=== PATIENT | male | born 1945 | race Caucasian/White ===

== ENCOUNTER 2020-05-01 09:14 | Outpatient (REF) | payer MEDICARE, SELFPAY ==
[2020-05-01 10:14] LABS: MANUAL DIFF FLAG NO
[2020-05-01 10:18] LABS: Basophils Percent Auto 0.5 % (0-2); Eosinophils Absolute Auto 0.1 X10*3/uL (0.0-0.4); Eosinophils Percent Auto 3.5 % (0-4); Hematocrit 37.2 % (42-52); Hemoglobin 12.3 g/dl (14.0-18.0); Lymphocytes Absolute Auto 0.9 X10*3/uL (1.2-4.9); Lymphocytes Percent Auto 24.6 % (20-40); Mean Corpuscular HGB Conc 33.1 g/dl (31.0-36.0); Mean Corpuscular Hemoglobin 32.1 pg (27.0-33.0); Mean Corpuscular Volume 97.1 fL (80-98); Mean Platelet Volume 10.4 fL (9.4-12.4); Monocytes Absolute Auto 0.4 X10*3/uL (0.1-1.2); Monocytes Percent Auto 10.2 % (2-11); Neutrophils Absolute Auto 2.3 X10*3/uL (2.0-8.3); Neutrophils Percent Auto 61.2 % (45-73); Platelet Count 163 X10*3/uL (160-400); Red Blood Count 3.83 X10*6/uL (4.60-5.80); Red Cell Distribution Width 11.9 % (11.0-16.0); White Blood Count 3.7 X10*3/uL (4.8-10.8)
[2020-05-01 10:48] LABS: Anion Gap 13 (12-20); Blood Urea Nitrogen 45 mg/dL (9-16); Calcium 8.8 mg/dL (8.4-10.2); Carbon Dioxide 28 mmol/L (22-29); Chloride 100 mmol/L (96-108); Estimated Glomerular Filt Rate 31; Phosphorus 4.1 mg/dL (2.7-4.5); Potassium 4.8 mmol/l (3.3-5.1); Sodium 136 mmol/L (135-145)
[2020-05-01 10:50] LABS: Glucose Urine UA NEG (NEG); Leukocyte Esterase Urine NEG (NEG); Nitrite Urine NEG (NEG); Specific Gravity - Urine 1.015 (1.005-1.025); Urine Blood TRACE (NEG); Urine Ketones NEG (NEG); Urine Protein NEG (NEG-TRACE)
[2020-05-01 10:52] LABS: Appearance Urine CLEAR; Color Urine YELLOW
[2020-05-01 11:00] LABS: Renal w Reflex Lab Use Only Order verified
[2020-05-01 11:01] LABS: Creatinine Urine 42.39 mg/dL; Creatinine Urine 42.63 mg/dL; Microalbum/Creatinine Ratio Ur 18.7 ug/mg cr; Total Protein Urine Random < 7 mg/dL (<12)
[2020-05-01 11:05] LABS: RBC Urine 0-2 /HPF (0); WBC Urine 0 /HPF (0-4)
[2020-05-01 11:06] LABS: Renal w Reflex-LAB USE ONLY Order Verified
[2020-05-03 08:42] LABS: Calcium (PTHI) 8.7 mg/dL (8.6-10.3); PTHI 70 pg/mL (14-64)
== END 2020-05-01 09:15 | disposition home or self-care (01) ==
LOC: HO.10HDL 09:14
PROVIDERS: Visit Provider Internal Medicine Nephrology
DX: I12.9 Hypertensive chronic kidney disease with stage 1 through stage 4 chronic kidney disease, or unspecified chronic kidney disease (principal); E11.22 Type 2 diabetes mellitus with diabetic chronic kidney disease; N18.30 Chronic kidney disease, stage 3 unspecified
CPT/HCPCS: 36415; 80051; 81001; 82043; 82306; 82310; 82565; 83970; 84100; 84156; 84520; 85025

== ENCOUNTER → 2020-05-28 11:18 | Outpatient (BNVA) | payer MEDICARE, SELFPAY | PROVIDERS: PCP Internal Medicine; Visit Provider Internal Medicine | DX: I48.19 Other persistent atrial fibrillation (principal); I11.0 Hypertensive heart disease with heart failure; I50.32 Chronic diastolic (congestive) heart failure; I95.1 Orthostatic hypotension | CPT/HCPCS: 93005; 99212 ==

== ENCOUNTER 2020-06-06 10:27 | Outpatient (REF) | payer MEDICARE, SELFPAY ==
[2020-06-06 12:10] LABS: Estimated Average Glucose 137 mg/dL; Hemoglobin A1c % 6.4 %
[2020-06-06 13:08] LABS: Alanine Aminotransferase 20 U/L (0-40); Albumin Level 3.8 g/dL (3.5-5.0); Alkaline Phosphatase 67 U/L (39-117); Aspartate Amino Transferase 16 U/L (5-37); Bilirubin Direct 0.6 mg/dL (0.0-0.5); Bilirubin Total 1.1 mg/dL (0.0-1.0); Glucose Fasting 60 mg/dL (60-99); Total Protein 6.5 g/dL (6.5-8.0)
[2020-06-06 13:50] LABS: Cholesterol 77 mg/dL; HDL Cholesterol 27 mg/dL; LDL Cholesterol Calculated 41 mg/dl; Triglycerides 46 mg/dL
[2020-06-06 14:29] LABS: Reflex LDLD? No
== END 2020-06-06 10:28 | disposition home or self-care (01) ==
LOC: HO.LNP 10:27
PROVIDERS: PCP Internal Medicine; Visit Provider Internal Medicine
DX: E11.9 Type 2 diabetes mellitus without complications (principal); E78.00 Pure hypercholesterolemia, unspecified
CPT/HCPCS: 80061; 80076; 82947; 83036

== ENCOUNTER → 2020-07-04 09:10 | Outpatient (REF) | payer MEDICARE, SELFPAY ==
--- NOTE | 2020-07-04 09:15 | CA_ITS ---
Transthoracic Echocardiogram Patient (Last, First, Middle): Steven Elise S Gender: Male Date of : 1945 Age: 75 Procedure Date: 07/04/2020 Procedure Type: Transthoracic Echocardiogram Location: OP Height: 177.8 cm Weight: 127.01 kg BSA: 2.41 m2 Heart Rate: bpm BP: 128 / 80 mmHg License Clerk: Referring MD: Wade Castañeda MD Symptoms: I50.32 - Chronic diastolic (congestive) heart failure Study Quality: Technically Difficult due to obesity Contrast used ECG Rhythm: Atrial Fibrillation Conclusions: - The left ventricular systolic function is normal. The visually estimated ejection fraction is between 55-60%. - No obvious valvular pathology seen on this study. - The inferior vena cava is mildly dilated and collapses less than 50% with inspiration. Findings Procedure Information Contrast agent, definity, is being given per protocol without apparent complications. Left Ventricle Normal left ventricular cavity size. There is mildly increased left ventricular wall thickness. The left ventricular systolic function is normal. The visually estimated ejection fraction is between 55-60%. There is no evidence of regional wall motion abnormalities. Diastolic function is indeterminate on the basis of available data. E/E prime ratio is between 8 and 15 consistent with indeterminate filling pressures. Right Ventricle The right ventricle was not well visualized. Normal right ventricular cavity size. There is normal right ventricular systolic function. Atria Severe biatrial enlargement. Aortic Valve There is mild calcification of the aortic valve. There is no aortic valve stenosis. There is no aortic valve regurgitation. Mitral Valve There is mild mitral annular calcification. There is trace mitral valve regurgitation. There is no mitral valve stenosis. Pulmonic Valve The pulmonic valve was not well visualized. Tricuspid Valve Normal tricuspid valve structure. There is trace tricuspid valve regurgitation. The right ventricular systolic pressure is normal. The pulmonary artery systolic pressure may be underestimated. Great Vessels The aortic annulus, sinuses of valsalva, and asc aorta are normal in size. Venous The inferior vena cava is mildly dilated and collapses less than 50% with inspiration. Pericardium/Pleural There is no evidence of pericardial effusion. Prior Study Comparison No significant change compared to prior study dated: 08/16/2018. Recommendations, Care & Conclusions No obvious valvular pathology seen on this study. Measurements 2D Linear Measurements IVSd: 1.23 0.6-0.9/0.6-1.0 cm LVIDd: 4.66 3.9-5.3/4.2-5.9 cm LVIDd Index: 1.93 2.4-3.2/2.2-3.1 cm/m2 LVIDs: 2.87 2.0-3.6 cm LVPWd: 1.25 0.7-1.1 cm Ao Root: 3.40 2.1-3.5 cm LA Diam: 4.80 2.7-3.8/3.0-4.0 cm LAIDs Index: 1.99 1.5-2.3 cm/m2 LV Mass: 273.31 67-162/88-224 g LV Mass Index: 113.41 43-95/49-115 g/m2 LVOT Diam: 2.10 3.0+(-)1.3 cm 2D Systolic Function EF 4C: 63.40 >55% EF 2C: 55.20 >55% EF BiP: 58.00 >55% Mitral Valve MV Pk E: 1.21 MV Decel Time: 253.00 E'Lateral: 12.50 E'Medial: 6.58 E/E' Med: 18.40 E/E' Lat: 9.70 PHT: 74.00 MVA PHT: 2.97 Decel [place]: 4.77 Aortic Valve AoV Pk Terence: 1.79 AoV Mn Terence: 1.10 AoV VTI: 0.39 AoV Pk Grad: 13.00 Aov Mn Grad: 6.00 CHRIS Cont.VTI: 1.85 LVOT LVOT Pk Terence: 0.86 LVOT Mn Terence: 0.62 LVOT VTI: 0.21 LVOT Pk Grad: 3.00 LVOT Mn Grad: 2.00 LVOT Diam: 2.10 LVOT Area: 3.46 Diastolic Function MV Pk E: 1.21 E'Medial: 6.58 E/E' Med: 18.40 E' Laterial: 12.50 E/E' Lat: 9.70 Tricuspid Valve TR Pk Terence: 1.93 TR Pk Grad: 15.00 Great Vessels Aorta Ao Root-2D: 3.40 2.0-3.7 cm Pulmonary Valve PV Pk Terence: 0.86 Peak PV Grad: 3.00 Updated in Other Vendor System with Status of Final Wade Castañeda MD electronically signed on 07/06/2020 9:44:13 AM with status of Final
--- NOTE | 2020-07-04 09:15 | ECG_ITS ---
Hook-up date: 2020-07-04 10:59:00 Duration: 47:59:00 Test Indications: PERSISTANT AFIB Medications: 28269 QRS complexes 32 Ventricular ectopics which represent <1 % of total QRS comp. * Supraventricular ectopics which represent % of total QRS comp. * Paced QRS complexs which represent % of total QRS comp. VENTRICULAR ECTOPY 32 Isolated 0 Bigeminal Cycles 0 Couplets 0 Runs 0 Beats in Runs * Beats LONGEST at * BPM at :: -- * Beats FASTEST at * BPM at :: -- SUPRAVENTRICULAR ECTOPY * Isolated * Couplets * Runs * Beats in Runs * Beats LONGEST at * BPM at :: -- * Beats FASTEST at * BPM at :: -- HEART RATES 40 MIN at 07:06:35 2020-07-05 65 AVG 106 MAX at 23:43:23 2020-07-04 LONGEST RR 2.2960 secs at 07:06:53 2020-07-05 S-T LEVELS Channel 1 - 128 mm at 10:59:00 2020-07-04 - 128 mm at 10:59:00 2020-07-04 Channel 2 - 128 mm at 10:59:00 2020-07-04 - 128 mm at 10:59:00 2020-07-04 Channel 3 - 128 mm at 03:01:81 -- - 128 mm at 03:01:81 Underlying rhythm is atrial fibrillation; Average ventricular rate 65/min; range 40-106/min; Rare PVCs; Patient did not report any symptoms in the diary Referred By: Jeffrey Rouse Overread By: JEFFREY ROUSE
== END ==
LOC: HO.CARD 09:10
PROVIDERS: Visit Provider Internal Medicine
DX: I48.19 Other persistent atrial fibrillation (principal); I50.32 Chronic diastolic (congestive) heart failure
CPT/HCPCS: 93225; 93226; 93306; Q9957

== ENCOUNTER → 2020-07-14 09:26 | Outpatient (BNVA) | payer MEDICARE, SELFPAY | PROVIDERS: PCP Internal Medicine; Visit Provider Internal Medicine | DX: I48.19 Other persistent atrial fibrillation (principal); I95.1 Orthostatic hypotension; I11.0 Hypertensive heart disease with heart failure; I50.32 Chronic diastolic (congestive) heart failure | CPT/HCPCS: 99212 ==

== ENCOUNTER 2020-10-24 10:29 | Outpatient (REF) | payer MEDICARE, SELFPAY ==
[2020-10-24 11:43] LABS: MANUAL DIFF FLAG NO
[2020-10-24 11:47] LABS: Basophils Percent Auto 0.7 % (0-2); Eosinophils Absolute Auto 0.1 X10*3/uL (0.0-0.4); Eosinophils Percent Auto 2.4 % (0-4); Hematocrit 41.6 % (42-52); Hemoglobin 13.7 g/dl (14.0-18.0); Imm Gran Abs Auto 0.01 X10*3/uL (0.00-0.03); Imm Gran Pct Auto 0.2 % (0.0-0.4); Lymphocytes Absolute Auto 0.9 X10*3/uL (1.2-4.9); Lymphocytes Percent Auto 19.2 % (20-40); Mean Corpuscular HGB Conc 32.9 g/dl (31.0-36.0); Mean Corpuscular Hemoglobin 31.6 pg (27.0-33.0); Mean Corpuscular Volume 95.9 fL (80-98); Mean Platelet Volume 10.5 fL (9.4-12.4); Monocytes Absolute Auto 0.4 X10*3/uL (0.1-1.2); Monocytes Percent Auto 9.4 % (2-11); Neutrophils Absolute Auto 3.1 X10*3/uL (2.0-8.3); Neutrophils Percent Auto 68.1 % (45-73); Platelet Count 186 X10*3/uL (160-400); Red Blood Count 4.34 X10*6/uL (4.60-5.80); Red Cell Distribution Width 12.4 % (11.0-16.0); White Blood Count 4.6 X10*3/uL (4.8-10.8)
[2020-10-24 11:50] LABS: Glucose Urine UA 250 MG/DL (NEG); Leukocyte Esterase Urine NEG (NEG); Nitrite Urine NEG (NEG); Urine Blood TRACE (NEG); Urine Ketones NEG (NEG); Urine Protein 1+ MG/DL (NEG-TRACE)
[2020-10-24 12:10] LABS: Albumin Level 3.6 g/dL (3.5-5.0); Anion Gap 11 (12-20); Blood Urea Nitrogen 32 mg/dL (9-16); Calcium 8.9 mg/dL (8.4-10.2); Carbon Dioxide 29 mmol/L (22-29); Chloride 102 mmol/L (96-108); Estimated Glomerular Filt Rate 40; Magnesium 1.8 mg/dL (1.6-2.6); Phosphorus 3.2 mg/dL (2.7-4.5); Sodium 137 mmol/L (135-145); Total Protein 6.6 g/dL (6.5-8.0)
[2020-10-24 12:13] LABS: Appearance Urine CLEAR; Color Urine YELLOW
[2020-10-24 12:17] LABS: WBC Urine 0 /HPF (0-4)
[2020-10-24 12:20] LABS: Creatinine Urine 112.24 mg/dL; Microalbum/Creatinine Ratio Ur 193.3 ug/mg cr; Protein/Creatinine Ratio, Ur 0.37 (<0.2); Total Protein Urine Random 41 mg/dL (<12)
[2020-10-24 12:39] LABS: Vitamin D 25-OH Total 19.2 ng/mL (>30)
[2020-10-24 13:05] LABS: Renal w Reflex Lab Use Only Order verified
[2020-10-27 15:11] LABS: Calcium (PTHI) 8.8 mg/dL (8.6-10.3); PTHI 70 pg/mL (14-64)
== END 2020-10-24 10:30 | disposition home or self-care (01) ==
LOC: HO.LAB 10:29
PROVIDERS: PCP Internal Medicine; Visit Provider Internal Medicine Nephrology
DX: I12.9 Hypertensive chronic kidney disease with stage 1 through stage 4 chronic kidney disease, or unspecified chronic kidney disease (principal); N18.30 Chronic kidney disease, stage 3 unspecified; E11.22 Type 2 diabetes mellitus with diabetic chronic kidney disease; E11.21 Type 2 diabetes mellitus with diabetic nephropathy
CPT/HCPCS: 36415; 80051; 81001; 81003; 82040; 82043; 82306; 82310; 82565; 83735; 83970; 84100; 84155; 84156; 84520; 85025

== ENCOUNTER 2020-12-16 10:36 | Outpatient (REF) | payer MEDICARE, SELFPAY ==
[2020-12-16 10:40] LABS: MANUAL DIFF FLAG NO
[2020-12-16 11:30] LABS: Basophils Percent Auto 0.7 % (0-2); Eosinophils Absolute Auto 0.2 X10*3/uL (0.0-0.4); Eosinophils Percent Auto 3.7 % (0-4); Hemoglobin 14.4 g/dl (14.0-18.0); Lymphocytes Absolute Auto 1.1 X10*3/uL (1.2-4.9); Lymphocytes Percent Auto 25.9 % (20-40); Mean Corpuscular HGB Conc 33.5 g/dl (31.0-36.0); Mean Corpuscular Hemoglobin 32.6 pg (27.0-33.0); Mean Corpuscular Volume 97.3 fL (80-98); Mean Platelet Volume 10.4 fL (9.4-12.4); Monocytes Absolute Auto 0.6 X10*3/uL (0.1-1.2); Monocytes Percent Auto 14.5 % (2-11); Neutrophils Absolute Auto 2.4 X10*3/uL (2.0-8.3); Neutrophils Percent Auto 55.2 % (45-73); Platelet Count 184 X10*3/uL (160-400); Red Blood Count 4.42 X10*6/uL (4.60-5.80); White Blood Count 4.3 X10*3/uL (4.8-10.8)
[2020-12-16 12:02] LABS: Alanine Aminotransferase 18 U/L (0-40); Albumin Level 3.8 g/dL (3.5-5.0); Alkaline Phosphatase 71 U/L (39-117); Anion Gap 9 (12-20); Aspartate Amino Transferase 15 U/L (5-37); Bilirubin Total 1.6 mg/dL (0.0-1.0); Blood Urea Nitrogen 27 mg/dL (9-16); Calcium 8.9 mg/dL (8.4-10.2); Carbon Dioxide 29 mmol/L (22-29); Chloride 102 mmol/L (96-108); Cholesterol 97 mg/dL; Estimated Glomerular Filt Rate 43; Glucose Fasting 146 mg/dL (60-99); HDL Cholesterol 32 mg/dL; LDL Cholesterol Calculated 53 mg/dl; Potassium 4.7 mmol/L (3.3-5.1); Sodium 135 mmol/L (135-145); Total Protein 6.7 g/dL (6.5-8.0); Triglycerides 63 mg/dL
[2020-12-16 12:21] LABS: PSA,Total (Free>4and<10) 0.09 ng/mL (0.00-4.00)
[2020-12-16 12:42] LABS: Appearance Urine CLEAR; Color Urine YELLOW; Glucose Urine UA NEG (NEG); Leukocyte Esterase Urine NEG (NEG); Nitrite Urine NEG (NEG); Urine Blood TRACE (NEG); Urine Ketones NEG (NEG); Urine Protein NEG (NEG-TRACE)
[2020-12-16 12:54] LABS: Microalbum/Creatinine Ratio Ur 293.5 ug/mg cr
[2020-12-16 13:03] LABS: RBC Urine 0-2 /HPF (0); Squamous Epithelial Cell Urine TRACE /LPF; WBC Urine 0-2 /HPF (0-4)
[2020-12-16 13:20] LABS: Estimated Average Glucose 186 mg/dL; Hemoglobin A1c % 8.1 %
[2020-12-16 13:34] LABS: Reflex LDLD? No
== END 2020-12-16 10:37 | disposition home or self-care (01) ==
LOC: HO.LNP 10:36
PROVIDERS: Visit Provider Internal Medicine
DX: Z00.00 Encounter for general adult medical examination without abnormal findings (principal); R79.9 Abnormal finding of blood chemistry, unspecified; E11.9 Type 2 diabetes mellitus without complications; I10 Essential (primary) hypertension; R59.1 Generalized enlarged lymph nodes
CPT/HCPCS: 80053; 80061; 81001; 81003; 82043; 83036; 84153; 85025

== ENCOUNTER → 2021-01-12 10:01 | Outpatient (BNVA) | payer MEDICARE, SELFPAY | PROVIDERS: PCP Internal Medicine; Referring Provider Internal Medicine; Visit Provider Internal Medicine | DX: I48.19 Other persistent atrial fibrillation (principal); I95.1 Orthostatic hypotension; I11.0 Hypertensive heart disease with heart failure; I50.32 Chronic diastolic (congestive) heart failure | CPT/HCPCS: 99212 ==

== ENCOUNTER 2021-03-13 13:34 | Outpatient (REF) | payer MEDICARE, SELFPAY ==
[2021-03-13 13:37] LABS: MANUAL DIFF FLAG NO
[2021-03-13 13:49] LABS: Basophils Percent Auto 0.7 % (0-2); Eosinophils Absolute Auto 0.1 X10*3/uL (0.0-0.4); Eosinophils Percent Auto 2.4 % (0-4); Hematocrit 42.6 % (42.0-52.0); Hemoglobin 14.4 g/dl (14.0-18.0); Imm Gran Abs Auto 0.01 X10*3/uL (0.00-0.03); Imm Gran Pct Auto 0.2 % (0.0-0.4); Lymphocytes Absolute Auto 0.8 X10*3/uL (1.2-4.9); Mean Corpuscular HGB Conc 33.8 g/dl (31.0-36.0); Mean Corpuscular Hemoglobin 32.5 pg (27.0-33.0); Mean Corpuscular Volume 96.2 fL (80.0-98.0); Mean Platelet Volume 10.5 fL (9.4-12.4); Monocytes Absolute Auto 0.5 X10*3/uL (0.1-1.2); Neutrophils Absolute Auto 3.1 x10*3/uL (2.0-8.3); Neutrophils Percent Auto 68.7 % (45-73); Platelet Count 168 X10*3/uL (160-400); Red Blood Count 4.43 X10*6/uL (4.60-5.80); Red Cell Distribution Width 12.3 % (11.0-16.0); White Blood Count 4.5 X10*3/uL (4.8-10.8)
[2021-03-13 14:17] LABS: Alanine Aminotransferase 27 U/L (0-40); Albumin Level 3.6 g/dL (3.5-5.0); Alkaline Phosphatase 80 U/L (39-117); Anion Gap 12 (12-20); Aspartate Amino Transferase 19 U/L (5-37); Bilirubin Total 1.4 mg/dL (0.0-1.0); Blood Urea Nitrogen 29 mg/dL (9-16); Calcium 9.1 mg/dL (8.4-10.2); Carbon Dioxide 27 mmol/L (22-29); Chloride 102 mmol/L (96-108); Estimated Glomerular Filt Rate 40; Glucose Random 257 mg/dL (60-115); Potassium 4.8 mmol/L (3.3-5.1); Sodium 136 mmol/L (135-145); Total Protein 6.6 g/dL (6.5-8.0)
[2021-03-13 14:37] LABS: Thyroid Stimulating Hormone 1.04 uIU/mL (0.32-4.0)
== END 2021-03-13 13:35 | disposition home or self-care (01) ==
LOC: HO.LNP 13:34
PROVIDERS: PCP Internal Medicine; Visit Provider Internal Medicine
DX: G47.10 Hypersomnia, unspecified (principal)
CPT/HCPCS: 80053; 84443; 85025

== ENCOUNTER 2021-04-16 12:33 | Outpatient (REF) | payer MEDICARE, SELFPAY ==
[2021-04-16 13:05] LABS: MANUAL DIFF FLAG NO
[2021-04-16 13:18] LABS: Basophils Percent Auto 0.4 % (0-2); Eosinophils Absolute Auto 0.1 X10*3/uL (0.0-0.4); Eosinophils Percent Auto 2.6 % (0-4); Hematocrit 42.5 % (42.0-52.0); Hemoglobin 14.5 g/dl (14.0-18.0); Imm Gran Abs Auto 0.01 X10*3/uL (0.00-0.03); Imm Gran Pct Auto 0.2 % (0.0-0.4); Lymphocytes Absolute Auto 0.9 X10*3/uL (1.2-4.9); Lymphocytes Percent Auto 19.1 % (20-40); Mean Corpuscular HGB Conc 34.1 g/dl (31.0-36.0); Mean Corpuscular Hemoglobin 32.4 pg (27.0-33.0); Mean Corpuscular Volume 94.9 fL (80.0-98.0); Mean Platelet Volume 9.9 fL (9.4-12.4); Monocytes Absolute Auto 0.4 X10*3/uL (0.1-1.2); Neutrophils Absolute Auto 3.4 x10*3/uL (2.0-8.3); Neutrophils Percent Auto 68.7 % (45-73); Platelet Count 169 X10*3/uL (160-400); Red Blood Count 4.48 X10*6/uL (4.60-5.80); Red Cell Distribution Width 12.2 % (11.0-16.0); White Blood Count 4.9 X10*3/uL (4.8-10.8)
[2021-04-16 13:39] LABS: Albumin Level 3.8 g/dL (3.5-5.0); Anion Gap 9 (12-20); Blood Urea Nitrogen 27 mg/dL (9-16); Calcium 9.4 mg/dL (8.4-10.2); Carbon Dioxide 29 mmol/L (22-29); Chloride 102 mmol/L (96-108); Estimated Glomerular Filt Rate 39; Magnesium 1.6 mg/dL (1.6-2.6); Phosphorus 3.6 mg/dL (2.7-4.5); Potassium 5.1 mmol/L (3.3-5.1); Sodium 135 mmol/L (135-145)
[2021-04-16 13:54] LABS: Appearance Urine CLEAR; Color Urine YELLOW; Glucose Urine UA NEG (NEG); Leukocyte Esterase Urine NEG (NEG); Nitrite Urine NEG (NEG); PH 6.5 (5.0-8.0); Urine Blood TRACE (NEG); Urine Ketones NEG (NEG); Urine Protein 1+ MG/DL (NEG-TRACE)
[2021-04-16 13:59] LABS: Vitamin D 25-OH Total 28.2 ng/mL (>30)
[2021-04-16 14:16] LABS: Amorphous Sediment Urine 1+ /LPF; WBC Urine 0 /HPF (0-4)
[2021-04-16 14:22] LABS: Creatinine Urine 56.78 mg/dL; Microalbum/Creatinine Ratio Ur 457.9 ug/mg cr; Protein/Creatinine Ratio, Ur 0.76 (<0.2); Total Protein Urine Random 43 mg/dL (<12)
[2021-04-17 12:21] LABS: Calcium (PTHI) 9.4 mg/dL (8.6-10.3); PTHI 38 pg/mL (14-64)
== END 2021-04-16 12:34 | disposition home or self-care (01) ==
LOC: HO.LAB 12:33
PROVIDERS: PCP Internal Medicine; Visit Provider Internal Medicine Nephrology
DX: N18.32 Chronic kidney disease, stage 3b (principal)
CPT/HCPCS: 36415; 80051; 81001; 81003; 82040; 82043; 82306; 82310; 82565; 83735; 83970; 84100; 84156; 84520; 85025; 87086

== ENCOUNTER 2021-06-15 10:32 | Outpatient (REF) | payer MEDICARE, SELFPAY ==
[2021-06-15 10:59] LABS: Estimated Average Glucose 240 mg/dL
[2021-06-15 11:06] LABS: Alanine Aminotransferase 24 U/L (0-40); Albumin Level 3.8 g/dL (3.5-5.0); Alkaline Phosphatase 79 U/L (39-117); Aspartate Amino Transferase 18 U/L (5-37); Bilirubin Direct 0.5 mg/dL (0.0-0.5); Bilirubin Total 1.2 mg/dL (0.0-1.0); Cholesterol 102 mg/dL; Glucose Fasting 283 mg/dL (60-99); HDL Cholesterol 25 mg/dL; LDL Cholesterol Calculated 57 mg/dl; Total Protein 6.7 g/dL (6.5-8.0); Triglycerides 102 mg/dL
[2021-06-15 11:10] LABS: Reflex LDLD? No
== END 2021-06-15 10:33 | disposition home or self-care (01) ==
LOC: HO.LNP 10:32
PROVIDERS: Visit Provider Internal Medicine
DX: E78.00 Pure hypercholesterolemia, unspecified (principal); E11.21 Type 2 diabetes mellitus with diabetic nephropathy
CPT/HCPCS: 80061; 80076; 82947; 83036

== ENCOUNTER → 2021-07-20 09:46 | Outpatient (BNVA) | payer MEDICARE, SELFPAY | PROVIDERS: PCP Internal Medicine; Referring Provider Internal Medicine; Visit Provider Internal Medicine | DX: I48.19 Other persistent atrial fibrillation (principal); I95.1 Orthostatic hypotension; I10 Essential (primary) hypertension; G47.33 Obstructive sleep apnea (adult) (pediatric); Z99.89 Dependence on other enabling machines and devices | CPT/HCPCS: 93005; 99212 ==

== ENCOUNTER 2021-11-06 07:10 | Day surgery (SDC) | payer MEDICARE, SELFPAY ==
[2021-11-02 12:20] VITALS: BMI 41.0
--- NOTE | 2021-11-05 12:04 | HO.ANESPROP2 ---
Documented by User: Charis Rooney NP 11/05/21 12:06 HPI - Anesthesia Eval Consult details Narrative: 76yo M for Colonoscopy Eliquis for afib Stable at [facility] cardiol 07/2021 [facility] Active Problems Active Problems: All Active Problems (Updated 11/02/21 @ 12:21 by Felicity Hoffman RN) Orthostatic hypotension (Acute) ABHAY on CPAP (Acute) Essential hypertension (Acute) Chronic heart failure with preserved ejection fraction (HFpEF) (Acute) Persistent atrial fibrillation (Acute) Past Medical History Medical History Chronic heart failure with preserved ejection fraction (HFpEF) Diabetes Essential hypertension ABHAY on CPAP Persistent atrial fibrillation Family History Family History Father No problems noted. Mother No problems noted. Surgical History Surgical History H/O colonoscopy History of appendectomy History of cholecystectomy History of knee replacement Hx of arthroscopy of right knee Social History Social History Patient Tobacco Use Status: Never used Tobacco Use of substances other than those prescribed or required for medical reasons: No Advance Directives: No Advance Directives Information Provided: Yes Nutrition Risks: No Nutritional Risk Meds Allergies Allergy/AdvReac Type Severity Reaction Status Date / Time No Known Allergies Allergy Mild NOT Verified 07/20/21 09:53 APPLICABLE Home Medications Medication Instructions Recorded Confirmed Last Taken Type atorvastatin 40 mg tablet 40 mg PO DAILY 05/28/20 11/02/21 Unknown History glipizide 5 mg tablet 2.5 mg PO BID 05/28/20 11/02/21 Unknown History insulin glargine 100 unit/mL 60 unit subcut DAILY 05/28/20 11/02/21 Unknown History subcutaneous solution irbesartan 300 mg tablet 300 mg PO DAILY 05/28/20 11/02/21 Unknown History metoprolol tartrate 100 mg tablet 100 mg PO BID 05/28/20 11/02/21 Unknown History spironolactone 25 mg tablet 25 mg PO DAILY 05/28/20 11/02/21 Unknown History escitalopram oxalate 20 mg tablet 20 mg PO DAILY 01/12/21 11/02/21 Unknown History bupropion HCl 150 mg tablet,12 hr 150 mg PO QAM 07/20/21 11/02/21 Unknown History sustained-release Exam Exam Date and Time: November 05, 2021 1204 Height,Weight and Vital Signs: Height 5 ft 9 in Weight 126 kg Pertinent Lab Results Pertinent Lab Results: Laboratory Tests 04/16/21 04/16/21 13:04 13:04 WBC 4.9 Hgb 14.5 Hct 42.5 Plt Count 169 Sodium 135 Potassium 5.1 Chloride 102 Carbon Dioxide 29 BUN 27 H Creatinine 1.70 H Narrative Narrative: EKG 07/2021 atrial fibrillation, 64/Min; no significant ST-T changes and otherwise unremarkable. ECHO 2020 Conclusions: - The left ventricular systolic function is normal.? The visually estimated ejection fraction is between 55-60%. ? - No obvious valvular pathology seen on this study.? - The inferior vena cava is mildly dilated and collapses less? ? than 50% with inspiration. ? Documented by User: Dilia Nava MD 11/06/21 08:07 [facility] Past Medical History Medical History Chronic heart failure with preserved ejection fraction (HFpEF) Diabetes Essential hypertension ABHAY on CPAP Persistent atrial fibrillation Family History Family History Father No problems noted. Mother No problems noted. Surgical History Surgical History H/O colonoscopy History of appendectomy History of cholecystectomy History of knee replacement Hx of arthroscopy of right knee History of Problems with Anesthesia: No Social History Social History Patient Tobacco Use Status: Never used Tobacco Use of substances other than those prescribed or required for medical reasons: No Advance Directives: No Advance Directives Information Provided: Yes Nutrition Risks: No Nutritional Risk Meds Allergies Allergy/AdvReac Type Severity Reaction Status Date / Time No Known Allergies Allergy Mild NOT Verified 07/20/21 09:53 APPLICABLE Home Medications Medication Instructions Recorded Confirmed Last Taken Type atorvastatin 40 mg tablet 40 mg PO DAILY 05/28/20 11/02/21 Unknown History glipizide 5 mg tablet 2.5 mg PO BID 05/28/20 11/02/21 Unknown History insulin glargine 100 unit/mL 60 unit subcut DAILY 05/28/20 11/02/21 Unknown History subcutaneous solution irbesartan 300 mg tablet 300 mg PO DAILY 05/28/20 11/02/21 Unknown History metoprolol tartrate 100 mg tablet 100 mg PO BID 05/28/20 11/02/21 Unknown History spironolactone 25 mg tablet 25 mg PO DAILY 05/28/20 11/02/21 Unknown History escitalopram oxalate 20 mg tablet 20 mg PO DAILY 01/12/21 11/02/21 Unknown History bupropion HCl 150 mg tablet,12 hr 150 mg PO QAM 07/20/21 11/02/21 Unknown History sustained-release Exam Airway Mallampati Class: III TM Dist: >3cm Neck ROM: Full Loose/Missing/Broken Teeth: No Heart: RRR Lungs: CTA Assessment and Plan Assessment Anesthesia Assessment: Anesthesia Plan Discussed and Chart Reviewed Final Anesthetic Review History of Problems with Anesthesia: No NPO: Yes ASA Class: III Final Preanesthetic Review: Meds/Allgs Chart Reviewed, Consent Obtained/Reviewed and Anes Risks/Benef Reviewed Patient Risk: Intermediate Procedure Risk: Low Anesthetic Plan Anesthetic Plan: MAC: Disposition: Standard PACU
[2021-11-06 07:37] VITALS: BP 142/78; PULSE 70; RESP 16; TEMP 36.3; O2SAT 98; BMI 41.3
[2021-11-06] MEDS: Lactated Ringers 1,000 ML 50 ML IVCONT (07:47)
[2021-11-06 07:51] LABS: Glucose, Whole Blood 199 mg/dL (60-115)
--- NOTE | 2021-11-06 08:19 | MHC.SHP ---
Pre-Procedural Eval Section A Date of Service: 11/06/21 Section B Chief Complaint: screening Details of Present Illness: seeH&P no changes Relevant Family History (Specify if Yes): No Relevant Social History: None Present Medications: None Medical History: No relevant PMH History of Previous Operations: No relevant previous surgery Allergies: Allergies Allergy/AdvReac Type Severity Reaction Status Date / Time No Known Allergies Allergy Mild NOT Verified 07/20/21 09:53 APPLICABLE Review of Systems Sugical H&P ROS: Negative: Constitution, Cardiovascular, Respiratory, Neurological, Psychiatric, Hem-Onc, Allergic/Immunologic, Gastrointestinal, Genitourinary, Musculoskeletal, Integumentary, Endocrine and Eyes/Ears/Nose/Throat Exam Surgical H&P Exam: Normal: HEENT, Normal: Heart, Normal: Lungs, Normal: Extremities, Normal: Abdomen, Normal: Skin and Normal: Neurological Plan Diagnosis/Plan: Unchanged I have reviewed the history and physical and performed a pertinent physical examination on my patient. No changes have occurred unless specified.
[2021-11-06 08:53] VITALS: BP 100/73; PULSE 77; RESP 16; TEMP 37.4; O2SAT 96
--- NOTE | 2021-11-06 09:00 | P.BOP_ITS ---
Brief Operative Note Date of Service: 11/06/21 Pre-op diagnosis: screening Post-op diagnosis: same Procedure: colonoscopy Surgeon: Jacob Washburn Anesthesia: MAC Was an Admitting Representative used for this Procedure?: No Estimated blood loss (mL): 2 Pathology: other Condition: stable Disposition: PACU
[2021-11-06 09:08] VITALS: BP 106/79; PULSE 74; RESP 18; O2SAT 95
[2021-11-06 09:23] VITALS: BP 123/70; PULSE 65; RESP 18; TEMP 36.4; O2SAT 95
--- NOTE | 2021-11-06 20:53 | OP_ITS ---
SURGEON: Jacob Washburn MD INDICATIONS: Colon cancer screening and prior history of adenomatous colon polyps. PREOPERATIVE DIAGNOSIS: POSTOPERATIVE DIAGNOSIS: PROCEDURE PERFORMED: Colonoscopy to the terminal ileum with biopsy and snare polypectomy. ESTIMATED BLOOD LOSS: COMPLICATIONS: ANESTHESIA: ASSISTANTS: SPECIMENS: MEDICATIONS: Monitored anesthesia care. DESCRIPTION OF PROCEDURE: History and physical were performed. The risks and benefits of the procedure were explained to the patient. Informed consent was obtained. The patient was placed in the left lateral decubitus position. A digital rectal exam was performed and was found to be normal. The Olympus pediatric video colonoscope was introduced into the rectum and advanced to the cecum without difficulty. The cecum was identified by transillumination, palpation, and identification of the ileocecal valve. Examination was performed. The scope was removed. He tolerated the procedure well and was taken to recovery area in stable condition. FINDINGS: The terminal ileum was examined and appeared normal. The visualized colonic mucosa was normal. There was some stool coating mucosa. This was washed and suctioned as best possible. This did limit the sensitivity examination for detection of small polyps. In the cecum, there was less than 5 mm polyp, which was removed with biopsy forceps. In the transverse colon, there were 3 less than 10 mm polyps, which were removed with a snare and recovered via suction. Retroflexed examination showed moderately large internal hemorrhoids. There was scattered diverticulosis throughout the colon. IMPRESSION: Colon polyps. RECOMMENDATION: Follow up the biopsy results. MD SHANNAN Jenkins/DARRELLL / [id number]
== END 2021-11-06 09:54 | disposition home or self-care (01) ==
PROVIDERS: PCP Internal Medicine; Visit Provider Internal Medicine Gastroenterology
PROC: 0DJD8ZZ Inspection of Lower Intestinal Tract, Via Natural or Artificial Opening Endoscopic (ICD-10-PCS; CPT 45378; principal; 2021-11-06 08:20)
DX: Z12.11 Encounter for screening for malignant neoplasm of colon (principal); Z86.010 Personal history of colon polyps; D12.0 Benign neoplasm of cecum; D12.3 Benign neoplasm of transverse colon; K57.30 Diverticulosis of large intestine without perforation or abscess without bleeding; K64.8 Other hemorrhoids; I10 Essential (primary) hypertension; I48.19 Other persistent atrial fibrillation; G47.33 Obstructive sleep apnea (adult) (pediatric); E11.9 Type 2 diabetes mellitus without complications; Z79.4 Long term (current) use of insulin; Z79.01 Long term (current) use of anticoagulants; Z79.899 Other long term (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; Z90.49 Acquired absence of other specified parts of digestive tract; Z96.653 Presence of artificial knee joint, bilateral
CPT/HCPCS: 45385; 45380; 82947; 88305; J2405

== ENCOUNTER 2021-12-18 11:01 | Outpatient (REF) | payer MEDICARE, SELFPAY ==
[2021-12-18 11:05] LABS: MANUAL DIFF FLAG NO
[2021-12-18 11:20] LABS: Basophils Percent Auto 0.6 % (0-2); Eosinophils Absolute Auto 0.2 X10*3/uL (0.0-0.4); Eosinophils Percent Auto 3.2 % (0-4); Hematocrit 43.1 % (42.0-52.0); Hemoglobin 14.6 g/dl (14.0-18.0); Imm Gran Abs Auto 0.01 X10*3/uL (0.00-0.03); Imm Gran Pct Auto 0.2 % (0.0-0.4); Lymphocytes Absolute Auto 1.4 X10*3/uL (1.2-4.9); Lymphocytes Percent Auto 26.3 % (20-40); Mean Corpuscular HGB Conc 33.9 g/dl (31.0-36.0); Mean Corpuscular Hemoglobin 32.3 pg (27.0-33.0); Mean Corpuscular Volume 95.4 fL (80.0-98.0); Mean Platelet Volume 10.7 fL (9.4-12.4); Monocytes Absolute Auto 0.6 X10*3/uL (0.1-1.2); Monocytes Percent Auto 11.9 % (2-11); Neutrophils Absolute Auto 3.1 x10*3/uL (2.0-8.3); Neutrophils Percent Auto 57.8 % (45-73); Platelet Count 184 X10*3/uL (160-400); Red Blood Count 4.52 X10*6/uL (4.60-5.80); Red Cell Distribution Width 12.8 % (11.0-16.0); White Blood Count 5.4 X10*3/uL (4.8-10.8)
[2021-12-18 11:35] LABS: Alanine Aminotransferase 24 U/L (0-40); Albumin Level 3.8 g/dL (3.5-5.0); Alkaline Phosphatase 100 U/L (39-117); Anion Gap 14 (12-20); Aspartate Amino Transferase 15 U/L (5-37); Blood Urea Nitrogen 31 mg/dL (9-16); Calcium 9.3 mg/dL (8.4-10.2); Carbon Dioxide 27 mmol/L (22-29); Chloride 98 mmol/L (96-108); Cholesterol 115 mg/dL; Estimated Glomerular Filt Rate 38; Glucose Fasting 208 mg/dL (60-99); HDL Cholesterol 30 mg/dL; LDL Cholesterol Calculated 60 mg/dl; Potassium 4.2 mmol/L (3.3-5.1); Sodium 135 mmol/L (135-145); Total Protein 6.9 g/dL (6.5-8.0); Triglycerides 125 mg/dL
[2021-12-18 11:41] LABS: Estimated Average Glucose 249 mg/dL; Hemoglobin A1c % 10.3 %
[2021-12-18 11:42] LABS: Appearance Urine Clear; Color Urine Yellow; Glucose Urine UA Negative (Negative); Leukocyte Esterase Urine Negative (Negative); Nitrite Urine Negative (Negative); PH 5.5 (5.0-9.0); Urine Blood Negative (Negative); Urine Ketones Negative (Negative); Urine Protein Trace mg/dL (Neg-Trace)
[2021-12-18 11:44] LABS: Bacteria Urine None Seen (None Seen); Hyaline Casts Urine 0-2 /LPF (0-2); RBC Urine 0-2 /HPF (0-2); Squamous Epithelial Cell Urine 0-2 /HPF (0-2); WBC Urine 0-5 /HPF (0-5)
[2021-12-18 11:56] LABS: PSA,Total (Free>4and<10) 0.13 ng/mL (0.00-4.00)
[2021-12-18 12:00] LABS: Creatinine Urine 67.24 mg/dL; Microalbum/Creatinine Ratio Ur 147.2 ug/mg cr
== END 2021-12-18 11:02 | disposition home or self-care (01) ==
LOC: HO.LNP 11:01
PROVIDERS: Visit Provider Internal Medicine
DX: Z00.00 Encounter for general adult medical examination without abnormal findings (principal); Z12.5 Encounter for screening for malignant neoplasm of prostate; E11.9 Type 2 diabetes mellitus without complications; E78.00 Pure hypercholesterolemia, unspecified; I10 Essential (primary) hypertension; R59.1 Generalized enlarged lymph nodes; K75.81 Nonalcoholic steatohepatitis (NASH)
CPT/HCPCS: 80053; 80061; 81001; 82043; 83036; 84153; 85025

== ENCOUNTER 2022-01-11 15:17 | Outpatient (REF) | payer MEDICARE, SELFPAY ==
[2022-01-11 15:43] LABS: MANUAL DIFF FLAG NO
[2022-01-11 16:19] LABS: Basophils Percent Auto 0.4 % (0-2); Eosinophils Absolute Auto 0.1 X10*3/uL (0.0-0.4); Eosinophils Percent Auto 2.3 % (0-4); Hematocrit 41.5 % (42.0-52.0); Hemoglobin 13.9 g/dl (14.0-18.0); Imm Gran Abs Auto 0.02 X10*3/uL (0.00-0.03); Imm Gran Pct Auto 0.4 % (0.0-0.4); Lymphocytes Percent Auto 19.4 % (20-40); Mean Corpuscular HGB Conc 33.5 g/dl (31.0-36.0); Mean Corpuscular Hemoglobin 31.7 pg (27.0-33.0); Mean Corpuscular Volume 94.5 fL (80.0-98.0); Mean Platelet Volume 10.6 fL (9.4-12.4); Monocytes Absolute Auto 0.5 X10*3/uL (0.1-1.2); Monocytes Percent Auto 9.4 % (2-11); Neutrophils Absolute Auto 3.6 x10*3/uL (2.0-8.3); Neutrophils Percent Auto 68.1 % (45-73); Platelet Count 182 X10*3/uL (160-400); Red Blood Count 4.39 X10*6/uL (4.60-5.80); Red Cell Distribution Width 12.4 % (11.0-16.0); White Blood Count 5.3 X10*3/uL (4.8-10.8)
[2022-01-11 16:42] LABS: Albumin Level 3.8 g/dL (3.5-5.0); Anion Gap 18 (12-20); Blood Urea Nitrogen 35 mg/dL (9-16); Calcium 9.5 mg/dL (8.4-10.2); Carbon Dioxide 26 mmol/L (22-29); Chloride 98 mmol/L (96-108); Estimated Glomerular Filt Rate 38; Magnesium 1.6 mg/dL (1.6-2.6); Phosphorus 4.4 mg/dL (2.7-4.5); Potassium 5.6 mmol/L (3.3-5.1); Sodium 136 mmol/L (135-145)
[2022-01-11 17:16] LABS: Appearance Urine Clear; Color Urine Yellow; Glucose Urine UA >=1000 mg/dL (Negative); Leukocyte Esterase Urine Negative (Negative); Nitrite Urine Negative (Negative); PH 5.5 (5.0-9.0); UMIC TRIGGER UA YES; Urine Blood Negative (Negative); Urine Ketones Negative (Negative); Urine Protein 30 (1+) mg/dL (Neg-Trace)
[2022-01-11 17:20] LABS: Bacteria Urine None Seen (None Seen); Hyaline Casts Urine 0-2 /LPF (0-2); RBC Urine 0-2 /HPF (0-2); Squamous Epithelial Cell Urine 0-2 /HPF (0-2); WBC Urine 0-5 /HPF (0-5)
[2022-01-11 17:47] LABS: Creatinine Urine 127.26 mg/dL; Microalbum/Creatinine Ratio Ur 117.8 ug/mg cr; Protein/Creatinine Ratio, Ur 0.22 (<0.2); Total Protein Urine Random 28 mg/dL (<12)
[2022-01-13 12:37] LABS: Calcium (PTHI) 9.5 mg/dL (8.6-10.3); PTHI 55 pg/mL (16-77)
== END 2022-01-11 15:18 | disposition home or self-care (01) ==
LOC: HO.LAB 15:17
PROVIDERS: PCP Internal Medicine; Visit Provider Internal Medicine Nephrology
DX: I12.9 Hypertensive chronic kidney disease with stage 1 through stage 4 chronic kidney disease, or unspecified chronic kidney disease (principal); N18.32 Chronic kidney disease, stage 3b; E11.22 Type 2 diabetes mellitus with diabetic chronic kidney disease; N25.0 Renal osteodystrophy
CPT/HCPCS: 36415; 80051; 81001; 82040; 82043; 82310; 82565; 83735; 83970; 84100; 84156; 84520; 85025; 87086

== ENCOUNTER 2022-01-26 08:56 | Outpatient (REF) | payer MEDICARE, SELFPAY ==
[2022-01-26 11:58] LABS: Anion Gap 16 (12-20); Blood Urea Nitrogen 24 mg/dL (9-16); Calcium 9.2 mg/dL (8.4-10.2); Carbon Dioxide 28 mmol/L (22-29); Chloride 98 mmol/L (96-108); Estimated Glomerular Filt Rate 40; Potassium 4.6 mmol/L (3.3-5.1); Sodium 137 mmol/L (135-145)
[2022-01-26 12:28] LABS: Appearance Urine Clear; Color Urine Yellow; Glucose Urine UA 500 mg/dL (Negative); Leukocyte Esterase Urine Negative (Negative); Nitrite Urine Negative (Negative); PH 5.5 (5.0-9.0); Specific Gravity - Urine 1.015 (1.005-1.025); UMIC TRIGGER UA YES; Urine Blood Negative (Negative); Urine Ketones Negative (Negative); Urine Protein 30 (1+) mg/dL (Neg-Trace)
[2022-01-26 12:33] LABS: Bacteria Urine None Seen (None Seen); Hyaline Casts Urine 0-2 /LPF (0-2); RBC Urine 0-2 /HPF (0-2); Squamous Epithelial Cell Urine 0-2 /HPF (0-2); WBC Urine 0-5 /HPF (0-5)
[2022-01-26 12:43] LABS: Creatinine Urine 59.35 mg/dL; Microalbum/Creatinine Ratio Ur 404.3 ug/mg cr; Protein/Creatinine Ratio, Ur 0.66 (<0.2); Total Protein Urine Random 39 mg/dL (<12)
== END 2022-01-26 08:57 | disposition home or self-care (01) ==
LOC: HO.10HDL 08:56
PROVIDERS: Visit Provider Internal Medicine Nephrology
DX: N18.32 Chronic kidney disease, stage 3b (principal)
CPT/HCPCS: 36415; 80051; 81001; 82043; 82310; 82565; 84156; 84520

== ENCOUNTER 2022-06-21 11:00 | Outpatient (REF) | payer MEDICARE, SELFPAY ==
[2022-06-21 12:25] LABS: Alanine Aminotransferase 21 U/L (0-40); Albumin Level 3.7 g/dL (3.5-5.0); Alkaline Phosphatase 82 U/L (39-117); Aspartate Amino Transferase 15 U/L (5-37); Bilirubin Direct 0.5 mg/dL (0.0-0.5); Bilirubin Total 1.9 mg/dL (0.0-1.0); Cholesterol 115 mg/dL; Glucose Fasting 173 mg/dL (60-99); HDL Cholesterol 26 mg/dL; LDL Cholesterol Calculated 67 mg/dl; Total Protein 6.5 g/dL (6.5-8.0); Triglycerides 114 mg/dL
[2022-06-21 12:45] LABS: Estimated Average Glucose 272 mg/dL; Hemoglobin A1c % 11.1 %
[2022-06-21 13:54] LABS: Reflex LDLD? No
== END 2022-06-21 11:01 | disposition home or self-care (01) ==
LOC: HO.LNP 11:00
PROVIDERS: Visit Provider Internal Medicine
DX: E11.9 Type 2 diabetes mellitus without complications (principal); E78.00 Pure hypercholesterolemia, unspecified
CPT/HCPCS: 80061; 80076; 82947; 83036

== ENCOUNTER → 2022-07-21 10:11 | Outpatient (BNVA) | payer MEDICARE, SELFPAY | PROVIDERS: PCP Internal Medicine; Referring Provider Internal Medicine; Visit Provider Internal Medicine | DX: I11.0 Hypertensive heart disease with heart failure (principal); I50.32 Chronic diastolic (congestive) heart failure; I48.19 Other persistent atrial fibrillation; I95.1 Orthostatic hypotension; G47.33 Obstructive sleep apnea (adult) (pediatric); Z99.89 Dependence on other enabling machines and devices | CPT/HCPCS: 93005; 99212 ==

== ENCOUNTER 2022-10-04 09:31 | Outpatient (REF) | payer MEDICARE, SELFPAY ==
[2022-10-04 09:52] LABS: MANUAL DIFF FLAG NO
[2022-10-04 10:36] LABS: Basophils Percent Auto 0.5 % (0-2); Eosinophils Absolute Auto 0.1 X10*3/uL (0.0-0.4); Eosinophils Percent Auto 3.1 % (0-4); Hematocrit 41.6 % (42.0-52.0); Imm Gran Abs Auto 0.01 X10*3/uL (0.00-0.03); Imm Gran Pct Auto 0.2 % (0.0-0.4); Lymphocytes Absolute Auto 0.7 X10*3/uL (1.2-4.9); Lymphocytes Percent Auto 17.3 % (20-40); Mean Corpuscular HGB Conc 33.7 g/dl (31.0-36.0); Mean Corpuscular Hemoglobin 31.7 pg (27.0-33.0); Mean Corpuscular Volume 94.1 fL (80.0-98.0); Mean Platelet Volume 9.5 fL (9.4-12.4); Monocytes Absolute Auto 0.4 X10*3/uL (0.1-1.2); Monocytes Percent Auto 9.6 % (2-11); Neutrophils Absolute Auto 2.9 x10*3/uL (2.0-8.3); Neutrophils Percent Auto 69.3 % (45-73); Platelet Count 177 X10*3/uL (160-400); Red Blood Count 4.42 X10*6/uL (4.60-5.80); Red Cell Distribution Width 12.9 % (11.0-16.0); White Blood Count 4.2 X10*3/uL (4.8-10.8)
[2022-10-04 10:45] LABS: Appearance Urine Clear; Color Urine Yellow; Glucose Urine UA 100 mg/dL (Negative); Leukocyte Esterase Urine Negative (Negative); Nitrite Urine Negative (Negative); PH 6.5 (5.0-9.0); UMIC TRIGGER UA YES; Urine Blood Trace (Negative); Urine Ketones Negative (Negative); Urine Protein 300 (3+) mg/dL (Neg-Trace)
[2022-10-04 10:51] LABS: Bacteria Urine None Seen (None Seen); Hyaline Casts Urine 0-2 /LPF (0-2); Squamous Epithelial Cell Urine 0-2 /HPF (0-2); WBC Urine 0-5 /HPF (0-5)
[2022-10-04 11:45] LABS: Creatinine Urine 103.28 mg/dL; Microalbum/Creatinine Ratio Ur 1196.7 ug/mg cr; Total Protein Urine Random 196 mg/dL (<12)
[2022-10-04 11:55] LABS: Albumin Level 3.5 g/dL (3.5-5.0); Anion Gap 11 (12-20); Blood Urea Nitrogen 22 mg/dL (9-16); Carbon Dioxide 30 mmol/L (22-29); Chloride 102 mmol/L (96-108); Estimated Glomerular Filt Rate 48; Magnesium 1.8 mg/dL (1.6-2.6); Sodium 139 mmol/L (135-145)
[2022-10-05 16:44] LABS: Calcium (PTHI) 8.6 mg/dL (8.6-10.3); PTHI 69 pg/mL (16-77)
== END 2022-10-04 09:32 | disposition home or self-care (01) ==
LOC: HO.LAB 09:31
PROVIDERS: PCP Internal Medicine; Visit Provider Internal Medicine Nephrology
DX: E11.22 Type 2 diabetes mellitus with diabetic chronic kidney disease (principal); I12.9 Hypertensive chronic kidney disease with stage 1 through stage 4 chronic kidney disease, or unspecified chronic kidney disease; N18.32 Chronic kidney disease, stage 3b; N25.0 Renal osteodystrophy; R82.90 Unspecified abnormal findings in urine
CPT/HCPCS: 36415; 80051; 81001; 82040; 82043; 82306; 82310; 82565; 83735; 83970; 84100; 84156; 84520; 85025; 87086

== ENCOUNTER 2022-10-08 13:30 | Outpatient (REF) | payer MEDICARE, SELFPAY ==
[2022-10-08 14:10] LABS: Appearance Urine Clear; Color Urine Yellow; Glucose Urine UA 100 mg/dL (Negative); Leukocyte Esterase Urine Negative (Negative); Nitrite Urine Negative (Negative); PH 5.5 (5.0-9.0); UMIC TRIGGER UA YES; Urine Blood Trace (Negative); Urine Ketones Negative (Negative); Urine Protein 300 (3+) mg/dL (Neg-Trace)
[2022-10-08 14:20] LABS: Bacteria Urine None Seen (None Seen); Hyaline Casts Urine 0-2 /LPF (0-2); RBC Urine 0-2 /HPF (0-2); Squamous Epithelial Cell Urine 0-2 /HPF (0-2); WBC Urine 0-5 /HPF (0-5)
== END 2022-10-08 13:31 | disposition home or self-care (01) ==
LOC: HO.LNP 13:30
PROVIDERS: Visit Provider Internal Medicine
DX: R31.9 Hematuria, unspecified (principal); R80.9 Proteinuria, unspecified
CPT/HCPCS: 81001; 87086

== ENCOUNTER 2022-12-20 10:31 | Outpatient (REF) | payer MEDICARE, SELFPAY ==
[2022-12-20 10:34] LABS: MANUAL DIFF FLAG NO
[2022-12-20 11:21] LABS: Estimated Average Glucose 171 mg/dL; Hemoglobin A1c % 7.6 % (<6.0)
[2022-12-20 11:22] LABS: Basophils Percent Auto 0.8 % (0-2); Eosinophils Absolute Auto 0.1 X10*3/uL (0.0-0.4); Eosinophils Percent Auto 2.9 % (0-4); Hematocrit 42.8 % (42.0-52.0); Hemoglobin 14.7 g/dl (14.0-18.0); Imm Gran Abs Auto 0.01 X10*3/uL (0.00-0.03); Imm Gran Pct Auto 0.3 % (0.0-0.4); Lymphocytes Absolute Auto 1.4 X10*3/uL (1.2-4.9); Lymphocytes Percent Auto 36.3 % (20-40); Mean Corpuscular HGB Conc 34.3 g/dl (31.0-36.0); Mean Platelet Volume 10.8 fL (9.4-12.4); Monocytes Absolute Auto 0.4 X10*3/uL (0.1-1.2); Monocytes Percent Auto 9.5 % (2-11); Neutrophils Absolute Auto 1.9 x10*3/uL (2.0-8.3); Neutrophils Percent Auto 50.2 % (45-73); Red Cell Distribution Width 13.4 % (11.0-16.0); White Blood Count 3.8 X10*3/uL (4.8-10.8)
[2022-12-20 11:27] LABS: Appearance Urine Clear; Color Urine Yellow; Glucose Urine UA Negative (Negative); Leukocyte Esterase Urine Negative (Negative); Nitrite Urine Negative (Negative); PH 6.5 (5.0-9.0); Specific Gravity - Urine 1.015 (1.005-1.025); UMIC TRIGGER UACC YES; Urine Blood Trace (Negative); Urine Ketones Negative (Negative); Urine Protein 100 (2+) mg/dL (Neg-Trace)
[2022-12-20 11:28] LABS: Alanine Aminotransferase 14 U/L (0-40); Albumin Level 3.7 g/dL (3.5-5.0); Alkaline Phosphatase 68 U/L (39-117); Anion Gap 10 (12-20); Aspartate Amino Transferase 18 U/L (5-37); Bilirubin Total 1.4 mg/dL (0.0-1.0); Blood Urea Nitrogen 30 mg/dL (9-16); Calcium 9.2 mg/dL (8.4-10.2); Carbon Dioxide 32 mmol/L (22-29); Chloride 102 mmol/L (96-108); Cholesterol 95 mg/dL (<200); Estimated Glomerular Filt Rate 44; Glucose Fasting 80 mg/dL (60-99); HDL Cholesterol 27 mg/dL (>40); LDL Cholesterol Calculated 54 mg/dL (<100); Potassium 3.4 mmol/L (3.3-5.1); Sodium 141 mmol/L (135-145); Total Protein 7.2 g/dL (6.5-8.0); Triglycerides 72 mg/dL (<150)
[2022-12-20 11:32] LABS: Platelet Count 93 X10*3/uL (160-400)
[2022-12-20 11:33] LABS: Bacteria Urine None Seen (None Seen); Hyaline Casts Urine 0-2 /LPF (0-2); Squamous Epithelial Cell Urine 0-2 /HPF (0-2); WBC Urine 0-5 /HPF (0-5)
[2022-12-20 11:46] LABS: PSA,Total (Free>4and<10) 0.12 ng/mL (0.00-4.00)
[2022-12-20 12:29] LABS: Creatinine Urine 96.42 mg/dL
[2022-12-20 12:48] LABS: Microalbum/Creatinine Ratio Ur 550.7 ug/mg cr (<30)
== END 2022-12-20 10:32 | disposition home or self-care (01) ==
LOC: HO.LNP 10:31
PROVIDERS: PCP Internal Medicine; Visit Provider Internal Medicine
DX: Z00.00 Encounter for general adult medical examination without abnormal findings (principal); E11.22 Type 2 diabetes mellitus with diabetic chronic kidney disease; E78.00 Pure hypercholesterolemia, unspecified; N18.30 Chronic kidney disease, stage 3 unspecified; Z12.5 Encounter for screening for malignant neoplasm of prostate
CPT/HCPCS: 80053; 80061; 81001; 82043; 82570; 83036; 84153; 85025

== ENCOUNTER 2022-12-27 11:30 | Outpatient (REF) | payer MEDICARE, SELFPAY ==
[2022-12-27 11:37] LABS: MANUAL DIFF FLAG NO
[2022-12-27 11:53] LABS: Basophils Percent Auto 0.5 % (0-2); Eosinophils Absolute Auto 0.1 X10*3/uL (0.0-0.4); Eosinophils Percent Auto 3.1 % (0-4); Hematocrit 40.7 % (42.0-52.0); Hemoglobin 13.9 g/dl (14.0-18.0); Imm Gran Abs Auto 0.01 X10*3/uL (0.00-0.03); Imm Gran Pct Auto 0.2 % (0.0-0.4); Lymphocytes Percent Auto 24.6 % (20-40); Mean Corpuscular HGB Conc 34.2 g/dl (31.0-36.0); Mean Corpuscular Hemoglobin 32.3 pg (27.0-33.0); Mean Corpuscular Volume 94.4 fL (80.0-98.0); Mean Platelet Volume 10.8 fL (9.4-12.4); Monocytes Absolute Auto 0.4 X10*3/uL (0.1-1.2); Monocytes Percent Auto 10.4 % (2-11); Neutrophils Absolute Auto 2.6 x10*3/uL (2.0-8.3); Neutrophils Percent Auto 61.2 % (45-73); Red Blood Count 4.31 X10*6/uL (4.60-5.80); Red Cell Distribution Width 13.5 % (11.0-16.0); White Blood Count 4.2 X10*3/uL (4.8-10.8)
[2022-12-27 11:54] LABS: Platelet Count 84 X10*3/uL (160-400)
[2022-12-27 12:02] LABS: Appearance Urine Clear; Color Urine Yellow; Glucose Urine UA Negative (Negative); Leukocyte Esterase Urine Negative (Negative); Nitrite Urine Negative (Negative); PH 5.5 (5.0-9.0); UMIC TRIGGER UA YES; Urine Blood Trace (Negative); Urine Ketones Negative (Negative); Urine Protein Trace mg/dL (Neg-Trace)
[2022-12-27 12:09] LABS: Bacteria Urine None Seen (None Seen); Hyaline Casts Urine 0-2 /LPF (0-2); RBC Urine 0-2 /HPF (0-2); Squamous Epithelial Cell Urine 0-2 /HPF (0-2); WBC Urine 0-5 /HPF (0-5)
== END 2022-12-27 11:31 | disposition home or self-care (01) ==
LOC: HO.LNP 11:30
PROVIDERS: Visit Provider Internal Medicine
DX: R31.9 Hematuria, unspecified (principal); D69.6 Thrombocytopenia, unspecified
CPT/HCPCS: 81001; 85025

== ENCOUNTER → 2023-01-20 08:17 | Outpatient (REF) | payer MEDICARE, SELFPAY ==
--- NOTE | 2023-01-20 08:20 | CA_ITS ---
Transthoracic Echocardiogram Patient (Last, First, Middle): Steven Elise S Gender: Male Date of : 1945 Age: 77 Procedure Date: 01/20/2023 Procedure Type: Transthoracic Echocardiogram Location: OP Height: 175.26 cm Weight: 124.74 kg BSA: 2.37 m2 Heart Rate: bpm BP: 120 / 70 mmHg Dance Historian: TO Referring MD: Wade Castañeda MD Symptoms: I48.19 - Other persistent atrial fibrillation Study Quality: Technically Difficult, contrast Conclusions: - Normal left ventricular size and systolic function. There is mildly increased left ventricular wall thickness. The visually estimated ejection fraction is between 60-65%. - There is severe basal asymmetric hypertrophy. - Normal right ventricular cavity size. - There is mildly decreased right ventricular systolic function. - Significantly elevated right atrial pressure. - There is mild aortic valve stenosis. Findings Procedure Information Contrast agent, definity, is being given per protocol without apparent complications. Left Ventricle Normal left ventricular size and systolic function. There is mildly increased left ventricular wall thickness. The visually estimated ejection fraction is between 60-65%. There is no evidence of regional wall motion abnormalities. Diastolic function is indeterminate on the basis of available data. There is severe basal asymmetric hypertrophy. Right Ventricle Normal right ventricular cavity size. There is mildly decreased right ventricular systolic function. Atria The left atrium is severely dilated. The right atrium is normal in size. Aortic Valve There is a normal trileaflet aortic valve. There is mild thickening of the aortic valve. There is mild aortic valve stenosis. There is trace (trivial) aortic valve regurgitation. Mitral Valve The mitral valve appears normal. There is mild mitral annular calcification. There is trace mitral valve regurgitation. There is no mitral valve stenosis. Pulmonic Valve The pulmonic valve is likely normal. Tricuspid Valve Normal tricuspid valve structure. There is trace tricuspid valve regurgitation. Significantly elevated right atrial pressure. There is no evidence of pulmonary hypertension. Great Vessels All visible segments of the aorta are normal in size. The visualized portions of the pulmonary artery and branches are normal. Venous The inferior vena cava is dilated and collapses less than 50% with inspiration. Pericardium/Pleural There is no evidence of pericardial effusion. Prior Study Comparison Changes noted compared to prior study dated: 07/04/2020. severe basal septal hypertrophy Measurements 2D Linear Measurements IVSd: 1.90 0.6-0.9/0.6-1.0 cm LVIDd: 4.49 3.9-5.3/4.2-5.9 cm LVIDd Index: 1.89 2.4-3.2/2.2-3.1 cm/m2 LVIDs: 2.98 2.0-3.6 cm LVPWd: 1.20 0.7-1.1 cm LA Diam: 4.60 2.7-3.8/3.0-4.0 cm LAIDs Index: 1.94 1.5-2.3 cm/m2 LV Mass: 360.60 67-162/88-224 g LV Mass Index: 152.15 43-95/49-115 g/m2 LVOT Diam: 2.00 3.0+(-)1.3 cm 2D Systolic Function EF 4C: 63.00 >55% Mitral Valve MV VTI: 0.31 MV Pk Terence: 1.19 MV Mn Terence: 0.60 MV Pk Grad: 6.00 MV Mn Grad: 2.00 MV Pk E: 1.11 MV Decel Time: 155.00 E'Lateral: 9.90 E'Medial: 5.00 E/E' Med: 22.20 E/E' Lat: 11.20 PHT: 45.00 MVA PHT: 4.89 MVA Continuity: 1.73 Decel Wise: 7.20 Aortic Valve AoV Pk Terence: 1.90 AoV Mn Terence: 1.19 AoV VTI: 0.38 AoV Pk Grad: 14.00 Aov Mn Grad: 7.00 CHRIS Cont.VTI: 1.42 LVOT LVOT Pk Terence: 0.73 LVOT Mn Terence: 0.55 LVOT VTI: 0.17 LVOT Pk Grad: 2.00 LVOT Mn Grad: 1.00 LVOT Diam: 2.00 LVOT Area: 3.14 Diastolic Function MV Pk E: 1.11 E'Medial: 5.00 E/E' Med: 22.20 E' Laterial: 9.90 E/E' Lat: 11.20 Right Ventricle TAPSE (mm): 16.00 TVS' Terence: 9.39 Tricuspid Valve RA Press: 15.00 RVSP: 25.00 Great Vessels Aorta Sinus of Valsalva: 3.19 2.0-3.[address] [place]: 2.40 1.7-3.4 cm Ao Asc: 3.40 2.1-3.4 cm Updated in Other Vendor System with Status of Final Gulshan Phillips MD electronically signed on 01/21/2023 3:24:58 PM with status of Final
== END ==
LOC: HO.CARD 08:17
PROVIDERS: PCP Internal Medicine; Visit Provider Internal Medicine
DX: I48.19 Other persistent atrial fibrillation (principal)
CPT/HCPCS: 93306; Q9957

== ENCOUNTER → 2023-01-20 08:20 | Outpatient (BNV) | payer MEDICARE, SELFPAY | PROVIDERS: PCP Internal Medicine; Visit Provider Internal Medicine Cardiovascular Disease | DX: I35.0 Nonrheumatic aortic (valve) stenosis (principal) | CPT/HCPCS: 93306 ==

== ENCOUNTER 2023-01-26 13:14 | Outpatient (AMB) | payer MEDICARE, SELFPAY ==
--- NOTE | 2023-01-26 13:20 | A.OFFVIS_ITS ---
Intake Vital Signs 01/26/23 13:21 Height 5 ft 9 in Weight 277 lb 12.519 oz BMI 41.0 BP 148/80 H Blood Pressure Location Lt brachial Position Sitting Pulse 77 Intake Visit Reasons: 6 month follow up Intake Note: 6 month follow up Associate Veterinarian Required: No Accompanied by: Self / Same As Patient Allergies No Known Allergies Allergy (Mild, Verified 07/21/22 10:16) NOT APPLICABLE Medication List - Last Reconciled 01/26/23 by Wade Castañeda MD apixaban (Eliquis) 5 mg PO BID 90 days atorvastatin 40 mg PO DAILY bupropion HCl 150 mg PO QAM escitalopram oxalate 20 mg PO DAILY furosemide 80 mg PO DAILY insulin glargine 60 units subcut DAILY irbesartan 300 mg PO DAILY metoprolol tartrate 100 mg PO BID spironolactone 25 mg PO DAILY HPI HPI Comments History of Present Illness Details Steven returns for follow-up regarding atrial fibrillation and diastolic heart failure. Overall, he is doing fine. He denies any clear-cut symptoms like angina or shortness of breath or in fact anything cardiac sounding. Leg swelling has been chronic. Probably slightly better. Otherwise, getting along okay. [facility] Medical History Chronic heart failure with preserved ejection fraction (HFpEF) Diabetes Essential hypertension ABHAY on CPAP Persistent atrial fibrillation Surgical History H/O colonoscopy Hx of arthroscopy of right knee History of knee replacement History of cholecystectomy History of appendectomy Family History Father No problems noted. Mother No problems noted. Social History Alcohol intake: never Patient Tobacco Use Status: Never used Tobacco Review of Systems Const Denies weakness ENT Denies dizziness Card Denies chest pain, Denies chest pain with activity, Denies syncope, Denies rapid heart rate, Denies pedal edema, Denies edema, Denies leg edema, Denies lightheadedness, Denies palpitations, Denies dyspnea, Denies dyspnea on exertion and Denies orthopnea Resp Denies cough, Denies dyspnea and Denies dyspnea on exertion GI Denies hematochezia and Denies change in stool character Musc Denies abnormal gait, Denies muscle cramps, Denies muscle weakness, Denies numbness, Denies radiating pain into limb and Denies tingling Neuro Denies abnormal gait, Denies dizziness, Denies syncope, Denies numbness, Denies tingling and Denies weakness Endo Denies palpitations Physical Exam Vital Signs: Last Vital Signs Pulse 77 01/26/23 13:21 BP 148/80 H 01/26/23 13:21 BMI result Body Mass Index 41.0 Const General: comfortable and no acute distress Orientation/consciousness: patient oriented x3 HEENT Other: Unremarkable Head: Yes normal to inspection Neck Neck: Yes normal visual inspection Chest Chest palpation & inspection: normal inspection of the chest Resp Auscultation: clear to auscultation bilaterally Cardio Palpation: normal PMI Heart sounds: S1 normal heart sound present, S2 normal heart sound present, no gallops, Murmur heart sound present systolic I/ and no rubs GI Palpation (GI): Soft to palpation Back/Spine/Pelvis Other: unremarkable Skin General skin exam: no rashes or lesions noted Neuro General: patient oriented x3 Extrem Other: 2+ edema, R>L General: Yes normal to inspection Psych Mental Status: mental status grossly normal Assessment & Plan Assessment & Plan (1) Persistent atrial fibrillation: Code(s): I48.19 - Other persistent atrial fibrillation Plan: Continue beta-blockers. Continue anticoagulation. (2) Chronic heart failure with preserved ejection fraction (HFpEF): Code(s): I50.32 - Chronic diastolic (congestive) heart failure Plan: Chronic finding. Suspected multifactorial from some combination obesity, venous insufficiency, right heart dysfunction, atrial fibrillation. Also has chronic kidney disease. No specific changes. (3) Essential hypertension: Code(s): I10 - Essential (primary) hypertension Plan: Home blood pressures are only the 120s to 130s per patient. No specific changes. (4) Orthostatic hypotension: Code(s): I95.1 - Orthostatic hypotension Plan: Stable. Off Doxazosin. (5) ABHAY on CPAP: Code(s): G47.33 - Obstructive sleep apnea (adult) (pediatric); Z99.89 - Dependence on other enabling machines and devices Plan: Using CPAP regularly. Coding Level of Care Code Est Pt Level 4 (53828) Diagnoses Persistent atrial fibrillation I48.19 Chronic heart failure with preserved ejection fraction (HFpEF) I50.32 Essential hypertension I10 Orthostatic hypotension I95.1 ABHAY on CPAP G47.33; Z99.89
[2023-01-26 13:21] VITALS: BP 148/80; PULSE 77; BMI 41.0
== END 2023-01-26 13:38 | disposition home or self-care (01) ==
PROVIDERS: PCP Internal Medicine; Visit Provider Internal Medicine
DX: I48.19 Other persistent atrial fibrillation (principal); I50.32 Chronic diastolic (congestive) heart failure; I10 Essential (primary) hypertension; I95.1 Orthostatic hypotension; G47.33 Obstructive sleep apnea (adult) (pediatric); Z99.89 Dependence on other enabling machines and devices
CPT/HCPCS: 99214

== ENCOUNTER → 2023-01-26 13:14 | Outpatient (BNVA) | payer MEDICARE, SELFPAY | PROVIDERS: PCP Internal Medicine; Visit Provider Internal Medicine | DX: I11.0 Hypertensive heart disease with heart failure (principal); I50.32 Chronic diastolic (congestive) heart failure; I48.19 Other persistent atrial fibrillation; I95.1 Orthostatic hypotension; G47.33 Obstructive sleep apnea (adult) (pediatric); Z99.89 Dependence on other enabling machines and devices | CPT/HCPCS: 99212 ==

== ENCOUNTER 2023-02-07 08:56 | Outpatient (REF) | payer MEDICARE, SELFPAY ==
[2023-02-07 09:20] LABS: MANUAL DIFF FLAG NO
[2023-02-07 09:25] LABS: Basophils Percent Auto 0.6 % (0-2); Eosinophils Absolute Auto 0.1 X10*3/uL (0.0-0.4); Eosinophils Percent Auto 3.4 % (0-4); Hemoglobin 13.4 g/dl (14.0-18.0); Imm Gran Abs Auto 0.01 X10*3/uL (0.00-0.03); Imm Gran Pct Auto 0.3 % (0.0-0.4); Lymphocytes Absolute Auto 0.9 X10*3/uL (1.2-4.9); Lymphocytes Percent Auto 27.2 % (20-40); Mean Corpuscular HGB Conc 35.3 g/dl (31.0-36.0); Mean Corpuscular Hemoglobin 33.2 pg (27.0-33.0); Mean Corpuscular Volume 94.1 fL (80.0-98.0); Mean Platelet Volume 10.3 fL (9.4-12.4); Monocytes Absolute Auto 0.3 X10*3/uL (0.1-1.2); Neutrophils Percent Auto 60.5 % (45-73); Red Blood Count 4.04 X10*6/uL (4.60-5.80); White Blood Count 3.2 X10*3/uL (4.8-10.8)
[2023-02-07 09:48] LABS: Platelet Count 49 X10*3/uL (160-400)
[2023-02-07 10:05] LABS: Albumin Level 3.7 g/dL (3.5-5.0); Anion Gap 15 (12-20); Blood Urea Nitrogen 30 mg/dL (9-16); Calcium 9.2 mg/dL (8.4-10.2); Carbon Dioxide 26 mmol/L (22-29); Chloride 100 mmol/L (96-108); Estimated Glomerular Filt Rate 36; Magnesium 1.8 mg/dL (1.6-2.6); Phosphorus 3.5 mg/dL (2.7-4.5); Potassium 3.8 mmol/L (3.3-5.1); Sodium 137 mmol/L (135-145)
[2023-02-07 10:22] LABS: Vitamin D 25-OH Total 42.5 ng/mL (>30)
[2023-02-07 13:09] LABS: Appearance Urine Clear; Color Urine Yellow; Glucose Urine UA 100 mg/dL (Negative); Leukocyte Esterase Urine Negative (Negative); Nitrite Urine Negative (Negative); UMIC TRIGGER UA YES; Urine Blood Trace (Negative); Urine Ketones Negative (Negative); Urine Protein 30 (1+) mg/dL (Neg-Trace)
[2023-02-07 13:12] LABS: Bacteria Urine None Seen (None Seen); Hyaline Casts Urine 0-2 /LPF (0-2); RBC Urine 0-2 /HPF (0-2); Squamous Epithelial Cell Urine 0-2 /HPF (0-2); WBC Urine 0-5 /HPF (0-5)
[2023-02-07 13:47] LABS: Microalbum/Creatinine Ratio Ur 236.6 ug/mg cr (<30); Protein/Creatinine Ratio, Ur 0.39 (<0.2); Total Protein Urine Random 27 mg/dL (<12)
[2023-02-08 18:08] LABS: Calcium (PTHI) 8.9 mg/dL (8.6-10.3); PTHI 45 pg/mL (16-77)
== END 2023-02-07 08:57 | disposition home or self-care (01) ==
LOC: HO.LAB 08:56
PROVIDERS: Visit Provider Internal Medicine Nephrology
DX: I12.9 Hypertensive chronic kidney disease with stage 1 through stage 4 chronic kidney disease, or unspecified chronic kidney disease (principal); E11.22 Type 2 diabetes mellitus with diabetic chronic kidney disease; N18.32 Chronic kidney disease, stage 3b; N25.0 Renal osteodystrophy; R60.9 Edema, unspecified
CPT/HCPCS: 36415; 80051; 81001; 82040; 82043; 82306; 82310; 82565; 82570; 83735; 83970; 84100; 84156; 84520; 85025

== ENCOUNTER → 2023-02-11 10:07 | Outpatient (BNV) | payer MEDICARE, SELFPAY | PROVIDERS: PCP Internal Medicine; Visit Provider Internal Medicine Medical Oncology | DX: D61.818 Other pancytopenia (principal) | CPT/HCPCS: 99204 ==

== ENCOUNTER 2023-03-16 09:57 | Outpatient (REF) | payer MEDICARE, SELFPAY ==
--- NOTE | ~2023-03-16 | US_ITS ---
EXAMINATION: US ABDOMEN COMPLETE CLINICAL INFORMATION: Pancytopenia. Question enlarged liver/spleen. COMPARISON: Renal ultrasound 06/21/2019. TECHNIQUE: Real-time imaging of the abdominal viscera. FINDINGS: PANCREAS: The head and body appear normal. The tail is obscured by bowel gas. ABDOMINAL AORTA: The proximal, mid, and distal segments are normal in caliber. INFERIOR VENA CAVA: Visualized portions are normal. LIVER: The liver is normal in size. The liver contour is normal. There is diffuse increased liver parenchymal echogenicity, consistent with hepatic steatosis. No focal hepatic lesion. There is no intrahepatic biliary duct dilatation seen. GALLBLADDER: Surgically absent. COMMON BILE DUCT: Normal in caliber measuring 0.4 cm in diameter. RIGHT KIDNEY: lobulation. No hydronephrosis. No renal calculi or focal parenchymal lesions. The kidney measures 11.2 cm in maximum dimension. LEFT KIDNEY: lobulation. No hydronephrosis. No renal calculi or focal parenchymal lesions. The kidney measures 11.8 cm in maximum dimension. SPLEEN: Normal. The spleen measures 10.8 cm in maximum dimension. FREE FLUID: None. US/US abdomen complete IMPRESSION: No hepatosplenomegaly. Hepatic steatosis.
== END 2023-03-16 09:58 | disposition home or self-care (01) ==
LOC: HO.US 09:57
PROVIDERS: PCP Internal Medicine; Visit Provider Internal Medicine Medical Oncology
DX: D61.818 Other pancytopenia (principal)
CPT/HCPCS: 76700

== ENCOUNTER 2023-03-29 10:48 | Outpatient (REF) | payer MEDICARE, SELFPAY ==
[2023-03-29 10:52] LABS: MANUAL DIFF FLAG NO
[2023-03-29 10:57] LABS: Basophils Percent Auto 0.3 % (0-2); Eosinophils Absolute Auto 0.1 X10*3/uL (0.0-0.4); Eosinophils Percent Auto 3.2 % (0-4); Hematocrit 35.1 % (42.0-52.0); Hemoglobin 12.2 g/dl (14.0-18.0); Imm Gran Abs Auto 0.01 X10*3/uL (0.00-0.03); Imm Gran Pct Auto 0.3 % (0.0-0.4); Lymphocytes Absolute Auto 0.8 X10*3/uL (1.2-4.9); Lymphocytes Percent Auto 20.1 % (20-40); Mean Corpuscular HGB Conc 34.8 g/dl (31.0-36.0); Mean Corpuscular Hemoglobin 33.9 pg (27.0-33.0); Mean Corpuscular Volume 97.5 fL (80.0-98.0); Mean Platelet Volume 11.3 fL (9.4-12.4); Monocytes Absolute Auto 0.3 X10*3/uL (0.1-1.2); Monocytes Percent Auto 6.9 % (2-11); Neutrophils Absolute Auto 2.6 x10*3/uL (2.0-8.3); Neutrophils Percent Auto 69.2 % (45-73); Red Cell Distribution Width 12.9 % (11.0-16.0); White Blood Count 3.8 X10*3/uL (4.8-10.8)
[2023-03-29 10:59] LABS: Platelet Count 47 X10*3/uL (160-400)
== END 2023-03-29 10:49 | disposition home or self-care (01) ==
LOC: HO.LNP 10:48
PROVIDERS: Visit Provider Internal Medicine
DX: D69.6 Thrombocytopenia, unspecified (principal)
CPT/HCPCS: 85025

== ENCOUNTER 2023-04-12 11:16 | Outpatient (REF) | payer MEDICARE, SELFPAY ==
[2023-04-12 11:37] LABS: MANUAL DIFF FLAG NO
[2023-04-12 11:59] LABS: Basophils Percent Auto 0.6 % (0-2); Eosinophils Absolute Auto 0.1 X10*3/uL (0.0-0.4); Eosinophils Percent Auto 3.7 % (0-4); Hematocrit 37.9 % (42.0-52.0); Hemoglobin 13.1 g/dl (14.0-18.0); Imm Gran Abs Auto 0.01 X10*3/uL (0.00-0.03); Imm Gran Pct Auto 0.3 % (0.0-0.4); Lymphocytes Absolute Auto 1.1 X10*3/uL (1.2-4.9); Lymphocytes Percent Auto 32.6 % (20-40); Mean Corpuscular HGB Conc 34.6 g/dl (31.0-36.0); Mean Corpuscular Hemoglobin 33.8 pg (27.0-33.0); Mean Corpuscular Volume 97.7 fL (80.0-98.0); Mean Platelet Volume 10.5 fL (9.4-12.4); Monocytes Absolute Auto 0.4 X10*3/uL (0.1-1.2); Neutrophils Absolute Auto 1.9 x10*3/uL (2.0-8.3); Neutrophils Percent Auto 52.8 % (45-73); Red Blood Count 3.88 X10*6/uL (4.60-5.80); Red Cell Distribution Width 13.2 % (11.0-16.0); White Blood Count 3.5 X10*3/uL (4.8-10.8)
[2023-04-12 12:00] LABS: Platelet Count 53 X10*3/uL (160-400)
== END 2023-04-12 11:17 | disposition home or self-care (01) ==
LOC: HO.LNP 11:16
PROVIDERS: Visit Provider Internal Medicine
DX: D70.9 Neutropenia, unspecified (principal); D69.6 Thrombocytopenia, unspecified
CPT/HCPCS: 85025

== ENCOUNTER 2023-05-13 10:50 | Outpatient (REF) | payer MEDICARE, SELFPAY ==
[2023-05-13 10:53] LABS: MANUAL DIFF FLAG NO
[2023-05-13 11:10] LABS: Basophils Percent Auto 0.9 % (0-2); Eosinophils Absolute Auto 0.2 X10*3/uL (0.0-0.4); Eosinophils Percent Auto 4.6 % (0-4); Hematocrit 40.1 % (42.0-52.0); Hemoglobin 13.8 g/dl (14.0-18.0); Lymphocytes Absolute Auto 1.7 X10*3/uL (1.2-4.9); Mean Corpuscular HGB Conc 34.4 g/dl (31.0-36.0); Mean Corpuscular Volume 98.8 fL (80.0-98.0); Mean Platelet Volume 10.9 fL (9.4-12.4); Monocytes Absolute Auto 0.4 X10*3/uL (0.1-1.2); Monocytes Percent Auto 12.4 % (2-11); Neutrophils Absolute Auto 1.1 x10*3/uL (2.0-8.3); Neutrophils Percent Auto 32.1 % (45-73); Red Blood Count 4.06 X10*6/uL (4.60-5.80); Red Cell Distribution Width 13.1 % (11.0-16.0); White Blood Count 3.5 X10*3/uL (4.8-10.8)
[2023-05-13 11:11] LABS: Platelet Count 64 X10*3/uL (160-400)
== END 2023-05-13 10:51 | disposition home or self-care (01) ==
LOC: HO.LNP 10:50
PROVIDERS: Visit Provider Internal Medicine
DX: D69.6 Thrombocytopenia, unspecified (principal)
CPT/HCPCS: 85025

== ENCOUNTER 2023-06-10 11:54 | Outpatient (REF) | payer MEDICARE, SELFPAY ==
[2023-06-10 11:58] LABS: MANUAL DIFF FLAG NO
[2023-06-10 13:20] LABS: Basophils Percent Auto 0.6 % (0-2); Eosinophils Absolute Auto 0.1 X10*3/uL (0.0-0.4); Eosinophils Percent Auto 3.3 % (0-4); Hemoglobin 13.8 g/dl (14.0-18.0); Lymphocytes Absolute Auto 1.4 X10*3/uL (1.2-4.9); Lymphocytes Percent Auto 38.2 % (20-40); Mean Corpuscular HGB Conc 35.4 g/dl (31.0-36.0); Mean Corpuscular Hemoglobin 34.5 pg (27.0-33.0); Mean Corpuscular Volume 97.5 fL (80.0-98.0); Mean Platelet Volume 11.3 fL (9.4-12.4); Monocytes Absolute Auto 0.5 X10*3/uL (0.1-1.2); Monocytes Percent Auto 13.1 % (2-11); Neutrophils Absolute Auto 1.6 x10*3/uL (2.0-8.3); Neutrophils Percent Auto 44.8 % (45-73); Red Cell Distribution Width 12.8 % (11.0-16.0); White Blood Count 3.6 X10*3/uL (4.8-10.8)
[2023-06-10 13:24] LABS: Platelet Count 63 X10*3/uL (160-400)
== END 2023-06-10 11:55 | disposition home or self-care (01) ==
LOC: HO.LNP 11:54
PROVIDERS: Visit Provider Internal Medicine
DX: D69.6 Thrombocytopenia, unspecified (principal)
CPT/HCPCS: 85025

== ENCOUNTER 2023-06-28 11:50 | Outpatient (REF) | payer MEDICARE, SELFPAY ==
[2023-06-28 12:29] LABS: Estimated Average Glucose 183 mg/dL
[2023-06-28 12:44] LABS: Alanine Aminotransferase 13 U/L (0-40); Albumin Level 3.7 g/dL (3.5-5.0); Alkaline Phosphatase 71 U/L (39-117); Aspartate Amino Transferase 14 U/L (5-37); Bilirubin Direct 0.4 mg/dL (0.0-0.5); Bilirubin Total 1.1 mg/dL (0.0-1.0); Cholesterol 116 mg/dL (<200); Glucose Fasting 94 mg/dL (60-99); HDL Cholesterol 30 mg/dL (>40); LDL Cholesterol Calculated 72 mg/dL (<100); Total Protein 7.3 g/dL (6.5-8.0); Triglycerides 70 mg/dL (<150)
[2023-06-28 16:03] LABS: Reflex LDLD? No
== END 2023-06-28 11:51 | disposition home or self-care (01) ==
LOC: HO.LNP 11:50
PROVIDERS: Visit Provider Internal Medicine
DX: E11.9 Type 2 diabetes mellitus without complications (principal); E78.00 Pure hypercholesterolemia, unspecified
CPT/HCPCS: 80061; 80076; 82947; 83036

== ENCOUNTER 2023-08-18 08:53 | Inpatient (IN) | payer MEDICARE, SELFPAY ==
[2023-08-18] VITALS (10 sets, daily range): BP systolic 118–152; BP diastolic 60–79; PULSE 75–104; RESP 16–24; TEMP 36.6–38.6; O2SAT 88–97; BMI 41.3
--- NOTE | ~2023-08-18 | XR_ITS ---
EXAMINATION: XR CHEST CLINICAL INFORMATION: Shortness of breath and hypoxia COMPARISON: Rib radiographs 11/22/2017 and 2 view chest 01/01/2013 TECHNIQUE: 2 views of the chest were obtained. FINDINGS: The heart and pulmonary vessels appear normal. There is dense consolidation in the right middle lobe. A small area of patchy consolidation is present at the left lung base with some minimal air bronchograms. No pleural effusions seen, but a small right subpulmonic effusion cannot be excluded. XR/XR chest 2V IMPRESSION: Right middle lobe pneumonia with some lower lobe disease as described above.
--- NOTE | 2023-08-18 09:02 | ECG_ITS ---
Test Reason : diff breathing Blood Pressure : / mmHG Vent. Rate : 078 BPM Atrial Rate : 000 BPM P-R Int : 000 ms QRS Dur : 100 ms QT Int : 346 ms P-R-T Axes : 000 -09 096 degrees QTc Int : 394 ms Atrial fibrillation Nonspecific T wave abnormality Abnormal ECG When compared with ECG of 14-JUN-2016 10:27, No significant change was found Referred By: Generic ED Physician Electronically Signed By:Gulshan Phillips
--- OUTSIDE RECORDS SUMMARY | 2023-08-18 09:25 | XMS_ITS | Patient Health Record ---
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 the day before the procedure for 1 day 09/30/2021 Active glipiZIDE ER 2.5 MG 1/2 tablet Orally tw ice a day Active Escitalopram Oxalate 20 MG TAKE 1 TABLET BY MOUTH ONCE DAILY Oral for 90 Active buPROPion HCl ER (SR) 150 MG TAKE 1 TABLET BY MOUTH EVERY DAY IN THE MORNING FOR 30 DAYS Oral for 90 Active Metoprolol Succinate 100 MG 1 capsule Or ally Once a day Active Atorvastatin Calcium 40 MG 1 tablet Oral ly Once a day Active Spironolactone 25 MG 1 tablet Orally Onc e a day Active Irbesartan 300 MG 1 tablet Orally Once a day Active IMMUNIZATIONS Vaccine Route Administration Date Status Comme nts Influenza Unknown 01/17/2018 Administered Influenza Unknown 12/10/2020 Administered SOCIAL HISTORY Sex Assigned At : Social History Observation Description Sex Assigned At Unknown PROBLEMS Problem Type ICD Code Onset Dates Problem Status W/U Status Risk SNOMED Code Notes Problem Colon cancer screening (Z12.11) Active confirmed 860540248 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 (Z79.01) Active confirmed 943362509 Problem penitentiary (current) use of insulin (Z79.4) Active confirmed 873253263 Problem Long-term current use of high risk medication other than anticoagulant (Z79.899) Active confirmed 175955165 Problem Colon, diverticulosis (K57.30) Active confirmed Diverticular disease of colon (184860393) PLAN OF TREATMENT Future Test Test Name Order Date COLONOSCOPY 09/15/2011 COLONOSCOPY 03/17/2018 COLONOSCOPY 09/30/2021 Insurance Providers Payer Name Payer Address Payer Phone Subscriber Number Group Number Insured Name Patient Relationship to Insured Coverage Start Date Coverage End Date [employer] [address] [place] [phone] [id number] DEANGELO SEGURA Self - patient is the insured MEDICAL (GENERAL) HISTORY Medical History History ICD Code Colonoscopy 06/30/18, multiple tubular ad enomas, three-year followup. hypertension diabetes mellitus arthritis depression ABHAY/CPAP Atrial fibrillation Surgical History Surgery Date(Month/Year) appendix cholecystectomy left knee replacement right knee replacement
--- OUTSIDE RECORDS SUMMARY | 2023-08-18 09:25 | XMS_ITS | Patient Health Record ---
Author Organization John Alexander MD Address [address] [place] [phone] Care Team Providers Care [employer] Manager Name Role Phone John Alexander Primary Care Provider [phone] ALLERGIES No Known Allergies RESULTS Component Value Reference Range Notes Hemoglobin A1c Reviewed date:10/08/2022 11:01:50 AM Interpretation: Performing Lab: Notes/Report: Value Hemoglobin A1c 7.2 Hemoglobin A1c Reviewed date:03/29/2023 09:23:53 AM Interpretation: Performing Lab: Notes/Report: Value Hemoglobin A1c 8.5 Complete Blood Count Auto Di ff Reviewed date:10/04/2022 12:16:11 PM Interpretation: Performing Lab:[facility], [address] [place] [phone] Notes/Report: White Blood Count 4.2 4.8-10.8 X10*3/uL Red Blood Count 4.42 4.60-5.80 X10*6/uL Hemoglobin 14.0 14.0-18.0 g/dl Hematocrit 41.6 42.0-52.0 % Mean Corpuscular Volume 94.1 80.0-98.0 fL Mean Corpuscular Hemoglobin 31.7 27.0-33.0 pg Mean Corpuscular HGB Conc 33.7 31.0-36.0 g/dl Red Cell Distribution Width 12.9 11.0-16.0 % Platelet Count 177 160-400 X10*3/uL Mean Platelet Volume 9.5 9.4-12.4 fL Neutrophils Percent Auto 69.3 45-73 % Imm Gran Pct Auto 0.2 0.0-0.4 % Lymphocytes Percent Auto 17.3 20-40 % Monocytes Percent Auto 9.6 2-11 % Eosinophils Percent Auto 3.1 0-4 % Basophils Percent Auto 0.5 0-2 % NRBC Pct Auto 0.0 0.0-0.2 /100WBC Neutrophils Absolute Auto 2.9 2.0-8.3 x10*3/u L Imm Gran Abs Auto 0.01 0.00-0.03 X10*3/uL Lymphocytes Absolute Auto 0.7 1.2-4.9 X10*3/u L Monocytes Absolute Auto 0.4 0.1-1.2 X10*3/uL Eosinophils Absolute Auto 0.1 0.0-0.4 X10*3/u L Basophils Absolute Auto 0.0 0.0-0.2 X10*3/uL NRBC Abs Auto 0.000 0.0-0.012 X10*3/uL Urinalysis and Microscopic Reviewed date:10/04/2022 01:16:25 PM Interpretation: Performing Lab:[address] [phone] Notes/Report: Color Urine Yellow Appearance Urine Clear PH 6.5 5.0-9.0 Glucose Urine UA 100 Negative mg/dL Urine Blood Trace Negative Specific [place] - Urine 1.020 1.005-1.025 Urine Protein 300 (3+) Neg-Trace mg/dL Urine Ketones Negative Negative mg/dL Nitrite Urine Negative Negative Leukocyte Esterase Urine Negative Negative RBC Urine 3-5 0-2 /HPF WBC Urine 0-5 0-5 /HPF Squamous Epithelial Cell Urine 0-2 0-2 /HPF Bacteria Urine None Seen None Seen Hyaline Casts Urine 0-2 0-2 /LPF Electrolytes Reviewed date:10/04/2022 12:29:42 PM Interpretation: Performing Lab:[facility], [address] [place] [phone] Notes/Report: Sodium 139 135-145 mmol/L Potassium 4.0 3.3-5.1 mmol/L Chloride 102 96-108 mmol/L Carbon Dioxide 30 22-29 mmol/L Anion Gap 11 12-20 Blood Urea Nitrogen Reviewed date:10/04/2022 12:28:27 PM Interpretation: Performing Lab:[facility], [address] [place] [phone] Notes/Report: Blood Urea Nitrogen 22 9-16 mg/dL Creatinine Reviewed date:10/04/2022 12:28:48 PM Interpretation: Performing Lab:[facility], [address] [place] [phone] Notes/Report: Creatinine 1.42 0.5-1.4 mg/dL Estimated Glomerular Filt Rate 48 NOTE: For -Namibian individuals, multiply the result by 1.210. Chronic Kidney Disease: Estimated GFR < 60 mL/min/1.73m2 Severe Kidney Disease: Estimated GFR < 15 mL/min/1.73m2 Calcium Reviewed date:10/04/2022 12:29:11 PM Interpretation: Performing Lab:[facility], [address] [place] [phone] Notes/Report: Calcium 9.0 8.4-10.2 mg/dL Phosphorus Reviewed date:10/04/2022 12:22:53 PM Interpretation: Performing Lab:[facility], [address] [place] [phone] Notes/Report: Phosphorus 3.0 2.7-4.5 mg/dL Magnesium Reviewed date:10/04/2022 12:29:01 PM Interpretation: Performing Lab:[facility], [address] [place] [phone] Notes/Report: Magnesium 1.8 1.6-2.6 mg/dL Albumin Level Reviewed date:10/04/2022 12:28:20 PM Interpretation: Performing Lab:[facility], [address] [place] [phone] Notes/Report: Albumin Level 3.5 3.5-5.0 g/dL Vitamin D 25-OH Total Reviewed date:10/04/2022 12:23:00 PM Interpretation: Performing Lab:[facility], [address] [place] [phone] Notes/Report: Vitamin D 25-OH Total 35.0 >30 ng/mL Health Based Reference Values* < 20 ng/mL Deficient 20-30 ng/mL Insufficient > 30 ng/mL Sufficient *Cassandra FREGOSO. N Engl J Med. 2007;357:266-280 Care must be taken in interpreting Vitamin D results from different laboratories and methodologies. Published data demonstrated that results from patients undergoing hemodialysis may show a negative bias when tested with various automated 25-OH vitamin D assays when compared to LC-MS/MS. When testing samples from patients whose predominant form of Vitamin D is Vitamin D2, such as patients receiving Vitamin D2 supplementation, results that are subtherapeutic should be confirmed with another method such as LC-MS/MS. PTHI Reviewed date:10/07/2022 08:06:22 PM Interpretation: Performing Lab:[address] [phone] Notes/Report: PTHI 69 16-77 pg/mL Interpretive Guide Intact PTH Calcium ------- Normal Parathyroid Normal Normal Hypoparathyroidism Low or Low Normal Low Hyperparathyroidism Primary Normal or High High Secondary High Normal or Low Tertiary High High Non-Parathyroid Hypercalcemia Low or Low Normal High Calcium (PTHI) 8.6 8.6-10.3 mg/dL THIS TEST WAS PERFORMED AT: [employer] [address] [place] [phone] JEREMIE MATUTE MD Urine Culture Reviewed date:10/05/2022 12:27:15 PM Interpretation: Performing Lab:[address] [phone] Notes/Report: Urine Culture No growth. Glucose, finger stick Reviewed date:10/08/2022 10:54:52 AM Interpretation: Performing Lab: Notes/Report: Value 238 Urinalysis and Microscopic Reviewed date:10/10/2022 12:56:19 PM Interpretation: Performing Lab:[address] [phone] Notes/Report: Color Urine Yellow Appearance Urine Clear PH 5.5 5.0-9.0 Glucose Urine UA 100 Negative mg/dL Urine Blood Trace Negative Specific [place] - Urine 1.020 1.005-1.025 Urine Protein 300 (3+) Neg-Trace mg/dL Urine Ketones Negative Negative mg/dL Nitrite Urine Negative Negative Leukocyte Esterase Urine Negative Negative RBC Urine 0-2 0-2 /HPF WBC Urine 0-5 0-5 /HPF Squamous Epithelial Cell Urine 0-2 0-2 /HPF Bacteria Urine None Seen None Seen Hyaline Casts Urine 0-2 0-2 /LPF Urine Culture Reviewed date:10/10/2022 12:53:26 PM Interpretation: Performing Lab:[facility], [address] [place] [phone] Notes/Report: Urine Culture No growth. Glucose, finger stick Reviewed date:11/08/2022 11:12:19 AM Interpretation: Performing Lab: Notes/Report: Value 135 Glucose, finger stick Reviewed date:11/23/2022 01:31:13 PM Interpretation: Performing Lab: Notes/Report: Value 149 Complete Blood Count Auto Di ff Reviewed date:12/27/2022 10:03:14 AM Interpretation:see back 12-27-2022 Performing Lab:[facility], [address] [place] [phone] Notes/Report: White Blood Count 3.8 4.8-10.8 X10*3/uL Red Blood Count 4.60 4.60-5.80 X10*6/uL Hemoglobin 14.7 14.0-18.0 g/dl Hematocrit 42.8 42.0-52.0 % Mean Corpuscular Volume 93.0 80.0-98.0 fL Mean Corpuscular Hemoglobin 32.0 27.0-33.0 pg Mean Corpuscular HGB Conc 34.3 31.0-36.0 g/dl Red Cell Distribution Width 13.4 11.0-16.0 % Platelet Count 93 160-400 X10*3/uL VERIFIED BY REPEAT ANALYSIS. Mean Platelet Volume 10.8 9.4-12.4 fL Neutrophils Percent Auto 50.2 45-73 % Imm Gran Pct Auto 0.3 0.0-0.4 % Lymphocytes Percent Auto 36.3 20-40 % Monocytes Percent Auto 9.5 2-11 % Eosinophils Percent Auto 2.9 0-4 % Basophils Percent Auto 0.8 0-2 % NRBC Pct Auto 0.0 0.0-0.2 /100WBC Neutrophils Absolute Auto 1.9 2.0-8.3 x10*3/u L Imm Gran Abs Auto 0.01 0.00-0.03 X10*3/uL Lymphocytes Absolute Auto 1.4 1.2-4.9 X10*3/u L Monocytes Absolute Auto 0.4 0.1-1.2 X10*3/uL Eosinophils Absolute Auto 0.1 0.0-0.4 X10*3/u L Basophils Absolute Auto 0.0 0.0-0.2 X10*3/uL NRBC Abs Auto 0.000 0.0-0.012 X10*3/uL Comprehensive [place]. Panel Fa st Reviewed date:12/20/2022 12:52:01 PM Interpretation: Performing Lab:[facility], [address] [place] [phone] Notes/Report: Sodium 141 135-145 mmol/L Potassium 3.4 3.3-5.1 mmol/L Chloride 102 96-108 mmol/L Carbon Dioxide 32 22-29 mmol/L Anion Gap 10 12-20 Blood Urea Nitrogen 30 9-16 mg/dL Creatinine 1.53 0.5-1.4 mg/dL Estimated Glomerular Filt Rate 44 NOTE: For -Namibian individuals, multiply the result by 1.210. Chronic Kidney Disease: Estimated GFR < 60 mL/min/1.73m2 Severe Kidney Disease: Estimated GFR < 15 mL/min/1.73m2 Glucose Fasting 80 60-99 mg/dL Calcium 9.2 8.4-10.2 mg/dL Bilirubin Total 1.4 0.0-1.0 mg/dL Aspartate Amino Transferase 18 5-37 U/L Alanine Aminotransferase 14 0-40 U/L Total Protein 7.2 6.5-8.0 g/dL Albumin Level 3.7 3.5-5.0 g/dL Alkaline Phosphatase 68 39-117 U/L Lipid Panel Reviewed date:12/20/2022 12:34:55 PM Interpretation: Performing Lab:[facility], [address] [place] [phone] Notes/Report: Triglycerides 72 <150 mg/dL Desirable Triglyceride: less than 150 mg/dL Borderline High Triglyceride 150-199 mg/dL High Triglyceride: 200-499 mg/dL Very High Triglyceride: greater than or equal to 5OO mg/dL Cholesterol 95 <200 mg/dL Desirable Cholesterol: less than 200 mg/dL Borderline High Cholesterol: 200-239 mg/dL High Cholesterol: greater than 239 mg/dL LDL Cholesterol Calculated 54 <100 mg/dL Desirable LDL: less than 100 mg/dL Near Optimal/Above Optimal LDL: 110-129 mg/dL Borderline High LDL: 130-159 mg/dL High LDL: 160-189 mg/dL Very High LDL: greater than or equal to 190 mg/dL HDL Cholesterol 27 >40 mg/dL Desirable HDL: greater than 40 mg/dL Note: This HDL assay may give artificially low results in patients with liver disease. PSA,Total (Free>4and<10) Reviewed date:12/20/2022 12:37:02 PM Interpretation: Performing Lab:[address] [phone] Notes/Report: PSA,Total (Free>4and<10) 0.12 0.00-4.00 ng/mL A Free PSA was not performed: The percentage of Free PSA can be used to enhance the differentiation of prostate cancer from benign prostatic disease in subjects whose PSA levels are between 4.0 and 10.0 ng/mL. For subjects whose PSA levels are below 4.0 or above 10.0 ng/mL, the risk of prostate cancer is determined on the basis of the PSA alone. Therefore the % Free PSA is recommended only for those subjects whose PSA levels are between 4.0 and 10.0 ng/mL. PSA methodology: Santos Alinity i Chemiluminescent Microparticle Immunoassay (CMIA) Microalbumin, Random Reviewed date:12/20/2022 12:51:43 PM Interpretation: Performing Lab:[address] [phone] Notes/Report: Creatinine Urine 96.42 Microalbumin Urine 531.0 Microalbum/Creatinine Ratio Ur 550.7 <30 ug/mg cr Albumin/Creatinine Ratio Reference Ranges: Normal: < 30 ug/mg creatinine Microalbuminuria: 30 - 300 ug/mg creatinine Clinical Albuminuria: > 300 ug/mg creatinine Hemoglobin A1c Reviewed date:12/20/2022 12:36:02 PM Interpretation: Performing Lab:[address] [phone] Notes/Report: Hemoglobin A1c % 7.6 <6.0 % Hemoglobin A1C Reference Range Adults: 4.8 - 6.0 % Non diabetic: < 6.0 % Goal: < 7.0 % Additional Action Suggested: > 8.0 % Note: Hemoglobin A1c results are invalid for patients with abnormal amounts of HbF. Blood transfusions may impact the HbA1c concentration in the patient sample. Estimated Average Glucose 171 eAG = Estimated average glucose which is %A1C expressed as average glucose, using the formula of the S3Q-Lotnfhs Average Glucose study (ADAG), Diabetes Care, Vol.31,#8, Nov. 2007 UA ClnCatch+Micro w/rflx Cul t Reviewed date:12/27/2022 10:03:22 AM Interpretation:must see 12-27-2022 Performing Lab:[facility], [address] [place] [phone] Notes/Report: Urine, Clean Catch Color Urine Yellow Appearance Urine Clear PH 6.5 5.0-9.0 Glucose Urine UA Negative Negative mg/dL Urine Blood Trace Negative Specific [place] - Urine 1.015 1.005-1.025 Urine Protein 100 (2+) Neg-Trace mg/dL Urine Ketones Negative Negative mg/dL Nitrite Urine Negative Negative Leukocyte Esterase Urine Negative Negative RBC Urine 3-5 0-2 /HPF WBC Urine 0-5 0-5 /HPF Squamous Epithelial Cell Urine 0-2 0-2 /HPF Bacteria Urine None Seen None Seen Hyaline Casts Urine 0-2 0-2 /LPF Occult Blood, Stool, Guaiac Reviewed date:12/27/2022 10:49:45 AM Interpretation:Negative Performing Lab: Notes/Report: Negative Occult Blood, Stool, Guaiac Neg Complete Blood Count Auto Di ff Reviewed date:12/27/2022 01:05:41 PM Interpretation: Performing Lab:[facility], [address] [place] [phone] Notes/Report: White Blood Count 4.2 4.8-10.8 X10*3/uL Red Blood Count 4.31 4.60-5.80 X10*6/uL Hemoglobin 13.9 14.0-18.0 g/dl Hematocrit 40.7 42.0-52.0 % Mean Corpuscular Volume 94.4 80.0-98.0 fL Mean Corpuscular Hemoglobin 32.3 27.0-33.0 pg Mean Corpuscular HGB Conc 34.2 31.0-36.0 g/dl Red Cell Distribution Width 13.5 11.0-16.0 % Platelet Count 84 160-400 X10*3/uL Mean Platelet Volume 10.8 9.4-12.4 fL Neutrophils Percent Auto 61.2 45-73 % Imm Gran Pct Auto 0.2 0.0-0.4 % Lymphocytes Percent Auto 24.6 20-40 % Monocytes Percent Auto 10.4 2-11 % Eosinophils Percent Auto 3.1 0-4 % Basophils Percent Auto 0.5 0-2 % NRBC Pct Auto 0.0 0.0-0.2 /100WBC Neutrophils Absolute Auto 2.6 2.0-8.3 x10*3/u L Imm Gran Abs Auto 0.01 0.00-0.03 X10*3/uL Lymphocytes Absolute Auto 1.0 1.2-4.9 X10*3/u L Monocytes Absolute Auto 0.4 0.1-1.2 X10*3/uL Eosinophils Absolute Auto 0.1 0.0-0.4 X10*3/u L Basophils Absolute Auto 0.0 0.0-0.2 X10*3/uL NRBC Abs Auto 0.000 0.0-0.012 X10*3/uL Urinalysis and Microscopic Reviewed date:12/27/2022 01:05:16 PM Interpretation: Performing Lab:[facility], [address] [place] [phone] Notes/Report: Color Urine Yellow Appearance Urine Clear PH 5.5 5.0-9.0 Glucose Urine UA Negative Negative mg/dL Urine Blood Trace Negative Specific [place] - Urine 1.010 1.005-1.025 Urine Protein Trace Neg-Trace mg/dL Urine Ketones Negative Negative mg/dL Nitrite Urine Negative Negative Leukocyte Esterase Urine Negative Negative RBC Urine 0-2 0-2 /HPF WBC Urine 0-5 0-5 /HPF Squamous Epithelial Cell Urine 0-2 0-2 /HPF Bacteria Urine None Seen None Seen Hyaline Casts Urine 0-2 0-2 /LPF Complete Blood Count Man Dif Reviewed date:02/11/2023 12:43:57 PM Interpretation: Performing Lab:[facility], [address] [place] [phone] Notes/Report: White Blood Count 3.5 4.8-10.8 X10*3/uL Red Blood Count 4.05 4.60-5.80 X10*6/uL Hemoglobin 13.4 14.0-18.0 g/dl Hematocrit 38.9 42.0-52.0 % Mean Corpuscular Volume 96.0 80.0-98.0 fL Mean Corpuscular Hemoglobin 33.1 27.0-33.0 pg Mean Corpuscular HGB Conc 34.4 31.0-36.0 g/dl Red Cell Distribution Width 13.9 11.0-16.0 % Platelet Count 56 160-400 X10*3/uL Mean Platelet Volume 10.9 9.4-12.4 fL NRBC Pct Auto 0.0 0.0-0.2 /100WBC NRBC Abs Auto 0.000 0.0-0.012 X10*3/uL Neutrophils Percent Manual 53 45-73 % Band Neutrophils Percent 0 3-5 % Lymphocytes Percent Manual 32 20-40 % Monocytes Percent Manual 9 2-11 % Eosinophils Percent Manual 4 0-4 % Basophils Percent Manual 2 0-2 % Neutrophils Absolute Manual 1.9 2.0-8.3 X10*3 /uL Lymphocytes Absolute Manual 1.1 1.2-4.9 X10*3 /uL Monocytes Absolute Manual 0.3 0.1-1.2 X10*3/u L Eosinophils Absolute Manual 0.1 0.0-0.4 X10*3 /uL Basophils Abs Manual 0.1 0.0-0.2 X10*3/uL Platelet Estimate DECREASED NORMAL Platelet Morphology Comment NORMAL RBC Morphology NORMAL Comprehensive Met. Panel Reviewed date:02/12/2023 01:29:48 PM Interpretation: Performing Lab:[facility], [address] [place] [phone] Notes/Report: Sodium 140 135-145 mmol/L Potassium 3.9 3.3-5.1 mmol/L Chloride 101 96-108 mmol/L Carbon Dioxide 33 22-29 mmol/L Anion Gap 10 12-20 Blood Urea Nitrogen 23 9-16 mg/dL Creatinine 1.59 0.5-1.4 mg/dL Creatinine Clr Calc Pharmacy 52.2 eGFR (calculated from the MDRD study equation) and eCrCl (calculated from the Cockcroft-Gault equation) are based on different parameters and may not yield comparable results. If eCrCl result is absurd, please check patient's height/weight. Estimated Glomerular Filt Rate 43 NOTE: For -Namibian individuals, multiply the result by 1.210. Chronic Kidney Disease: Estimated GFR < 60 mL/min/1.73m2 Severe Kidney Disease: Estimated GFR < 15 mL/min/1.73m2 Glucose Random 99 60-115 mg/dL Calcium 9.0 8.4-10.2 mg/dL Bilirubin Total 1.2 0.0-1.0 mg/dL Aspartate Amino Transferase 21 5-37 U/L Alanine Aminotransferase 21 0-40 U/L Total Protein 7.1 6.5-8.0 g/dL Albumin Level 3.7 3.5-5.0 g/dL Alkaline Phosphatase 90 39-117 U/L IRON PROFILE Reviewed date:02/11/2023 12:16:35 PM Interpretation: Performing Lab:[address] [phone] Notes/Report: Iron 72 45-160 mcg/dL Total Iron Binding Capacity 241 228-428 mcg/d L Percent Iron Saturation 30 15-50 % Unsaturated Iron Binding 169 Ferritin Reviewed date:02/11/2023 12:13:31 PM Interpretation: Performing Lab:[facility], [address] [place] [phone] Notes/Report: Ferritin 250 20-250 ng/mL Lactate Dehydrogenase Reviewed date:02/11/2023 12:23:48 PM Interpretation: Performing Lab:[facility], [address] [place] [phone] Notes/Report: Lactate Dehydrogenase 188 118-273 U/L Vitamin B12 and Folate Reviewed date:02/11/2023 12:41:54 PM Interpretation: Performing Lab:[address] [phone] Notes/Report: Vitamin B12 292 200-900 pg/mL NORMAL 200-900 PG/ML INDETERMINATE 160-199 PG/ML DEFICIENT < 160 PG/ML Folate 7.6 > or = 4.0 ng/mL Reference Values: > or = 4.0 ng/mL < 4.0 ng/mL suggests folate deficiency Methotrexate, aminopterin and folinic acid (leucovorin) are chemotherapeutic agents whose molecular structures are similar to folate; therefore, the [place] folate assay cannot be used for patients using these drugs. Intrinsic Factor Antibodies Reviewed date:02/19/2023 05:29:05 PM Interpretation: Performing Lab:[facility], [address] [place] [phone] Notes/Report: Intrinsic Factor Antibodies Negative Negative For additional information, please refer to http://education.[employer]/faq/IFAB (This link is being provided for informational/ educational purposes only.) THIS TEST WAS PERFORMED AT: [email or web address]/[address] [phone] JOSH JIMENEZ MD,PHD Immunofixation Pnl, Serum Reviewed date:02/28/2023 12:27:54 PM Interpretation: Performing Lab:[facility], [address] [place] [phone] Notes/Report: IgG 5913 115-5660 mg/dL IgA 336 70-320 mg/dL IgM 85 50-300 mg/dL THIS TEST WAS PERFORMED AT: [email or web address] [address] [address] JEREMIE MATUTE MD Immunofixation Interpretation SEE NOTE No monoclonal protei ns detected. Transglutaminase IgA Reviewed date:02/28/2023 12:28:12 PM Interpretation: Performing Lab:[facility], [address] [place] [phone] Notes/Report: Transglutaminase IgA TNP Hepatitis A,B,C Profile Reviewed date:02/14/2023 09:10:46 AM Interpretation: Performing Lab:[facility], [address] [place] [phone] Notes/Report: Hepatitis A Antibody IgM Nonreactive Nonreactive IgM antibodies to HAV not detected; does not exclude early acute or recovered HAV infection. Hepatitis B Surface Antibody REACTIVE Nonreactive REACTIVE: > 11.99 mI U/mL Hepatitis B Core Antibody Nonreactive Nonreactive Hepatitis C Antibody Nonreactive Nonreactive Antibodies to HCV not detected; does not exclude early acute HCV infection. Hepatitis B Surface Antigen Negative Negative US abdomen complete Reviewed date:03/17/2023 04:25:05 PM Interpretation: Performing Lab: Notes/Report: [address] [place] [address] Ultrasound Report Signed Patient: Steven Elise MR#: [id number] : 1945 Acct:[id number] Age/Sex: 78 / M ADM Date: 03/16/23 Loc: HO.US Attending Dr: Meli Horan MD Ordering Physician: Meli Horan MD Date of Service: 03/16/23 Procedure(s): US abdomen complete Accession Number(s): [id number] cc: John Alexander MD; Meli Horan MD EXAMINATION: US ABDOMEN COMPLETE CLINICAL INFORMATION: Pancytopenia. Question enlarged liver/spleen. COMPARISON: Renal ultrasound 06/21/2019. TECHNIQUE: Real-time imaging of the abdominal viscera. FINDINGS: PANCREAS: The head and body appear normal. The tail is obscured by bowel gas. ABDOMINAL AORTA: The proximal, mid, and distal segments are normal in caliber. INFERIOR VENA CAVA: Visualized portions are normal. LIVER: The liver is normal in size. The liver contour is normal. There is diffuse increased liver parenchymal echogenicity, consistent with hepatic steatosis. No focal hepatic lesion. There is no intrahepatic biliary duct dilatation seen. GALLBLADDER: Surgically absent. COMMON BILE DUCT: Normal in caliber measuring 0.4 cm in diameter. RIGHT KIDNEY: lobulation. No hydronephrosis. No renal calculi or focal parenchymal lesions. The kidney measures 11.2 cm in maximum dimension. LEFT KIDNEY: lobulation. No hydronephrosis. No renal calculi or focal parenchymal lesions. The kidney measures 11.8 cm in maximum dimension. SPLEEN: Normal. The spleen measures 10.8 cm in maximum dimension. FREE FLUID: None. US/US abdomen complete IMPRESSION: No hepatosplenomegaly. Hepatic steatosis. Dictated By: Lane Whyte MD Signed By: <Electronically signed by Lane Whyte MD in OV> 03/17/23 1304 DD/ 1024 TD/TT: Tool Turret Lathe Set Up Operator: BENJA Glucose, finger stick Reviewed date:03/29/2023 09:14:42 AM Interpretation: Performing Lab: Notes/Report: Value 293 Complete Blood Count Auto Di ff Reviewed date:03/29/2023 12:56:22 PM Interpretation: Performing Lab:[facility], [address] [place] [phone] Notes/Report: White Blood Count 3.8 4.8-10.8 X10*3/uL Red Blood Count 3.60 4.60-5.80 X10*6/uL Hemoglobin 12.2 14.0-18.0 g/dl Hematocrit 35.1 42.0-52.0 % Mean Corpuscular Volume 97.5 80.0-98.0 fL Mean Corpuscular Hemoglobin 33.9 27.0-33.0 pg Mean Corpuscular HGB Conc 34.8 31.0-36.0 g/dl Red Cell Distribution Width 12.9 11.0-16.0 % Platelet Count 47 160-400 X10*3/uL Mean Platelet Volume 11.3 9.4-12.4 fL Neutrophils Percent Auto 69.2 45-73 % Imm Gran Pct Auto 0.3 0.0-0.4 % Lymphocytes Percent Auto 20.1 20-40 % Monocytes Percent Auto 6.9 2-11 % Eosinophils Percent Auto 3.2 0-4 % Basophils Percent Auto 0.3 0-2 % NRBC Pct Auto 0.0 0.0-0.2 /100WBC Neutrophils Absolute Auto 2.6 2.0-8.3 x10*3/u L Imm Gran Abs Auto 0.01 0.00-0.03 X10*3/uL Lymphocytes Absolute Auto 0.8 1.2-4.9 X10*3/u L Monocytes Absolute Auto 0.3 0.1-1.2 X10*3/uL Eosinophils Absolute Auto 0.1 0.0-0.4 X10*3/u L Basophils Absolute Auto 0.0 0.0-0.2 X10*3/uL NRBC Abs Auto 0.000 0.0-0.012 X10*3/uL Complete Blood Count Auto Di ff Reviewed date:04/14/2023 07:28:30 AM Interpretation: Performing Lab:[facility], [address] [place] [phone] Notes/Report: White Blood Count 3.5 4.8-10.8 X10*3/uL Red Blood Count 3.88 4.60-5.80 X10*6/uL Hemoglobin 13.1 14.0-18.0 g/dl Hematocrit 37.9 42.0-52.0 % Mean Corpuscular Volume 97.7 80.0-98.0 fL Mean Corpuscular Hemoglobin 33.8 27.0-33.0 pg Mean Corpuscular HGB Conc 34.6 31.0-36.0 g/dl Red Cell Distribution Width 13.2 11.0-16.0 % Platelet Count 53 160-400 X10*3/uL Mean Platelet Volume 10.5 9.4-12.4 fL Neutrophils Percent Auto 52.8 45-73 % Imm Gran Pct Auto 0.3 0.0-0.4 % Lymphocytes Percent Auto 32.6 20-40 % Monocytes Percent Auto 10.0 2-11 % Eosinophils Percent Auto 3.7 0-4 % Basophils Percent Auto 0.6 0-2 % NRBC Pct Auto 0.0 0.0-0.2 /100WBC Neutrophils Absolute Auto 1.9 2.0-8.3 x10*3/u L Imm Gran Abs Auto 0.01 0.00-0.03 X10*3/uL Lymphocytes Absolute Auto 1.1 1.2-4.9 X10*3/u L Monocytes Absolute Auto 0.4 0.1-1.2 X10*3/uL Eosinophils Absolute Auto 0.1 0.0-0.4 X10*3/u L Basophils Absolute Auto 0.0 0.0-0.2 X10*3/uL NRBC Abs Auto 0.000 0.0-0.012 X10*3/uL Complete Blood Count Auto Di ff Reviewed date:05/13/2023 12:27:29 PM Interpretation: Performing Lab:[facility], [address] [place] [id number] Notes/Report: White Blood Count 3.5 4.8-10.8 X10*3/uL Red Blood Count 4.06 4.60-5.80 X10*6/uL Hemoglobin 13.8 14.0-18.0 g/dl Hematocrit 40.1 42.0-52.0 % Mean Corpuscular Volume 98.8 80.0-98.0 fL Mean Corpuscular Hemoglobin 34.0 27.0-33.0 pg Mean Corpuscular HGB Conc 34.4 31.0-36.0 g/dl Red Cell Distribution Width 13.1 11.0-16.0 % Platelet Count 64 160-400 X10*3/uL Mean Platelet Volume 10.9 9.4-12.4 fL Neutrophils Percent Auto 32.1 45-73 % Imm Gran Pct Auto 0.0 0.0-0.4 % Lymphocytes Percent Auto 50.0 20-40 % Monocytes Percent Auto 12.4 2-11 % Eosinophils Percent Auto 4.6 0-4 % Basophils Percent Auto 0.9 0-2 % NRBC Pct Auto 0.0 0.0-0.2 /100WBC Neutrophils Absolute Auto 1.1 2.0-8.3 x10*3/u L Imm Gran Abs Auto 0.00 0.00-0.03 X10*3/uL Lymphocytes Absolute Auto 1.7 1.2-4.9 X10*3/u L Monocytes Absolute Auto 0.4 0.1-1.2 X10*3/uL Eosinophils Absolute Auto 0.2 0.0-0.4 X10*3/u L Basophils Absolute Auto 0.0 0.0-0.2 X10*3/uL NRBC Abs Auto 0.000 0.0-0.012 X10*3/uL Complete Blood Count Auto Di ff Reviewed date:06/11/2023 05:50:56 PM Interpretation: Performing Lab:[facility], [address] [place] [phone] Notes/Report: White Blood Count 3.6 4.8-10.8 X10*3/uL Red Blood Count 4.00 4.60-5.80 X10*6/uL Hemoglobin 13.8 14.0-18.0 g/dl Hematocrit 39.0 42.0-52.0 % Mean Corpuscular Volume 97.5 80.0-98.0 fL Mean Corpuscular Hemoglobin 34.5 27.0-33.0 pg Mean Corpuscular HGB Conc 35.4 31.0-36.0 g/dl Red Cell Distribution Width 12.8 11.0-16.0 % Platelet Count 63 160-400 X10*3/uL Mean Platelet Volume 11.3 9.4-12.4 fL Neutrophils Percent Auto 44.8 45-73 % Imm Gran Pct Auto 0.0 0.0-0.4 % Lymphocytes Percent Auto 38.2 20-40 % Monocytes Percent Auto 13.1 2-11 % Eosinophils Percent Auto 3.3 0-4 % Basophils Percent Auto 0.6 0-2 % NRBC Pct Auto 0.0 0.0-0.2 /100WBC Neutrophils Absolute Auto 1.6 2.0-8.3 x10*3/u L Imm Gran Abs Auto 0.00 0.00-0.03 X10*3/uL Lymphocytes Absolute Auto 1.4 1.2-4.9 X10*3/u L Monocytes Absolute Auto 0.5 0.1-1.2 X10*3/uL Eosinophils Absolute Auto 0.1 0.0-0.4 X10*3/u L Basophils Absolute Auto 0.0 0.0-0.2 X10*3/uL NRBC Abs Auto 0.000 0.0-0.012 X10*3/uL Hold Herson Reviewed date:06/28/2023 12:05:46 PM Interpretation: Performing Lab:[facility], [address] [place] [phone] Notes/Report: Jean Bains See Note Specimen held untested for 24 hours; Call to request Chemistry testing. Liver Panel Reviewed date:06/29/2023 04:59:16 PM Interpretation: Performing Lab:[facility], [address] [place] [phone] Notes/Report: Bilirubin Total 1.1 0.0-1.0 mg/dL Bilirubin Direct 0.4 0.0-0.5 mg/dL Aspartate Amino Transferase 14 5-37 U/L Alanine Aminotransferase 13 0-40 U/L Total Protein 7.3 6.5-8.0 g/dL Albumin Level 3.7 3.5-5.0 g/dL Alkaline Phosphatase 71 39-117 U/L Glucose Fasting Reviewed date:06/29/2023 04:58:32 PM Interpretation: Performing Lab:[facility], [address] [place] [phone] Notes/Report: Glucose Fasting 94 60-99 mg/dL Lipid Panel with Reflex Reviewed date:06/29/2023 04:58:21 PM Interpretation: Performing Lab:[address] [phone] Notes/Report: Triglycerides 70 <150 mg/dL Desirable Triglyceride: less than 150 mg/dL Borderline High Triglyceride 150-199 mg/dL High Triglyceride: 200-499 mg/dL Very High Triglyceride: greater than or equal to 5OO mg/dL Cholesterol 116 <200 mg/dL Desirable Cholesterol: less than 200 mg/dL Borderline High Cholesterol: 200-239 mg/dL High Cholesterol: greater than 239 mg/dL LDL Cholesterol Calculated 72 <100 mg/dL Desirable LDL: less than 100 mg/dL Near Optimal/Above Optimal LDL: 110-129 mg/dL Borderline High LDL: 130-159 mg/dL High LDL: 160-189 mg/dL Very High LDL: greater than or equal to 190 mg/dL HDL Cholesterol 30 >40 mg/dL Desirable HDL: greater than 40 mg/dL Note: This HDL assay may give artificially low results in patients with liver disease. Hemoglobin A1c Reviewed date:06/28/2023 12:50:01 PM Interpretation: Performing Lab:[facility], [address] [place] [phone] Notes/Report: Hemoglobin A1c % 8.0 <6.0 % Hemoglobin A1C Reference Range Adults: 4.8 - 6.0 % Non diabetic: < 6.0 % Goal: < 7.0 % Additional Action Suggested: > 8.0 % Note: Hemoglobin A1c results are invalid for patients with abnormal amounts of HbF. Blood transfusions may impact the HbA1c concentration in the patient sample. Estimated Average Glucose 183 eAG = Estimated average glucose which is %A1C expressed as average glucose, using the formula of the [id number]-[id number] Average Glucose study (ADAG), Diabetes Care, Vol.31,#8, 2007 Diabetic Eye Exam Reviewed date:07/15/2023 02:20:25 PM Interpretation:No Diabetic Retinopathy Performing Lab: Notes/Report: No Diabetic Retinopathy Glucose, finger stick Reviewed date:07/05/2023 09:55:08 AM Interpretation: Performing Lab: Notes/Report: Value 243 REASON FOR REFERRAL Reason hematuria Diagnosis 1 Hematuria (R31.9) Referral Organization John Alexander MD Referring Provider First Name John Referring Provider Last Name Catherine Referring Provider Speciality Internal M edicine Referred Provider Rocael López Referred Provider Specialty Urology General Notes Maribel Oconnell 02:48:09 PM EDT > info faxed , Natacha Gonzalez 01/14/2023 02:03:08 PM EDT > insurance refferal request faxed to Anish Lovell Annette 01/18/2023 11:26:33 AM EDT > info mailed to patient Referral Priority Routine Referral Appointment Date 02/03/2023 Reason platelet count is do wn Diagnosis 1 Abnormal CBC (R79.89 ) Referral Organization John Alexander MD Referring Provider First Name John Referring Provider Last Name Catherine Referring Provider Speciality Internal M edicine Referred Provider ALONZO MONAHAN Referred Provider Specialty Hematology/O ncology General Notes Maribel Oconnell 02:49:11 PM EDT > info faxed , Maribel Oconnell 01/06/2023 02:52:51 PM EDT > ins referral sent to Anish Lovell Annette 01/07/2023 02:17:10 PM EDT > send in referral to Mary [phone] Annette 01/18/2023 11:25:53 AM EDT > info mailed to patient Referral Priority Routine Referral Appointment Date 02/03/2023 MEDICATIONS Medication SIG (Take, Route, Frequency, Duration) Notes Start Date End Date Status buPROPion HCl ER (SR) 150 MG TAKE 1 TABLET BY MOUTH ONCE DAILY IN THE MORNING for 90 Active Spironolactone 25 MG 1 tablet Orally Not-Taking Furosemide 80 MG TAKE 1 TABLET BY SHANELL TH ONCE DAILY for 100 Active Escitalopram Oxalate 20 MG TAKE 1 TABLET BY MOUTH ONCE DAILY for 90 Active Cyclobenzaprine HCl 5 MG 1 tablet as nee ded Orally Three times a day for 10 days 12/08/2018 Not-Taking FreeStyle Lou 2 [place] - as directed 11/25/2022 Active Doxazosin Mesylate 2 MG 1 tabletin AM 2 tabs PM Orally Once a day Not-Taking Advocate Insulin Syringe 29G X 1/2 as directed inject DX : E 11.9 once a day with Lantus 04/27/2016 Active Meclizine HCl 25 MG 1 tablet as needed Orally twice a day for 7 days 08/12/2017 Not-Taking amLODIPine Besylate 5 MG TAKE 1 TABLET B Y MOUTH ONCE DAILY for 90 Active traMADol HCl 50 MG 1 tablet as needed Orally three times a day for 7 days 12/08/2018 Not-Taking Lantus 100 UNIT/ML LY 80 UNITS DAILY DIRECTED Active Irbesartan 300 MG TAKE 1 TABLET BY SHANELL TH ONCE DAILY for 100 Active Eliquis 2.5 MG TAKE 1 TABLET BY SHANELL TH TWICE DAILY DIRECTED Active FreeStyle Lou 2 Sensor - USE DIRECTED SUBCUTANEOUSLY EVERY 2 WEEKS for 90 Active Atorvastatin Calcium 40 MG TAKE 1 TABLET BY MOUTH ONCE DAILY for 100 Active Metoprolol Tartrate 100 MG TAKE 1 TABLET BY MOUTH TWICE DAILY for 90 Active IMMUNIZATIONS Vaccine Route Administration Date Status Comme nts Flu Vaccine IM Intramuscular 01/05/2011 Administered Flu Vaccine IM Intramuscular 12/27/2011 Administered Shingles IM Intramuscular 01/27/2012 Administered Prevnar 13 IM Intramuscular 08/01/2012 Administered Flu Vaccine IM Intramuscular 02/06/2013 Administered PPSV23 (Pnemovax) IM Intramuscular 12/04/2013 Administered Flu Vaccine IM Intramuscular 01/31/2014 Administered Fluarix Quadrivalent IM Intramuscular 01/23/2015 Administe red Fluarix Quadrivalent IM Intramuscular 01/16/2016 Administe red Fluarix Quadrivalent IM Intramuscular 01/27/2017 Administe red TDaP Unknown 04/30/2017 [facility]ered [facility] Fluarix Quadrivalent IM Intramuscular 12/23/2017 Administe red Fluarix Quadrivalent IM Intramuscular 12/18/2018 Administe red PPSV23 (Pnemovax) IM Intramuscular 05/29/2019 Administered Influenza High Dose IM Intramuscular 12/26/2019 Administer ed Influenza High Dose IM Intramuscular 12/22/2020 Administer ed SARS-COV-2 Pfizer Unknown 06/18/2020 Administered SARS-COV-2 Pfizer Unknown 07/09/2020 Administered SARS-COV-2 Pfizer Unknown 01/16/2021 Administered SARS-COV-2 Pfizer Unknown 07/30/2021 [facility]ered [facility] Influenza High Dose IM Intramuscular 12/18/2021 Administer ed SARS-COV-2 Pfizer Unknown 01/08/2022 [facility]ered [facility] Fluarix Quadrivalent Unknown 12/15/2022 [facility] SARS-COV-2 Pfizer Unknown 12/15/2022 [facility]ered [facility] SOCIAL HISTORY Tobacco Use: Social History Observation Description Date Details (start date - stop date) Never Smoker NA - NA Sex Assigned At : Social History Observation Description Sex Assigned At Unknown Tobacco Use/Smoking Question Answer Notes Patient is a nonsmoker Additional Findings: Tobacco Non-User Cu rrent non-smoker, currently using no form of tobacco Alcohol Screen Question Answer Notes Did you have a drink contain ing alcohol in the past year? Yes How often did you have a dri nk containing alcohol in the past year? Monthly or less (1 point) How many drinks did you have on a typical day when you were drinking in the past year? 1 or 2 drinks (0 point) How often did you have 6 or more drinks on one occasion in the past year? Never (0 point) Points 1 Interpretation Negative PROBLEMS Problem Type ICD Code Onset Dates Problem Status W/U Status Risk SNOMED Code Notes Problem Thrombocytopenia (D69.6) Active confirmed 735571103 Problem Arthritis of knee (M19.90) Active confirmed 713260010 Problem Paroxysmal atrial fibrillation (I48.0) Active confirmed 772750783 Problem Persistent atrial fibrillation (I48.1) Active confirmed Persist ent atrial fibrillation (320387397) Problem Tubular adenoma of colon (D12.6) Active confirmed 742897239 Problem Essential hypertensi on (I10) Active confirmed 22151076 Problem Low HDL (under 40) (E78.6) Active confirmed 533161317 Problem Diabetes type 2, controlled (E11.9) Active confirmed 60827461 Problem Type 2 diabetes, controlled, with neuropathy (E11.40) Active confirmed 64966663 Problem Lymphadenopathy (R59.1) Active confirmed 65846666 Problem MCMULLEN (nonalcoholic steatohepatitis) (K75.81) Active confirmed 390736424 Problem Hypoglycemia (E16.2) Active confirmed 3 50642263 Problem Chronic renal failur e, stage 3 (moderate) (N18.3) Active confirmed 57969843 Problem Dysthymia (F34.1) Active confirmed 7866 7006 Problem Neutropenia, unspecified type (D70.9) Active confirmed 306859488 Problem Hypersomnia (G47.10) Active confirmed 7 1871392 Problem Pure hypercholesterolemia (E78.00) Active confirmed 213675422 Problem Seasonal allergic rhinitis due to pollen (J30.1) Active confirmed 81956960 Problem Morbid obesity with body mass index (BMI) of 40.0 or higher (E66.01) Active confirmed 630127474 Problem Balance disorder (R26.89) Active confirmed 295733851 Problem Chronic heart failur e with preserved ejection fraction (I50.32) Active confirmed Chronic diastolic heart failure (028274378) Problem 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) Active confirmed 62100585 Problem Atrial fibrillation, persistent (I48.19) Active confirmed 106413208 Problem Stage 3 chronic kidn ey disease, unspecified whether stage 3a or 3b CKD (N18.30) Active confirmed 156605308 VITAL SIGNS Blood pressure diastolic 74 mm Hg 03/29/2023 kevin ght is down 2 pounds since 12-27-22 Height 68 in 03/29/2023 weight is down 2 pounds since 12-27-22 Blood pressure systolic 166 mm Hg 03/29/2023 weig ht is down 2 pounds since 12-27-22 Weight 274 lbs 03/29/2023 weight is down 2 pounds since 12-27-22 BMI 41.66 kg/m2 03/29/2023 weight is down 2 pounds since 12-27-22 Encounters Encounter Location Date Provider Diagnosis John Alexander MD [address] [place] [address] [id number] 12/27/2022 John Alexander Thrombocytopenia D69 .6 ; Adult general medical exam Z00.00 ; Neutropenia, unspecified type D70.9 ; Hematuria, unspecified type R31.9 ; Essential hypertension I10 ; Stage 3 chronic kidney disease, unspecified whether stage 3a or 3b CKD N18.30 ; Diabetes type 2, controlled E11.9 ; Pure hypercholesterolemia E78.00 ; Chronic heart failure with preserved ejection fraction I50.32 ; Atrial fibrillation, persistent I48.19 ; Colon cancer screening Z12.11 and Depression screen Z13.31 John Alexander MD [address] [place] [address] Drive [address] [place] [address] [id number] 12/20/2022 John Alexander Blood tests for rout ine general physical examination Z00.00 ; Diabetes type 2, controlled E11.9 ; Pure hypercholesterolemia E78.00 and Stage 3 chronic kidney disease, unspecified whether stage 3a or 3b CKD N18.30 John Alexander MD [address] [place] [address] [id number] 06/28/2023 John Alexander Diabetes type 2, controlled E11.9 and Pure hypercholesterolemia E78.00 John Alexander MD [address] [id number] 04/12/2023 John Alexander Neutropenia, unspeci fied type D70.9 and Thrombocytopenia D69.6 John Alexander MD [address] [place] [address] [id number] 05/13/2023 John Alexander Thrombocytopenia D69 .6 John Alexander MD [address] [place] [address] [id number] 06/10/2023 John Alexander Thrombocytopenia D69 .6 John Alexander MD [address] [place] [address] [id number] 10/08/2022 John Alexander Type 2 diabetes, controlled, with neuropathy E11.40 ; Hematuria R31.9 ; Proteinuria R80.9 and Chronic heart failure with preserved ejection fraction I50.32 John Alexander MD [address] [place] [address] [id number] 11/08/2022 John Alexander Diabetes type 2, controlled E11.9 ; Chronic heart failure with preserved ejection fraction I50.32 ; Bilateral leg edema R60.0 and Skin lesion L98.9 John Alexanedr MD [address] [place] [address] [id number] 11/23/2022 John Alexander Diabetes type 2, controlled E11.9 and Hypoglycemia E16.2 John Alexander MD [address] [place] [address] [id number] 03/29/2023 John Alexander Diabetes type 2, controlled E11.9 and Thrombocytopenia D69.6 John Alexander MD [address] [place] [address] [id number] 07/05/2023 John Alexander Diabetes type 2, controlled E11.9 ; Persistent atrial fibrillation I48.1 ; Neutropenia, unspecified type D70.9 ; Thrombocytopenia D69.6 and Paroxysmal atrial fibrillation I48.0 John Alexander MD [address] [place] [address] [id number] 11/01/2022 John Alexander MD [address] [place] [address] [id number] 11/25/2022 John Alexander MD [address] [place] [address] [id number] 11/25/2022 John Alexander MD [address] [place] [address] [id number] 11/29/2022 John Alexander ASSESSMENTS Encounter Date Diagnosis Assessment Notes Treatment Notes Treatment Clinical Notes 12/27/2022 Thrombocytopenia (IC D-10 - D69.6) 12/27/2022 Adult general medica l exam (ICD-10 - Z00.00) labs reviewed and discussed with patient 12/20/2022 Diabetes type 2, controlled (ICD-10 - E11.9) 12/20/[address] ine general physical examination (ICD-10 - Z00.00) 06/28/2023 Diabetes type 2, controlled (ICD-10 - E11.9) 06/28/2023 Pure hypercholestero lemia (ICD-10 - E78.00) 04/12/2023 Thrombocytopenia (IC D-10 - D69.6) 04/12/2023 Neutropenia, unspeci fied type (ICD-10 - D70.9) 05/13/2023 Thrombocytopenia (IC D-10 - D69.6) 06/10/2023 Thrombocytopenia (IC D-10 - D69.6) 10/08/2022 Hematuria (ICD-10 - R31.9) pending labs 10/08/2022 Type 2 diabetes, controlled, with neuropathy (ICD-10 - E11.40) stable, will continue current regiment 11/08/2022 Diabetes type 2, controlled (ICD-10 - E11.9) stable, will continue current regiment 11/08/2022 Chronic heart failur e with preserved ejection fraction (ICD-10 - I50.32) stable, will continue current regiment 11/23/2022 Diabetes type 2, controlled (ICD-10 - E11.9) 11/23/2022 Hypoglycemia (ICD-10 - E16.2) 03/29/2023 Thrombocytopenia (IC D-10 - D69.6) will continue to monitor 03/29/2023 Diabetes type 2, controlled (ICD-10 - E11.9) need to get back on diet, will continue current regiment 07/05/2023 Persistent atrial fibrillation (ICD-10 - I48.1) still short of breath, will continue current regiment and will continue to monitor 07/05/2023 Diabetes type 2, controlled (ICD-10 - E11.9) stable, will continue current regiment 12/27/2022 Neutropenia, unspeci fied type (ICD-10 - D70.9) stable, will continue to monitor 12/20/2022 Pure hypercholestero lemia (ICD-10 - E78.00) 10/08/2022 Proteinuria (ICD-10 - R80.9) pending labs 11/08/2022 Bilateral leg edema (ICD-10 - R60.0) will continue current regiment and continue to monitor 07/05/2023 Neutropenia, unspeci fied type (ICD-10 - D70.9) needs follow up with dr horan 12/27/2022 Hematuria, unspecifi ed type (ICD-10 - R31.9) pending lab 12/20/2022 Stage 3 chronic kidn ey disease, unspecified whether stage 3a or 3b CKD (ICD-10 - N18.30) 10/08/2022 Chronic heart failur e with preserved ejection fraction (ICD-10 - I50.32) 11/08/2022 Skin lesion (ICD-10 - L98.9) to [facility] 07/05/2023 Thrombocytopenia (IC D-10 - D69.6) will follow up with Dr Horan 12/27/2022 Essential hypertensi on (ICD-10 - I10) doing well, will continue current regiment 07/05/2023 Paroxysmal atrial fibrillation (ICD-10 - I48.0) 12/27/2022 Stage 3 chronic kidn ey disease, unspecified whether stage 3a or 3b CKD (ICD-10 - N18.30) followed by finishing manager 12/27/2022 Diabetes type 2, controlled (ICD-10 - E11.9) stable, will continue current regiment 12/27/2022 Pure hypercholestero lemia (ICD-10 - E78.00) stable, will continue current regiment 12/27/2022 Chronic heart failur e with preserved ejection fraction (ICD-10 - I50.32) stable, will continue current regiment 12/27/2022 Atrial fibrillation, persistent (ICD-10 - I48.19) stable 12/27/2022 Colon cancer screeni ng (ICD-10 - Z12.11) guaiac negative 12/27/2022 Depression screen (I CD-10 - Z13.31) negative screen PLAN OF TREATMENT Pending Test Test Name Order Date Electrocardiogram (EKG) 10/16/2015 Electrocardiogram (EKG) 01/27/2017 Glucose, finger stick 07/29/2017 XR CHEST 2 VIEW PA & LAT 01/01/2013 Next Appt Details Provider Name:John Humphreys ier, 10/06/2023 10:15:00 AM, [address], [address], [place], [place], [phone], Provider Name:John Humphreys ier, 12/22/2023 07:15:00 AM, [address], [address], [place], [place], [phone], Provider Name:John Humphreys ier, 12/29/2023 09:30:00 AM, [address], [address], [place], [place], [id number], Insurance Providers Payer Name Payer Address Payer Phone Subscriber Number Group Number Insured Name Patient Relationship to Insured Coverage Start Date Coverage End Date [facility] [address] [place] [phone] [id number] Steven Elise Self - patient is the insured MEDICAL (GENERAL) HISTORY Medical History History ICD Code colonoscopy 2004 Colonoscopy - 2004; 12/22/11 due in 5 years; Colonoscopy done 06/30/[address] Washburn - repeat d2022:colonoscopy 11/06/21 pending pathtold he needs no further Diabetic Eye Exam - 05/17/14 Dr. Catherine hematuria evaluation with cysto and ct 2 023 Surgical History Surgery Date(Month/Year) Left Total Knee Arthroplasty by Dr. Dai arroyo 07/2016
--- NOTE | 2023-08-18 09:40 | ED.GENADULT ---
HPI - General Adult General Chief complaint: Upper Respiratory Symptoms Stated complaint: SOB, coughing up blood Time Seen by Provider: 08/18/23 09:40 History of Present Illness HPI narrative: The patient is a 78-year-old male with a history of permanent atrial fibrillation on apixaban. He also has some degree of chronic congestive heart failure with chronic lower extremity edema. The patient says that he was in his normal state of health yesterday. He went to bed around midnight using his CPAP machine. At around 2 or 03:00 he woke up and went to the kitchen to get a glass of milk. As he drank the milk he choked on the milk and then had a great deal of coughing. Ultimately his coughing subsided enough that he was able to go back to bed and apply his CPAP machine. His alarm woke him at 07:00. At that time he had shaking chills and ongoing coughing. Throughout the morning he had ongoing coughing and brought up some blood-tinged sputum. Seemed somewhat short of breath. Ultimately his drove him to the hospital. Related Data Home Medications ?Medication ?Instructions ?Recorded ?Confirmed atorvastatin 40 mg tablet 40 mg PO DAILY 05/28/20 08/18/23 insulin glargine 100 unit/mL 80 unit subcut DAILY 05/28/20 08/18/23 subcutaneous solution irbesartan 300 mg tablet 300 mg PO DAILY 05/28/20 08/18/23 metoprolol tartrate 100 mg tablet 100 mg PO BID 05/28/20 08/18/23 escitalopram oxalate 20 mg tablet 20 mg PO DAILY 01/12/21 08/18/23 bupropion HCl 150 mg tablet,12 hr 150 mg PO QAM 07/20/21 08/18/23 sustained-release furosemide 80 mg tablet 80 mg PO DAILY 01/26/23 08/18/23 amlodipine 5 mg tablet 5 mg PO DAILY 02/11/23 08/18/23 Previous Rx's ?Medication ?Instructions ?Recorded apixaban 5 mg tablet (Eliquis) 5 mg PO BID 90 days #180 tabs 07/21/22 cyanoco,mecobalamin 1,000 1 tab PO DAILY #90 tabs 02/13/23 mcg-folic acid 200 mcg disintegrating tablet Allergies Allergy/AdvReac Type Severity Reaction Status Date / Time No Known Allergies Allergy Mild NOT Verified 08/18/23 08:57 APPLICABLE [facility] Past Medical History Medical History (Updated 08/18/23 @ 13:00 by HALLE Honeycutt) Insulin dependent type 2 diabetes mellitus HLD (hyperlipidemia) Skin cancer Diabetes ABHAY on CPAP Essential hypertension Chronic heart failure with preserved ejection fraction (HFpEF) Persistent atrial fibrillation Surgical History (Updated 02/11/23 @ 10:52 by Meli Horan MD) H/O colonoscopy Hx of arthroscopy of right knee History of knee replacement History of cholecystectomy History of appendectomy Family History Family History Father No problems noted. Mother No problems noted. Social History Social History (Updated 02/11/23 @ 10:18 by Gonzalo Wood) Household Members: Significant Other Alcohol intake: never Patient Tobacco Use Status: Never used Tobacco Smoked in Last 30 Days: No Use of substances other than those prescribed or required for medical reasons: No Advance Directives: Yes Advance Directives Information Provided: No Advance Directives on File: No Do you have a plan to hurt others: No Plan service: No Current occupational status: retired Physical Exam ED Vital Signs: Vital Signs - 24 hr 08/18/23 08:56 08/18/23 10:07 08/18/23 12:17 Temperature 98 F 101.5 F H 98.4 F Pulse Rate 87 83 104 H Respiratory Rate 24 H 16 20 Blood Pressure 118/79 138/71 Pulse Oximetry 88 L 96 Oxygen Delivery Method Room Air Nasal Cannula Oxygen Flow Rate 2 08/18/23 12:24 Temperature Pulse Rate Respiratory Rate Blood Pressure Pulse Oximetry 97 Oxygen Delivery Method Nasal Cannula Oxygen Flow Rate BMI result Body Mass Index 41.3 Const Other: Is a chronically ill-appearing man who was awake and alert with a normal mental status. He is on nasal oxygen here in the emergency room. No increased work of breathing. HENMT Other: Face is symmetrical, mucous membranes moist Eyes Other: Pupils are round equal, conjunctivae clear Neck Neck: Yes no JVD Resp Other: Breath sounds are fairly clear bilaterally. No increased work of breathing Cardio Other: The patient has an irregular rate and rhythm. No definite murmur. GI Other: Abdomen is soft and nontender Skin Other: Skin is dry and unremarkable although he has lot of edema of the lower legs. Neuro Other: The patient is awake and alert. He is reasonably well oriented. Face is symmetrical. Moving his extremities symmetrically. Grossly neurologically intact. Extrem Other: Two to 3+ edema both lower legs. No significant tenderness. Medications Administered Discontinued Medications Generic Name Dose Route Start Last Admin Trade Name Saulo PRN Reason Stop Dose Admin Ceftriaxone Sodium 2 gm/ 50 mls @ 100 mls/hr 08/18/23 10:08 08/18/23 11:12 Sodium Chloride IV 08/18/23 10:37 Infused ONCE ONE Infusion Metronidazole 500 mg in 100 mls @ 100 mls/hr 08/18/23 10:09 08/18/23 12:09 Flagyl IV 08/18/23 11:08 Infused ONCE ONE Infusion Azithromycin 500 mg/ Sodium 250 mls @ 125 mls/hr 08/18/23 10:09 08/18/23 12:17 Chloride IV 08/18/23 12:08 125 mls/hr ONCE ONE Administration Sodium Chloride 1,000 mls @ 999 mls/hr 08/18/23 10:45 08/18/23 12:09 Ns IV 08/18/23 11:45 Infused .Q1H1M MARTINE Infusion Medical Decision Making Medical Decision Making [facility] Narrative: The patient presents with cough and fever after having a choking episode this morning when drinking milk at around 03:00. Chest x-ray shows a right middle lobe infiltrate. Given his description of the episode of choking this morning I would have concerns about an aspiration pneumonia. He was started on ceftriaxone, metronidazole, and azithromycin. His initial lactate was 2.4. He was otherwise hemodynamically stable although he required oxygen because his oxygen saturation on room air was 88%. He was given IV fluids. A 2nd lactate was 2.2. He will be admitted to the hospitalist service. Lab Data 08/18/23 09:57 08/18/23 09:57 Labs: Lab Results 08/18/23 08/18/23 08/18/23 Range/Units 09:57 09:59 10:14 WBC 5.2 (4.8-10.8) X10*3/uL RBC 4.18 L (4.60-5.80) X10*6/uL Hgb 13.9 L (14.0-18.0) g/dl Hct 39.6 L (42.0-52.0) % MCV 94.7 (80.0-98.0) fL MCH 33.3 H (27.0-33.0) pg MCHC 35.1 (31.0-36.0) g/dl RDW 12.5 (11.0-16.0) % Plt Count 65 L (160-400) X10*3/uL MPV 11.0 (9.4-12.4) fL Immature Gran % (Auto) 0.4 (0.0-0.4) % Neut % (Auto) 85.9 H (45-73) % Lymph % (Auto) 7.7 L (20-40) % [place] % (Auto) 5.2 (2-11) % Eos % (Auto) 0.4 (0-4) % Baso % (Auto) 0.4 (0-2) % Lymph # (Auto) 0.4 L (1.2-4.9) X10*3/uL [place] # (Auto) 0.3 (0.1-1.2) X10*3/uL Eos # (Auto) 0.0 (0.0-0.4) X10*3/uL Baso # (Auto) 0.0 (0.0-0.2) X10*3/uL Abs Immat Gran (auto) 0.02 (0.00-0.03) X10*3/uL Absolute Neuts (auto) 4.5 (2.0-8.3) x10*3/uL Absolute Nucleated RBC 0.000 (0.0-0.012) X10*3/uL Nucleated RBC % (auto) 0.0 (0.0-0.2) /100WBC Sodium 134 L (135-145) mmol/L Potassium 4.0 (3.3-5.1) mmol/L Chloride 100 (96-108) mmol/L Carbon Dioxide 21 L (22-29) mmol/L Anion Gap 17 (12-20) BUN 32 H (9-16) mg/dL Creatinine 1.34 (0.5-1.4) mg/dL Estim Creat Clear Calc 60.8 Estimated GFR 52 Random Glucose 173 H (60-115) mg/dL Lactic Acid 2.4 H* (0.5-2.0) mmol/L Calcium 9.3 (8.4-10.2) mg/dL Troponin I High Sens 4.0 (<3.5-35.0) ng/L C-Reactive Protein (< or = 0.50) mg/dL B-Natriuretic Peptide 165 H (<100) pg/mL Influenza Type A (PCR) NEGATIVE (Negative) Influenza Type B (PCR) NEGATIVE (Negative) RSV RNA Qual (PCR) NEGATIVE (Negative) SARS-CoV-2 RNA (RT-PCR) NEGATIVE (Negative) 08/18/23 Range/Units 10:33 WBC (4.8-10.8) X10*3/uL RBC (4.60-5.80) X10*6/uL Hgb (14.0-18.0) g/dl Hct (42.0-52.0) % MCV (80.0-98.0) fL MCH (27.0-33.0) pg MCHC (31.0-36.0) g/dl RDW (11.0-16.0) % Plt Count (160-400) X10*3/uL MPV (9.4-12.4) fL Immature Gran % (Auto) (0.0-0.4) % Neut % (Auto) (45-73) % Lymph % (Auto) (20-40) % [place] % (Auto) (2-11) % Eos % (Auto) (0-4) % Baso % (Auto) (0-2) % Lymph # (Auto) (1.2-4.9) X10*3/uL [place] # (Auto) (0.1-1.2) X10*3/uL Eos # (Auto) (0.0-0.4) X10*3/uL Baso # (Auto) (0.0-0.2) X10*3/uL Abs Immat Gran (auto) (0.00-0.03) X10*3/uL Absolute Neuts (auto) (2.0-8.3) x10*3/uL Absolute Nucleated RBC (0.0-0.012) X10*3/uL Nucleated RBC % (auto) (0.0-0.2) /100WBC Sodium (135-145) mmol/L Potassium (3.3-5.1) mmol/L Chloride (96-108) mmol/L Carbon Dioxide (22-29) mmol/L Anion Gap (12-20) BUN (9-16) mg/dL Creatinine (0.5-1.4) mg/dL Estim Creat Clear Calc Estimated GFR Random Glucose (60-115) mg/dL Lactic Acid (0.5-2.0) mmol/L Calcium (8.4-10.2) mg/dL Troponin I High Sens (<3.5-35.0) ng/L C-Reactive Protein 0.34 (< or = 0.50) mg/dL B-Natriuretic Peptide (<100) pg/mL Influenza Type A (PCR) (Negative) Influenza Type B (PCR) (Negative) RSV RNA Qual (PCR) (Negative) SARS-CoV-2 RNA (RT-PCR) (Negative) Independent Interpretation I performed an independent interpretation of an: EKG Interpretation: EKG at 0907 shows atrial fibrillation at 78 beats per minute. No significant change from previous. No acute ischemic changes. Critical Care Time Critical Care Time Critical Care Time: Yes Total Critical Care Time: 35 Attestation: The patient was critically ill with a high probability of imminent or life-threatening deterioration. ?I spent greater than 30 minutes of discontinuous time evaluating the patient, delivering critical care at the bedside, discussing evaluating data with consultants. ?Critical care time does not include time spent performing separately billable procedures or teaching. ?Time spent performing critical care with 35 minutes. Discharge Plan Discharge Clinical Impression: Pneumonia Patient Disposition: Admitted As Inpatient
[2023-08-18 10:07] LABS: MANUAL DIFF FLAG NO
[2023-08-18 10:16] LABS: Basophils Percent Auto 0.4 % (0-2); Eosinophils Percent Auto 0.4 % (0-4); Hematocrit 39.6 % (42.0-52.0); Hemoglobin 13.9 g/dl (14.0-18.0); Imm Gran Abs Auto 0.02 X10*3/uL (0.00-0.03); Imm Gran Pct Auto 0.4 % (0.0-0.4); Lymphocytes Absolute Auto 0.4 X10*3/uL (1.2-4.9); Lymphocytes Percent Auto 7.7 % (20-40); Mean Corpuscular HGB Conc 35.1 g/dl (31.0-36.0); Mean Corpuscular Hemoglobin 33.3 pg (27.0-33.0); Mean Corpuscular Volume 94.7 fL (80.0-98.0); Monocytes Absolute Auto 0.3 X10*3/uL (0.1-1.2); Monocytes Percent Auto 5.2 % (2-11); Neutrophils Absolute Auto 4.5 x10*3/uL (2.0-8.3); Neutrophils Percent Auto 85.9 % (45-73); Red Blood Count 4.18 X10*6/uL (4.60-5.80); Red Cell Distribution Width 12.5 % (11.0-16.0); White Blood Count 5.2 X10*3/uL (4.8-10.8)
[2023-08-18 10:17] LABS: Platelet Count 65 X10*3/uL (160-400)
[2023-08-18 10:25] LABS: Lactic Acid 2.4 mmol/L (0.5-2.0)
[2023-08-18 10:30] LABS: B Type Natriuretic Peptide 165 pg/mL (<100)
[2023-08-18] MEDS: cefTRIAXone sodium 2 GM in 0.9 % Sodium Chloride 50 ML IV (10:42)
[2023-08-18] MEDS: 0.9 % Sodium Chloride 1,000 ML 999 ML IV (10:43)
[2023-08-18 10:52] LABS: C Reactive Protein 0.34 mg/dL (< or = 0.50)
[2023-08-18] MEDS: metroNIDAZOLE/NS 500 MG/100 ML PIGGYBACK 100 MG IV (11:05)
[2023-08-18 11:07] LABS: Anion Gap 17 (12-20); Blood Urea Nitrogen 32 mg/dL (9-16); Calcium 9.3 mg/dL (8.4-10.2); Carbon Dioxide 21 mmol/L (22-29); Chloride 100 mmol/L (96-108); Creatinine Clr Calc Pharmacy 60.8; Estimated Glomerular Filt Rate 52; Glucose Random 173 mg/dL (60-115); Sodium 134 mmol/L (135-145)
[2023-08-18 11:18] LABS: Influenza A PCR NEGATIVE (Negative); Influenza B PCR NEGATIVE (Negative); Resp Syncy Virus RNA Qual PCR NEGATIVE (Negative); SARS COV2 PCR INHOUSE NEGATIVE (Negative)
--- NOTE | 2023-08-18 11:24 | P.HPHOSP_ITS ---
History of Present Illness Date of Service: 08/18/23 Attending physician on admission: Carlo Larios Chief Complaint: SOB and coughing Pt is a -year-old female with a PMH significant for persistent AFib on Eliquis, HFpEF, HTN, HLD, insulin-dependent type 2 diabetes,?CKD 3, hx of orthostatic hypotension, and ABHAY on CPAP who presents to the ED for evaluation of cough with hemoptysis, SOB,?and shaking chills this morning after an episode choking while drinking. Patient reports he was in his normal state of health last evening when he went to bed. Denies previous fever, chills, cough, or SOB above baseline. This morning around 03:00 patient woke up and drank a glass of milk, which he subsequently choked on. Patient reports his ?throat just would not open? and had a coughing fit lasted 10+ minutes long. Patient was able to go back to sleep but woke in the morning at approximately 07:00 with shaking chill. Continued coughing with sputum eventually turning pink and flecked with blood. Patient's reported he sounded ?terrible?, gurgling and congested?. Says she could hear him breathing from the next room over. Patient reports he has 1- 2 similar episodes of choking on p.o. intake per year though has not had any formal swallow evaluation. Denies chest pain/pressure, palpitations. Denies nausea, vomiting, abdominal pain. Chronic lower leg edema around baseline. In the ED pt was febrile up to 101.5, tachypneic up to 24, and hypoxic as low as 88 on RA. Labs were significant for sodium 134, lactic acid 2.4, BNP mildly elevated 165, otherwise grossly unremarkable and around baseline for patient. Stable H&H. Renal function baseline. Tested negative for flu, COVID, RSV. CXR showed right middle lobe pneumonia in left lung base consolidation. EKG demonstrated atrial fibrillation with nonspecific T-wave abnormality, similar to previous. Pt was treated with IVF, ceftriaxone, azithromycin, and metronidazole. Pt will be admitted to the hospital for treatment and further evaluation of acute hypoxic respiratory failure in the setting of aspiration pneumonia with sepsis. Review of Systems 2 Review of Systems: Dysphagia Intractable coughing with Hemoptysis Rigors Increased SOB No nausea, vomiting, abdominal pain Denies chest pain/pressure, palpitations [facility] Medical History (Updated 08/18/23 @ 13:00 by HALLE Honeycutt) Insulin dependent type 2 diabetes mellitus HLD (hyperlipidemia) Skin cancer Diabetes ABHAY on CPAP Essential hypertension Chronic heart failure with preserved ejection fraction (HFpEF) Persistent atrial fibrillation Family History Father No problems noted. Mother No problems noted. Surgical History (Updated 02/11/23 @ 10:52 by Meli Horan MD) H/O colonoscopy Hx of arthroscopy of right knee History of knee replacement History of cholecystectomy History of appendectomy Social History (Updated 02/11/23 @ 10:18 by Gonzalo Wood) Household Members: Significant Other Alcohol intake: never Patient Tobacco Use Status: Never used Tobacco service: No Current occupational status: [employer] Allergies Allergy/AdvReac Type Severity Reaction Status Date / Time No Known Allergies Allergy Mild NOT Verified 08/18/23 08:57 APPLICABLE Active Medications: Current Medications Azithromycin 500 mg/ Sodium (Chloride) 250 mls @ 125 mls/hr IV ONCE ONE Stop: 08/18/23 12:08 Sodium Chloride (Ns) 1,000 mls @ 999 mls/hr IV .Q1H1M MARTINE Stop: 08/18/23 11:45 Last Admin: 08/18/23 10:43 Dose: 999 mls/hr Home Medications ?Medication ?Instructions ?Recorded ?Confirmed ?Last Taken ?Type atorvastatin 40 mg tablet 40 mg PO DAILY 05/28/20 08/18/23 Unknown History insulin glargine 100 unit/mL 80 unit subcut DAILY 05/28/20 08/18/23 Unknown History subcutaneous solution irbesartan 300 mg tablet 300 mg PO DAILY 05/28/20 08/18/23 Unknown History metoprolol tartrate 100 mg tablet 100 mg PO BID 05/28/20 08/18/23 Unknown History escitalopram oxalate 20 mg tablet 20 mg PO DAILY 01/12/21 08/18/23 Unknown History bupropion HCl 150 mg tablet,12 hr 150 mg PO QAM 07/20/21 08/18/23 Unknown History sustained-release furosemide 80 mg tablet 80 mg PO DAILY 01/26/23 08/18/23 Unknown History amlodipine 5 mg tablet 5 mg PO DAILY 02/11/23 08/18/23 Unknown History Physical Exam 2 Vital Signs and Narrative: Vital Signs: Last Vital Signs Temp 101.5 F H 08/18/23 10:07 Pulse 83 08/18/23 10:07 Resp 16 08/18/23 10:07 BP 118/79 08/18/23 08:56 Pulse Ox 88 L 08/18/23 08:56 O2 Del Method Room Air 08/18/23 08:56 BMI result Body Mass Index 41.3 Constitutional: Alert, in no acute distress. Mental Status: Oriented to person, place and time. Eyes: Pupils are equal, round, and reactive to light. Ear, Nose, and Throat: Oropharynx clear, mucous membranes moist. Ears and nose without deformities. Trachea midline. Respiratory: Clear to auscultation bilaterally. No wheezing, rales, or rhonchi. Cardiovascular: Irregularly irregular rhythm. Gastrointestinal: Abdomen soft, non-tender, non-distended. Normal bowel sounds. Neurologic: Cranial nerves II-XII are grossly intact bilaterally. No focal neurological deficits. Moves all extremities spontaneously. Skin: Warm, dry. Extremities: 3+ bilateral pitting edema, worse around ankles. Psychiatric: Normal mood and affect. Results Labs 08/18/23 09:57 08/18/23 09:57 Labs: Laboratory Results - last 24 hr 08/18/23 08/18/23 08/18/23 09:57 09:59 10:14 MCV 94.7 MCH 33.3 H MCHC 35.1 RDW 12.5 Plt Count 65 L MPV 11.0 Immature Gran % (Auto) 0.4 Neut % (Auto) 85.9 H Lymph % (Auto) 7.7 L [place] % (Auto) 5.2 Eos % (Auto) 0.4 Baso % (Auto) 0.4 Lymph # (Auto) 0.4 L [place] # (Auto) 0.3 Eos # (Auto) 0.0 Baso # (Auto) 0.0 Abs Immat Gran (auto) 0.02 Absolute Neuts (auto) 4.5 Absolute Nucleated RBC 0.000 Nucleated RBC % (auto) 0.0 Anion Gap 17 Estim Creat Clear Calc 60.8 Estimated GFR 52 Random Glucose 173 H Lactic Acid 2.4 H* Calcium 9.3 Troponin I High Sens 4.0 C-Reactive Protein B-Natriuretic Peptide 165 H Influenza Type A (PCR) NEGATIVE Influenza Type B (PCR) NEGATIVE RSV RNA Qual (PCR) NEGATIVE SARS-CoV-2 RNA (RT-PCR) NEGATIVE 08/18/23 10:33 MCV MCH MCHC RDW Plt Count MPV Immature Gran % (Auto) Neut % (Auto) Lymph % (Auto) [place] % (Auto) Eos % (Auto) Baso % (Auto) Lymph # (Auto) [place] # (Auto) Eos # (Auto) Baso # (Auto) Abs Immat Gran (auto) Absolute Neuts (auto) Absolute Nucleated RBC Nucleated RBC % (auto) Anion Gap Estim Creat Clear Calc Estimated GFR Random Glucose Lactic Acid Calcium Troponin I High Sens C-Reactive Protein 0.34 B-Natriuretic Peptide Influenza Type A (PCR) Influenza Type B (PCR) RSV RNA Qual (PCR) SARS-CoV-2 RNA (RT-PCR) Imaging Radiologist's Impressions: Impressions Chest X-Ray 08/18/23 09:28 IMPRESSION: Right middle lobe pneumonia with some lower lobe disease as described above. Assessment and Plan (1) Aspiration pneumonia: Status: Acute (2) Acute hypoxic respiratory failure: Status: Acute Plan Pt is a -year-old female with a PMH significant for persistent AFib on Eliquis, HFpEF, HTN, HLD, insulin-dependent type 2 diabetes,?CKD 3, hx of orthostatic hypotension, and ABHAY on CPAP who presents to the ED for evaluation of cough with hemoptysis, SOB,?and shaking chills this morning after an episode choking while drinking. Pt will be admitted to the hospital for treatment and further evaluation of acute hypoxic respiratory failure in the setting of aspiration pneumonia with sepsis. Acute hypoxic respiratory failure in the setting of aspiration pneumonia Patient with episode of choking on milk this morning followed by intractable coughing with hemoptysis and rigors a few hours later, desatting as low as 88% on RA CXR showing right middle lobe pneumonia and possible left lower low consolidation Patient meets sepsis criteria: Fever, tachycardia, tachypnea; lactic acid 2.4 Patient given IVF and started on broad-spectrum antibiotics in the ED Will cover with azithromycin and ceftriaxone, started 08/18/2023 Titrate supplemental O2 >92, wean as tolerated Follow cultures Monitor respiratory status Hx of dysphagia Patient with episode of choking on milk this morning Reports around 2 similar episodes of dysphagia yearly Has never received formal evaluation for swallowing dysfunction Will get formal speech swallow evaluation for possible further workup NPO pending swallow eval Chronic AFib Continue metoprolol, Eliquis HFpEF Chronic LLE at baseline Not in acute exacerbation Continue metoprolol, furosemide Low-salt diet once no longer NPO HLD Continue statin HTN Continue amlodipine, irbesartan Insulin-dependent type 2 diabetes Sliding-scale insulin, Lantus Diabetic diet once no longer NPO ABHAY Continue CPAP at night Mood disorder Continue escitalopram Full Code Attending:?Dr. Larios DVT Prophylaxis: On Eliquis Pt will require a hospitalization of at least two nights for treatment of?acute hypoxic respiratory failure in the setting of aspiration pneumonia. Patient will require hospitalization for the administration of IV antibiotics, supplemental oxygen, close monitoring respiratory status, and formal swallow evaluation by speech. Quality Stroke Does the patient have a stroke diagnosis?: No VTE Prior VTE?: No VTE Risk Level:: Medical - moderate - high VTE Device Contraindication: Treatment Not Indicated VTE Drug Contraindication: N/A - Med Ordered
[2023-08-18 12:04] LABS: Reflex Lactate? Lactic Acid Added
[2023-08-18] MEDS: Azithromycin 500 MG in 0.9 % Sodium Chloride 250 ML 125 MG IV (12:17)
--- NOTE | 2023-08-18 12:34 | PHA.MEDREC ---
Pharmacy Consult ? Medication Reconciliation Pharmacy has completed the medication reconciliation. Patient had list with them.
[2023-08-18 13:20] LABS: ~Lactic Acid-LAB USE ONLY 2.2 mmol/L (0.5-2.0)
[2023-08-18 13:44] LABS: Cancel Lactic Acid Canceled
[2023-08-18] MEDS: Metoprolol Tartrate 100 MG TABLET PO (13:52)
[2023-08-18] MEDS: Furosemide 40 MG TABLET 80 MG PO (13:52)
[2023-08-18] MEDS: Escitalopram Oxalate 20 MG TABLET PO (13:52)
[2023-08-18] MEDS: amLODIPine Besylate 5 MG TABLET PO (13:52)
[2023-08-18] MEDS: Atorvastatin Calcium 40 MG TABLET PO (13:52)
[2023-08-18] MEDS: Apixaban 5 MG TABLET PO (13:52)
--- NOTE | 2023-08-18 14:36 | MHC.SL.SWA ---
Speech Pathologist Impression: Risk of Aspiration Due to: History of Pneumonia Dysphasia Diet Status: Liquid Consistency and Strategies for Safe Swallow: Liquid Intake Recommendation: Thin Liquid Intake Strategies: Unrestricted Solid Food Consistency: Dietary Recommendations: Regular Additional Modifications to Solid Foods: Oral Medication Intake: Whole with Liquid Please contact the pharmacy regarding appropriate crushable or liquid drug formulations that are available whenever modified delivery is recommended. Compensatory Strategies and Precautions to be Taken for Safe Swallow: Sitting Upright (90 deg) Liquids from Cup Liquids from Straw Small Bites and Sips Alternate Liquids/Solids Supervision While Eating and Drinking for Safe Swallow: None Needed Foods to Avoid: Swallowing Recommended Treatments: Recommendation for Speech: NA:Typical Evaluation Comment: At bedside, Patient presents with all aspects of oral motor function and all aspects of swallow WFL. Patient likely had an unusually bad but incidental miss-cueing of swallow last night while drinking milk (going down the wrong way). Recommend START diet of REGULAR with THIN liquids, pills whole with liquid. As swallow presents at [facility], there is no significant indication of a history of difficulty with swallowing, no further [facility] services or instrumental evaluation recommended at this time. It was recommended to patient that if issue recurs, further testing might be warranted. [facility] will D/C for this inpatient stay. Frequency/Duration: Date Range for Service Req: Timeline to reassess: Elevator Adjuster Clinican/Clinical Fellow: No Supervisory Statement: I have reviewed and agree with the student/clinical fellow's documentation: N/A Speech Language Pathologist: Cesia Will M.A., [facility]
[2023-08-18] MEDS: 0.9 % Sodium Chloride Flush 3 ML SYRINGE IVFLUSH (18:13)
[2023-08-18 18:16] LABS: Glucose, Whole Blood 137 mg/dL (60-115)
[2023-08-18 21:43] LABS: Glucose, Whole Blood 215 mg/dL (60-115)
[2023-08-19 00:04] VITALS: BP 132/72; PULSE 87
[2023-08-19] MEDS: buPROPion HCL 75 MG TABLET PO ×2 (00:04→08:57)
[2023-08-19] MEDS: Metoprolol Tartrate 100 MG TABLET PO ×2 (00:04→08:56)
[2023-08-19] MEDS: Apixaban 5 MG TABLET PO ×2 (00:05→08:56)
[2023-08-19] MEDS: 0.9 % Sodium Chloride Flush 3 ML SYRINGE IVFLUSH ×2 (00:05→09:10)
[2023-08-19 00:07] LABS: Glucose, Whole Blood 157 mg/dL (60-115)
[2023-08-19 00:15] VITALS: BP 151/71; PULSE 73; RESP 21; TEMP 37.3; O2SAT 92
[2023-08-19 00:52] VITALS: BMI 41.3
[2023-08-19 04:19] VITALS: BP 161/69; PULSE 78; RESP 21; TEMP 36.9; O2SAT 95
[2023-08-19 06:57] LABS: Anion Gap 13 (12-20); Blood Urea Nitrogen 34 mg/dL (9-16); Calcium 9.2 mg/dL (8.4-10.2); Carbon Dioxide 29 mmol/L (22-29); Chloride 98 mmol/L (96-108); Estimated Glomerular Filt Rate 37; Glucose Random 143 mg/dL (60-115); Potassium 3.4 mmol/L (3.3-5.1); Sodium 137 mmol/L (135-145)
[2023-08-19 06:58] LABS: Glucose, Whole Blood 166 mg/dL (60-115)
[2023-08-19 07:23] VITALS: BP 115/76; PULSE 79; RESP 20; TEMP 36.3; O2SAT 93
[2023-08-19 08:56] VITALS: BP 114/76; BP 115/76; PULSE 62
[2023-08-19] MEDS: amLODIPine Besylate 5 MG TABLET PO (08:56)
[2023-08-19] MEDS: Valsartan 160 MG TABLET PO (08:56)
[2023-08-19] MEDS: Escitalopram Oxalate 20 MG TABLET PO (08:57)
[2023-08-19] MEDS: Furosemide 40 MG TABLET 80 MG PO (08:57)
[2023-08-19] MEDS: Atorvastatin Calcium 40 MG TABLET PO (08:57)
[2023-08-19] MEDS: Insulin Glargine,Hum.rec.anlog 100 UNIT/ML 10 ML VIAL 56 UNIT SUBCUT (08:58)
[2023-08-19] MEDS: cefTRIAXone sodium 1 GM in 0.9 % Sodium Chloride 50 ML IV (08:59)
--- NOTE | 2023-08-19 09:26 | PM.DS ---
DS: Providers Provider Date of Service: 08/19/23 Date of admission: 08/18/23 12:25 Primary care physician: John Alexander MD DS: Diagnosis Discharge Diagnosis (1) Aspiration pneumonia: Status: Acute (2) Acute hypoxic respiratory failure: Status: Acute DS: Summary Hospital Course Hospital Course: from initial hpi: 78M PMH significant for persistent AFib on Eliquis, HFpEF, HTN, HLD, insulin-dependent type 2 diabetes,?CKD 3, hx of orthostatic hypotension, and ABHAY on CPAP who presents to the ED for evaluation of cough with hemoptysis, SOB,?and shaking chills this morning after an episode choking while drinking. Patient reports he was in his normal state of health last evening when he went to bed. Denies previous fever, chills, cough, or SOB above baseline. This morning around 03:00 patient woke up and drank a glass of milk, which he subsequently choked on. Patient reports his ?throat just would not open? and had a coughing fit lasted 10+ minutes long. Patient was able to go back to sleep but woke in the morning at approximately 07:00 with shaking chill. Continued coughing with sputum eventually turning pink and flecked with blood. Patient's reported he sounded ?terrible?, gurgling and congested?. Says she could hear him breathing from the next room over. Patient reports he has 1-2 similar episodes of choking on p.o. intake per year though has not had any formal swallow evaluation. Denies chest pain/pressure, palpitations. Denies nausea, vomiting, abdominal pain. Chronic lower leg edema around baseline. In the ED pt was febrile up to 101.5, tachypneic up to 24, and hypoxic as low as 88 on RA. Labs were significant for sodium 134, lactic acid 2.4, BNP mildly elevated 165, otherwise grossly unremarkable and around baseline for patient. Stable H&H. Renal function baseline. Tested negative for flu, COVID, RSV. CXR showed right middle lobe pneumonia in left lung base consolidation. EKG demonstrated atrial fibrillation with nonspecific T-wave abnormality, similar to previous. Pt was treated with IVF, ceftriaxone, azithromycin, and metronidazole. Pt will be admitted to the hospital for treatment and further evaluation of acute hypoxic respiratory failure in the setting of aspiration pneumonia with sepsis. hospital course: Patient was admitted for acute hypoxic respiratory failure secondary to aspiration pneumonia/pneumonitis and sepsis. His symptoms completely resolved within 12 hours making diagnosis likely chemical aspiration pneumonitis but can not rule out aspiration pneumonia. She with IV antibiotics and will be transitioned to 5 more days of Augmentin. He worked with speech therapy who recommended regular solids with thin liquids. For chronic AFib he was continued on metoprolol and Eliquis. For chronic diastolic CHF he remained euvolemic. For hyperlipidemia was continue on statin. For obesity weight loss recommended. For hypertension was continued on amlodipine and ARB. For diabetes was continued on insulin. For ABHAY uses CPAP at night. For mood disorder was continued on Lexapro. Time Attestation Discharge Coordination Time (in mins): 35 Quality: Safe Use of Opioids Does Pt have an Active Cancer Diagnosis on the Problem List?: No Quality: Stroke Does the patient have a stroke diagnosis?: No Physical Exam Vital Signs: Vital Signs: Last Vital Signs Temp 97.3 F 08/19/23 07:23 Pulse 62 08/19/23 08:56 Resp 20 08/19/23 07:23 BP 114/76 08/19/23 08:56 Pulse Ox 93 08/19/23 07:23 O2 Del Method Room Air 08/19/23 07:23 O2 Flow Rate 2 08/18/23 13:53 Oxygen Flow Rate 2 08/18/23 12:24 BMI result Body Mass Index 41.3 General: AO X 3, no acute distress Resp: CTA bilateral, no accessory muscles used CVS: S1,S2,RRR GI: soft, non tender, non distended Neuro: motor grossly intact, alert Psych: appropriate affect, appropriate insight DS: Data Data Completed and Pending Labs on day of discharge: Laboratory Results - last 24 hr 08/18/23 08/18/23 08/18/23 09:57 09:59 10:14 WBC 5.2 RBC 4.18 L Hgb 13.9 L Hct 39.6 L MCV 94.7 MCH 33.3 H MCHC 35.1 RDW 12.5 Plt Count 65 L MPV 11.0 Immature Gran % (Auto) 0.4 Neut % (Auto) 85.9 H Lymph % (Auto) 7.7 L [place] % (Auto) 5.2 Eos % (Auto) 0.4 Baso % (Auto) 0.4 Lymph # (Auto) 0.4 L [place] # (Auto) 0.3 Eos # (Auto) 0.0 Baso # (Auto) 0.0 Abs Immat Gran (auto) 0.02 Absolute Neuts (auto) 4.5 Absolute Nucleated RBC 0.000 Nucleated RBC % (auto) 0.0 Sodium 134 L Potassium 4.0 Chloride 100 Carbon Dioxide 21 L Anion Gap 17 BUN 32 H Creatinine 1.34 Estim Creat Clear Calc 60.8 Estimated GFR 52 POC Glucose Random Glucose 173 H Lactic Acid 2.4 H* Lactic Acid F/U @ 2Hr Calcium 9.3 Troponin I High Sens 4.0 C-Reactive Protein B-Natriuretic Peptide 165 H Influenza Type A (PCR) NEGATIVE Influenza Type B (PCR) NEGATIVE RSV RNA Qual (PCR) NEGATIVE SARS-CoV-2 RNA (RT-PCR) NEGATIVE 08/18/23 08/18/23 08/18/23 10:33 12:56 18:12 WBC RBC Hgb Hct MCV MCH MCHC RDW Plt Count MPV Immature Gran % (Auto) Neut % (Auto) Lymph % (Auto) [place] % (Auto) Eos % (Auto) Baso % (Auto) Lymph # (Auto) [place] # (Auto) Eos # (Auto) Baso # (Auto) Abs Immat Gran (auto) Absolute Neuts (auto) Absolute Nucleated RBC Nucleated RBC % (auto) Sodium Potassium Chloride Carbon Dioxide Anion Gap BUN Creatinine Estim Creat Clear Calc Estimated GFR POC Glucose 137 H Random Glucose Lactic Acid Lactic Acid F/U @ 2Hr 2.2 H* Calcium Troponin I High Sens C-Reactive Protein 0.34 B-Natriuretic Peptide Influenza Type A (PCR) Influenza Type B (PCR) RSV RNA Qual (PCR) SARS-CoV-2 RNA (RT-PCR) 08/18/23 08/19/23 08/19/23 21:12 00:02 06:27 WBC RBC Hgb Hct MCV MCH MCHC RDW Plt Count MPV Immature Gran % (Auto) Neut % (Auto) Lymph % (Auto) [place] % (Auto) Eos % (Auto) Baso % (Auto) Lymph # (Auto) [place] # (Auto) Eos # (Auto) Baso # (Auto) Abs Immat Gran (auto) Absolute Neuts (auto) Absolute Nucleated RBC Nucleated RBC % (auto) Sodium 137 Potassium 3.4 Chloride 98 Carbon Dioxide 29 Anion Gap 13 BUN 34 H Creatinine 1.81 H Estim Creat Clear Calc 45.0 Estimated GFR 37 POC Glucose 215 H 157 H Random Glucose 143 H Lactic Acid Lactic Acid F/U @ 2Hr Calcium 9.2 Troponin I High Sens C-Reactive Protein B-Natriuretic Peptide Influenza Type A (PCR) Influenza Type B (PCR) RSV RNA Qual (PCR) SARS-CoV-2 RNA (RT-PCR) 08/19/23 06:55 WBC RBC Hgb Hct MCV MCH MCHC RDW Plt Count MPV Immature Gran % (Auto) Neut % (Auto) Lymph % (Auto) [place] % (Auto) Eos % (Auto) Baso % (Auto) Lymph # (Auto) [place] # (Auto) Eos # (Auto) Baso # (Auto) Abs Immat Gran (auto) Absolute Neuts (auto) Absolute Nucleated RBC Nucleated RBC % (auto) Sodium Potassium Chloride Carbon Dioxide Anion Gap BUN Creatinine Estim Creat Clear Calc Estimated GFR POC Glucose 166 H Random Glucose Lactic Acid Lactic Acid F/U @ 2Hr Calcium Troponin I High Sens C-Reactive Protein B-Natriuretic Peptide Influenza Type A (PCR) Influenza Type B (PCR) RSV RNA Qual (PCR) SARS-CoV-2 RNA (RT-PCR) Discharge Plan Discharge Anticipated Discharge Date/Time: 08/19/23 09:24 Patient Disposition: Home, Self-Care Discharge Diagnosis: apiration pneumonitis vs pna Referrals: John Alexander MD [Primary Care Provider] - 1 Week Discharge Medications: New amoxicillin-pot clavulanate 875-125 mg tablet 1 tab PO Q12H Qty: 10 0RF Continued Eliquis 5 mg tablet 5 mg PO BID 90 Days Qty: 180 3RF amlodipine 5 mg tablet 5 mg PO DAILY hdaagewzoloc-hfkrndupafn-kamtu 1,000-200 mcg Tablet,Disintegrating 1 tab PO DAILY Qty: 90 5RF insulin glargine 100 unit/mL solution 80 unit subcut DAILY atorvastatin 40 mg tablet 40 mg PO DAILY irbesartan 300 mg tablet 300 mg PO DAILY metoprolol tartrate 100 mg tablet 100 mg PO BID escitalopram oxalate 20 mg tablet 20 mg PO DAILY bupropion HCl 150 mg tablet sustained-release 12 hr 150 mg PO QAM furosemide 80 mg tablet 80 mg PO DAILY Discharge Orders: Discharge Order (Routine); Ordered 08/19/23 Ordered By: Carlo Larios Diet: Advance to usual diet Activity on Discharge: As tolerated Stand Alone Forms: Patient Portal Discharge page Print Language: Palestinian Care Plan Goals: recovery Health Concerns: aspiration Plan of Treatment: 5 days augmentin Assessment: see above Discharge Date/Time: 08/19/23 10:40
== END 2023-08-19 10:40 | disposition home or self-care (01) | DRG 871 ==
LOC: HO.ED 11:17 → HO.EDOVER 12:47 → HO.IMC 19:22
PROVIDERS: Admitting Provider Student in an Organized Health Care Education/Training Program; Emergency Provider Emergency Medicine; PCP Internal Medicine; Visit Provider Internal Medicine
DX: A41.9 Sepsis, unspecified organism (principal); J69.0 Pneumonitis due to inhalation of food and vomit; J96.01 Acute respiratory failure with hypoxia; I13.0 Hypertensive heart and chronic kidney disease with heart failure and stage 1 through stage 4 chronic kidney disease, or unspecified chronic kidney disease; I50.32 Chronic diastolic (congestive) heart failure; I48.21 Permanent atrial fibrillation; R04.2 Hemoptysis; R13.10 Dysphagia, unspecified; G47.33 Obstructive sleep apnea (adult) (pediatric); N18.30 Chronic kidney disease, stage 3 unspecified; E11.22 Type 2 diabetes mellitus with diabetic chronic kidney disease; Z20.822 Contact with and (suspected) exposure to COVID-19; Z79.4 Long term (current) use of insulin; Z79.01 Long term (current) use of anticoagulants; Z79.899 Other long term (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
CPT/HCPCS: 0241U; 36415; 71046; 80048; 82947; 83605; 83880; 84484; 85025; 86140; 87040; 92610; 93005; 94660; 99222; 99285; J0456; J0696; J1836

== ENCOUNTER → 2023-08-18 09:02 | Outpatient (BNV) | payer MEDICARE, SELFPAY | PROVIDERS: Admitting Provider Student in an Organized Health Care Education/Training Program; Emergency Provider Emergency Medicine; PCP Internal Medicine; Visit Provider Internal Medicine Cardiovascular Disease | DX: I48.91 Unspecified atrial fibrillation (principal) | CPT/HCPCS: 93010 ==

== ENCOUNTER → 2023-08-18 12:25 | Outpatient (BNV) | payer MEDICARE, SELFPAY | PROVIDERS: Admitting Provider Student in an Organized Health Care Education/Training Program; Emergency Provider Emergency Medicine; PCP Internal Medicine; Visit Provider Student in an Organized Health Care Education/Training Program | DX: J69.0 Pneumonitis due to inhalation of food and vomit (principal); J96.01 Acute respiratory failure with hypoxia | CPT/HCPCS: 99223; 99239 ==

== ENCOUNTER 2023-08-30 08:50 | Outpatient (REF) | payer MEDICARE, SELFPAY ==
--- NOTE | ~2023-08-30 | XR_ITS ---
EXAMINATION: XR CHEST CLINICAL INFORMATION: Pneumonia. COMPARISON: August 18, 2023. TECHNIQUE: 2 views of the chest were obtained. FINDINGS: There is no gross pneumothorax. Lung volumes are low. Heart size is normal. Substantial interval improvement of previously noted dense right basilar and left basilar opacities. No gross pleural effusion. Degenerative changes in the thoracic spine. XR/XR chest 2V IMPRESSION: Substantial interval improvement of previously noted bibasilar opacities with mild residual bibasilar parenchymal disease.
== END 2023-08-30 08:51 | disposition home or self-care (01) ==
LOC: HO.XRAY 08:50
PROVIDERS: PCP Internal Medicine; Visit Provider Internal Medicine
DX: J18.9 Pneumonia, unspecified organism (principal)
CPT/HCPCS: 71046

== ENCOUNTER 2023-09-16 12:50 | Outpatient (REF) | payer MEDICARE, SELFPAY ==
--- NOTE | 2023-09-16 12:56 | EMG_ITS ---
Chief complaint: Chronic numbness hands and feet, diabetic Reason for referral: Evaluate for neuropathy Referred by: Dr. John Alexander Procedure done: Per patient, today's study is for upper extremities. Precautions and/or limitations: On Eliquis The limb temperature was monitored continuously and remained between 32-36 degrees C during the performance of the NCS. Nerve Conduction Studies Anti Sensory Summary Table ?Stim Site NR Onset (ms) Norm Onset (ms) Peak (ms) Norm Peak (ms) O-P Amp (?V) Norm O-P Amp Site1 Site2 Delta-0 (ms) Dist (cm) Terence (m/s) Norm Terence (m/s) Left Median Anti Sensory (2nd Digit) Wrist NR <3.6 >10 Wrist 2nd Digit 14.0 Right Median Anti Sensory (2nd Digit) Wrist ? 4.3 5.0 <3.6 4.8 >10 Wrist 2nd Digit 4.3 14.0 33 Left Radial Anti Sensory (Thumb) Forearm NR <3.1 Forearm Thumb 0.0 Right Radial Anti Sensory (Thumb) Forearm NR <3.1 Forearm Thumb 0.0 Left Ulnar Anti Sensory (5th Digit) Wrist NR <3.7 >15.0 Wrist 5th Digit 14.0 Right Ulnar Anti Sensory (5th Digit) Wrist NR <3.7 >15.0 Wrist 5th Digit 14.0 Motor Summary Table ?Stim Site NR Onset (ms) Norm Onset (ms) O-P Amp (mV) Norm O-P Amp iAmp (mV) Amp (1st) (%) Site1 Site2 Delta-0 (ms) Dist (cm) Terence (m/s) Norm Terence (m/s) Left Median Motor (Abd Poll Brev) Wrist ? 8.3 <3.9 3.0 >4.5 3.5 100.0 Elbow Wrist 6.5 24.0 37 >45 Elbow ? 14.8 1.8 2.0 60.0 Right Median Motor (Abd Poll Brev) Wrist ? 5.4 <3.9 3.0 >4.5 3.5 100.0 Elbow Wrist 4.9 24.0 49 >45 Elbow ? 10.3 1.8 2.0 60.0 Left Ulnar Motor (Abd Dig Minimi) Wrist ? 3.4 <3.0 5.6 >5 6.9 100.0 B Elbow Wrist 3.9 19.5 50 >45 B Elbow ? 7.3 4.4 5.6 78.6 A Elbow B Elbow 2.4 10.0 42 >45 A Elbow ? 9.7 4.0 5.2 71.4 Right Ulnar Motor (Abd Dig Minimi) Wrist ? 2.7 <3.0 6.1 >5 8.0 100.0 B Elbow Wrist 4.6 22.0 48 >45 B Elbow ? 7.3 5.8 7.5 95.1 A Elbow B Elbow 1.9 10.0 53 >45 A Elbow ? 9.2 5.7 7.4 93.4 EMG ?Side Muscle Nerve Root Ins Act Fibs Psw Amp Dur Poly Recrt Int Pat Comment Right 1stDorInt Ulnar C8-T1 Nml Nml Nml Nml Nml 0 Nml Complete Right FlexCarRad Median C6-7 Nml Nml Nml Nml Nml 0 Nml Complete Right Biceps Musculocut C5-6 Nml Nml Nml Nml Nml 0 Nml Complete Right Triceps Radial C6-7-8 Nml Nml Nml Nml Nml 0 Nml Complete Right Deltoid Axillary C5-6 Nml Nml Nml Nml Nml 0 Nml Complete Left 1stDorInt Ulnar C8-T1 Nml Nml Nml Nml Nml 0 Nml Complete Left FlexCarRad Median C6-7 Nml Nml Nml Nml Nml 0 Nml Complete Left Biceps Musculocut C5-6 Nml Nml Nml Nml Nml 0 Nml Complete Left Triceps Radial C6-7-8 Nml Nml Nml Nml Nml 0 Nml Complete Left Deltoid Axillary C5-6 Nml Nml Nml Nml Nml 0 Nml Complete FINDINGS: Right median motor nerve showed prolonged distal latency, small amplitude and normal conduction velocity. Left median motor nerve showed normal distal latency, small amplitude and slow conduction velocity. Left ulnar motor nerve showed prolonged distal latency, normal amplitude and slow conduction velocity across the elbow. Right ulnar motor nerve within normal. Left median, bilateral ulnar and bilateral radial sensory nerves showed no response. Right median sensory nerve showed prolonged peak latency and small amplitude. Concentric needle EMG was performed in selected muscles of the . Study revealed did not reveal signs of electric abnormalities as shown in the table below. IMPRESSION: 1. This is an abnormal study. 2. There is electrodiagnostic evidence for bilateral moderate-severe median neuropathy at the wrist, could be consistent with Carpal Tunnel Syndrome. 3. There is electrodiagnostic evidence for left ulnar neuropathy at the elbow. 4. Absent/abnormal SNAPS suggest polyneuropathy CLINICAL COMMENT: Findings suggestive of polyneuropathy, but definitive diagnosis cannot be made without testing lower extremities. Please order EMG/NCS lower extremities and patient will be scheduled. Thank you for your kind referral. Saba Olson MD, EVETTE Board Certified, [place] [employer] and [employer] (ABPMR) Board Certified, [place] Board [employer] Electrodiagnostic [employer] (ABEM) CODIN 40081 x 2 MTDD
== END 2023-09-16 12:51 | disposition home or self-care (01) ==
LOC: HO.NEURO 12:50
PROVIDERS: PCP Internal Medicine; Visit Provider Internal Medicine
DX: R20.0 Anesthesia of skin (principal); G62.9 Polyneuropathy, unspecified
CPT/HCPCS: 95886; 95911

== ENCOUNTER → 2023-09-16 12:56 | Outpatient (BNV) | payer MEDICARE, SELFPAY | PROVIDERS: PCP Internal Medicine; Visit Provider Physical Medicine & Rehabilitation | DX: G56.03 Carpal tunnel syndrome, bilateral upper limbs (principal); G56.22 Lesion of ulnar nerve, left upper limb | CPT/HCPCS: 95886; 95911 ==

== ENCOUNTER 2023-10-06 09:09 | Outpatient (REF) | payer MEDICARE, SELFPAY ==
--- NOTE | ~2023-10-06 | XR_ITS ---
EXAMINATION: XR CHEST CLINICAL INFORMATION: Pneumonia COMPARISON: 08/30/1999 20/4 and 04/19/2023 TECHNIQUE: 2 views of the chest were obtained. FINDINGS: No significant abnormality is noted involving the heart, lungs, mediastinum, bony thorax or soft tissues. Seen previously pneumonia has been resolved bilaterally XR/XR chest 2V IMPRESSION: No abnormal findings. Clear lungs
== END 2023-10-06 09:10 | disposition home or self-care (01) ==
LOC: HO.XRAY 09:09
PROVIDERS: PCP Internal Medicine; Visit Provider Internal Medicine
DX: J18.9 Pneumonia, unspecified organism (principal)
CPT/HCPCS: 71046

== ENCOUNTER 2023-10-11 10:00 | Outpatient (REF) | payer MEDICARE, SELFPAY ==
--- NOTE | 2023-10-11 10:06 | EMG_ITS ---
Left tibial and peroneal motor studies were performed. Left superficial peroneal and sural sensory studies were performed. Tibial H-reflex was obtained and paraspinal muscles were tested with a needle. 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 MD ASHLEY Del Castillo/RACHID / [id number]
== END 2023-10-11 10:01 | disposition home or self-care (01) ==
LOC: HO.NEURO 10:00
PROVIDERS: PCP Internal Medicine; Visit Provider Internal Medicine
DX: G62.9 Polyneuropathy, unspecified (principal); R20.0 Anesthesia of skin
CPT/HCPCS: 95886; 95909

== ENCOUNTER 2023-11-11 09:35 | Outpatient (REF) | payer MEDICARE, SELFPAY ==
[2023-11-11 11:04] LABS: Basophils Percent Auto 0.9 % (0-2); Eosinophils Absolute Auto 0.1 X10*3/uL (0.0-0.4); Eosinophils Percent Auto 2.9 % (0-4); Hematocrit 38.5 % (42.0-52.0); Hemoglobin 13.3 g/dl (14.0-18.0); Imm Gran Abs Auto 0.01 X10*3/uL (0.00-0.03); Imm Gran Pct Auto 0.3 % (0.0-0.4); Lymphocytes Absolute Auto 0.7 X10*3/uL (1.2-4.9); Lymphocytes Percent Auto 20.3 % (20-40); MANUAL DIFF FLAG NO; Mean Corpuscular HGB Conc 34.5 g/dl (31.0-36.0); Mean Corpuscular Hemoglobin 33.3 pg (27.0-33.0); Mean Corpuscular Volume 96.5 fL (80.0-98.0); Mean Platelet Volume 10.7 fL (9.4-12.4); Monocytes Absolute Auto 0.3 X10*3/uL (0.1-1.2); Monocytes Percent Auto 9.3 % (2-11); Neutrophils Absolute Auto 2.3 x10*3/uL (2.0-8.3); Neutrophils Percent Auto 66.3 % (45-73); Platelet Count 73 X10*3/uL (160-400); Red Blood Count 3.99 X10*6/uL (4.60-5.80); Red Cell Distribution Width 12.7 % (11.0-16.0); White Blood Count 3.4 X10*3/uL (4.8-10.8)
[2023-11-11 11:05] LABS: Appearance Urine Clear; Color Urine Yellow; Glucose Urine UA Negative (Negative); Leukocyte Esterase Urine Negative (Negative); Nitrite Urine Negative (Negative); Specific Gravity - Urine <= 1.005 (1.005-1.025); Urine Blood Negative (Negative); Urine Ketones Negative (Negative); Urine Protein Trace mg/dL (Neg-Trace)
[2023-11-11 11:55] LABS: Parathyroid Hormone Intact 97.6 pg/mL (8.7-77.1)
[2023-11-11 12:10] LABS: Creatinine Urine 16.95 mg/dL; Microalbum/Creatinine Ratio Ur 755.1 ug/mg cr (<30); Protein/Creatinine Ratio, Ur 1.12 (<0.2); Total Protein Urine Random 19 mg/dL (<12)
[2023-11-11 12:13] LABS: Vitamin D 25-OH Total 36.8 ng/mL (>30)
[2023-11-11 12:20] LABS: Albumin Level 3.7 g/dL (3.5-5.0); Anion Gap 13 (12-20); Blood Urea Nitrogen 29 mg/dL (9-16); Calcium 9.6 mg/dL (8.4-10.2); Carbon Dioxide 29 mmol/L (22-29); Chloride 100 mmol/L (96-108); Estimated Glomerular Filt Rate 42; Magnesium 1.9 mg/dL (1.6-2.6); Phosphorus 3.6 mg/dL (2.7-4.5); Potassium 4.1 mmol/L (3.3-5.1); Sodium 138 mmol/L (135-145)
== END 2023-11-11 09:36 | disposition home or self-care (01) ==
LOC: HO.LAB 09:35
PROVIDERS: PCP Internal Medicine; Visit Provider Internal Medicine Nephrology
DX: E11.22 Type 2 diabetes mellitus with diabetic chronic kidney disease (principal); N18.32 Chronic kidney disease, stage 3b; N25.0 Renal osteodystrophy; I12.9 Hypertensive chronic kidney disease with stage 1 through stage 4 chronic kidney disease, or unspecified chronic kidney disease
CPT/HCPCS: 36415; 80051; 81003; 82040; 82043; 82306; 82310; 82565; 82570; 83735; 83970; 84100; 84156; 84520; 85025

== ENCOUNTER 2023-12-22 08:42 | Emergency (ER) | payer MEDICARE, SELFPAY ==
[2023-12-22 08:52] VITALS: BP 143/69; BP 144/80; PULSE 64; PULSE 77; RESP 15; TEMP 36.6; O2SAT 95; O2SAT 98; BMI 43.2
--- NOTE | 2023-12-22 09:01 | ECG_ITS ---
Test Reason : HYPOGLYCEMIA, DIAPHORESIS Blood Pressure : / mmHG Vent. Rate : 065 BPM Atrial Rate : 000 BPM P-R Int : 000 ms QRS Dur : 114 ms QT Int : 436 ms P-R-T Axes : 000 006 040 degrees QTc Int : 453 ms Atrial fibrillation Cannot rule out Anterior infarct , age undetermined Abnormal ECG When compared with ECG of 18-AUG-2023 09:07, QT has lengthened Referred By: Ana Quinteros Electronically Signed By:ELINOR WAGNER
--- NOTE | 2023-12-22 09:01 | ED_ITS ---
HPI - General Adult General Chief complaint: General Medical Stated complaint: LOW BS 58,FROM SNF PER EMS Time Seen by Provider: 12/22/23 09:00 Source: patient and EMS Mode of arrival: EMS Limitations: no limitations History of Present Illness ED Provider: NERISSA HERNANDEZ PA-C HPI narrative: 78 year old male with pmhx significant for IDDM, HDL, HTN, ABHAY, on CPAP, HFrEF, chronic atrial fibrillation on Eliquis, Stage 3 CKD presents to the ED today via EMS from PCP for evaluation of low blood sugar. Per patient, while at PCP appointment today for routine blood work, his blood sugar was noted to fall from 80s to 50's. He was administered 2 glucose tabs, chocolate and crackers prior to transport to ED. On EMS arrival, patient noted to be pale and diaphoretic with POC of 103. On my interview of patient, he tells me he felt his blood sugar dropping and generally felt unwell. Reports having to fast for his blood work this morning. On arrival in ED, he tells me he feels much better. Tells me this has happened to him in the past. Does not have any physical complaints. He takes a fixed dose of Lantus which he took this morning. Denies over medicating himself. Related Data Home Medications ?Medication ?Instructions ?Recorded ?Confirmed atorvastatin 40 mg tablet 40 mg PO DAILY 05/28/20 08/18/23 insulin glargine 100 unit/mL 80 unit subcut DAILY 05/28/20 08/18/23 subcutaneous solution irbesartan 300 mg tablet 300 mg PO DAILY 05/28/20 08/18/23 metoprolol tartrate 100 mg tablet 100 mg PO BID 05/28/20 08/18/23 escitalopram oxalate 20 mg tablet 20 mg PO DAILY 01/12/21 08/18/23 bupropion HCl 150 mg tablet,12 hr 150 mg PO QAM 07/20/21 08/18/23 sustained-release furosemide 80 mg tablet 80 mg PO DAILY 01/26/23 08/18/23 amlodipine 5 mg tablet 5 mg PO DAILY 02/11/23 08/18/23 Previous Rx's ?Medication ?Instructions ?Recorded cyanoco,mecobalamin 1,000 1 tab PO DAILY #90 tabs 02/13/23 mcg-folic acid 200 mcg disintegrating tablet amoxicillin 875 mg-potassium 1 tab PO Q12H #10 tabs 08/19/23 clavulanate 125 mg tablet apixaban 5 mg tablet (Eliquis) 5 mg PO BID #180 tabs 08/29/23 Allergies Allergy/AdvReac Type Severity Reaction Status Date / Time No Known Allergies Allergy Mild NOT Verified 12/22/23 08:55 APPLICABLE Review of Systems 2 Review of Systems: Constitutional: No fever, chills, fatigue, night sweats, weight changes ENT/Mouth: No ear pain, hearing loss, nasal congestion, sinus pain, rhinorrhea, sore throat Eyes: No eye pain, swelling, redness, vision changes, discharge Cardio: No chest pain, palpitations, RODAS, orthopnea, peripheral edema Pulm: No SOB, cough, sputum, wheezing, dyspnea, hemoptysis GI: No nausea, vomiting, hematemesis, abdominal pain, diarrhea, constipation, hematochezia, melena : No irregular bleeding, dysuria, frequency, urgency, hesitancy, hematuria, flank pain, urinary flow changes, urinary incontinence or retention MSK: No back pain, neck pain, joint pain, myalgias Skin: No lesions, rashes Neuro: No weakness, numbness, paresthesias, LOC, dizziness, headache Psych: No anxiety/panic, depression, SI/HI, AH/VH All other systems reviewed and are negative. [facility] Past Medical History Attestation statement: The following information was validated with the patient. Source: old records reviewed and nursing notes reviewed Medical History Insulin dependent type 2 diabetes mellitus HLD (hyperlipidemia) Skin cancer Diabetes ABHAY on CPAP Essential hypertension Chronic heart failure with preserved ejection fraction (HFpEF) Persistent atrial fibrillation Surgical History H/O colonoscopy Hx of arthroscopy of right knee History of knee replacement History of cholecystectomy History of appendectomy Family History Family History Father No problems noted. Mother No problems noted. Social History Social History Household Members: Spouse Housing: House Do you presently have visiting nurse or other home services: No Alcohol intake: never Patient Tobacco Use Status: Never used Tobacco service: No Current occupational status: retired Physical Exam ED Vital Signs: Vital Signs - 24 hr 12/22/23 08:52 Temperature 97.8 F Pulse Rate 64 Respiratory Rate 15 Blood Pressure 143/69 H Pulse Oximetry 98 Oxygen Delivery Method Room Air BMI result Body Mass Index 43.2 Hypertensive, vitals otherwise wnl General: Well appearing, in no acute distress. Skin: Warm, dry, intact. No rashes or lesions. Head: Normocephalic, atraumatic. EENT: Hearing is intact b/l. Conjunctiva clear. Sclera is anicteric. PERRLA. EOM intact. Moist mucous membranes.? Neck: Supple without LAD. FROM. Trachea midline.? Cardiac: Chest wall symmetric. RRR. No MRG. No JVD. Lungs: Normal respiratory effort without accessory muscle use. CTA bilaterally. No rales, rhonchi, or wheezes.? Abdomen: Soft, non-tender, non-distended. No rebound tenderness or guarding. Positive BS x4. Back: No midline spinous or paraspinal tenderness. No step off deformity. Ext: Upper and lower extremities atraumatic, without tenderness, deformity, swelling or erythema. Full ROM throughout. Strength 5/5 throughout. Capillary refill <2 seconds in all extremities. Pulses 2+ equal and bilateral. Neuro: AOx3. Normal speech. CN 2-12 grossly intact. Strength 5/5 intact throughout. No saddle anesthesia. Sensation intact to light touch. NV intact distally. Reflexes 2+ bilaterally. Ambulating with steady gait. Psych: Appropriate mood and affect. Responds appropriately to questions. Course Course Course Narrative: 1026 -- CBC without leukocytosis or left shift. Chronic, normocytic anemia, H&H stable when compare to priors and above transfusion threshold. chemistry without acute electrolyte abnormality requiring intervention. Kidney function at baseline secondary to stage 3 CKD. No acute kidney injury. Random glucose improved to 139. No longer hypoglycemic. 1050 -- On re-evaluation, patient continues to report that feels well. He feels that he is safe for discharge home. His at bedside is agreeable. I believe patient became hypoglycemic this morning secondary to fasting for blood work. Patient has remained stable throughout ED visit today. Discussed worrisome signs and symptoms and when to return to the ED. All questions answered at this time. Patient is agreeable with disposition and stable for discharge. Medical Decision Making Medical Decision Making [facility] Narrative: 78 year old male with pmhx significant for IDDM, HDL, HTN, ABHAY, on CPAP, HFrEF, chronic atrial fibrillation on Eliquis, Stage 3 CKD presents to the ED today via EMS from PCP for evaluation of low blood sugar. Patient hypertensive to 143/69, vitals otherwise wnl. He is nontoxic appearing and in NAD. Not diaphoretic. RRR. Lungs are clear. Differential diagnosis includes anemia, electrolyte abnormality, hypoglycemia. Infection unlikely. Presentation not consistent with ACS, CHF. Plan for labs, EKG, re-evaluation. Differential Diagnosis Differential Diagnoses: The differential diagnosis associated with the presentation includes as above. Admission/Observation Consideration of admission/observation: Escalation of care including admission/observation considered Admission considered on presentation Lab Data [facility] Lab Attestation statement: I reviewed the patient's lab results. As above 12/22/23 09:27 12/22/23 09:44 Labs: Lab Results 12/22/23 12/22/23 12/22/23 Range/Units 08:51 09:27 09:44 WBC 4.7 L (4.8-10.8) X10*3/uL RBC 3.91 L (4.60-5.80) X10*6/uL Hgb 13.4 L (14.0-18.0) g/dl Hct 37.4 L (42.0-52.0) % MCV 95.7 (80.0-98.0) fL MCH 34.3 H (27.0-33.0) pg MCHC 35.8 (31.0-36.0) g/dl RDW 13.1 (11.0-16.0) % Plt Count 58 L (160-400) X10*3/uL MPV 10.0 (9.4-12.4) fL Immature Gran % (Auto) 0.4 (0.0-0.4) % Neut % (Auto) 74.9 H (45-73) % Lymph % (Auto) 14.8 L (20-40) % Clare % (Auto) 7.4 (2-11) % Eos % (Auto) 2.1 (0-4) % Baso % (Auto) 0.4 (0-2) % Lymph # (Auto) 0.7 L (1.2-4.9) X10*3/uL Clare # (Auto) 0.4 (0.1-1.2) X10*3/uL Eos # (Auto) 0.1 (0.0-0.4) X10*3/uL Baso # (Auto) 0.0 (0.0-0.2) X10*3/uL Abs Immat Gran (auto) 0.02 (0.00-0.03) X10*3/uL Absolute Neuts (auto) 3.5 (2.0-8.3) x10*3/uL Absolute Nucleated RBC 0.000 (0.0-0.012) X10*3/uL Nucleated RBC % (auto) 0.0 (0.0-0.2) /100WBC Sodium 138 (135-145) mmol/L Potassium 3.6 (3.3-5.1) mmol/L Chloride 100 (96-108) mmol/L Carbon Dioxide 27 (22-29) mmol/L Anion Gap 15 (12-20) BUN 25 H (9-16) mg/dL Creatinine 1.67 H (0.5-1.4) mg/dL Estim Creat Clear Calc 50.0 Estimated GFR 40 POC Glucose 103 (60-115) mg/dL Random Glucose 139 H (60-115) mg/dL Calcium 8.7 D (8.4-10.2) mg/dL Magnesium 1.8 (1.6-2.6) mg/dL Total Bilirubin 1.3 H (0.0-1.0) mg/dL AST 22 (5-37) U/L ALT 18 (0-40) U/L Alkaline Phosphatase 68 (39-117) U/L Total Protein 6.6 (6.5-8.0) g/dL Albumin 3.4 L (3.5-5.0) g/dL Lipase 13 (8-78) U/L Independent Interpretation I performed an independent interpretation of an: EKG Interpretation: EKG showing atrial fibrillation with a rate of 65 beats per minute, QT 436, QTC 453, no acute ischemic changes or ST elevations. Independent Historian Clinical information obtained from an independent historian. History obtained from or confirmed by: EMS External Record Review External record reviewed: Inpatient record, Office record, Outpatient record, Prior outpatient labs, Prior outpatient radiology, Primary care record and Outside ED record Chronic Conditions Patient?s care impacted by: Diabetes Social Determinants Patient?s care significantly limited by Social Determinants of Health including: Other Social Determinant of Health Critical Care Time Critical Care Time Critical Care Time: No Discharge Plan Discharge Clinical Impression: Hypoglycemia Patient Disposition: Home, Self-Care Instructions: Hypoglycemia in a Person with Diabetes (ED) Additional Instructions: You were evaluated in the ED today for low blood sugar, likely secondary to fasting prior to your blood work this morning. Your blood work today is reassuring. Your sugars have normalized. Please follow up with your PCP regarding today's visit. Continue all home medications as prescribed. Return with new or worsening symptoms. In the case of an emergency call 911. Prescriptions: No Action Eliquis 5 mg tablet 5 mg PO BID Qty: 180 1RF amoxicillin-pot clavulanate 875-125 mg tablet 1 tab PO Q12H Qty: 10 0RF amlodipine 5 mg tablet 5 mg PO DAILY ufumcfkxqqmr-sqgziqhhoec-ecyeq 1,000-200 mcg Tablet,Disintegrating 1 tab PO DAILY Qty: 90 5RF insulin glargine 100 unit/mL solution 80 unit subcut DAILY atorvastatin 40 mg tablet 40 mg PO DAILY irbesartan 300 mg tablet 300 mg PO DAILY metoprolol tartrate 100 mg tablet 100 mg PO BID escitalopram oxalate 20 mg tablet 20 mg PO DAILY bupropion HCl 150 mg tablet sustained-release 12 hr 150 mg PO QAM furosemide 80 mg tablet 80 mg PO DAILY Referrals: John Alexander MD [Primary Care Provider] - Interventions: ED Discharge Assessment Last Done: 12/22/23 11:04 Discharge Date/Time: 12/22/23 11:05 Print Language: Romanian
[2023-12-22 09:02] LABS: Glucose, Whole Blood 103 mg/dL (60-115)
[2023-12-22 09:30] LABS: MANUAL DIFF FLAG NO
[2023-12-22 09:31] LABS: Basophils Percent Auto 0.4 % (0-2); Eosinophils Absolute Auto 0.1 X10*3/uL (0.0-0.4); Eosinophils Percent Auto 2.1 % (0-4); Hematocrit 37.4 % (42.0-52.0); Hemoglobin 13.4 g/dl (14.0-18.0); Imm Gran Abs Auto 0.02 X10*3/uL (0.00-0.03); Imm Gran Pct Auto 0.4 % (0.0-0.4); Lymphocytes Absolute Auto 0.7 X10*3/uL (1.2-4.9); Lymphocytes Percent Auto 14.8 % (20-40); Mean Corpuscular HGB Conc 35.8 g/dl (31.0-36.0); Mean Corpuscular Hemoglobin 34.3 pg (27.0-33.0); Mean Corpuscular Volume 95.7 fL (80.0-98.0); Monocytes Absolute Auto 0.4 X10*3/uL (0.1-1.2); Monocytes Percent Auto 7.4 % (2-11); Neutrophils Absolute Auto 3.5 x10*3/uL (2.0-8.3); Neutrophils Percent Auto 74.9 % (45-73); Platelet Count 58 X10*3/uL (160-400); Red Blood Count 3.91 X10*6/uL (4.60-5.80); Red Cell Distribution Width 13.1 % (11.0-16.0); White Blood Count 4.7 X10*3/uL (4.8-10.8)
[2023-12-22 10:02] LABS: Alanine Aminotransferase 18 U/L (0-40); Albumin Level 3.4 g/dL (3.5-5.0); Alkaline Phosphatase 68 U/L (39-117); Anion Gap 15 (12-20); Aspartate Amino Transferase 22 U/L (5-37); Bilirubin Total 1.3 mg/dL (0.0-1.0); Blood Urea Nitrogen 25 mg/dL (9-16); Calcium 8.7 mg/dL (8.4-10.2); Carbon Dioxide 27 mmol/L (22-29); Chloride 100 mmol/L (96-108); Estimated Glomerular Filt Rate 40; Glucose Random 139 mg/dL (60-115); Lipase 13 U/L (8-78); Magnesium 1.8 mg/dL (1.6-2.6); Potassium 3.6 mmol/L (3.3-5.1); Sodium 138 mmol/L (135-145); Total Protein 6.6 g/dL (6.5-8.0)
[2023-12-22 11:04] VITALS: BP 126/60; PULSE 63; RESP 18; TEMP 36.4; O2SAT 96
== END 2023-12-22 11:05 | disposition home or self-care (01) ==
PROVIDERS: Physician Assistant Medical; Emergency Provider Emergency Medicine; PCP Internal Medicine
DX: E11.649 Type 2 diabetes mellitus with hypoglycemia without coma (principal); I13.0 Hypertensive heart and chronic kidney disease with heart failure and stage 1 through stage 4 chronic kidney disease, or unspecified chronic kidney disease; E11.22 Type 2 diabetes mellitus with diabetic chronic kidney disease; I48.91 Unspecified atrial fibrillation; N18.30 Chronic kidney disease, stage 3 unspecified; G47.33 Obstructive sleep apnea (adult) (pediatric); R39.15 Urgency of urination; Z79.4 Long term (current) use of insulin; Z79.899 Other long term (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
CPT/HCPCS: 36415; 80053; 80061; 81001; 82043; 82570; 82947; 83036; 83690; 83735; 84153; 85025; 93005; 99283

== ENCOUNTER 2023-12-22 10:59 | Outpatient (REF) | payer MEDICARE, SELFPAY ==
[2023-12-22 11:07] LABS: MANUAL DIFF FLAG NO
[2023-12-22 12:12] LABS: Appearance Urine Clear; Basophils Percent Auto 0.6 % (0-2); Color Urine Yellow; Eosinophils Absolute Auto 0.2 X10*3/uL (0.0-0.4); Glucose Urine UA Negative (Negative); Hemoglobin 15.2 g/dl (14.0-18.0); Imm Gran Abs Auto 0.01 X10*3/uL (0.00-0.03); Imm Gran Pct Auto 0.2 % (0.0-0.4); Leukocyte Esterase Urine Negative (Negative); Lymphocytes Absolute Auto 2.2 X10*3/uL (1.2-4.9); Lymphocytes Percent Auto 43.9 % (20-40); Mean Corpuscular HGB Conc 34.5 g/dl (31.0-36.0); Mean Corpuscular Hemoglobin 33.5 pg (27.0-33.0); Mean Corpuscular Volume 96.9 fL (80.0-98.0); Mean Platelet Volume 10.7 fL (9.4-12.4); Monocytes Absolute Auto 0.5 X10*3/uL (0.1-1.2); Neutrophils Absolute Auto 2.1 x10*3/uL (2.0-8.3); Neutrophils Percent Auto 42.3 % (45-73); Nitrite Urine Negative (Negative); Platelet Count 76 X10*3/uL (160-400); Red Blood Count 4.54 X10*6/uL (4.60-5.80); Red Cell Distribution Width 13.1 % (11.0-16.0); UMIC TRIGGER UACC YES; Urine Blood Negative (Negative); Urine Ketones Negative (Negative); Urine Protein 30 (1+) mg/dL (Neg-Trace); White Blood Count 4.9 X10*3/uL (4.8-10.8)
[2023-12-22 12:16] LABS: Bacteria Urine None Seen (None Seen); Hyaline Casts Urine 0-2 /LPF (0-2); RBC Urine 0-2 /HPF (0-2); Squamous Epithelial Cell Urine 0-2 /HPF (0-2); WBC Urine 0-5 /HPF (0-5)
[2023-12-22 12:19] LABS: Estimated Average Glucose 223 mg/dL; Hemoglobin A1c % 9.4 % (<6.0)
[2023-12-22 12:39] LABS: Alanine Aminotransferase 20 U/L (0-40); Albumin Level 4.1 g/dL (3.5-5.0); Alkaline Phosphatase 80 U/L (39-117); Anion Gap 14 (12-20); Aspartate Amino Transferase 21 U/L (5-37); Bilirubin Total 1.4 mg/dL (0.0-1.0); Blood Urea Nitrogen 25 mg/dL (9-16); Calcium 9.6 mg/dL (8.4-10.2); Carbon Dioxide 30 mmol/L (22-29); Chloride 101 mmol/L (96-108); Cholesterol 126 mg/dL (<200); Estimated Glomerular Filt Rate 38; HDL Cholesterol 33 mg/dL (>40); LDL Cholesterol Calculated 70 mg/dL (<100); Sodium 142 mmol/L (135-145); Total Protein 7.8 g/dL (6.5-8.0); Triglycerides 115 mg/dL (<150)
[2023-12-22 12:41] LABS: Creatinine Urine 39.19 mg/dL; Microalbum/Creatinine Ratio Ur 530.7 ug/mg cr (<30)
[2023-12-22 12:44] LABS: PSA,Total (Free>4and<10) 0.32 ng/mL (0.00-4.00)
[2023-12-22 13:45] LABS: Glucose Fasting 41 mg/dL (60-99)
== END 2023-12-22 11:00 | disposition home or self-care (01) ==
LOC: HO.LNP 10:59
PROVIDERS: Visit Provider Internal Medicine
DX: Z13.89 Encounter for screening for other disorder (principal)
CPT/HCPCS: 80053; 80061; 81001; 82043; 82570; 83036; 84153; 85025

== ENCOUNTER 2024-01-12 11:20 | Outpatient (REF) | payer MEDICARE, SELFPAY | END 2024-01-12 11:21 | disposition home or self-care (01) | LOC: HO.LNP 11:20 | PROVIDERS: Visit Provider Internal Medicine | DX: E87.6 Hypokalemia (principal) | CPT/HCPCS: 84132 ==

== ENCOUNTER 2024-01-30 10:09 | Outpatient (AMB) | payer MEDICARE, SELFPAY ==
--- NOTE | 2024-01-30 10:10 | A.OFFVIS_ITS ---
Vital Signs 01/30/24 10:12 Height 5 ft 9 in Weight 285 lb 4.45 oz BMI 42.1 BP 154/70 H Blood Pressure Location Lt brachial Position Sitting Pulse 58 Pulse Source Pulse Oximeter Intake Visit Reasons: 1 year follow up Regulatory Lead Required: No Accompanied by: Self / Same As Patient Allergies No Known Allergies Allergy (Mild, Verified 12/22/23 08:55) NOT APPLICABLE Medication List - Last Reconciled 01/30/24 by Wade Castañeda MD amlodipine 5 mg PO DAILY apixaban (Eliquis) 5 mg PO BID atorvastatin 40 mg PO DAILY bupropion HCl SR 150 mg PO QAM xtgfopbyztay-dfzinirrynj-zeger 1,000-200 mcg 1 tab PO DAILY escitalopram oxalate 20 mg PO DAILY furosemide 80 mg PO DAILY insulin glargine 80 units subcut DAILY irbesartan 300 mg PO DAILY metoprolol tartrate 100 mg PO BID potassium chloride ER 10 mEq PO DAILY HPI Comments Details: Steven returns for follow-up regarding atrial fibrillation and diastolic heart failure. He has had chronic shortness of breath and that is just about the same as before. Leg swelling is also chronic and not any different. No clear anginal chest pains. Otherwise, getting along okay. [facility] Medical History Insulin dependent type 2 diabetes mellitus HLD (hyperlipidemia) Skin cancer Diabetes ABHAY on CPAP Essential hypertension Chronic heart failure with preserved ejection fraction (HFpEF) Persistent atrial fibrillation Surgical History H/O colonoscopy Hx of arthroscopy of right knee History of knee replacement History of cholecystectomy History of appendectomy Family History Father No problems noted. Mother No problems noted. Social History Household Members: Spouse Housing: House Do you presently have visiting nurse or other home services: No Alcohol intake: never Patient Tobacco Use Status: Never used Tobacco service: No Current occupational status: retired Review of Systems Const Denies chills, Denies fatigue, Denies fever(s), Denies weight gain and Denies weight loss ENT Denies dizziness Card Denies chest pain, Denies leg edema, Denies lightheadedness, Denies palpitations, Reports dyspnea on exertion, Denies orthopnea and Denies other Resp Denies cough and Reports dyspnea on exertion GI Denies hematochezia and Denies change in stool character Musc Denies abnormal gait, Denies muscle weakness, Denies numbness, Denies radiating pain into limb and Denies tingling Neuro Denies abnormal gait, Denies dizziness, Denies numbness and Denies tingling Endo Denies fatigue and Denies palpitations Physical Exam Vital Signs: Last Vital Signs Pulse 58 01/30/24 10:12 BP 154/70 H 01/30/24 10:12 BMI result Body Mass Index 42.1 Const General: comfortable and no acute distress Orientation/consciousness: patient oriented x3 HEENT Other: Unremarkable Head: Yes normal to inspection Neck Neck: Yes normal visual inspection Chest Chest palpation & inspection: normal inspection of the chest Resp Auscultation: clear to auscultation bilaterally Cardio Palpation: normal PMI Heart sounds: S1 normal heart sound present, S2 normal heart sound present, no gallops, no murmurs and no rubs GI Palpation (GI): Soft to palpation Back/Spine/Pelvis Other: unremarkable Skin General skin exam: no rashes or lesions noted Neuro General: patient oriented x3 Extrem General: Yes normal to inspection Psych Mental Status: mental status grossly normal Assessment & Plan Assessment & Plan (1) Persistent atrial fibrillation: Code(s): I48.19 - Other persistent atrial fibrillation Category: Medical Plan: In the most recent EKG, underlying rhythm is atrial fibrillation; cannot exclude old anterior infarct but more likely from his body habitus. Continue beta-blockers. Continue anticoagulation. (2) Chronic heart failure with preserved ejection fraction (HFpEF): Code(s): I50.32 - Chronic diastolic (congestive) heart failure Category: Medical Plan: Shortness of breath and leg swelling is likely multifactorial. Likely some combination of congestive heart failure, right heart dysfunction, obesity, ve nous insufficiency, atrial fibrillation, chronic kidney disease. Last echocardiogram with LVEF of 60-65%. Severe septal hypertrophy. Mildly diminished right ventricular systolic function. Elevated right heart pressures. Mild aortic stenosis. Due to many risk factors, we will schedule him for a pharmacological stress test with Lexiscan. Several years ago, this was unremarkable. Highly unlikely to walk on the treadmill due to using a cane. On diuretics. (3) Essential hypertension: Code(s): I10 - Essential (primary) hypertension Category: Medical Plan: Blood pressure slightly high. Nephrology is also managing this and hence no changes made today. Compared to last visit, he is now on amlodipine 5 mg daily. (4) Orthostatic hypotension: Code(s): I95.1 - Orthostatic hypotension Category: Medical Plan: Stable. Off Doxazosin. (5) ABHAY on CPAP: Code(s): G47.33 - Obstructive sleep apnea (adult) (pediatric); Z99.89 - Dependence on other enabling machines and devices Category: Medical Plan: Continue CPAP. Orders: Orders NM cardiolite stress test Today I50.32 - Chronic diastolic (congestive) heart failure, R07.2 - Precordial pain CA lexiscan stress w kylah Today I20.9 - Angina pectoris, unspecified, I50.32 - Chronic diastolic (congestive) heart failure Coding Level of Care Code Est Pt Level 4 (48464) Diagnoses Persistent atrial fibrillation I48.19 Chronic heart failure with preserved ejection fraction (HFpEF) I50.32 Essential hypertension I10 Orthostatic hypotension I95.1 ABHAY on CPAP G47.33; Z99.89
[2024-01-30 10:12] VITALS: BP 154/70; PULSE 58; BMI 42.1
== END 2024-01-30 10:50 | disposition home or self-care (01) ==
PROVIDERS: PCP Internal Medicine; Visit Provider Internal Medicine
DX: I48.19 Other persistent atrial fibrillation (principal); I50.32 Chronic diastolic (congestive) heart failure; I10 Essential (primary) hypertension; I95.1 Orthostatic hypotension; G47.33 Obstructive sleep apnea (adult) (pediatric); Z99.89 Dependence on other enabling machines and devices
CPT/HCPCS: 99214

== ENCOUNTER → 2024-01-30 10:09 | Outpatient (BNVA) | payer MEDICARE, SELFPAY | PROVIDERS: PCP Internal Medicine; Visit Provider Internal Medicine | DX: I48.19 Other persistent atrial fibrillation (principal); I11.0 Hypertensive heart disease with heart failure; I50.32 Chronic diastolic (congestive) heart failure; I95.1 Orthostatic hypotension; G47.33 Obstructive sleep apnea (adult) (pediatric); I20.9 Angina pectoris, unspecified; R07.2 Precordial pain; Z99.89 Dependence on other enabling machines and devices | CPT/HCPCS: 99212 ==

== ENCOUNTER → 2024-04-02 09:38 | Outpatient (REF) | payer MEDICARE, SELFPAY ==
--- NOTE | ~2024-04-02 | NM_ITS ---
Lexiscan Myocardial perfusion study Indication: Atrial fibrillation, congestive heart failure Technique: The patient was brought in for a Lexiscan perfusion study on 04/02/2024 and was injected 0.4 mg of Lexiscan intravenously. Within a minute of this injection 35 mCi of sestamibi was given intravenously. Images were obtained using the SPECT gamma camera interlaced with the gating device. Images were obtained in supine position. Resting perfusion study was performed on 04/05/2024. Patient was administered 35 mCi of sestamibi intravenously at rest. Images were then obtained in supine position. Total DLP 141 mGy-cm. Images were processed with the software and compared side to side in short axis, horizontal long axis and vertical long axis views. Findings: Raw aquisition reviewed. Right arm by the patient's side during stress and rest. The stress perfusion study showed no significant perfusion abnormality. Both uncorrected as well as CT attenuation corrected images were reviewed. Gating not performed during stress. Resting study shows no significant perfusion abnormality. Gating at rest reveals normal wall motion with ejection fraction at 61%. The findings are consistent with no clear reversible or fixed perfusion abnormality. NM/NM cardiolite stress test Impression: 1. Myocardial perfusion imaging study shows probably normal myocardial perfusion. 2. Gated LVEF is 61% during rest. EKG component of the test reported separately. Electronically signed by: Wade Castañeda MD 04/05/2024 02:53 PM RUPERTO
--- NOTE | 2024-04-02 09:44 | CA_ITS ---
Acquisition Time: 2024-04-02 10:02:17 Total Exercise Time: 00:02:00 Test Indications: AFIB, SOB Medications: SEE H Protocol: LEXISCAN Max HR: 086 BPM 60% of Pred: 142 BPM Max BP: 136/072 mmHG Max Work Load: 1.0 METS Pharmacologic stress test with Lexiscan, while pt marches in his chair, without any anginal symptoms, with frequent PVCs, with normotensive reponse to injection. Nondiagnostic EKG for ischemia. Nuclear images pending. Test reviewed with Dr. Phillips. Test performed by Kevin Edgar NP and Jose Maria Neil NP Referred By: Wade Castañeda Overread By: KEVIN EDGAR
--- OUTSIDE RECORDS SUMMARY | 2024-04-02 09:44 | XMS_ITS ---
Author Organization John Alexander MD Address [address] [place] [address] [place] [phone] Care Team Providers Care Underwriter Solicitation Director Name Role Phone John Alexander Primary Care Provider RESULTS Component Value Reference Range Notes Potassium Reviewed date:01/12/2024 12:32:27 PM Interpretation: Performing Lab:[facility], [address] [place] [id number] Notes/Report: Potassium 4.0 3.3-5.1 mmol/L REASON FOR VISIT Potassium Encounters Encounter Location Date Provider Diagnosis John Alexander MD [address] [place] [phone] 01/12/2024 John Alexander Hypokalemia E87.6 ASSESSMENTS Encounter Date Diagnosis Assessment Notes Treatment Notes Treatment Clinical Notes 01/12/2024 Hypokalemia (ICD-10 - E87.6) PLAN OF TREATMENT Next Appt Details Provider Name:John bond, 06/15/2024 07:15:00 AM, [address] [place] [address], [address], [phone], Provider Name:John bond, 06/22/2024 10:00:00 AM, [address] [place] [address], [phone], Provider Name:John bond, 12/25/2024 07:00:00 AM, [address] [place] [address], [phone], Provider Name:John bond, 01/01/2025 08:30:00 AM, [address] [place] [address], [address], [place], [place], [phone],
--- OUTSIDE RECORDS SUMMARY | 2024-04-02 09:44 | XMS_ITS ---
Author Organization John Alexander MD Address [address] [place] [phone] Care Team Providers Care Chute Builder Name Role Phone John Alexander Primary Care Provider ALLERGIES No Known Allergies RESULTS Component Value Reference Range Notes Hemoglobin A1c Reviewed date:03/20/2024 10:19:55 AM Interpretation: Performing Lab: Notes/Report: Value Hemoglobin A1c 8.1 Glucose, finger stick Reviewed date:03/20/2024 10:16:45 AM Interpretation: Performing Lab: Notes/Report: Value 279 REASON FOR VISIT 3 MO F/U, has had a few low blood sugars 48 during the night MEDICATIONS Medication SIG (Take, Route, Frequency, Duration) Notes Start Date End Date Status amLODIPine Besylate 5 MG TAKE 1 TABLET B Y MOUTH ONCE DAILY for 100 Active Metoprolol Tartrate 100 MG TAKE 1 TABLET BY MOUTH TWICE DAILY for 100 Active FreeStyle Lou 2 Sensor - USE DIRECTED SUBCUTANEOUSLY EVERY 2 WEEKS for 100 Active Eliquis 2.5 MG TAKE 1 TABLET BY TWICE DAILY DIRECTED Active buPROPion HCl ER (SR) 150 MG TAKE 1 TABLET BY MOUTH ONCE DAILY IN THE MORNING for 90 Active traMADol HCl 50 MG 1 tablet as needed Orally three times a day for 7 days 12/08/2018 Not-Taking Meclizine HCl 25 MG 1 tablet as needed Orally twice a day for 7 days 08/12/2017 Not-Taking Vitamin D 25 MCG (1000 UT) 1 tablet Orally Once a day for 30 day(s) Active FreeStyle Lou 2 [place] - as directed 11/25/2022 Active Advocate Insulin Syringe 29G X 1/2 as directed inject DX : E 11.9 once a day with Lantus 04/27/2016 Active Cyclobenzaprine HCl 5 MG 1 tablet as nee ded Orally Three times a day for 10 days 12/08/2018 Not-Taking Furosemide 80 MG TAKE 1 TABLET BY SHANELL TH ONCE DAILY for 100 Active Irbesartan 300 MG TAKE 1 TABLET BY SHANELL TH ONCE DAILY for 100 Active Spironolactone 25 MG 1 tablet Orally Not-Taking Doxazosin Mesylate 2 MG 1 tabletin AM 2 tabs PM Orally Once a day Not-Taking Escitalopram Oxalate 20 MG TAKE 1 TABLET BY MOUTH ONCE DAILY for 90 Active Klor-Con 10 10 MEQ 1 tablet with food Orally once a day for 90 days 12/23/2023 Active Lantus 100 UNIT/ML OUSLY 80 UNITS DAILY DIRECTED Subcutaneous once a day Active Atorvastatin Calcium 40 MG TAKE 1 TABLET BY MOUTH ONCE DAILY for 100 Active VITAL SIGNS BMI 43.63 kg/m2 03/20/2024 Blood pressure systolic 152 mm Hg 03/20/20 24 Blood pressure diastolic 84 mm Hg 024 Height 68 in 03/20/2024 Weight 287 lbs 03/20/2024 weight is down 3 pounds [facility] e 12-29-23 Encounters Encounter Location Date Provider Diagnosis John Alexander MD [address] [place], [place] [phone] 03/20/2024 John Alexander Diabetes type 2, controlled E11.9 ASSESSMENTS Encounter Date Diagnosis Assessment Notes Treatment Notes Treatment Clinical Notes 03/20/2024 Diabetes type 2, controlled (ICD-10 - E11.9) he continues to be completely uninvolved in diet and exercise so is impossible to get any control of his sugar. at times he doesn't eat his evening snack and then gets hypoglycemia in sleep. his alarm is set for 40 and there is no adjustment PLAN OF TREATMENT Treatment Notes Assessment Notes Diabetes type 2, controlled he continues to be completely uninvolved in diet and exercise so is impossible to get any control of his sugar. at times he doesn't eat his evening snack and then gets hypoglycemia in sleep. his alarm is set for 40 and there is no adjustment Next Appt Details Follow Up: 3 Months, Reason: Provider Name:John bond, 06/15/2024 07:15:00 AM, [address], [address], [place], [place], [phone], Provider Name:John Humphreys ronda, 06/22/2024 10:00:00 AM, [address] [place] [address] Drive, [address], [place], [place], [phone], Provider Name:John Humphreys ronda, 12/25/2024 07:00:00 AM, [address] [place] [address], [address], [place], [phone], Provider Name:John Humphreys ronda, 01/01/2025 08:30:00 AM, [address] [place] [address], [address], [place], [phone], Progress Notes * Examination Category Sub-Category Detail Notes General Examination GENERAL APPEARANCE: alert, w ell hydrated, in no distress HEAD: normocephalic HEART: no murmurs, rubs, ga llops , regular rate and rhythm LUNGS: no wheezes, rales, r honchi , good air movement , clear to auscultation bilaterally SKIN: good turgor
--- OUTSIDE RECORDS SUMMARY | 2024-04-02 09:44 | XMS_ITS ---
Author Organization John Alexander MD Address [address] [place] [address] [place] [phone] Care Team Providers Care Short Goods Drier Name Role Phone John Alexander Primary Care Provider REASON FOR VISIT RF Potassium 10mEq MEDICATIONS Medication SIG (Take, Route, Fr equency, Duration) Notes Start Date End Date Status Klor-Con 10 10 MEQ 1 tablet with food O rally once a day for 90 days 12/23/2023 Active Encounters Encounter Location Date Provider Diagnosis John Alexander MD [address] [place] [address] [address] [place] [phone] 01/16/2024 John Alexander PLAN OF TREATMENT Medication Medication Name Sig Start Date Stop Date Notes Klor-Con 10 10 MEQ 1 tablet with food O rally once a day for 90 days 12/23/2023 Next Appt Details Provider Name:John bond, 06/15/2024 07:15:00 AM, [address] [place] [address], [address], [phone], Provider Name:John bond, 06/22/2024 10:00:00 AM, [address] [place] [address], [address], [phone], Provider Name:John bond, 12/25/2024 07:00:00 AM, [address] [place] [address], [address], [phone], Provider Name:John bond, 01/01/2025 08:30:00 AM, [address] [place], [place] [address], [phone],
--- OUTSIDE RECORDS SUMMARY | 2024-04-02 09:45 | XMS_ITS | Patient Health Record ---
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 Name Role Phone John Alexander Primary Care Provider ALLERGIES No Known Allergies RESULTS Component Value Reference Range Notes Hemoglobin A1c Reviewed date:10/06/2023 10:04:57 AM Interpretation: Performing Lab: Notes/Report: Value Hemoglobin A1c 9.4 Hemoglobin A1c Reviewed date:03/20/2024 10:19:55 AM Interpretation: Performing Lab: Notes/Report: Value Hemoglobin A1c 8.1 Complete Blood Count Auto Di ff Reviewed date:04/14/2023 07:28:30 AM Interpretation: Performing Lab:[facility], [address] [place] [phone] Notes/Report: White Blood Count 3.5 4.8-10.8 X10*3/uL [...] ff Reviewed date:05/13/2023 12:27:29 PM Interpretation: Performing Lab:[facility], [address] [place] [phone] Notes/Report: White Blood Count 3.5 4.8-10.8 X10*3/uL [...] ff Reviewed date:06/11/2023 05:50:56 PM Interpretation: Performing Lab:[facility], [address] [place] [phone] Notes/Report: White Blood Count 3.6 4.8-10.8 X10*3/uL [...] X10*3/uL NRBC Abs Auto 0.000 0.0-0.012 X10*3/uL Jean Bains Reviewed date:06/28/2023 12:05:46 PM Interpretation: Performing Lab:[facility], [address] [place] [phone] Notes/Report: Jean Bains See Note Specimen held untested for 24 hours; Call to request Chemistry testing. Liver Panel Reviewed date:06/29/2023 04:59:16 PM Interpretation: Performing Lab:[facility], [address] [place] [phone] Notes/Report: Bilirubin Total 1.1 0.0-1.0 mg/dL Bilirubin Direct 0.4 0.0-0.5 mg/dL Aspartate Amino Transferase 14 5-37 U/L Alanine Aminotransferase 13 0-40 U/L Total Protein 7.3 6.5-8.0 g/dL Albumin Level 3.7 3.5-5.0 g/dL Alkaline Phosphatase 71 39-117 U/L Glucose Fasting Reviewed date:06/29/2023 04:58:32 PM Interpretation: Performing Lab:[facility], [address] [place] [phone] Notes/Report: Glucose Fasting 94 60-99 mg/dL Lipid Panel with Reflex Reviewed date:06/29/2023 04:58:21 PM Interpretation: Performing Lab:[facility], [address] [place] [phone] Notes/Report: Triglycerides 70 <150 mg/dL Desirable Triglyceride: [...] A1c Reviewed date:06/28/2023 12:50:01 PM Interpretation: Performing Lab:[facility], [address] [place] [phone] Notes/Report: Hemoglobin A1c % 8.0 <6.0 % [...] average glucose, using the formula of the M2K-Wnplszj Average Glucose study (ADAG), Diabetes Care, Vol.31,#8, Nov. 2007 Diabetic Eye Exam Reviewed date:07/15/2023 02:20:25 PM Interpretation:No Diabetic Retinopathy Performing Lab: Notes/Report: No Diabetic Retinopathy Glucose, finger stick Reviewed date:07/05/2023 09:55:08 AM Interpretation: Performing Lab: Notes/Report: Value 243 Complete Blood Count Auto Di ff Reviewed date:08/18/2023 12:39:05 PM Interpretation: Performing Lab:[facility], [address] [place] [phone] Notes/Report: White Blood Count 5.2 4.8-10.8 X10*3/uL Red Blood Count 4.18 4.60-5.80 X10*6/uL Hemoglobin 13.9 14.0-18.0 g/dl Hematocrit 39.6 42.0-52.0 % Mean Corpuscular Volume 94.7 80.0-98.0 fL Mean Corpuscular Hemoglobin 33.3 27.0-33.0 pg Mean Corpuscular HGB Conc 35.1 31.0-36.0 g/dl Red Cell Distribution Width 12.5 11.0-16.0 % Platelet Count 65 160-400 X10*3/uL Mean Platelet Volume 11.0 9.4-12.4 fL Neutrophils Percent Auto 85.9 45-73 % Imm Gran Pct Auto 0.4 0.0-0.4 % Lymphocytes Percent Auto 7.7 20-40 % Monocytes Percent Auto 5.2 2-11 % Eosinophils Percent Auto 0.4 0-4 % Basophils Percent Auto 0.4 0-2 % NRBC Pct Auto 0.0 0.0-0.2 /100WBC Neutrophils Absolute Auto 4.5 2.0-8.3 x10*3/u L Imm Gran Abs Auto 0.02 0.00-0.03 X10*3/uL Lymphocytes Absolute Auto 0.4 1.2-4.9 X10*3/u L Monocytes Absolute Auto 0.3 0.1-1.2 X10*3/uL Eosinophils Absolute Auto 0.0 0.0-0.4 X10*3/u L Basophils Absolute Auto 0.0 0.0-0.2 X10*3/uL NRBC Abs Auto 0.000 0.0-0.012 X10*3/uL Basic Metabolic Panel Reviewed date:08/18/2023 12:44:18 PM Interpretation: Performing Lab:[facility], [address] [place] [phone] Notes/Report: Sodium 134 135-145 mmol/L Potassium 4.0 3.3-5.1 mmol/L Slight Hemoly sis Chloride 100 96-108 mmol/L Carbon Dioxide 21 22-29 mmol/L Anion Gap 17 12-20 Blood Urea Nitrogen 32 9-16 mg/dL Creatinine 1.34 0.5-1.4 mg/dL Creatinine Clr Calc Pharmacy 60.8 eGFR (calculated from the MDRD study equation) and eCrCl (calculated from the Cockcroft-Gault equation) are based on different parameters and may not yield comparable results. If eCrCl result is absurd, please check patient's height/weight. Estimated Glomerular Filt Rate 52 NOTE: For -[place] individuals, multiply the result by 1.210. Chronic Kidney Disease: Estimated GFR < 60 mL/min/1.73m2 Severe Kidney Disease: Estimated GFR < 15 mL/min/1.73m2 Glucose Random 173 60-115 mg/dL Calcium 9.3 8.4-10.2 mg/dL Lactic Acid Reviewed date:08/18/2023 12:38:33 PM Interpretation: Performing Lab:[address] [phone] Notes/Report: Lactic Acid 2.4 0.5-2.0 mmol/L Critical value for LACTIC: Results called to and read back by: YON Person calling: BERNARDA Date: 08/18/23 Time: 1025 Troponin-I High Sensitivity Reviewed date:08/18/2023 12:39:14 PM Interpretation: Performing Lab:[address] [phone] Notes/Report: Troponin-I High Sensitivity 4.0 <3.5-35.0 ng/L The Santos high sensitivity Troponin-I results should be used in conjunction with other diagnostic information such as ECG, clinical observations and information, and patient symptoms to aid in the diagnosis of [place]. C Reactive Protein Reviewed date:08/18/2023 12:45:28 PM Interpretation: Performing Lab:[address] [phone] Notes/Report: C Reactive Protein 0.34 < or = 0.50 mg/dL B Type Natriuretic Peptide Reviewed date:08/18/2023 12:39:23 PM Interpretation: Performing Lab:[address] [phone] Notes/Report: B Type Natriuretic Peptide 165 <100 pg/mL For those patients who are being treated with Natrecor (nesiritide, recombinant BNP), BNP testing should be performed at least two hours post treatment in order to ensure that only endogenous levels of BNP are detected. Glucose, Whole Blood Reviewed date:08/18/2023 07:04:02 PM Interpretation: Performing Lab:[facility], [address] [place] [phone] Notes/Report: Glucose, Whole Blood 137 60-115 mg/dL METER # : [id number] SARS-CoV2/FLU/RSV Reviewed date:08/18/2023 12:38:41 PM Interpretation: Performing Lab:[address] [phone] Notes/Report: Influenza A PCR NEGATIVE Negative Influenza B PCR NEGATIVE Negative Resp Syncy Virus RNA Qual PCR NEGATIVE Negative SARS COV2 PCR INHOUSE NEGATIVE Negative All test results must be correlated with clinical findings. Negative results do not preclude SARS-CoV2, influenza A virus, influenza B virus and/or RSV infection and should not be used as the sole basis for treatment or other patient management decisions. Negative results must be combined with clinical observations, patient history, and epidemiological information. This test has not been evaluated for monitoring treatment of infection. This test has been authorized by the FDA under an Emergency Use Authorization (EUA) for use by authorized laboratories. Testing performed on the [employer] GeneXpert utilizing real-time RT-PCR. All SARS CoV2 and positive influenza A/B results are reported to [facility]. Blood Culture (First) Reviewed date:08/23/2023 12:39:13 PM Interpretation: Performing Lab:[address] [phone] Notes/Report: Blood Culture (First) No growth after 5 days. Blood Culture (Second) Reviewed date:08/23/2023 12:39:52 PM Interpretation: Performing Lab:[address] [phone] Notes/Report: Blood Culture (Second) No growth after 5 days. Lactic Acid-LAB USE ONLY Reviewed date:08/18/2023 02:55:37 PM Interpretation: Performing Lab:[facility], [address] [place] [phone] Notes/Report: Lactic Acid-LAB USE ONLY 2.2 0.5-2.0 mmol/L Critical value for LACTIC: Results called to and read back by: SKYE Person calling: BERNARDA Date: 08/18/23 Time: 1319 Cancel Lactic Acid Reviewed date:08/18/2023 01:55:59 PM Interpretation: Performing Lab:[address] [phone] Notes/Report: Cancel Lactic Acid Canceled XR chest 2V Reviewed date:09/12/2023 12:22:55 PM Interpretation:repeat chest x-ray being done on 08-30-23 Performing Lab: Notes/Report: [address] [address] XRay Report Signed Patient: Steven Elise MR#: [id number] : 1945 Acct:[id number] Age/Sex: 78 / M ADM Date: 08/18/23 Loc: HO.ED Attending Dr: Ordering Physician: Josh Marte MD Date of Service: 08/18/23 Procedure(s): XR chest 2V Accession Number(s): [id number] cc: John Alexander MD; Josh Marte MD EXAMINATION: XR CHEST CLINICAL INFORMATION: Shortness of breath and hypoxia COMPARISON: Rib radiographs 11/22/2017 and 2 view chest 01/01/2013 TECHNIQUE: 2 views of the chest were obtained. FINDINGS: The heart and pulmonary vessels appear normal. There is dense consolidation in the right middle lobe. A small area of patchy consolidation is present at the left lung base with some minimal air bronchograms. No pleural effusions seen, but a small right subpulmonic effusion cannot be excluded. XR/XR chest 2V IMPRESSION: Right middle lobe pneumonia with some lower lobe disease as described above. Dictated By: Brayan Schwartz MD Signed By: <Electronically signed by Brayan Schwartz MD in OV> 08/18/23957 DD/ 7 TD/TT: Tourist Cabin Keeper: OTTO Glucose, Whole Blood Reviewed date:08/19/2023 12:27:28 PM Interpretation: Performing Lab:[facility], [address] [place] [phone] Notes/Report: Glucose, Whole Blood 215 60-115 mg/dL METER # : [id number] Basic Metabolic Panel Reviewed date:08/19/2023 12:30:33 PM Interpretation: Performing Lab:[facility], [address] [place] [phone] Notes/Report: Sodium 137 135-145 mmol/L Potassium 3.4 3.3-5.1 mmol/L Chloride 98 96-108 mmol/L Carbon Dioxide 29 22-29 mmol/L Anion Gap 13 12-20 Blood Urea Nitrogen 34 9-16 mg/dL Creatinine 1.81 0.5-1.4 mg/dL Creatinine Clr Calc Pharmacy 45.0 eGFR (calculated from the MDRD study equation) and eCrCl (calculated from the Cockcroft-Gault equation) are based on different parameters and may not yield comparable results. If eCrCl result is absurd, please check patient's height/weight. Estimated Glomerular Filt Rate 37 NOTE: For -[place] individuals, multiply the result by 1.210. Chronic Kidney Disease: Estimated GFR < 60 mL/min/1.73m2 Severe Kidney Disease: Estimated GFR < 15 mL/min/1.73m2 Glucose Random 143 60-115 mg/dL Calcium 9.2 8.4-10.2 mg/dL Glucose, Whole Blood Reviewed date:08/19/2023 12:27:38 PM Interpretation: Performing Lab:[facility], [address] [place] [phone] Notes/Report: Glucose, Whole Blood 157 60-115 mg/dL METER # : [id number] Glucose, Whole Blood Reviewed date:08/19/2023 11:22:23 AM Interpretation: Performing Lab:[facility], [address] [place] [phone] Notes/Report: Glucose, Whole Blood 166 60-115 mg/dL METER # : [id number] XR chest 2V Reviewed date:12/02/2023 08:04:04 AM Interpretation:due October 2023 Performing Lab: Notes/Report: [address] [place] [address] XRay Report Signed Patient: Steven Elise MR#: [id number] : 1945 Acct:[id number] Age/Sex: 78 / M ADM Date: 08/30/23 Loc: DANY Attending Dr: John Alexander MD Ordering Physician: John Alexander MD Date of Service: 08/30/23 Procedure(s): XR chest 2V Accession Number(s): [id number] cc: John Alexander MD EXAMINATION: XR CHEST CLINICAL INFORMATION: Pneumonia. COMPARISON: August 18, 2023. TECHNIQUE: 2 views of the chest were obtained. FINDINGS: There is no gross pneumothorax. Lung volumes are low. Heart size is normal. Substantial interval improvement of previously noted dense right basilar and left basilar opacities. No gross pleural effusion. Degenerative changes in the thoracic spine. XR/XR chest 2V IMPRESSION: Substantial interval improvement of previously noted bibasilar opacities with mild residual bibasilar parenchymal disease. Dictated By: Mariam Coffey MD Signed By: <Electronically signed by Mariam Coffey MD in OV> 09/12/23526 DD/ 0917 TD/TT: Tourist Cabin Keeper: Glucose, finger stick Reviewed date:09/01/2023 11:26:38 AM Interpretation: Performing Lab: Notes/Report: Value 335 XR chest 2V Reviewed date:10/06/2023 01:13:03 PM Interpretation:Pt was called Performing Lab: Notes/Report: [address] [address] XRay Report Signed Patient: Steven Elise MR#: [id number] : 1945 Acct:[id number] Age/Sex: 78 / M ADM Date: 10/06/23 Loc: HOFREDERICK Attending Dr: John Alexander MD Ordering Physician: John Alexander MD Date of Service: 10/06/23 Procedure(s): XR chest 2V Accession Number(s): [id number] cc: John Alexander MD EXAMINATION: XR CHEST CLINICAL INFORMATION: Pneumonia COMPARISON: 08/30/1999/ and 04/19/2023 TECHNIQUE: 2 views of the chest were obtained. FINDINGS: No significant abnormality is noted involving the heart, lungs, mediastinum, bony thorax or soft tissues. Seen previously pneumonia has been resolved bilaterally XR/XR chest 2V IMPRESSION: No abnormal findings. Clear lungs Dictated By: Steven Leal MD Signed By: <Electronically signed by Steven Leal MD in OV> 10/06/231099 DD/ 0931 TD/TT: Tourist Cabin Keeper: Glucose, finger stick Reviewed date:10/06/2023 09:59:10 AM Interpretation: Performing Lab: Notes/Report: Value 129 Complete Blood Count Auto Di ff Reviewed date:12/23/2023 08:40:40 AM Interpretation: Performing Lab:[facility], [address] [place] [phone] Notes/Report: White Blood Count 4.9 4.8-10.8 X10*3/uL Red Blood Count 4.54 4.60-5.80 X10*6/uL Hemoglobin 15.2 14.0-18.0 g/dl Hematocrit 44.0 42.0-52.0 % Mean Corpuscular Volume 96.9 80.0-98.0 fL Mean Corpuscular Hemoglobin 33.5 27.0-33.0 pg Mean Corpuscular HGB Conc 34.5 31.0-36.0 g/dl Red Cell Distribution Width 13.1 11.0-16.0 % Platelet Count 76 160-400 X10*3/uL Mean Platelet Volume 10.7 9.4-12.4 fL Neutrophils Percent Auto 42.3 45-73 % Imm Gran Pct Auto 0.2 0.0-0.4 % Lymphocytes Percent Auto 43.9 20-40 % Monocytes Percent Auto 10.0 2-11 % Eosinophils Percent Auto 3.0 0-4 % Basophils Percent Auto 0.6 0-2 % NRBC Pct Auto 0.0 0.0-0.2 /100WBC Neutrophils Absolute Auto 2.1 2.0-8.3 x10*3/u L Imm Gran Abs Auto 0.01 0.00-0.03 X10*3/uL Lymphocytes Absolute Auto 2.2 1.2-4.9 X10*3/u L Monocytes Absolute Auto 0.5 0.1-1.2 X10*3/uL Eosinophils Absolute Auto 0.2 0.0-0.4 X10*3/u L Basophils Absolute Auto 0.0 0.0-0.2 X10*3/uL NRBC Abs Auto 0.000 0.0-0.012 X10*3/uL Comprehensive [place]. Panel Fa st Reviewed date:12/23/2023 09:19:07 AM Interpretation: Performing Lab:[facility], [address] [place] [phone] Notes/Report: Sodium 142 135-145 mmol/L Potassium 3.0 3.3-5.1 mmol/L Chloride 101 96-108 mmol/L Carbon Dioxide 30 22-29 mmol/L Anion Gap 14 12-20 Blood Urea Nitrogen 25 9-16 mg/dL Creatinine 1.75 0.5-1.4 mg/dL Estimated Glomerular Filt Rate 38 NOTE: For -[place] individuals, multiply the result by 1.210. Chronic Kidney Disease: Estimated GFR < 60 mL/min/1.73m2 Severe Kidney Disease: Estimated GFR < 15 mL/min/1.73m2 Glucose Fasting 41 60-99 mg/dL Critical value for GLU: Results called to and read back by: JAYY Pereira Person calling: BERNARDA Date: 12/22/23 Time: 1343 Calcium 9.6 8.4-10.2 mg/dL Bilirubin Total 1.4 0.0-1.0 mg/dL Aspartate Amino Transferase 21 5-37 U/L Alanine Aminotransferase 20 0-40 U/L Total Protein 7.8 6.5-8.0 g/dL Albumin Level 4.1 3.5-5.0 g/dL Alkaline Phosphatase 80 39-117 U/L Lipid Panel Reviewed date:12/23/2023 08:39:35 AM Interpretation: Performing Lab:[facility], [address] [place] [phone] Notes/Report: Triglycerides 115 <150 mg/dL Desirable Triglyceride: less than 150 mg/dL Borderline High Triglyceride 150-199 mg/dL High Triglyceride: 200-499 mg/dL Very High Triglyceride: greater than or equal to 5OO mg/dL Cholesterol 126 <200 mg/dL Desirable Cholesterol: less than 200 mg/dL Borderline High Cholesterol: 200-239 mg/dL High Cholesterol: greater than 239 mg/dL LDL Cholesterol Calculated 70 <100 mg/dL Desirable LDL: less than 100 mg/dL Near Optimal/Above Optimal LDL: 110-129 mg/dL Borderline High LDL: 130-159 mg/dL High LDL: 160-189 mg/dL Very High LDL: greater than or equal to 190 mg/dL HDL Cholesterol 33 >40 mg/dL Desirable HDL: greater than 40 mg/dL Note: This HDL assay may give artificially low results in patients with liver disease. PSA,Total (Free>4and<10) Reviewed date:12/23/2023 08:36:58 AM Interpretation: Performing Lab:[facility], [address] [place] [phone] Notes/Report: PSA,Total (Free>4and<10) 0.32 0.00-4.00 ng/mL A Free PSA was not [...] Chemiluminescent Microparticle Immunoassay (CMIA) Microalbumin, Random Reviewed date:12/23/2023 08:39:05 AM Interpretation: Performing Lab:[address] [address] Notes/Report: Creatinine Urine 39.19 Microalbumin Urine 208.0 Microalbum/Creatinine Ratio Ur 530.7 <30 ug/mg cr Albumin/Creatinine Ratio Reference Ranges: Normal: < 30 ug/mg creatinine Microalbuminuria: 30 - 300 ug/mg creatinine Clinical Albuminuria: > 300 ug/mg creatinine Hemoglobin A1c Reviewed date:12/22/2023 06:50:46 PM Interpretation: Performing Lab:[address] [phone] Notes/Report: Hemoglobin A1c % 9.4 <6.0 % Hemoglobin A1C Reference Range Adults: 4.8 - 6.0 % Non diabetic: < 6.0 % Goal: < 7.0 % Additional Action Suggested: > 8.0 % Note: Hemoglobin A1c results are invalid for patients with abnormal amounts of HbF. Blood transfusions may impact the HbA1c concentration in the patient sample. Estimated Average Glucose 223 eAG = Estimated average glucose which is %A1C expressed as average glucose, using the formula of the O2O-Opbtgyw Average Glucose study (ADAG), Diabetes Care, Vol.31,#8, Nov. 2007 UA ClnCatch+Micro w/rflx Cul t Reviewed date:12/23/2023 08:51:54 AM Interpretation: Performing Lab:[address] [phone] Notes/Report: Urine, Clean Catch Color Urine Yellow Appearance Urine Clear PH 7.0 5.0-9.0 Glucose Urine UA Negative Negative mg/dL Urine Blood Negative Negative Specific [place] - Urine 1.010 1.005-1.025 Urine Protein 30 (1+) Neg-Trace mg/dL Urine Ketones Negative Negative mg/dL Nitrite Urine Negative Negative Leukocyte Esterase Urine Negative Negative RBC Urine 0-2 0-2 /HPF WBC Urine 0-5 0-5 /HPF Squamous Epithelial Cell Urine 0-2 0-2 /HPF Bacteria Urine None Seen None Seen Hyaline Casts Urine 0-2 0-2 /LPF Potassium Reviewed date:01/12/2024 12:32:27 PM Interpretation: Performing Lab:[facility], [address] [place] [phone] Notes/Report: Potassium 4.0 3.3-5.1 mmol/L Glucose, finger stick Reviewed date:03/20/2024 10:16:45 AM Interpretation: Performing Lab: Notes/Report: Value 279 REASON FOR REFERRAL No Information MEDICATIONS Medication SIG (Take, Route, Frequency, Duration) Notes Start Date End Date Status amLODIPine Besylate 5 MG TAKE 1 TABLET B Y MOUTH ONCE DAILY for 100 Active Cyclobenzaprine HCl 5 MG 1 tablet as nee ded Orally Three times a day for 10 days 12/08/2018 Not-Taking Metoprolol Tartrate 100 MG TAKE 1 TABLET BY MOUTH TWICE DAILY for 100 Active traMADol HCl 50 MG 1 tablet as needed Orally three times a day for 7 days 12/08/2018 Not-Taking FreeStyle Lou 2 Sensor - USE DIRECTED SUBCUTANEOUSLY EVERY 2 WEEKS for 100 Active Meclizine HCl 25 MG 1 tablet as needed Orally twice a day for 7 days 08/12/2017 Not-Taking Escitalopram Oxalate 20 MG TAKE 1 TABLET BY MOUTH ONCE DAILY for 90 Active Klor-Con 10 10 MEQ 1 tablet with food Orally once a day for 90 days 12/23/2023 Active Lantus 100 UNIT/ML OUSLY 80 UNITS DAILY DIRECTED Subcutaneous once a day Active Vitamin D 25 MCG (1000 UT) 1 tablet Orally Once a day for 30 day(s) Active Atorvastatin Calcium 40 MG TAKE 1 TABLET BY MOUTH ONCE DAILY for 100 Active FreeStyle Lou 2 [place] - as directed 11/25/2022 Active Furosemide 80 MG TAKE 1 TABLET BY SHANELL TH ONCE DAILY for 100 Active Advocate Insulin Syringe 29G X 1/2 as directed inject DX : E 11.9 once a day with Lantus 04/27/2016 Active Irbesartan 300 MG TAKE 1 TABLET BY SHANELL TH ONCE DAILY for 100 Active Eliquis 2.5 MG TAKE 1 TABLET BY SHANELL TH TWICE DAILY DIRECTED Active Spironolactone 25 MG 1 tablet Orally Not-Taking buPROPion HCl ER (SR) 150 MG TAKE 1 TABLET BY MOUTH ONCE DAILY IN THE MORNING for 90 Active Doxazosin Mesylate 2 MG 1 tabletin AM 2 tabs PM Orally Once a day Not-Taking IMMUNIZATIONS Vaccine Route Administration Date Status Comme [...] S SARS-COV-2 Pfizer Unknown 12/15/2022 [facility] RSV Unknown 12/30/2023 [facility] SARS-COV-2 Pfizer Unknown 12/30/2023 [facility] Influenza High Dose IM Intramuscular 01/02/2024 Administer ed SOCIAL HISTORY Tobacco Use: Social History Observation [...] Answer Notes Did you have a drink containing alcohol in the p ast year? No Points 0 Interpretation Negative PROBLEMS Problem Type ICD Code Onset Dates Problem Status W/U Status Risk SNOMED Code Notes Problem Pneumonia (J18.9) Active confirmed Pneu monia (020040832) Problem Thrombocytopenia (D69.6) Active confirmed 274855788 Problem Neuropathy (G62.9) Active confirmed 386 667603 Problem Arthritis of knee (M19.90) Active confirmed 595511916 Problem Paroxysmal atrial fibrillation (I48.0) Active confirmed 325207599 Problem Polyneuropathy, unspecified (G62.9) Active confirmed Polyneur opathy (91775830) Problem Persistent atrial fibrillation (I48.1) Active confirmed Persist ent atrial fibrillation (509430717) Problem Tubular adenoma of colon (D12.6) Active confirmed 600985303 Problem Essential hypertensi on (I10) Active confirmed 48335204 Problem Low HDL (under 40) (E78.6) Active confirmed 219127676 Problem Diabetes type 2, controlled (E11.9) Active confirmed 75701271 Problem Type 2 diabetes, controlled, with neuropathy (E11.40) Active confirmed 47977468 Problem Lymphadenopathy (R59.1) Active confirmed 68857033 Problem MCMULLEN (nonalcoholic steatohepatitis) (K75.81) Active confirmed 283830728 Problem Hypoglycemia (E16.2) Active confirmed 3 52221128 Problem Chronic renal failur e, stage 3 (moderate) (N18.3) Active confirmed 96762363 Problem Dysthymia (F34.1) Active confirmed 7866 7006 Problem Neutropenia, unspecified type (D70.9) Active confirmed 311143696 Problem Hypersomnia (G47.10) Active confirmed 7 4357571 Problem Gait abnormality (R26.9) Active confirmed 32061299 Problem Pure hypercholesterolemia (E78.00) Active confirmed 442349030 Problem Seasonal allergic rhinitis due to pollen (J30.1) Active confirmed 39910303 Problem Morbid obesity with body mass index (BMI) of 40.0 or higher (E66.01) Active confirmed 390942852 Problem Chronic renal failur e, unspecified CKD stage (N18.9) Active confirmed 26719221 Problem Balance disorder (R26.89) Active confirmed 309988520 Problem Chronic heart failur e with preserved ejection fraction (I50.32) Active confirmed Chronic diastolic heart failure (901712680) Problem 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) Active confirmed 80605136 Problem Atrial fibrillation, persistent (I48.19) Active confirmed 904908334 Problem Stage 3 chronic kidn ey disease, unspecified whether stage 3a or 3b CKD (N18.30) Active confirmed 107290922 VITAL SIGNS Blood pressure diastolic 84 mm Hg 03/20/2024 kevin ght is down 3 pounds since 12-29-23 Height 68 in 03/20/2024 weight is down 3 pounds since 12-29-23 Blood pressure systolic 152 mm Hg 03/20/2024 weig ht is down 3 pounds since 12-29-23 Weight 287 lbs 03/20/2024 weight is down 3 pounds since 12-29-23 BMI 43.63 kg/m2 03/20/2024 weight is down 3 pounds since 12-29-23 Encounters Encounter Location Date Provider Diagnosis John Alexander MD 35 [place] [address] [address] [place] [address] [id number] 12/29/2023 John Alexander Encounter for genera l adult medical examination without abnormal findings Z00.00 ; Morbid obesity with body mass index (BMI) of 40.0 or higher E66.01 ; Chronic heart failure with preserved ejection fraction I50.32 ; Type 2 diabetes with nephropathy E11.21 ; Hypokalemia E87.6 and Stage 3 chronic kidney disease, unspecified whether stage 3a or 3b CKD N18.30 John Alexander MD [address] [place] [address] Drive [address] [place] [address] [id number] 06/28/2023 John Alexander Diabetes type 2, controlled E11.9 and Pure hypercholesterolemia E78.00 John Alexander MD [address] [place] [address] Drive [address] [place] [address] [id number] 12/22/2023 John Alexander Annual physical exam Z00.00 ; Diabetes type 2, controlled E11.9 ; Pure hypercholesterolemia E78.00 ; Neutropenia, unspecified type D70.9 and Chronic renal failure, unspecified CKD stage N18.9 John Alexander MD [address] [place] [address] [address] [id number] 04/12/2023 John Alexander Neutropenia, unspeci fied type D70.9 and Thrombocytopenia D69.6 John Alexander MD [address] [place] [address] [id number] 05/13/2023 John Alexander Thrombocytopenia D69 .6 John Alexander MD [address] [place] [address] [id number] 06/10/2023 John Alexander Thrombocytopenia D69 .6 John Alexander MD [address] [place] [address] [id number] 01/12/2024 John Alexander Hypokalemia E87.6 John Alexander MD [address] [place] [address] [id number] 01/02/2024 John Alexander Encounter for immuni zation Z23 oJhn Alexander MD [address] [place] [address] [id number] 07/05/2023 John Alexander Diabetes type 2, controlled E11.9 ; Persistent atrial fibrillation I48.1 ; Neutropenia, unspecified type D70.9 ; Thrombocytopenia D69.6 and Paroxysmal atrial fibrillation I48.0 John Alexander MD [address] [place] [address] [id number] 10/06/2023 John Alexander Diabetes type 2, controlled E11.9 ; Type 2 diabetes, controlled, with neuropathy E11.40 ; Polyneuropathy, unspecified G62.9 and Essential hypertension I10 John Alexander MD [address] [place] [address] [id number] 03/20/2024 John Alexander Diabetes type 2, controlled E11.9 John Alexander MD [address] [place] [address] [id number] 09/01/2023 John Alexander Diabetes type 2, controlled E11.9 ; Acute aspiration pneumonia J69.0 ; Gait abnormality R26.9 and Neuropathy G62.9 John Alexander MD [address] [place] [address] [id number] 08/18/2023 John Alexander Pneumonia J18.9 John Alexander MD [address] [place] [address] [id number] 08/19/2023 John Alexander MD [address] [place] [address] [id number] 09/12/2023 John Alexander Pneumonia J18.9 John Alexander MD [address] [place] [address] [id number] 09/16/2023 John Alexander Polyneuropathy, unspecified G62.9 John Alexander MD [address] [place] [address] [id number] 12/22/2023 John Alexander MD [address] [place] [address] [id number] 12/22/2023 John Alexander MD [address] [place] [address] [id number] 12/23/2023 John Alexander MD [address] [place] [address] [id number] 12/23/2023 John Alexander MD [address] [place] [address] [id number] 01/16/2024 John Alexander ASSESSMENTS Encounter Date Diagnosis Assessment Notes Treatment Notes Treatment Clinical Notes 12/29/2023 Encounter for genera l adult medical examination without abnormal findings (ICD-10 - Z00.00) Labs reviewed and discussed with patient 06/28/2023 Diabetes type 2, controlled (ICD-10 - E11.9) 06/28/2023 Pure hypercholestero lemia (ICD-10 - E78.00) 12/22/2023 Annual physical exam (ICD-10 - Z00.00) 12/22/2023 Diabetes type 2, controlled (ICD-10 - E11.9) 04/12/2023 Thrombocytopenia (IC D-10 - D69.6) 04/12/2023 Neutropenia, unspeci fied type (ICD-10 - D70.9) 05/13/2023 Thrombocytopenia (IC D-10 - D69.6) 06/10/2023 Thrombocytopenia (IC D-10 - D69.6) 01/12/2024 Hypokalemia (ICD-10 - E87.6) 01/02/2024 Encounter for immunization (ICD-10 - Z23) 07/05/2023 Persistent atrial fibrillation (ICD-10 - I48.1) still short of breath, will continue current regiment and will continue to monitor 07/05/2023 Diabetes type 2, controlled (ICD-10 - E11.9) stable, will continue current regiment 10/06/2023 Diabetes type 2, controlled (ICD-10 - E11.9) 10/06/2023 Type 2 diabetes, controlled, with neuropathy (ICD-10 - E11.40) re order nerve study of legs/ refaxed order to [facility] dept 03/20/2024 Diabetes type 2, controlled (ICD-10 - E11.9) he continues to be completely uninvolved in diet and exercise so is impossible to get any control of his sugar. at times he doesn't eat his evening snack and then gets hypoglycemia in sleep. his alarm is set for 40 and there is no adjustment 09/01/2023 Diabetes type 2, controlled (ICD-10 - E11.9) 09/01/2023 Acute aspiration pneumonia (ICD-10 - J69.0) has recovered and not coughing. had gotten up in middle of night and aspirated milk/ doing fine now but repeat cxr is ordered to make certain is resolved 12/29/2023 Morbid obesity with body mass index (BMI) of 40.0 or higher (ICD-10 - E66.01) not dieting 12/22/2023 Pure hypercholestero lemia (ICD-10 - E78.00) 07/05/2023 Neutropenia, unspeci fied type (ICD-10 - D70.9) needs follow up with dr lewis 10/06/2023 Polyneuropathy, unspecified (ICD-10 - G62.9) is probably the cause of the gait abnormality 09/01/2023 Gait abnormality (IC D-10 - R26.9) order faxed to [facility], pending diagnostic testing 08/18/2023 Pneumonia (ICD-10 - J18.9) 09/12/2023 Pneumonia (ICD-10 - J18.9) 09/16/2023 Polyneuropathy, unspecified (ICD-10 - G62.9) 12/29/2023 Chronic heart failur e with preserved ejection fraction (ICD-10 - I50.32) Stable. Continue current regiment. 12/22/2023 Neutropenia, unspeci fied type (ICD-10 - D70.9) 07/05/2023 Thrombocytopenia (IC D-10 - D69.6) will follow up with Dr Lewis 10/06/2023 Essential hypertensi on (ICD-10 - I10) stable, will continue current regiment 09/01/2023 Neuropathy (ICD-10 - G62.9) order faxed to 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 12/29/[address] nuñez PLAN OF TREATMENT Pending Test Test Name Order Date Electrocardiogram (EKG) 10/16/2015 Electrocardiogram (EKG) 01/27/2017 Glucose, finger stick 07/29/2017 MRI BRAIN NO CONTRAST 09/01/2023 XR CHEST 2 VIEW PA & LAT 01/01/2013 EMG 09/01/2023 EMG 09/16/2023 XR chest 2V 09/12/2023 XR chest 2V 08/18/2023 Next Appt Details Provider Name:John bond, 06/15/2024 07:15:00 AM, [address] [place] [address], [address] [place] [address], [phone], Provider Name:John obnd, 06/22/2024 10:00:00 AM, [address] [place] [address], Suite [facility], [place], [place], [phone], Provider Name:John bond, 12/25/2024 07:00:00 AM, [address] [place] [address], Suite [facility], [place], [place], [phone], Provider Name:John bond, 01/01/2025 08:30:00 AM, [address], [address], [place], [place], [phone], Insurance Providers Payer Name Payer Address Payer Phone Subscriber Number Group Number Insured Name Patient Relationship to Insured Coverage Start Date Coverage End Date [facility] [address] YADIRA Rowe [phone] [id number] Steven Elise Self - patient is the [...]
--- OUTSIDE RECORDS SUMMARY | 2024-04-02 09:45 | XMS_ITS | Patient Health Record ---
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 YADIRA CENTENO [phone] [id number] DEANGELO SEGURA Self - patient is the insured MEDICAL (GENERAL) HISTORY Medical History History ICD Code Colonoscopy 06/30/18, multiple tubular ad enomas, three-year followup. hypertension diabetes mellitus arthritis depression ABHAY/CPAP Atrial fibrillation Surgical History Surgery Date(Month/Year) appendix cholecystectomy left knee replacement right knee replacement
== END ==
LOC: HO.CARD 09:38
PROVIDERS: Visit Provider Internal Medicine
DX: I20.9 Angina pectoris, unspecified (principal); R07.2 Precordial pain; I50.32 Chronic diastolic (congestive) heart failure
CPT/HCPCS: 78452; 93017; A9500; J0280; J2785

== ENCOUNTER → 2024-04-02 09:44 | Outpatient (BNV) | payer MEDICARE, SELFPAY | PROVIDERS: Visit Provider Nurse Practitioner Family | DX: I49.3 Ventricular premature depolarization (principal) | CPT/HCPCS: 78452; 93016; 93018 ==

== ENCOUNTER 2024-06-15 10:31 | Outpatient (REF) | payer MEDICARE, SELFPAY ==
[2024-06-15 11:18] LABS: Alanine Aminotransferase 10 U/L (0-40); Albumin Level 3.6 g/dL (3.5-5.0); Alkaline Phosphatase 117 U/L (39-117); Aspartate Amino Transferase 23 U/L (5-37); Bilirubin Direct 0.5 mg/dL (0.0-0.5); Bilirubin Total 1.2 mg/dL (0.0-1.0); Cholesterol 105 mg/dL (<200); Estimated Average Glucose 189 mg/dL; Glucose Fasting 96 mg/dL (60-99); HDL Cholesterol 29 mg/dL (>40); Hemoglobin A1c % 8.2 % (<6.0); LDL Cholesterol Calculated 61 mg/dL (<100); Total Protein 7.2 g/dL (6.5-8.0); Triglycerides 79 mg/dL (<150)
--- OUTSIDE RECORDS SUMMARY | 2024-06-15 11:52 | XMS_ITS ---
Author Organization John Alexander MD Address [address] [facility] [address] [place] [phone] Care Team Providers Care Returns Clerk Name Role Phone John Alexander Primary Care Provider [phone] REASON FOR VISIT changes and refills Encounters Encounter Location Date Provider Diagnosis John Alexander MD [address] [place] [address] [place] [address] [phone] 06/06/2024 John Alexander Plan Of Treatment Next Appt Details Provider Name:John bond, 06/22/2024 10:00:00 AM, [address] [place] [address], [address] [place] [address], [phone], Provider Name:John bond, 12/25/2024 07:00:00 AM, [address] [place] [address], [address] [place] [address], [phone], Provider Name:John bond, 01/01/2025 08:30:00 AM, [address] [place] [address], [address] [place] [address], [phone], Progress Notes * Steven SEGURA SDOB:1944 (79 yo M)Acc No.[id number]:06/06/2024 Patient:?Steven SEGURA :1945???Age:79 Y???Sex:Male Address:[address] [place] [phone] * true * Date:? Generated for Rakel egan/Melonie/Claduiaitting on:?06/15/2024 11:52 AM EST
--- OUTSIDE RECORDS SUMMARY | 2024-06-15 11:52 | XMS_ITS ---
Author Organization John Alexander MD Address [address] [facility] [address] [place] [phone] Care Team Providers Care Bitumastic Applier Name Role Phone John Alexander Primary Care Provider Results Component Value Reference Range Notes Hemoglobin A1c (Not yet revi ewed by provider) Interpretation: Performing Lab:[facility], [address] [place] [phone] Notes/Report: Hemoglobin A1c % 8.2 <6.0 % Hemoglobin A1C Reference Range Adults: 4.8 - 6.0 % Non diabetic: < 6.0 % Goal: < 7.0 % Additional Action Suggested: > 8.0 % Note: Hemoglobin A1c results are invalid for patients with abnormal amounts of HbF. Blood transfusions may impact the HbA1c concentration in the patient sample. Estimated Average Glucose 189 eAG = Estimated average glucose which is %A1C expressed as average glucose, using the formula of the H3O-Uazguur Average Glucose study (ADAG), Diabetes Care, Vol.31,#8, Nov. 2007 REASON FOR VISIT FASTING LIPIDS Encounters Encounter Location Date Provider Diagnosis John Alexander MD [address] [place] [address] Drive [address] [place] [address] [phone] 06/15/2024 John Alexander Diabetes type 2, controlled E11.9 and Pure hypercholesterolemia E78.00 Assessments Encounter Date Diagnosis (ICD Code) Assessment Notes Treatment Notes Treatment Clinical Notes Section Notes 06/15/2024 Diabetes type 2, controlled (ICD-10 - E11.9) 06/15/2024 Pure hypercholesterolemia (ICD-10 - E78.00) Plan Of Treatment Pending Test Test Name Order Date Liver Panel 06/15/2024 Glucose Fasting 06/15/2024 Lipid Panel with Reflex 06/15/2024 Hemoglobin A1c 06/15/2024 Next Appt Details Provider Name:John Humphreys ier, 06/22/2024 10:00:00 AM, [address], [address], [place], [phone], Provider Name:John Humphreys ier, 12/25/2024 07:00:00 AM, [address], [address], [place], [place], [phone], Provider Name:John Humphreys ier, 01/01/2025 08:30:00 AM, [address], [address], [place], [place], [phone], Progress Notes * CHRISTOSteven SEALS SDOB:1944 (79 yo M)Acc No.[id number]:06/15/2024 Progress Note Patient:?Steven ELISE Provider:?John Alexander MD :1945???Age:79 Y???Sex:Male Khoa e:06/15/2024 Address:[address] [place], [place] [phone] Subjective: * Chief Complaints: * ???1. FASTING LIPIDS. * Medical History:? Objective: * Vitals:? Assessment: * Assessment: 1.?Diabetes type 2, controll ed - E11.9 (Primary)???2.?Pure hypercholesterolemia - E78.00??? Plan: * Treatment: 2.?Pure hypercholesterolemia ?LAB: Liver Panel ?LAB: Glucose Fasting ?LAB: Lipid Panel with Reflex ?LAB: Hemoglobin A1c (Collection Date & Time - 06/15/2024 07:15 AM) * Procedure Codes:?48832 VENIP UNCT, ROUTINE* * * The named appointment provid er may or may not be the originator of this progress note, and it is not deemed complete until electronically signed by the appointment provider. Sign off status: Pending * Provider:?John Alexander MD Date:?0 06/15/2024 Generated for Rakel egan/Melonie/Claudiaitting on:?06/15/2024 11:51 AM EST
--- OUTSIDE RECORDS SUMMARY | 2024-06-15 11:52 | XMS_ITS ---
Author Organization John Alexander MD Address [address] [place] [phone] Care Team Providers Care Lens Polisher Hand Name Role Phone John Alexander Primary Care Provider Allergies No Known Allergies Results Component Value Reference Range Notes Hemoglobin A1c Reviewed date:03/20/2024 10:19:55 AM Interpretation: Performing Lab: Notes/Report: Hemoglobin A1c 8.1 Glucose, finger stick Reviewed date:03/20/2024 10:16:45 AM Interpretation: Performing Lab: Notes/Report: Value 279 REASON FOR VISIT 3 MO F/U, has had a few low blood sugars 48 during the night Medications Medication SIG (Take, Route, Frequency, Duration) Notes [...] for 30 day(s) Active FreeStyle Lou 2 Holladay - as directed 11/25/2022 Active Advocate Insulin [...] BY MOUTH ONCE DAILY for 100 Active Vital Signs Blood pressure systolic 152 mm Hg 03/20/20 24 Blood pressure diastolic 84 mm Hg 024 Height 68 in 03/20/2024 Weight 287 lbs 03/20/2024 BMI 43.63 kg/m2 03/20/2024 weight is down 3 pounds [facility] 12-29-23 Encounters Encounter Location Date Provider Diagnosis John Alexander MD [address] [place], [place] [phone] 03/20/2024 John Alexander Diabetes type 2, controlled E11.9 Assessments Encounter Date Diagnosis (ICD Code) Assessment Notes Treatment Notes Treatment Clinical Notes Section Notes 03/20/2024 Diabetes type 2, controlled (ICD-10 - E11.9) he continues to be completely uninvolved in diet and exercise so is impossible to get any control of his sugar. at times he doesn't eat his evening snack and then gets hypoglycemia in sleep. his alarm is set for 40 and there is no adjustment Plan Of Treatment Treatment Notes Assessment Notes Diabetes type 2, [...] Up: 3 Months, Reason: Provider Name:John bond, 06/22/2024 10:00:00 AM, [address], [address], [place], [place], [phone], Provider Name:John Humphreys ier, 12/25/2024 07:00:00 AM, [address], [address], [place], [phone], Provider Name:John Humphreys ier, 01/01/2025 08:30:00 AM, [address], [address], [place], [phone], Progress Notes * Steven ELISE SDOB:1944 (79 yo M)Acc No.[id number]:03/20/2024 Progress Notes Patient:?Steven Elise S Provider:?John Alexander MD :1945???Age:79 Y???Sex:Male Khoa e:03/20/2024 Address:[address] [place], [place] [id number] Subjective: * Chief Complaints: * ???3 MO F/UHas had a few low blood sugars 48 during the night * HPI: ???Symptom(s):? patient is a 79 yo male here for 3 month follow upvisit, didn't have a snack before bed. thinks he didn't have a very big supper. had 2 low blood sugars in same week. woke up and was feeling anxious. * ROS:?General/Constitutional:?Denies?Chills.?Denies?Fatigue.?Denies?Fever.?Denies?Headache.?ENT:?Patient denies?decreased sense of smell , any loss of taste , sore throat.?Denies?Sore throat.?Endocrine:?Denies?Difficulty sleeping.?Denies?Dizziness.?Denies?Excessive sweating.?Admits?Excessive thirst.?Admits?Frequent urination.?Respiratory:?Denies?Cough.?Denies?Shortness of breath at rest.?Denies?Shortness of breath with exertion.?Gastrointestinal:?Denies?Diarrhea.?Denies?Nausea.?Musculoskeletal:?Patient denies?muscle aches.?Peripheral Vascular:?Patient denies?red and blue toes.? * Medical History:? * Surgical History:? * Hospitalization/Major Diagno stic Procedure:? * Medications:?TakingVitamin D 25 MCG (1000 UT) Tablet 1 tablet Orally Once a dayFreeStyle Lou 2 Holladay - Device as directed Advocate Insulin Syringe 29G X 1/2 Miscellaneous as directed inject DX : E 11.9 once a day with LantusEliquis 2.5 MG Tablet TAKE 1 TABLET BY MOUTH TWICE DAILY DIRECTED buPROPion HCl ER (SR) 150 MG Tablet Extended Release 12 Hour TAKE 1 TABLET BY MOUTH ONCE DAILY IN THE MORNING amLODIPine Besylate 5 MG Tablet TAKE 1 TABLET BY MOUTH ONCE DAILY Metoprolol Tartrate 100 MG Tablet TAKE 1 TABLET BY MOUTH TWICE DAILY FreeStyle Lou 2 Sensor - Miscellaneous USE DIRECTED SUBCUTANEOUSLY EVERY 2 WEEKS Escitalopram Oxalate 20 MG Tablet TAKE 1 TABLET BY MOUTH ONCE DAILY Klor-Con 10 10 MEQ Tablet Extended Release 1 tablet with food Orally once a dayLantus 100 UNIT/ML Solution OUSLY 80 UNITS DAILY DIRECTED Subcutaneous once a dayAtorvastatin Calcium 40 MG Tablet TAKE 1 TABLET BY MOUTH ONCE DAILY Furosemide 80 MG Tablet TAKE 1 TABLET BY MOUTH ONCE DAILY Irbesartan 300 MG Tablet TAKE 1 TABLET BY MOUTH ONCE DAILY Taking Vitamin D 25 MCG (1000 UT) Tablet 1 tablet Orally Once a dayTaking FreeStyle Lou 2 Holladay - Device as directed Taking Advocate Insulin Syringe 29G X 1/2 Miscellaneous as directed inject DX : E 11.9 once a day with LantusTaking Eliquis 2.5 MG Tablet TAKE 1 TABLET BY MOUTH TWICE DAILY DIRECTED Taking buPROPion HCl ER (SR) 150 MG Tablet Extended Release 12 Hour TAKE 1 TABLET BY MOUTH ONCE DAILY IN THE MORNING Taking amLODIPine Besylate 5 MG Tablet TAKE 1 TABLET BY MOUTH ONCE DAILY Taking Metoprolol Tartrate 100 MG Tablet TAKE 1 TABLET BY MOUTH TWICE DAILY Taking FreeStyle Lou 2 Sensor - Miscellaneous USE DIRECTED SUBCUTANEOUSLY EVERY 2 WEEKS Taking Escitalopram Oxalate 20 MG Tablet TAKE 1 TABLET BY MOUTH ONCE DAILY Taking Klor-Con 10 10 MEQ Tablet Extended Release 1 tablet with food Orally once a dayTaking Lantus 100 UNIT/ML Solution OUSLY 80 UNITS DAILY DIRECTED Subcutaneous once a dayTaking Atorvastatin Calcium 40 MG Tablet TAKE 1 TABLET BY MOUTH ONCE DAILY Taking Furosemide 80 MG Tablet TAKE 1 TABLET BY MOUTH ONCE DAILY Taking Irbesartan 300 MG Tablet TAKE 1 TABLET BY MOUTH ONCE DAILY Not-Taking/PRNSpironolactone 25 MG Tablet 1 tablet Orally Doxazosin Mesylate 2 MG Tablet 1 tabletin AM 2 tabs PM Orally Once a dayCyclobenzaprine HCl 5 MG Tablet 1 tablet as needed Orally Three times a daytraMADol HCl 50 MG Tablet 1 tablet as needed Orally three times a dayMeclizine HCl 25 MG Tablet 1 tablet as needed Orally twice a dayMedication List reviewed and reconciled with the patientNot-Taking/PRN Spironolactone 25 MG Tablet 1 tablet Orally Not-Taking/PRN Doxazosin Mesylate 2 MG Tablet 1 tabletin AM 2 tabs PM Orally Once a dayNot-Taking/PRN Cyclobenzaprine HCl 5 MG Tablet 1 tablet as needed Orally Three times a dayNot-Taking/PRN traMADol HCl 50 MG Tablet 1 tablet as needed Orally three times a dayNot-Taking/PRN Meclizine HCl 25 MG Tablet 1 tablet as needed Orally twice a dayMedication List reviewed and reconciled with the patient * Allergies:?N.K.D.A.yes[Aller gies Verified] Objective: * Vitals:?Ht: 68, Wt:287, BMI: 43.63, BP:152/84, Repeat BP:118/76 weight is down 3 pounds since 12-29-23. * Examination: ???General Examination: ?GENERAL APPEARANCE:?alert, well hydrated, in no distress.?HEAD:?normocephalic.?SKIN:?good turgor.?HEART:?no murmurs, rubs, gallops , regular rate and rhythm.?LUNGS:?no wheezes, rales, rhonchi , good air movement , clear to auscultation bilaterally.? Assessment: * Assessment: 1.?Diabetes type 2, controll ed - E11.9? Plan: * Treatment: ? Value Reference Range ?Hemoglobin A1c 8.1 ?LAB: Glucose, finger stick* ? Value Reference Range ?Value 279 * Grace Barrett 4 10:16:43 AM EST > Notes: he continues to be completely uninvolved in diet and exercise so is impossible to get any control of his sugar. at times he doesn't eat his evening snack and then gets hypoglycemia in sleep. his alarm is set for 40 and there is no adjustment?? * Procedure Codes:?09038 ASSAY , GLUCOSE, BLOOD QUANT, Modifiers: QW 99898 GLYCATED HEMOGLOBIN TEST, Modifiers: QW * Follow Up:?3 Months * * Sign off status: Completed true * Provider:?John Alexander MD Date:?1 05/21/2023 Generated for Rakel egan/Melonie/eTrandeesmitting on:?06/15/2024 11:52 AM EST History and Physical Notes * HPI (History of Present Illness) Category Sub-Category Detail Notes Category Not es Symptom(s) patient is a 79 yo male here for 3 month follow upvisit, didn't have a snack before bed. thinks he didn't have a very big supper. had 2 low blood sugars in same week. woke up and was feeling anxious. Examination Category Sub-Category Detail Notes Category Not es General Examination GENERAL APPEARANCE: alert, w ell hydrated, in no distress HEAD: normocephalic HEART: no murmurs, rubs, ga llops , regular rate and rhythm LUNGS: no wheezes, rales, r honchi , good air movement , clear to auscultation bilaterally SKIN: good turgor
--- OUTSIDE RECORDS SUMMARY | 2024-06-15 11:52 | XMS_ITS | Clinical Summary ---
Author Organization [facility] Address [address] [place] [id number] Care Team Providers Care Buttonhole Marker Name Role Phone John Alexander MD Primary Care Provider Allergies No known active allergies Medications amLODIPine (NORVASC) 5 MG tablet TAKE 1 TABLET ONCE DAILY 90 tablet 3 1 Active metoprolol tartrate (LOPRESSOR) 100 MG tablet Take 1 tablet by mouth 2 (two) times a day Active irbesartan (AVAPRO) 300 MG tablet Take 1 tablet by mouth 1 (one) time each day 0 Active insulin glargine (Lantus) 100 UNIT/ML injection Inject 80 Units under the skin every night Active glipiZIDE (GLUCOTROL XL) 2.5 MG 24 hr tablet Take 0.5 tablets by mouth 2 (two) times a day Active atorvastatin (LIPITOR) 40 MG tablet Take 1 tablet by mouth 1 (one) time each day Active apixaban (ELIQUIS) 5 MG tablet 2.5 mg 0 Active FLUoxetine (PROzac) 20 MG capsule 1 Active B-D INS SYR ULTRAFINE 1CC/30G 30G X 1/2 1 ML misc 1 Active Dapagliflozin Propanediol (Farxiga) 10 MG tablet Take 10 mg by mouth 1 (one) time each day 90 tablet 2 1 Active Additional Information Patient not taking.Reported on 11/17/2023 buPROPion SR (WELLBUTRIN SR) 150 MG 12 hr tablet 1 Active spironolactone (ALDACTONE) 25 MG tablet TAKE 1 TABLET BY MOUTH ONCE DAILY 90 tablet 3 2 Active furosemide (LASIX) 40 MG tablet Take 5 mg by mouth 1 (one) time each day For 30 days 3 Active doxazosin (Cardura) 2 MG tablet Take 1 tablet (2 mg total) by mouth every night 90 tablet 3 3 Active Additional Information Patient not taking.Reported on 11/17/2023 Active Problems Problem Noted Date Diagnosed Date Persistent atrial fibrillation 02/14/2023 1 04/16/2022 Nonalcoholic steatohepatitis (MCMULLEN) 02/14/2023 02/14/2023 Neuropathy due to type 2 diabetes mellitus 02/1402/14/2023 Morbid obesity 02/14/2023 02/14/2023 Lymphadenopathy 02/14/2023 02/14/2023 Lipoprotein deficiency disorder 02/14/2023 02/14/2023 Hypersomnia 02/14/2023 02/14/2023 Dysthymia 02/14/2023 02/14/2023 Chronic diastolic heart failure 02/14/2023 02/14/2023 Arthritis of knee 02/14/2023 02/14/2023 Allergic rhinitis due to pollen 02/14/2023 02/14/2023 Abnormal gait 02/14/2023 02/14/2023 Pure hypercholesterolemia 02/14/20232022 Tubular adenoma of colon 02/14/2023 023 Well controlled type 2 diabetes mellitus 023 Overview (01/10/2024): Replacing diagnoses that were inactivated after the 01/10/24 Regulatory Import Edema 10/11/2022 Stage 3b chronic kidney disease 01/11/2022 Stage 3b chronic kidney disease 10/27/2020 Type 2 diabetes mellitus wit h diabetic chronic kidney disease 10/27/2020 Renal osteodystrophy 10/27/2020 Chronic kidney disease stage 3 10/20/2020 Essential hypertension 10/20/2020 Hypertensive renal disease 10/20/2020 Renal disorder due to type 2 diabetes mellitus 0 10/20/2020 Immunizations Name Administration Dates Next Due Influenza (IM) Preservative Free 019,12/23/2017,01/27/2017,01/15,01/23/2015 Influenza Split 01/31/2014,02/06/2013,12/27/2011 Influenza Split High Dose Pr eservative Free IM 12/18/2021,12/22/2020,12/26/2019 Influenza Vaccine, Quadrival ent, Adjuvanted 01/05/2011 Pfizer SARS-COV-2 01/08/2022, 2,01/16/2021,07/09,06/18/2020 Pneumococcal Conjugate 13-Valent 08/01/2012 Pneumococcal Polysaccharide 05/29/2019, 4 Tdap 04/30/2017 Zoster 01/27/2012 Family History Medical History Relation Comments Diabetes Mother Relation Status Comments Mother Social History Tobacco Use Types Packs/Day Years Used Date Smoking Tobacco: Never Alcohol Use Standard Drinks/Week Comments No 0 (1 standard drink = 0.6 oz pur e alcohol) Sex and Gender Information Value Date Recorded Sex Assigned at Male 11/13/2023 12:49 PM EDT Legal Sex Male 4:48 PM EST Gender Identity Male 11/13/2023 12:49 PM EDT Sexual Orientation Straight 11/13/2023 12 :49 PM EDT Last Filed Vital Signs Vital Sign Reading Time Taken Comments Blood Pressure 139/70 11/17/2023 2:09 PM EDT Pulse 91 02/14/2023 1:20 PM EST Temperature - - Respiratory Rate - - Oxygen Saturation 99% 02/14/2023 1:20 PM EST Inhaled Oxygen Concentration - - Weight 130 kg (286 lb 9.6 oz) 11/17/2023 2:09 PM EDT Height 177.8 cm (5' 10 ) 06/07/2019 12:00 PM EST Body Mass Index 41.12 06/07/2019 12:00 PM EST Plan of Treatment Upcoming Encounters Date Type Department Care Team (Late st Contact Info) Description 08/16/2024 1:15 PM EDT Office Visit [facility] [address] [place] [phone] Timmy Siu MD [address] [phone] Health Maintenance Due Date Last Done Comments Diabetes: Hemoglobin A1C 05/11/2020 Diabetes: Ophthalmology Exam 05/11/2020 Diabetes: Pedal Pulse Checked 05/11/2020 Diabetes: Sensory Foot Exam 05/11/2020 Diabetes: Visual Foot Exam 05/11/2020 Influenza Vaccine (#1) 2023 2, 12/22/2020, 12/26/2019, Additional history exists Pneumococcal Vaccine: 65+ Years Completed 05/29/2019, 12/04/2013, 08/01/2012 Hepatitis B Vaccine Aged Out No longe r eligible based on patient's age to complete this topic Insurance [employer] Care Teams Buttonhole Marker Relationship Specialty Start Date End Date John Alexander MD [id number] [place], [place] PCP - General 04/21/20
[2024-06-15 12:56] LABS: Reflex LDLD? No
== END 2024-06-15 10:32 | disposition home or self-care (01) ==
LOC: HO.LNP 10:31
PROVIDERS: Visit Provider Internal Medicine
DX: E11.9 Type 2 diabetes mellitus without complications (principal); E78.00 Pure hypercholesterolemia, unspecified
CPT/HCPCS: 80061; 80076; 82947; 83036

== ENCOUNTER 2024-06-22 11:15 | Outpatient (REF) | payer MEDICARE, SELFPAY ==
--- NOTE | ~2024-06-22 | XR_ITS ---
CLINICAL HISTORY: BACK PAIN 4 views sacrum and coccyx Comparison: None Findings No acute fractures. No significant degenerative change. No erosions. IMPRESSION: No acute findings This document has been electronically signed by: Iain Espana MD on 06/23/2024 08:42:25
--- OUTSIDE RECORDS SUMMARY | 2024-06-22 13:03 | XMS_ITS ---
Author Organization John Alexander MD Address [address] [facility] [address] [place] [phone] Care Team Providers Care Transportation Department Supervisor Name Role Phone John Alexander Primary Care Provider [phone] REASON FOR VISIT changes and refills Encounters Encounter Location Date Provider Diagnosis John Alexander MD [address] [place] [address] [place] [phone] 06/06/2024 John Alexander Plan Of Treatment Next Appt Details Provider Name:John bond, 09/21/2024 10:45:00 AM, [address] [place] [address], [address] [place] [address], [phone], Provider Name:John bond, 12/25/2024 07:00:00 AM, [address] [place] [address], [address] [place] [address], [phone], Provider Name:John bond, 01/01/2025 08:30:00 AM, [address] [place] [address], [address] [place] [address], [phone], Progress Notes * Steven SEGURA SDOB:1944 (79 yo M)Acc No.[id number]:06/06/2024 Patient:?Steven SEGURA :1945???Age:79 Y???Sex:Male Address:[address] [place] [phone] * true * Date:? Generated for Rakel egan/Melonie/Claudiaitting on:?06/22/2024 01:03 PM EDT
--- OUTSIDE RECORDS SUMMARY | 2024-06-22 13:03 | XMS_ITS ---
Author Organization John Alexander MD Address [address] [place] [phone] Care Team Providers Care Finger Buff Sewer Name Role Phone John Alexander Primary Care Provider [phone] Allergies No Known Allergies REASON FOR VISIT 3 month, Blood sugar is 146 Medications Medication SIG (Take, Route, Frequency, Duration) Notes Start Date End Date Status Advocate Insulin Syringe 29G X 1/2 as directed inject DX : E 11.9 once a day with Lantus 04/27/2016 Active FreeStyle Lou 2 [place] - as directed 11/25/2022 Active Vitamin D 25 MCG (1000 UT) 1 tablet Orally Once a day for 30 day(s) Active buPROPion HCl ER (SR) 150 MG TAKE 1 TABLET BY MOUTH ONCE DAILY IN THE MORNING for 90 Active Eliquis 2.5 MG TAKE 1 TABLET BY SHANELL TH TWICE DAILY DIRECTED Active Irbesartan 300 MG TAKE 1 TABLET BY SHANELL TH ONCE DAILY Active Atorvastatin Calcium 40 MG TAKE 1 TABLET BY MOUTH ONCE DAILY Active Lantus 100 UNIT/ML OUSLY 80 UNITS DAILY DIRECTED Subcutaneous once a day Active Metoprolol Tartrate 100 MG TAKE 1 TABLET BY MOUTH TWICE DAILY Active amLODIPine Besylate 5 MG TAKE 1 TABLET B Y MOUTH ONCE DAILY Active traMADol HCl 50 MG 1 tablet as needed Orally three times a day for 7 days 12/08/2018 Not-Taking Cyclobenzaprine HCl 5 MG 1 tablet as nee ded Orally Three times a day for 10 days 12/08/2018 Not-Taking Doxazosin Mesylate 2 MG 1 tabletin AM 2 tabs PM Orally Once a day Not-Taking Spironolactone 25 MG 1 tablet Orally Not-Taking Meclizine HCl 25 MG 1 tablet as needed Orally twice a day for 7 days 08/12/2017 Not-Taking Klor-Con 10 10 MEQ 1 tablet with food Orally once a day for 90 days 12/23/2023 Active Escitalopram Oxalate 20 MG TAKE 1 TABLET BY MOUTH ONCE DAILY for 90 Active FreeStyle Lou 2 Sensor - USE DIRECTED SUBCUTANEOUSLY EVERY 2 WEEKS for 100 Active Furosemide 80 MG TAKE 1 TABLET BY SHANELL TH ONCE DAILY for 100 Active Vital Signs Blood pressure systolic 132 mm Hg 06/23/19 25 Blood pressure diastolic 64 mm Hg 025 Height 68 in 06/22/2024 Weight 286 lbs 06/22/2024 BMI 43.48 kg/m2 06/22/2024 Encounters Encounter Location Date Provider Diagnosis John Alexander MD [address] [place] [address] [place] [phone] 06/22/2024 John Alexander Pure hypercholestero lemia E78.00 ; Essential hypertension I10 ; Diabetes type 2, controlled E11.9 and Back pain M54.9 Assessments Encounter Date Diagnosis (ICD Code) Assessment Notes Treatment Notes Treatment Clinical Notes Section Notes 06/22/2024 Pure hypercholesterolemia (ICD-10 - E78.00) doing well on meds/ order mailed to patient , will continue current regiment 06/22/2024 Essential hypertensi on (ICD-10 - I10) well controlled, will continue current regiment 06/22/2024 Diabetes type 2, controlled (ICD-10 - E11.9) well controlled, will continue current regiment 06/22/2024 Back pain (ICD-10 - M54.9) THE ORDER WAS FAXED TO [facility], pending diagnostic testing Plan Of Treatment Medication Medication Name Sig Start Date Stop Date Notes Irbesartan 300 MG TAKE 1 TABLET BY SHANELL TH ONCE DAILY Atorvastatin Calcium 40 MG TAKE 1 TABLET BY MOUTH ONCE DAILY Lantus 100 UNIT/ML OUSLY 80 UNITS DAILY DIRECTED Subcutaneous once a day Metoprolol Tartrate 100 MG TAKE 1 TABLET BY MOUTH TWICE DAILY amLODIPine Besylate 5 MG TAKE 1 TABLET B Y MOUTH ONCE DAILY Treatment Notes Assessment Notes Pure hypercholesterolemia doing well on meds/ order mailed to patient , will continue current regiment Essential hypertension well controlled, will continue current regiment Diabetes type 2, controlled well control led, will continue current regiment Back pain THE ORDER WAS FAXED TO [facility], pending diagnostic testing Pending Test Test Name Order Date XR sacrum coccyx min 2V 06/22/2024 Next Appt Details Follow Up: 3 Months, Reason: Provider Name:John mahoneyr, 09/21/2024 10:45:00 AM, [address] [place] [address], [address], [place], [place], [phone], Provider Name:John Humphreys ier, 12/25/2024 07:00:00 AM, [address] [place] [address], [address], [place], [place], [phone], Provider Name:John Humphreys ier, 01/01/2025 08:30:00 AM, [address] [place] [address], [address], [place], [place], [phone], Progress Notes * COLTON Steven SDOB:1944 (79 yo M)Acc No.[id number]:06/22/2024 Progress Notes Patient:?Steven ELISE S Provider:?John Alexander MD :1945???Age:79 Y???Sex:Male Khoa e:06/22/2024 Address:[address] [place], [place] [id number] Subjective: * Chief Complaints: * ???1. 3 month. 2. Blood suga r is 146. * HPI: ???Symptom(s):?patient is a 79 yo male here for 3 month follow up visit, fell on ice 2 weeks ago. when he wakes up no pain. walks with cane because of the fall/ hurts in lower back at the top of the pelvis. hurting down at his coccyx. * ROS:?General/Constitutional:?Denies?Chills.?Denies?Fatigue.?Denies?Fever.?Denies?Headache.?ENT:?Denies?Sore throat.?Respiratory:?Denies?Cough.?Denies?Shortness of breath at rest.?Denies?Shortness of breath with exertion.?Gastrointestinal:?Denies?Diarrhea.?Denies?Nausea.? * Medical History:?Colonoscopy 2004, Colonoscopy - 2004; 12/22/11 due in 5 years; Colonoscopy done 06/30/[address] Washburn - repeat d2022:colonoscopy 11/06/21 pending pathtold he needs no further, Diabetic Eye Exam - 05/17/14 Dr. Catherine, Hematuria evaluation with cysto and ct 2022. * Medications:?Taking Vitamin D 25 MCG (1000 UT) Tablet 1 tablet Orally Once a day , Taking FreeStyle Lou 2 [place] - Device as directed , Taking Advocate Insulin Syringe 29G X 1/2 Miscellaneous as directed inject DX : E 11.9 once a day with Lantus , Taking Eliquis 2.5 MG Tablet TAKE 1 TABLET BY MOUTH TWICE DAILY DIRECTED , Taking buPROPion HCl ER (SR) 150 MG Tablet Extended Release 12 Hour TAKE 1 TABLET BY MOUTH ONCE DAILY IN THE MORNING , Taking amLODIPine Besylate 5 MG Tablet TAKE 1 TABLET BY MOUTH ONCE DAILY , Taking Metoprolol Tartrate 100 MG Tablet TAKE 1 TABLET BY MOUTH TWICE DAILY , Taking FreeStyle Lou 2 Sensor - Miscellaneous USE DIRECTED SUBCUTANEOUSLY EVERY 2 WEEKS , Taking Escitalopram Oxalate 20 MG Tablet TAKE 1 TABLET BY MOUTH ONCE DAILY , Taking Klor-Con 10 10 MEQ Tablet Extended Release 1 tablet with food Orally once a day , Taking Lantus 100 UNIT/ML Solution OUSLY 80 UNITS DAILY DIRECTED Subcutaneous once a day , Taking Atorvastatin Calcium 40 MG Tablet TAKE 1 TABLET BY MOUTH ONCE DAILY , Taking Furosemide 80 MG Tablet TAKE 1 TABLET BY MOUTH ONCE DAILY , Taking Irbesartan 300 MG Tablet TAKE 1 TABLET BY MOUTH ONCE DAILY , Not-Taking/PRN Spironolactone 25 MG Tablet 1 tablet Orally , Not-Taking/PRN Doxazosin Mesylate 2 MG Tablet 1 tabletin AM 2 tabs PM Orally Once a day , Not-Taking/PRN Cyclobenzaprine HCl 5 MG Tablet 1 tablet as needed Orally Three times a day , Not-Taking/PRN traMADol HCl 50 MG Tablet 1 tablet as needed Orally three times a day , Not-Taking/PRN Meclizine HCl 25 MG Tablet 1 tablet as needed Orally twice a day , Medication List reviewed and reconciled with the patient * Allergies:?N.K.D.A. Objective: * Vitals:?Ht: 68, Wt: 286, BMI :43.48, BP:132/64, Wt-k.73. * ???Past Orders: ???Lab:Hemoglobin A1c (Order Date - 06/15/2024) (Collection Date & Time - 06/15/2024 07:15 AM) ? Value Reference Range ?Hemoglobin A1c % 8.2 H <6. 0 - % ?Estimated Average Glucose 189 - mg/dL ???Lab:Lipid Panel with Refl ex (Order Date - 06/15/2024) (Collection Date & Time - 06/15/2024 07:15 AM) ? Value Reference Range ?Triglycerides 79 <150 - mg/dL ?Cholesterol 105 <200 - m g/dL ?LDL Cholesterol Calculated 61 <100 - mg/dL ?HDL Cholesterol 29 L >40 - mg/dL ???Lab:Glucose Fasting (Orde r Date - 06/15/2024) (Collection Date & Time - 06/15/2024 07:15 AM) ? Value Reference Range ?Glucose Fasting 96 60-9 9 - mg/dL ???Lab:Liver Panel (Order Da te 06/15/2024) (Collection Date & Time - 06/15/2024 07:15 AM) ? Value Reference Range ?Bilirubin Total 1.2 H 0.0- 1.0 - mg/dL ?Bilirubin Direct 0.5 0.0 -0.5 - mg/dL ?Aspartate Amino Transferase 23 5-37 - U/L ?Alanine Aminotransferase 10 0-40 - U/L ?Total Protein 7.2 6.5-8. 0 - g/dL ?Albumin Level 3.6 3.5-5. 0 - g/dL ?Alkaline Phosphatase 117 39-117 - U/L * Examination: ???General Examination: ?GENERAL APPEARANCE:?alert, well hydrated, in no distress.?HEAD:?normocephalic.?SKIN:?good turgor.?HEART:?regular rate and rhythm, no murmurs, rubs, gallops.?LUNGS:?no wheezes, rales, rhonchi, good air movement, clear to auscultation bilaterally.?BACK:?area that is sore is at the coccyx.? Assessment: * Assessment: 1.?Pure hypercholesterolemia - E78.00 (Primary)???2.?Essential hypertension - I10???3.?Diabetes type 2, controlled - E11.9???4.?Back pain - M54.9??? Plan: * Treatment: 2.?Essential hypertension? Continue amLODIPine Besylate Tablet, 5 MG, TAKE 1 TABLET BY MOUTH ONCE DAILY;?Continue Metoprolol Tartrate Tablet, 100 MG, TAKE 1 TABLET BY MOUTH TWICE DAILY;?Continue Irbesartan Tablet, 300 MG, TAKE 1 TABLET BY MOUTH ONCE DAILY.?? Notes: well controlled, will continue current regiment?? 3.?Diabetes type 2, controll ed? Continue Lantus Solution, 100 UNIT/ML, OUSLY 80 UNITS DAILY DIRECTED, Subcutaneous, once a day.?? Notes: well controlled, will continue current regiment?? 4.?Back pain?Imaging: XR sacrum coccyx min 2V Notes: THE ORDER WAS FAXED TO [facility], pending diagnostic testing?? * Follow Up:?3 Months * * The named appointment provid er may or may not be the originator of this progress note, and it is not deemed complete until electronically signed by the appointment provider. Sign off status: Pending * Provider:?John Alexander MD Date:?0 06/22/2024 Generated for Rakel egan/Melonie/eTrandeesmitting on:?06/22/2024 01:03 PM EDT History and Physical Notes * HPI (History of Present Illness) Category Sub-Category Detail Notes Category Not es Symptom(s) patient is a 79 yo male here for 3 month follow up visit, fell on ice 2 weeks ago. when he wakes up no pain. walks with cane because of the fall/ hurts in lower back at the top of the pelvis. hurting down at his coccyx Examination Category Sub-Category Detail Notes Category Not es General Examination GENERAL APPEARANCE: alert, w ell hydrated, in no distress HEAD: normocephalic HEART: regular rate and rhy thm, no murmurs, rubs, gallops LUNGS: no wheezes, rales, r honchi, good air movement, clear to auscultation bilaterally SKIN: good turgor BACK: area that is sore is at the coccyx
--- OUTSIDE RECORDS SUMMARY | 2024-06-22 13:03 | XMS_ITS | Clinical Summary ---
Author Organization [facility] Facility Address [address] [place] [id number] Care Team Providers Care Writing Manager Name Role Phone John Alexander MD Primary Care Provider [phone] Allergies No known active allergies Medications amLODIPine [...] Visit [facility] [address] [place] [address] Timmy Siu MD [address] [address] Health Maintenance Due Date Last Done Comments [...] HEALTH MEDICARE [facility] MED[facility] Care Teams Writing Manager Relationship Specialty Start Date End Date John Alexander MD [id number] [place], [place] PCP - General 04/21/20
--- OUTSIDE RECORDS SUMMARY | 2024-06-22 13:03 | XMS_ITS ---
Author Organization John Alexander MD Address [address] [place], [place] [phone] Care Team Providers Care Gold Plater Name Role Phone John Alexander Primary Care Provider Results Component Value Reference Range Notes Liver Panel Reviewed date:06/15/2024 03:19:04 PM Interpretation: Performing Lab:[address] [id number] Notes/Report: Bilirubin Total 1.2 0.0-1.0 mg/dL Bilirubin Direct 0.5 0.0-0.5 mg/dL Aspartate Amino Transferase 23 5-37 U/L Alanine Aminotransferase 10 0-40 U/L Total Protein 7.2 6.5-8.0 g/dL Albumin Level 3.6 3.5-5.0 g/dL Alkaline Phosphatase 117 39-117 U/L Glucose Fasting Reviewed date:06/15/2024 03:18:25 PM Interpretation: Performing Lab:[facility], [address] [place] [phone] Notes/Report: Glucose Fasting 96 60-99 mg/dL Lipid Panel with Reflex Reviewed date:06/15/2024 03:18:08 PM Interpretation: Performing Lab:[address] [phone] Notes/Report: Triglycerides 79 <150 mg/dL Desirable Triglyceride: less than 150 mg/dL Borderline High Triglyceride 150-199 mg/dL High Triglyceride: 200-499 mg/dL Very High Triglyceride: greater than or equal to 5OO mg/dL Cholesterol 105 <200 mg/dL Desirable Cholesterol: less than 200 mg/dL Borderline High Cholesterol: 200-239 mg/dL High Cholesterol: greater than 239 mg/dL LDL Cholesterol Calculated 61 <100 mg/dL Desirable LDL: less than 100 mg/dL Near Optimal/Above Optimal LDL: 110-129 mg/dL Borderline High LDL: 130-159 mg/dL High LDL: 160-189 mg/dL Very High LDL: greater than or equal to 190 mg/dL HDL Cholesterol 29 >40 mg/dL Desirable HDL: greater than 40 mg/dL Note: This HDL assay may give artificially low results in patients with liver disease. Hemoglobin A1c Reviewed date:06/15/2024 12:08:52 PM Interpretation: Performing Lab:[facility], [address] [place] [phone] Notes/Report: Hemoglobin A1c % 8.2 <6.0 % [...] average glucose, using the formula of the E1C-Akgorkj Average Glucose study (ADAG), Diabetes Care, Vol.31,#8, Nov. 2007 REASON FOR VISIT FASTING LIPIDS Encounters Encounter Location Date Provider Diagnosis John Alexander MD [address] [place] [address] [place] [phone] 06/15/2024 John Alexander Diabetes type 2, controlled E11.9 and Pure hypercholesterolemia E78.00 Assessments Encounter Date Diagnosis (ICD Code) Assessment Notes Treatment Notes Treatment Clinical Notes Section Notes 06/15/2024 Diabetes type 2, controlled (ICD-10 - E11.9) 06/15/2024 Pure hypercholesterolemia (ICD-10 - E78.00) Plan Of Treatment Next Appt Details Provider Name:John bond, 09/21/2024 10:45:00 AM, [address] [place] [address], [address] [place] [address], [phone], Provider Name:John bond, 12/25/2024 07:00:00 AM, [address] [place] [address], [address] [place] [address], [phone], Provider Name:John Humphreys ier, 01/01/2025 08:30:00 AM, [address] [facility], [address], [place], [place], [phone], Progress Notes * Steven ELISE SDOB:1944 (79 yo M)Acc No.[id number]:06/15/2024 Progress Note Patient:?Steven ELISE Provider:?John Alexander MD :1945???Age:79 Y???Sex:Male Khoa e:06/15/2024 Address:[address] [place], [place] [phone] Subjective: * Chief Complaints: * ???1. FASTING LIPIDS. * Medical History:? Objective: * Vitals:? Assessment: * Assessment: 1.?Diabetes type 2, controll ed - E11.9 (Primary)???2.?Pure hypercholesterolemia - E78.00??? Plan: * Treatment: 2.?Pure hypercholesterolemia ?LAB: Liver Panel (Collection Date & Time - 06/15/2024 07:15 AM) ?LAB: Glucose Fasting (Collection Date & Time - 06/15/2024 07:15 AM) ?LAB: Lipid Panel with Reflex (Collection Date & Time - 06/15/2024 07:15 AM) ?LAB: Hemoglobin A1c (Collection Date & Time - 06/15/2024 07:15 AM) * Procedure Codes:?21004 VENIP UNCT, ROUTINE* * * The named appointment provid er may or may not be the originator of this progress note, and it is not deemed complete until electronically signed by the appointment provider. Sign off status: Pending * Provider:?John Alexander MD Date:?0 06/15/2024 Generated for Rakel egan/Fajacquelyng/eTransmitting on:?06/22/2024 01:02 PM EDT
== END 2024-06-22 11:16 | disposition home or self-care (01) ==
LOC: HO.XRAY 11:15
PROVIDERS: PCP Internal Medicine; Visit Provider Internal Medicine
DX: M54.9 Dorsalgia, unspecified (principal)
CPT/HCPCS: 72220

== ENCOUNTER → 2024-06-22 11:40 | Outpatient (BNV) | payer MEDICARE, SELFPAY | PROVIDERS: PCP Internal Medicine; Visit Provider Radiology Diagnostic Radiology | DX: M54.9 Dorsalgia, unspecified (principal) | CPT/HCPCS: 72220 ==

== ENCOUNTER 2024-07-25 10:17 | Outpatient (AMB) | payer MEDICARE, SELFPAY ==
[2024-07-25 10:20] VITALS: BP 130/68; PULSE 77; BMI 40.4
--- NOTE | 2024-07-25 10:20 | A.OFFVIS_ITS ---
Vital Signs 07/25/24 10:20 Height 5 ft 9 in Weight 273 lb 5.971 oz BMI 40.4 BP 130/68 Blood Pressure Location Lt brachial Position Sitting Pulse 77 Pulse Source Pulse Oximeter Intake Visit Reasons: 6 mth f/up Allergies No Known Allergies Allergy (Mild, Verified 12/22/23 08:55) NOT APPLICABLE Medication List - Last Reconciled 07/25/24 by Wade Castañeda MD amlodipine 5 mg PO DAILY apixaban (Eliquis) 5 mg PO BID atorvastatin 40 mg PO DAILY bupropion HCl SR 150 mg PO QAM incarzsfaolu-ztxkzayifro-ebbcg 1,000-200 mcg 1 tab PO DAILY escitalopram oxalate 20 mg PO DAILY furosemide 80 mg PO DAILY insulin glargine 80 units subcut DAILY irbesartan 300 mg PO DAILY metoprolol tartrate 100 mg PO BID HPI Comments Details: Steven returns for follow-up regarding atrial fibrillation and diastolic heart failure. He has had chronic shortness of breath and that is just about the same as before. Leg swelling is also chronic and not any different. No angina. One slip and fall on ice but no major injuries according to him. Otherwise, getting along fine. [facility] Medical History (Updated 07/25/24 @ 10:43 by Wade Castañeda MD) Thrombocytopenia Insulin dependent type 2 diabetes mellitus HLD (hyperlipidemia) Skin cancer Diabetes ABHAY on CPAP Essential hypertension Chronic heart failure with preserved ejection fraction (HFpEF) Persistent atrial fibrillation Surgical History H/O colonoscopy Hx of arthroscopy of right knee History of knee replacement History of cholecystectomy History of appendectomy Family History Father No problems noted. Mother No problems noted. Social History Household Members: Spouse Housing: House Do you presently have visiting nurse or other home services: No Alcohol intake: never Patient Tobacco Use Status: Never used Tobacco service: No Current occupational status: retired Review of Systems Const Denies weakness ENT Denies dizziness Card Denies chest pain, Denies chest pain with activity, Denies syncope, Denies rapid heart rate, Denies pedal edema, Denies edema, Denies leg edema, Denies lightheadedness, Denies palpitations, Denies dyspnea, Denies dyspnea on exertion and Denies orthopnea Resp Denies cough, Denies dyspnea and Denies dyspnea on exertion GI Denies hematochezia and Denies change in stool character Musc Denies abnormal gait, Denies muscle cramps, Denies muscle weakness, Denies numbness, Denies radiating pain into limb and Denies tingling Neuro Denies abnormal gait, Denies dizziness, Denies syncope, Denies numbness, Denies tingling and Denies weakness Endo Denies palpitations Physical Exam Vital Signs: Last Vital Signs Pulse 77 07/25/24 10:20 BP 130/68 07/25/24 10:20 BMI result Body Mass Index 40.4 Const General: comfortable and no acute distress Orientation/consciousness: patient oriented x3 HEENT Other: Unremarkable Head: Yes normal to inspection Neck Neck: Yes normal visual inspection Chest Chest palpation & inspection: normal inspection of the chest Resp Auscultation: clear to auscultation bilaterally Cardio Palpation: normal PMI Heart sounds: S1 normal heart sound present, S2 normal heart sound present, no gallops, Murmur heart sound present systolic II/ and at the right sternal border and no rubs GI Palpation (GI): Soft to palpation Back/Spine/Pelvis Other: unremarkable Skin General skin exam: no rashes or lesions noted Neuro General: patient oriented x3 Extrem General: Yes normal to inspection Psych Mental Status: mental status grossly normal Assessment & Plan Assessment & Plan (1) Persistent atrial fibrillation: Code(s): I48.19 - Other persistent atrial fibrillation Category: Medical Plan: Stable. Continue beta-blockers. Continue anticoagulation. (2) Chronic heart failure with preserved ejection fraction (HFpEF): Code(s): I50.32 - Chronic diastolic (congestive) heart failure Category: Medical Plan: Shortness of breath and leg swelling is likely multifactorial. Likely some combination of congestive heart failure, right heart dysfunction, obesity, venous insufficiency, atrial fibrillation, chronic kidney disease. Last echocardiogram with LVEF of 60-65%. Severe septal hypertrophy. Mildly diminished right ventricular systolic function. Elevated right heart pressures. Mild aortic stenosis. Myocardial perfusion imaging study from 03/2024 showed normal perfusion. Overall, stable. Remains on diuretics. (3) Nonrheumatic aortic (valve) stenosis: Code(s): I35.0 - Nonrheumatic aortic (valve) stenosis Category: Medical Plan: Prior echocardiogram from 2022 showed mild aortic stenosis. May recheck. (4) Essential hypertension: Code(s): I10 - Essential (primary) hypertension Category: Medical Plan: Stable. No changes. (5) Orthostatic hypotension: Code(s): I95.1 - Orthostatic hypotension Category: Medical Plan: Stable. Off Doxazosin. (6) ABHAY on CPAP: Code(s): G47.33 - Obstructive sleep apnea (adult) (pediatric); Z99.89 - Dependence on other enabling machines and devices Category: Medical Plan: Continue CPAP. (7) Thrombocytopenia: Code(s): D69.6 - Thrombocytopenia, unspecified Category: Medical Plan: History of thrombocytopenia. It seems that he has had Hematology consultation in the past but nothing recently. Ideally, should have continued followed up with them. There is increased risk of bleeding because of anticoagulation use. Orders: Orders CA echo transthoracic complete 6 Months I35.0 - Nonrheumatic aortic (valve) stenosis, I48.19 - Other persistent atrial fibrillation, I50.32 - Chronic diastolic (congestive) heart failure Patient Instructions: - Continue current medical regimen - Monitor any changes or worsening of symptoms - Contact the office immediately if chest pain or new symptoms arise - Return for a cardiovascular ultrasound in six months - Keep records of any new health concerns or developmentsmarshaller Coding Level of Care Code Est Pt Level 4 (70287) Complex EM visit Add On G2211 Diagnoses Persistent atrial fibrillation I48.19 Chronic heart failure with preserved ejection fraction (HFpEF) I50.32 Nonrheumatic aortic (valve) stenosis I35.0 Essential hypertension I10 Orthostatic hypotension I95.1 ABHAY on CPAP G47.33; Z99.89 Thrombocytopenia D69.6
--- OUTSIDE RECORDS SUMMARY | 2024-07-25 11:55 | XMS_ITS | Clinical Summary ---
Author Organization [facility] Facility Address [address] [place] [address] Care Team Providers Care Printing Bindery Assistant Name Role Phone John Alexander MD Primary Care Provider [phone] Allergies No known active allergies Medications amLODIPine [...] type 2 diabetes mellitus 0 10/20/2020 Immunizations Immunization Administration Dates Next Due Influenza (IM) Preservative [...] Visit [facility] [address] [place] [address] Timmy Siu MD [address] [address] Health Maintenance Due Date Last Done Comments Diabetes: Hemoglobin A1C 05/11/2020 Diabetes: Ophthalmology Exam 05/11/2020 Diabetes: Pedal Pulse Checked 05/11/2020 Diabetes: Sensory Foot Exam 05/11/2020 Diabetes: Visual Foot Exam 05/11/2020 Influenza Vaccine (Season Ended) 2024 12/18/2021, 12/22/2020, 12/26/2019, Additional history exists Pneumococcal Vaccine: 50+ Years Completed 05/29/2019, 12/04/2013, 08/01/2012 Pneumococcal Vaccine: Peds (0 to 5 Years) and At-Risk Patients (6 to 49 Years) Discontinued 05/29/2019, 12/04/2013, 08/01/2012 Hepatitis B Vaccine Aged Out No longe r eligible based on patient's age to complete this topic Insurance [facility] [employer] Care Teams Printing Bindery Assistant Relationship Specialty Start Date End Date John Alexander MD [address] [place] [address] [id number] [place], [place] PCP - General 04/21/20
== END 2024-07-25 10:35 | disposition home or self-care (01) ==
PROVIDERS: PCP Internal Medicine; Visit Provider Internal Medicine
DX: I48.19 Other persistent atrial fibrillation (principal); I50.32 Chronic diastolic (congestive) heart failure; I35.0 Nonrheumatic aortic (valve) stenosis; I10 Essential (primary) hypertension; I95.1 Orthostatic hypotension; G47.33 Obstructive sleep apnea (adult) (pediatric); Z99.89 Dependence on other enabling machines and devices; D69.6 Thrombocytopenia, unspecified
CPT/HCPCS: 99214; G2211

== ENCOUNTER → 2024-07-25 10:17 | Outpatient (BNVA) | payer MEDICARE, SELFPAY | PROVIDERS: PCP Internal Medicine; Visit Provider Internal Medicine | DX: I11.0 Hypertensive heart disease with heart failure (principal); I50.32 Chronic diastolic (congestive) heart failure; I48.19 Other persistent atrial fibrillation; I35.0 Nonrheumatic aortic (valve) stenosis; I95.1 Orthostatic hypotension; G47.33 Obstructive sleep apnea (adult) (pediatric); D69.6 Thrombocytopenia, unspecified; Z99.89 Dependence on other enabling machines and devices | CPT/HCPCS: 99212 ==

== ENCOUNTER 2024-08-13 09:38 | Outpatient (REF) | payer MEDICARE, SELFPAY ==
--- OUTSIDE RECORDS SUMMARY | 2024-08-13 10:30 | XMS_ITS | Clinical Summary ---
Author Organization [facility] Facility Address [address] [place] [id number] Care Team Providers Care Check And Transfer Beader Name Role Phone John Alexander MD Primary Care Provider [phone] Allergies No known active allergies Medications amLODIPine [...] Visit [facility] [address] [place] [address] Timmy Siu MD [address] [address] Health Maintenance Due Date Last Done Comments [...] Health Medicare [employer] Medicare Care Teams Check And Transfer Beader Relationship Specialty Start Date End Date John Alexander MD [address] [place] [address] [address] [place], [place] PCP - General 04/21/20
[2024-08-13 10:47] LABS: Appearance Urine Clear; Color Urine Yellow; Glucose Urine UA 100 mg/dL (Negative); Leukocyte Esterase Urine Trace (Negative); Nitrite Urine Negative (Negative); Specific Gravity - Urine 1.015 (1.005-1.025); UMIC TRIGGER UA YES; Urine Blood Small (1+) (Negative); Urine Ketones Negative (Negative); Urine Protein 100 (2+) mg/dL (Neg-Trace)
[2024-08-13 11:00] LABS: Bacteria Urine 1+ (None Seen); Hyaline Casts Urine 0-2 /LPF (0-2); RBC Urine 0-2 /HPF (0-2); Squamous Epithelial Cell Urine 0-2 /HPF (0-2)
[2024-08-13 11:09] LABS: Parathyroid Hormone Intact 84.4 pg/mL (8.7-77.1)
[2024-08-13 11:18] LABS: Creatinine Urine 90.36 mg/dL; Protein/Creatinine Ratio, Ur 0.76 (<0.2); Total Protein Urine Random 69 mg/dL (<12)
[2024-08-13 11:27] LABS: Albumin Level 3.6 g/dL (3.5-5.0); Anion Gap 13 (12-20); Blood Urea Nitrogen 31 mg/dL (9-16); Calcium 8.8 mg/dL (8.4-10.2); Carbon Dioxide 27 mmol/L (22-29); Chloride 101 mmol/L (96-108); Estimated Glomerular Filt Rate 41; Magnesium 1.7 mg/dL (1.6-2.6); Phosphorus 3.6 mg/dL (2.7-4.5); Potassium 3.8 mmol/L (3.3-5.1); Sodium 137 mmol/L (135-145)
[2024-08-13 11:34] LABS: Vitamin D 25-OH Total 36.2 ng/mL (>30)
== END 2024-08-13 09:39 | disposition home or self-care (01) ==
LOC: HO.LAB 09:38
PROVIDERS: PCP Internal Medicine; Visit Provider Internal Medicine Nephrology
DX: N18.32 Chronic kidney disease, stage 3b (principal); N25.0 Renal osteodystrophy; E11.22 Type 2 diabetes mellitus with diabetic chronic kidney disease
CPT/HCPCS: 36415; 80051; 81001; 82040; 82043; 82306; 82310; 82565; 82570; 83735; 83970; 84100; 84156; 84520

== ENCOUNTER 2024-11-29 13:48 | Outpatient (REF) | payer MEDICARE, SELFPAY ==
--- NOTE | ~2024-11-29 | XR_ITS ---
EXAMINATION: XR CHEST CLINICAL INFORMATION: SHORTNESS OF BREATH COMPARISON: October 06, 2023 TECHNIQUE: 2 views of the chest were obtained. FINDINGS: Lungs are clear. Cardiac silhouette is within normal limits. Degenerative changes are present thoracic spine. XR/XR chest 2V IMPRESSION: No acute disease Electronically signed by: Christian Cash MD 11/29/2024 02:15 PM EDT RP
--- OUTSIDE RECORDS SUMMARY | 2024-11-29 13:57 | XMS_ITS | Clinical Summary ---
Author Organization [facility] Address [address] [address] Phone Care Team Providers Care Powder Coat Painter Name Role Phone John Alexander MD Primary Care Provider Allergies No known active allergies Medications amLODIPine (NORVASC) 5 MG tablet TAKE 1 TABLET ONCE DAILY 90 tablet 3 07/04/2020 Active metoprolol tartrate (LOPRESSOR) 100 MG tablet Take 1 tablet by mouth 2 (two) times a day Active irbesartan (AVAPRO) 300 MG tablet Take 1 tablet by mouth 1 (one) time each day 01/14/2020 Active insulin glargine (Lantus) 100 UNIT/ML injection Inject 80 Units under the skin every night Active atorvastatin (LIPITOR) 40 MG tablet Take 1 tablet by mouth 1 (one) time each day Active apixaban (ELIQUIS) 5 MG tablet 2.5 mg 11/05/2019 Active B-D INS SYR ULTRAFINE 1CC/30G 30G X 1/2 1 ML misc 10/20/2020 Acti ve buPROPion SR (WELLBUTRIN SR) 150 MG 12 hr tablet 03/13/2021 Active spironolactone (ALDACTONE) 25 MG tablet TAKE 1 TABLET BY MOUTH ONCE DAILY 90 tablet 3 11/05/2021 Active furosemide (LASIX) 40 MG tablet Take 5 mg by mouth 1 (one) time each day For 30 days 10/08/2022 Active gabapentin (Neurontin) 100 MG capsule Take 1 capsule (100 mg total) by mouth in the morning and 1 capsule (100 mg total) in the evening. 180 capsule 2 08/16/2024 Active Active Problems Problem Noted Date Diagnosed Date [...] Sign Reading Time Taken Comments Blood Pressure 132/70 08/16/2024 1:11 PM EDT Pulse 64 08/16/2024 1:11 PM EDT Temperature - - Respiratory Rate - - Oxygen Saturation 99% 02/14/2023 1:20 PM EST Inhaled Oxygen Concentration - - Weight 126 kg (277 lb) 08/16/2024 1:11 PM EDT Height 177.8 cm (5' 10 ) 06/07/2019 12:00 PM EST Body Mass Index 39.75 06/07/2019 12:00 PM EST Plan of Treatment Upcoming Encounters Date Type Department Care Team (Late st Contact Info) Description 05/20/2025 1:15 PM EST Office Visit [facility] [address] [place] [address] Timmy Siu MD [address] [facility] [address] [place] [address] Health Maintenance Due Date Last Done Comments Diabetes: Hemoglobin A1C 05/11/2020 Diabetes: Ophthalmology Exam 05/11/2020 Diabetes: Pedal Pulse Checked 05/11/2020 Diabetes: Sensory Foot Exam 05/11/2020 Diabetes: Visual Foot Exam 05/11/2020 Influenza Vaccine (#1) 2024 2, 12/22/2020, 12/26/2019, Additional history exists Pneumococcal Vaccine: 50+ Years Completed 05/29/2019, 12/04/2013, 08/01/2012 Pneumococcal Vaccine: Peds (0 to 5 Years) and At-Risk Patients (6 to 49 Years) Discontinued 05/29/2019, 12/04/2013, 08/01/2012 Hepatitis B Vaccine Aged Out No longe r eligible based on patient's age to complete this topic Insurance [facility] Medicare [facility] Medicare Care Teams Powder Coat Painter Relationship Specialty Start Date End Date John Alexander MD [address] [place] [address] [address] [place], [place] PCP - General 04/21/20
== END 2024-11-29 13:49 | disposition home or self-care (01) ==
LOC: HO.XRAY 13:48
PROVIDERS: PCP Internal Medicine; Visit Provider Internal Medicine
DX: R06.02 Shortness of breath (principal)
CPT/HCPCS: 71046

== ENCOUNTER → 2024-11-29 13:55 | Outpatient (BNV) | payer MEDICARE, SELFPAY | PROVIDERS: PCP Internal Medicine; Visit Provider Radiology Diagnostic Radiology | DX: R06.02 Shortness of breath (principal) | CPT/HCPCS: 71046 ==

== ENCOUNTER 2024-12-25 11:09 | Outpatient (REF) | payer MEDICARE, SELFPAY ==
[2024-12-25 11:31] LABS: Appearance Urine Clear; Glucose Urine UA Negative (Negative); Hematocrit 28.3 % (42.0-52.0); Hemoglobin 9.7 g/dl (14.0-18.0); Imm Gran Abs Auto 0.00 X10*3/uL (0.00-0.03); Imm Gran Pct Auto 0.0 % (0.0-0.4); Lymphocytes Absolute Auto 1.2 X10*3/uL (1.2-4.9); MANUAL DIFF FLAG SCAN; Mean Corpuscular HGB Conc 34.3 g/dl (31.0-36.0); Mean Corpuscular Hemoglobin 37.3 pg (27.0-33.0); Mean Corpuscular Volume 108.8 fL (80.0-98.0); NRBC Abs Auto 0.000 X10*3/uL (0.0-0.012); NRBC Pct Auto 0.0 /100WBC (0.0-0.2); PH 6.5 (5.0-9.0); Red Blood Count 2.60 X10*6/uL (4.60-5.80); SCAN SMEAR FLAG 1; Specific Gravity - Urine 1.010 (1.005-1.025); UMIC TRIGGER UACC YES
[2024-12-25 11:34] LABS: Platelet Count 71 X10*3/uL (160-400); White Blood Count 2.4 X10*3/uL (4.8-10.8)
[2024-12-25 11:50] LABS: Hemoglobin A1C 157.1391 umol/L; Total Hemoglobin (HGBA1C) 2495.8041 umol/L
[2024-12-25 12:02] LABS: PSA,Total (Free>4and<10) 0.11 ng/mL (0.00-4.00)
[2024-12-25 12:09] LABS: Alanine Aminotransferase 12 U/L (0-40); Albumin Level 3.9 g/dL (3.5-5.0); Alkaline Phosphatase 76 U/L (39-117); Anion Gap 10 (12-20); Aspartate Amino Transferase 29 U/L (5-37); Blood Urea Nitrogen 36 mg/dL (9-16); Calcium 9.4 mg/dL (8.4-10.2); Carbon Dioxide 31 mmol/L (22-29); Chloride 103 mmol/L (96-108); Cholesterol 86 mg/dL (<200); Estimated Glomerular Filt Rate 36; HDL Cholesterol 26 mg/dL (>40); Potassium 4.0 mmol/L (3.3-5.1); Sodium 140 mmol/L (135-145); Total Protein 6.9 g/dL (6.5-8.0); Triglycerides 118 mg/dL (<150)
[2024-12-25 12:34] LABS: Microalbum/Creatinine Ratio Ur 663.2 ug/mg cr (<30)
--- OUTSIDE RECORDS SUMMARY | 2024-12-25 15:17 | XMS_ITS | Clinical Summary ---
Author Organization [facility] Address [address] [address] Phone Care Team Providers Care Evp Name Role Phone John Alexander MD Primary [...] Visit [facility] [address] [place] [address] Timmy Siu MD [address] [facility] [address] [place] [address] Health Maintenance Due Date Last Done [...] Health Medicare [employer] Medicare Care Teams Evp Relationship Specialty Start Date End Date John Alexander MD [address] [place] [address] [address] [place], [place] PCP - General 04/21/20
== END 2024-12-25 11:10 | disposition home or self-care (01) ==
LOC: HO.LNP 11:09
PROVIDERS: Visit Provider Internal Medicine
DX: Z00.00 Encounter for general adult medical examination without abnormal findings (principal); Z12.5 Encounter for screening for malignant neoplasm of prostate; I11.0 Hypertensive heart disease with heart failure; I50.32 Chronic diastolic (congestive) heart failure; E11.40 Type 2 diabetes mellitus with diabetic neuropathy, unspecified; D69.6 Thrombocytopenia, unspecified
CPT/HCPCS: 80053; 80061; 81001; 82043; 82570; 83036; 84153; 85025

== ENCOUNTER 2025-01-01 09:56 | Outpatient (REF) | payer MEDICARE, SELFPAY ==
[2025-01-01 11:45] LABS: Iron 90 mcg/dL (45-160); Percent Iron Saturation 36 % (15-50); Total Iron Binding Capacity 250 mcg/dL (228-428); Unsaturated Iron Binding 160 ug/dL
--- OUTSIDE RECORDS SUMMARY | 2025-01-01 11:59 | XMS_ITS | Clinical Summary ---
Author Organization [facility] Address [address] [address] Phone Care Team Providers Care Assistant Education Director Name Role Phone John Alexander MD Primary [...] Visit [facility] [address] [place] [address] Timmy Siu MD [address] [facility] [address] [place] [address] Health Maintenance Due Date Last Done [...] Health Medicare [employer] Medicare Care Teams Assistant Education Director Relationship Specialty Start Date End Date John Alexander MD [address] [place] [address] [address] [place], [place] PCP - General 04/21/20
[2025-01-01 12:24] LABS: Folate 15.3 ng/mL (> or = 4.0); Vitamin B12 833 pg/mL (200-900)
== END 2025-01-01 09:57 | disposition home or self-care (01) ==
LOC: HO.LNP 09:56
PROVIDERS: Visit Provider Internal Medicine
DX: Z00.00 Encounter for general adult medical examination without abnormal findings (principal)
CPT/HCPCS: 82607; 82746; 83540

== ENCOUNTER 2025-01-09 08:54 | Outpatient (AMB) | payer MEDICARE, SELFPAY ==
[2025-01-09 09:12] VITALS: BP 112/62; PULSE 51; O2SAT 96; BMI 41.7
--- NOTE | 2025-01-09 09:12 | MHC.OFFVIS ---
Vital Signs 01/09/25 09:12 Height 5 ft 9 in Weight 282 lb 3.067 oz BMI 41.7 BP 112/62 Blood Pressure Location Lt brachial Position Sitting Pulse 51 Pulse Source Pulse Oximeter Pulse Oximetry (%) 96 Oxygen Delivery Method Room Air Intake Visit Reasons: shortness of breath Intake Note: pt is here as a new patient for shortness of breath with exertion especially with stairs, recovery is about 5-10 minutes when this happened. SMS is provider for cpap Latex Dipper Required: No Alteration Manager: Alteration Manager offered & declined Allergies No Known Allergies Allergy (Mild, Verified 01/09/25 09:47) NOT APPLICABLE Medication List - Last Reconciled 01/09/25 by Alverto Muhammad MD amlodipine 5 mg PO DAILY apixaban (Eliquis) 5 mg PO BID atorvastatin 40 mg PO DAILY bupropion HCl SR 150 mg PO QAM zomveztrdcvg-dnfrqrxonci-[id number] 1,000-200 mcg 1 tab PO DAILY cyanocobalamin (vitamin B-12) 1,000 mcg sublingual DAILY escitalopram oxalate 20 mg PO DAILY folic acid 1 mg PO DAILY furosemide 80 mg PO DAILY gabapentin 100 mg PO BID insulin glargine 80 units subcut DAILY irbesartan 300 mg PO DAILY metoprolol tartrate 100 mg PO BID potassium chloride ER 10 mEq PO DAILY Do you need a note to return to daycare/school/sports/work: No HPI HPI shortness of breath: Details: THIS 79 YEARS OLD GENTLEMAN IS BEING SEEN FOR THE 1ST TIME FOR PULMONARY EVALUATION AND MANAGEMENT. HE IS A CASE OF MORBID OBESITY WITH CURRENT BMI OF 41.7. HE TELLS US THAT HE IS KNOWN CASE OF OBSTRUCTIVE SLEEP APNEA, DIAGNOSED ABOUT 5 OR 6 YEARS AGO WITH POLYSOMNOGRAM STUDY AT SLEEP MEDICINE SERVICES. SINCE THEN HE HAS BEEN USING CPAP WITH A NASAL MASK, AND HAS BEEN SLEEPING WELL. HE GETS HIS SUPPLIES ON TIME AND THERE HAS BEEN NO ISSUE WITH THE USE OF CPAP. FOR THE PAST FEW YEARS HE HAS EXPERIENCED SHORTNESS OF BREATH ON EXERTION LIKE DOING SOME HEAVY HOMEWORK OR CLIMBING STAIRS. HOWEVER IT IS MORE PROMINENT DURING THE PAST 1 YEAR. HE DENIES ANY COUGH OR WHEEZING. WHEN SITTING AND RESTING HE DOES NOT HAVE MUCH SHORTNESS OF BREATH, THIS GENTLEMAN HAS MULTIPLE COMORBIDITIES, ESPECIALLY, HYPERTENSION, CHRONIC CONGESTIVE HEART FAILURE WITH PRESERVED LEFT VENTRICULAR EJECTION FRACTION. HE HAS ONGOING ATRIAL FIBRILLATION AND IS ON ANTICOAGULATION WITH ELIQUIS. HE IS ON FUROSEMIDE 80 MG DAILY, AND CARDIAC MEDICATIONS ALSO INCLUDE LARGE DOSE OF METOPROLOL AND IRBESARTAN LO PATIENT IS ALSO BEING TREATED FOR HER MILD DEPRESSION WITH ESCITALOPRAM 20 MG DAILY PATIENT DENIES HAVING HAD ANY PREVIOUS PULMONARY PROBLEMS AND HE IS NONSMOKER. [facility] Medical History (Updated 01/09/25 @ 11:49 by Alverto Muhammad MD) Anemia Dyspnea on exertion Morbid obesity Thrombocytopenia Insulin dependent type 2 diabetes mellitus HLD (hyperlipidemia) Skin cancer Diabetes ABHAY on CPAP Essential hypertension Chronic heart failure with preserved ejection fraction (HFpEF) Persistent atrial fibrillation Surgical History H/O colonoscopy Hx of arthroscopy of right knee History of knee replacement History of cholecystectomy History of appendectomy Family History Father No problems noted. Mother No problems noted. Social History Household Members: Spouse Housing: House Do you presently have visiting nurse or other home services: No Alcohol intake: never Patient Tobacco Use Status: Never used Tobacco service: No Current occupational status: retired Review of Systems Const All systems reviewed & are unremarkable except as noted in HPI and below Eyes Reports no additional complaints ENT Reports no additional complaints Card Denies chest pain, Reports leg edema (MILD ) and Reports dyspnea on exertion Resp Reports as per HPI and Reports dyspnea on exertion GI Reports no additional complaints Reports no additional complaints Musc Reports muscle weakness (GENERAL WEAKNESS) Skin/Breast Reports system reviewed and no additional complaints, except as documented Neuro Reports no additional complaints Psych Reports depression (BEING TREATED WITH MEDICINE) 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) Omkar/Lymph Reports easy bruising and Reports other (HAS BEEN TOLD TO HAVE THROMBOCYTOPENIA) Physical Exam Vital Signs: Last Vital Signs Pulse 51 01/09/25 09:12 BP 112/62 01/09/25 09:12 Pulse Ox 96 01/09/25 09:12 Oxygen Delivery Method Room Air 01/09/25 09:12 BMI result Body Mass Index 41.7 Const General: comfortable, no acute distress, alert and awake Orientation/consciousness: patient oriented x3 HEENT Head: Yes normal to inspection General nose exam: No nasal polyps present and No nasal discharge present Face and sinus: Yes sinuses nontender Mouth: oropharynx abnormals (OROPHARYNX IS MODERATELY CROWDED, MALLAMPATI SCALE 3) Throat: Yes posterior oropharynx normal Eyes General: appearance normal, both eyes and all related structures Neck Neck: Yes normal visual inspection, Yes no lymphadenopathy, Yes trachea midline and Yes no JVD Thyroid: Thyroid normal Chest Chest palpation & inspection: normal inspection of the chest, normal palpation of entire chest wall and no tenderness Resp Effort & Inspection: normal respiratory effort Auscultation: clear to auscultation bilaterally, no crackles, no rhonchi and no wheezes Cardio Palpation: normal PMI Rate: regular rate Rhythm: abnormal rhythm (ATRIAL FIB) Heart sounds: no gallops and no murmurs GI Palpation (GI): Soft to palpation, nontender, No hepatosplenomegaly present and no masses Auscultation: normal bowel sounds Back/Spine/Pelvis Thoracic/Lumbar Spine: thoracic and lumbar spine normal to inspection Skin General skin exam: no rashes or lesions noted Neuro General: patient oriented x3 and no focal motor deficits Cranial nerves: Yes CN's II-XII intact bilaterally Extrem General: Yes normal to inspection, Yes no calf tenderness and Yes edema (TRACE OF EDEMA OF THE LOWER PART OF LEGS AND AROUND ANKLES) Psych Appearance: grossly normal and well kempt Speech and movement: Normal speech and movement present Results Reviewed Results Reviewed: CBC ON 12/25/24 HEMOGLOBIN IS 9.7 G CHEST X-RAY 11/29/24 NORMAL POLYSOMNOGRAM STUDY. WE WERE ABLE TO GET COPY OF HIS ORIGINAL POLYSOMNOGRAM STUDY AT SLEEP MEDICINE CIRRHOSIS ACTUALLY DONE ON 02/15/2016. IT DID SHOW MODERATELY SEVERE OBSTRUCTIVE SLEEP APNEA, HAD CPAP TITRATION IN THE SLEEP LAB AND DETERMINED TO DO WELL ON PRESSURE OF 13 CM Assessment & Plan Assessment & Plan (1) Morbid obesity: Comment: PATIENT HAS BEEN OBESE THROUGHOUT HIS ADULT LIFE, CURRENT BMI 41.7 Code(s): E66.01 - Morbid (severe) obesity due to excess calories Category: Medical Plan: PATIENT IS AWARE OF THIS. I TALKED TO HIM AND ADVISE THAT HE NEEDS TO VISIT A DIETITIAN OR GO TO WEIGHT MANAGEMENT PROGRAM, HE WILL DISCUSS WITH HIS PCP. (2) ABHAY on CPAP: Comment: DIAGNOSED TO HAVE OBSTRUCTIVE SLEEP APNEA AND HAS BEEN TREATED VERY WELL WITH THE USE OF CPAP USING NASAL PILLOWS Code(s): G47.33 - Obstructive sleep apnea (adult) (pediatric); Z99.89 - Dependence on other enabling machines and devices Category: Medical Plan: ADVISED TO CONTINUE USING THE CPAP REGULARLY EVERY NIGHT WILL DISCUSS WITH DME PROVIDED TO SEE IF WE CAN DOWNLOAD THE COMPLIANCE REPORTS. (3) Chronic heart failure with preserved ejection fraction (HFpEF): Comment: PATIENT IS BEING FOLLOWED BY CARDIOLOGY AND DIAGNOSED TO HAVE CHRONIC CONGESTIVE HEART FAILURE. Code(s): I50.32 - Chronic diastolic (congestive) heart failure Category: Medical Plan: I TOLD THE PATIENT THAT THIS MAY BE CONTRIBUTING TO HIS THE DYSPNEA ON EXERTION (4) Persistent atrial fibrillation: Comment: PATIENT HAS CHRONIC ATRIAL FIBRILLATION AND BEING MANAGE WITH MEDICATIONS . HE IS ALSO ON ANTICOAGULATION WITH ELIQUIS, THIS MAY BE CONTRIBUTING TO HIS ANEMIA, Code(s): I48.19 - Other persistent atrial fibrillation Category: Medical Plan: PATIENT UNDERSTANDS THIS THE, HE IS ADVISED TO CONTINUE FOLLOWING UP WITH CARDIOLOGY SERVICE (5) Dyspnea on exertion: Comment: PATIENT WAS REFERRED TO US MAINLY FOR SHORTNESS OF BREATH ON EXERTION. I TOLD HIM THAT IS DUE TO COMBINATION OF MULTIPLE COMORBIDITIES, ESPECIALLY DUE TO ANEMIA, OBESITY, CONGESTIVE HEART FAILURE, AND RESTRICTIVE LUNG DISEASE. Code(s): R06.09 - Other forms of dyspnea Category: Medical Plan: WE WILL DO PULMONARY FUNCTION TESTING TO CHECK FOR RESTRICTIVE OR OBSTRUCTIVE AIRWAY DISORDER. PATIENT HAS APPOINTMENT WITH HEMATOLOGY SERVICE TO BE EVALUATED FOR THE CAUSE OF ANEMIA AND APPROPRIATE TREATMENT (6) Anemia: Comment: I JUST CHECKED HIS RECENT CBC AND NOTED THAT HIS HEMOGLOBIN IS 9.7, PLATELET COUNT 71. Code(s): D64.9 - Anemia, unspecified Category: Medical Plan: I EXPLAINED TO THE PATIENT THAT HE NEEDS FURTHER WORKUP. AND HE ALREADY HAS APPOINTMENT TO SEE DR. RAZIA KIRK Coding Level of Care Code New Pt Level 4 (63811) Diagnoses Morbid obesity E66.01 ABHAY on CPAP G47.33; Z99.89 Chronic heart failure with preserved ejection fraction (HFpEF) I50.32 Persistent atrial fibrillation I48.19 Dyspnea on exertion R06.09 Anemia D64.9
--- OUTSIDE RECORDS SUMMARY | 2025-01-09 09:34 | XMS_ITS | Clinical Summary ---
Author Organization [facility] Address [address] [address] Phone Care Team Providers Care Calibration Laboratory Technician Name Role Phone John Alexander MD Primary Care Provider [phone] Allergies No known active allergies Medications amLODIPine [...] Visit [facility] [address] [place] [address] Timmy Siu MD [address] [facility] [address] [place] [address] Health Maintenance Due Date Last Done [...] Health Medicare [employer] Medicare Care Teams Calibration Laboratory Technician Relationship Specialty Start Date End Date John Alexander MD [address] [place] [address] [address] [place], [place] PCP - General 04/21/20
== END 2025-01-09 09:46 | disposition home or self-care (01) ==
LOC: HO.HPS 08:54
PROVIDERS: PCP Internal Medicine; Visit Provider Internal Medicine
DX: E66.01 Morbid (severe) obesity due to excess calories (principal); G47.33 Obstructive sleep apnea (adult) (pediatric); Z99.89 Dependence on other enabling machines and devices; I50.32 Chronic diastolic (congestive) heart failure; I48.19 Other persistent atrial fibrillation; R06.09 Other forms of dyspnea; D64.9 Anemia, unspecified
CPT/HCPCS: 99204

== ENCOUNTER → 2025-01-09 08:54 | Outpatient (BNVA) | payer MEDICARE, SELFPAY | PROVIDERS: PCP Internal Medicine; Visit Provider Internal Medicine | DX: E66.01 Morbid (severe) obesity due to excess calories (principal); G47.33 Obstructive sleep apnea (adult) (pediatric); I48.19 Other persistent atrial fibrillation; I11.0 Hypertensive heart disease with heart failure; I50.32 Chronic diastolic (congestive) heart failure; R06.09 Other forms of dyspnea; D64.9 Anemia, unspecified; Z68.41 Body mass index [BMI] 40.0-44.9, adult; Z99.89 Dependence on other enabling machines and devices | CPT/HCPCS: 99202 ==

== ENCOUNTER 2025-01-22 13:42 | Outpatient (REF) | payer MEDICARE, SELFPAY ==
[2025-01-22 14:06] LABS: Hematocrit 26.0 % (42.0-52.0); Hemoglobin 8.6 g/dl (14.0-18.0); Imm Gran Abs Auto 0.01 X10*3/uL (0.00-0.03); Imm Gran Pct Auto 0.5 % (0.0-0.4); Lymphocytes Absolute Auto 0.6 X10*3/uL (1.2-4.9); MANUAL DIFF FLAG SCAN; Mean Corpuscular HGB Conc 33.1 g/dl (31.0-36.0); Mean Corpuscular Hemoglobin 37.2 pg (27.0-33.0); NRBC Abs Auto 0.000 X10*3/uL (0.0-0.012); NRBC Pct Auto 0.0 /100WBC (0.0-0.2); Red Blood Count 2.31 X10*6/uL (4.60-5.80); SCAN SMEAR FLAG 1
[2025-01-22 14:07] LABS: Mean Corpuscular Volume 112.6 fL (80.0-98.0); Platelet Count 72 X10*3/uL (160-400); White Blood Count 1.9 X10*3/uL (4.8-10.8)
--- OUTSIDE RECORDS SUMMARY | 2025-01-22 16:37 | XMS_ITS | Clinical Summary ---
Author Organization [facility] Address [address] [address] Phone Care Team Providers Care Nursery Worker Name Role Phone John Alexander MD Primary Care Provider [phone] Allergies No known active allergies Medications amLODIPine [...] gait 02/14/2023 02/14/2023 Pure hypercholesterolemia 02/14/20232022 Tubular adenomatous polyp of colon 02/14/2023 Well controlled type 2 diabetes mellitus 023 [...] Care Team (Late st Contact Info) Description 05/13/2025 1:15 PM EST Office Visit [facility] [address] [place] [address] Timmy Siu MD [address] [facility] [address] [place] [address] Health Maintenance Due Date Last Done [...] Health Medicare [employer] Medicare Care Teams Nursery Worker Relationship Specialty Start Date End Date John Alexander MD [address] [place] [address] [address] [place], [place] PCP - General 04/21/20
== END 2025-01-22 13:43 | disposition home or self-care (01) ==
LOC: HO.LNP 13:42
PROVIDERS: Visit Provider Internal Medicine
DX: D72.821 Monocytosis (symptomatic) (principal)
CPT/HCPCS: 85025

== ENCOUNTER 2025-01-24 04:34 | Observation (INO) | payer MEDICARE, SELFPAY ==
[2025-01-24] VITALS (12 sets, daily range): BP systolic 126–164; BP diastolic 45–91; PULSE 64–72; RESP 12–19; TEMP 36.4–36.8; O2SAT 94–98; BMI 43.9
--- NOTE | ~2025-01-24 | MR_ITS ---
CLINICAL HISTORY: left hand weakness; eval for stroke MR Brain without gadolinium Comparison: CT/SR - CT HEAD FOR STROKE - 01/24/25 04:48 EDT Findings: Right frontal lobe, precentral gyrus, lacunar focus of increased DWI signal with matching decreased ADC signal and increased T2 and FLAIR signal, image number 20 of 25 series 6. No midline shift mass effect or hemorrhage. No hydrocephalus. Vascular flow voids are intact. Orbital contents are unremarkable. The sinuses and mastoid air cells are clear. No focal bone lesion. IMPRESSION: 1. Subacute lacunar infarct in the right frontal lobe precentral gyrus (homunculus region). 2. No midline shift or hydrocephalus. This document has been electronically signed by: Black Tom MD on 01/24/2025 19:10:30
--- NOTE | ~2025-01-24 | CT_ITS ---
CLINICAL HISTORY: Stroke Protocol CT head without contrast Comparison: None provided Findings: Beam hardening artifact noted from metallic dental hardware. No intra-axial mass, midline shift, hydrocephalus, or acute hemorrhage. Generalized cerebral atrophy is noted with mild ex vacuo dilatation of the ventricles. Mild chronic periventricular deep white matter changes are noted. There is a small chronic lacunar infarct within the left basal ganglia. No acute intra or extra-axial lesion is identified. Atherosclerotic calcification is noted. There is no sinus or mastoid fluid. The orbits are unremarkable. There is no acute fracture. IMPRESSION: 1. No acute intracranial findings. Chronic changes noted. This document has been electronically signed by: Jez Mcarthur MD on 01/24/2025 05:15:50
--- NOTE | ~2025-01-24 | CT_ITS ---
CLINICAL HISTORY: Stroke Protocol CT angiography head and neck with contrast. 3D Postprocessing. Comparison: None provided Findings: Calcified plaque of the bilateral carotid bifurcation and within the proximal internal carotid artery bilaterally. This causes approximately 50% narrowing on the right. This causes no significant luminal narrowing on the left. Dominant right vertebral. The left vertebral artery appears to terminate at the level of the PICA. Intracranial arteries are patent. No aneurysm, dissection, hemodynamically significant stenoses, or occlusion. No abnormal intracranial enhancement. The visualized thyroid gland is unremarkable. No cervical mass or fluid collection. Lung apices clear. No acute fracture. IMPRESSION: Widely patent intracranial vasculature. Calcified atheromatous plaquing of the right carotid bulb and proximal right internal carotid artery causing approximately 50% luminal narrowing. The left vertebral artery appears to terminate at the level of the PICA. This document has been electronically signed by: Марина Linares MD on 01/24/2025 07:59:49
--- NOTE | 2025-01-24 04:44 | ECG_ITS ---
Test Reason : WEAKNESS Blood Pressure : */* mmHG Vent. Rate : 69 BPM Atrial Rate : * BPM P-R Int : * ms QRS Dur : 102 ms QT Int : 392 ms P-R-T Axes : * 2 56 degrees QTcB Int : 420 ms Atrial fibrillation with premature ventricular or aberrantly conducted complexes Abnormal ECG When compared with ECG of 22-Dec-2023 09:10, No significant change was found Referred By: Karthikeyan Fuller Electronically Signed By: Gulshan Phillips
--- NOTE | 2025-01-24 04:45 | ED.NEUROSD ---
HPI - Neuro Symptoms/Deficit General Chief Complaint: Weakness Stated Complaint: right arm numb - stroke symptoms? Time Seen by Provider: 01/24/25 04:43 Source: patient and family (spouse) Mode of arrival: ambulatory Limitations: no limitations History of Present Illness ED Provider: HPI Narrative: 79-year-old male on Eliquis for AFib, presenting with left forearm numbness and hand weakness, he states when he was going to bed he was going to set an alarm on his phone and also sudden his arm became weak and he dropped the phone, denies chest pain or shortness of breath, he presented to the ER with his . No headaches no visual changes. He was activated as a stroke alert Related Data Home Medications ?Medication ?Instructions ?Recorded ?Confirmed atorvastatin 40 mg tablet 40 mg PO DAILY 05/28/20 01/09/25 insulin glargine 100 unit/mL 80 unit subcut DAILY 05/28/20 01/09/25 subcutaneous solution irbesartan 300 mg tablet 300 mg PO DAILY 05/28/20 01/09/25 metoprolol tartrate 100 mg tablet 100 mg PO BID 05/28/20 01/09/25 escitalopram oxalate 20 mg tablet 20 mg PO DAILY 01/12/21 01/09/25 bupropion HCl 150 mg tablet,12 hr 150 mg PO QAM 07/20/21 01/09/25 sustained-release furosemide 80 mg tablet 80 mg PO DAILY 01/26/23 01/09/25 amlodipine 5 mg tablet 5 mg PO DAILY 02/11/23 01/09/25 gabapentin 100 mg capsule 100 mg PO BID 01/09/25 01/09/25 potassium chloride 10 mEq 10 meq PO DAILY 01/09/25 01/09/25 tablet,extended release Previous Rx's ?Medication ?Instructions ?Recorded cyanoco,mecobalamin 1,000 1 tab PO DAILY #90 tabs 08/13/24 mcg-folic acid 200 mcg disintegrating tablet cyanocobalamin (vitamin B-12) 1,000 mcg sublingual DAILY #90 ea 08/15/24 1,000 mcg sublingual lozenge folic acid 1 mg tablet 1 mg PO DAILY #90 tabs 08/15/24 apixaban 5 mg tablet (Eliquis) 5 mg PO BID #180 tabs 12/31/24 Allergies Allergy/AdvReac Type Severity Reaction Status Date / Time No Known Allergies Allergy Mild NOT Verified 01/24/25 04:45 APPLICABLE Review of Systems Constitutional: Constitutional: Reports as per [facility] Past Medical History Medical History Anemia Dyspnea on exertion Morbid obesity Thrombocytopenia Insulin dependent type 2 diabetes mellitus HLD (hyperlipidemia) Skin cancer Diabetes ABHAY on CPAP Essential hypertension Chronic heart failure with preserved ejection fraction (HFpEF) Persistent atrial fibrillation Surgical History H/O colonoscopy Hx of arthroscopy of right knee History of knee replacement History of cholecystectomy History of appendectomy Family History Family History Father No problems noted. Mother No problems noted. Social History Social History Household Members: Spouse Housing: House Do you presently have visiting nurse or other home services: No Unable to assess alcohol history related to: Unknown Alcohol intake: never Patient Tobacco Use Status: Never used Tobacco Smoked in Last 30 Days: No Advance Directives: No Advance Directives Information Provided: Yes Do you have a plan to hurt others: No Plan service: No Current occupational status: retired Physical Exam Vital Signs: Vital Signs: Last Vital Signs Pulse 65 01/24/25 08:02 Resp 15 01/24/25 08:02 BP 140/46 H 01/24/25 08:02 Pulse Ox 95 01/24/25 08:02 O2 Del Method Room Air 01/24/25 08:02 BMI result Body Mass Index 43.9 Const: Other: General: ?Appears of stated age ? ?PERRLA, EOMI, MMM, ? Neck: Supple, no LAD ? ?CV: Irregulary irregular, radial pulses +2 ? ?Resp: ?No wheezing rales rhonchi no stridor moving air well ? Abd: ?Bowel sounds are present, no tenderness no rebound no rigidity ? ?MSK: chronic venous stasis bilateral lower extremities, with nonpitting edema ? Skin: Venous stasis changes bilateral lower extremities ? ?Neuro: ?Alert and oriented x3, moving upper and lower extremities symmetrically, no obvious facial asymmetry noted, cranial nerves 2-12 intact, Close exam reveals no sensory deficits, he has good strength proximally the shoulder and elbow, he is able to extend his wrist but not flex, and also he has decreased thumb and fingers control, radial ulnar pulses +2 Course Reevaluation(s) Reevaluation #1: DR. Gottlieb's progress note: CT/CTA shows no acute large vessel occlusion patient is on anticoagulation, patient is not a candidate for TNK thrombolysis or mechanical thrombectomy. Will admit the patient for TIA and further neurological evaluation. Time: 08:17 Medications Administered Discontinued Medications Generic Name Dose Route Start Last Admin Trade Name Freq PRN Reason Stop Dose Admin Sodium Chloride 1,000 mls @ 999 mls/hr 01/24/25 06:00 01/24/25 06:50 Ns IV 01/24/25 07:00 999 mls/hr .Q1H1M MARTINE Administration Iohexol 75 ml 01/24/25 05:10 01/24/25 05:10 Iohexol 350 Mg/Ml 100 Ml Infus..Btl IV 01/24/25 05:11 75 ml ONCE ONE Administration Medical Decision Making Medical Decision Making MDM Narrative: 4:52 AM 01/24/2025 (Dr. Karthikeyan Fuller): Patient is presenting with left forearm and hand numbness, there were no cranial nerve deficits, he reported numbness in his left forearm Surely a thalamic stroke is a consideration which can be pure sensory in the distribution, we will obtain stroke imaging, he is not a candidate for TNK because is in a stroke scale is 1 and he is on Eliquis I did obtain ECG at the same time to make sure that this is not related to ACS, he has EKG with AFib rate controlled, and he was not hypoglycemic Afterwards I was able to review patient's chart, he does have history of pancytopenia has seen Dr. Horan he has been thrombocytopenic so hemorrhagic conversion is consideration as well 5:19 AM 01/24/2025 (Dr. Karthikeyan Fuller): Patient is back in the room and I had a chance to closer evaluate him he actually has no sensory deficits as what it seemed like he was reporting before, was able to lift his arms and he has had no drift but detailed exam revealed that his median nerve is what is involved on the left side, he does have history of neuropathy lower extremities and he states upper extremities but this is new on sudden onset, compartments are soft, radial ulnar pulses intact. CT brain negative for bleed IMPRESSION: 1. No acute intracranial findings. Chronic changes noted. 6:46 AM 01/24/2025 (Dr. Karthikeyan Fuller): Patient will be signed out pending CT brain to make sure there is no LVO or carotid dissection but will need to be admitted for a brain MRI for a pure motor stroke that is my suspicion, Differential Diagnosis Differential Diagnoses: The differential diagnosis associated with the presentation includes (Stroke, bleed, hypoglycemia, ACS, DVT, cervical myelopathy, carpal tunnel syndrome) Admission/Observation Consideration of admission/observation: Escalation of care including admission/observation considered Lab Data MDM Lab Attestation statement: I reviewed the patient's lab results. 01/24/25 04:55 01/24/25 04:55 Labs: Lab Results 01/24/25 01/24/25 Range/Units 04:43 04:55 WBC 2.5 L (4.8-10.8) X10*3/uL RBC 2.42 L (4.60-5.80) X10*6/uL Hgb 8.9 L (14.0-18.0) g/dl Hct 26.7 L (42.0-52.0) % MCV 110.3 H (80.0-98.0) fL MCH 36.8 H (27.0-33.0) pg MCHC 33.3 (31.0-36.0) g/dl RDW 15.9 (11.0-16.0) % Plt Count 68 L (160-400) X10*3/uL MPV 12.5 H (9.4-12.4) fL Immature Gran % (Auto) 0.8 H (0.0-0.4) % Neut % (Auto) 38.4 L (45-73) % Lymph % (Auto) 43.3 H (20-40) % [place] % (Auto) 14.3 H (2-11) % Eos % (Auto) 2.4 (0-4) % Baso % (Auto) 0.8 (0-2) % Lymph # (Auto) 1.1 L (1.2-4.9) X10*3/uL [place] # (Auto) 0.4 (0.1-1.2) X10*3/uL Eos # (Auto) 0.1 (0.0-0.4) X10*3/uL Baso # (Auto) 0.0 (0.0-0.2) X10*3/uL Abs Immat Gran (auto) 0.02 (0.00-0.03) X10*3/uL Absolute Neuts (auto) 1.0 L (2.0-8.3) x10*3/uL Absolute Nucleated RBC 0.000 (0.0-0.012) X10*3/uL Nucleated RBC % (auto) 0.0 (0.0-0.2) /100WBC Smear Tech's Comments VERIFIED PT 18.1 H (10.9-12.4) SEC INR 1.6 H (0.9-1.1) APTT 31.8 (26.7-34.1) SEC Sodium 142 (135-145) mmol/L Potassium 4.0 (3.3-5.1) mmol/L Chloride 105 (96-108) mmol/L Carbon Dioxide 27 (22-29) mmol/L Anion Gap 14 (12-20) BUN 45 H (9-16) mg/dL Creatinine 2.14 H (0.5-1.4) mg/dL Estim Creat Clear Calc 38.7 Estimated GFR 30 POC Glucose 209 H (60-115) mg/dL Random Glucose 202 H (60-115) mg/dL Calcium 9.1 (8.4-10.2) mg/dL Troponin I High Sens 5.5 (<3.5-35.0) ng/L Triglycerides 83 (<150) mg/dL Cholesterol 76 (<200) mg/dL LDL Cholesterol, Calc 33 (<100) mg/dL HDL Cholesterol 27 L (>40) mg/dL Independent Interpretation I performed an independent interpretation of an: EKG (69 beats per minute otherwise normal ECG without dysrhythmia, AV farhan blocks or ST-T changes to suspect underlying ACS, my independent interpretation) Radiology Impression Discussion of test interpretation with radiology: I have reviewed the radiologist's reading. ( IMPRESSION: 1. No acute intracranial findings. Chronic changes noted.) Independent Historian Clinical information obtained from an independent historian. History obtained from or confirmed by: Spouse Chronic Conditions Patient?s care impacted by: Hypertension and Other (AFib) NIH Stroke Scale Internal: Initial- Upon Arrival Time: 04:46 Level of Consciousness: Alert Level of Consciousness Questions: Answers both questions correctly Level of Consciousness Commands: Performs both tasks correctly Best Gaze: Normal Visual: No visual loss Facial Palsy: Normal Motor Arm (Right): No drift Motor Arm (Left): No drift Motor Leg (Right): No drift Motor Leg (Left): No drift Limb Ataxia: Present in one limb Sensory: Normal Best Language: No aphasia Dysarthia: Normal Extinction and Inattention: No abnormality Score: 1 Critical Care Time Critical Care Time Critical Care Time: Yes Total Critical Care Time: 35 Attestation: Time is exclusive of separately billable procedures. Time includes: direct patient care, patient reassessment, coordination of patient care, interpretation of data (laboratory data, pulse oximetry, arterial blood gases and chest xrays), review of patient's medical records, medical consultation and documentation of patient care. Procedures excluded from critical care time: central intravenous line placement and electrocardiography. Discharge Plan Discharge Clinical Impression: Left arm weakness, KIESHA (acute kidney injury) Patient Disposition: Admitted As Inpatient Print Language: Swedish
[2025-01-24 05:00] LABS: Hematocrit 26.7 % (42.0-52.0); Hemoglobin 8.9 g/dl (14.0-18.0); Imm Gran Abs Auto 0.02 X10*3/uL (0.00-0.03); Imm Gran Pct Auto 0.8 % (0.0-0.4); Lymphocytes Absolute Auto 1.1 X10*3/uL (1.2-4.9); Mean Corpuscular HGB Conc 33.3 g/dl (31.0-36.0); Mean Corpuscular Hemoglobin 36.8 pg (27.0-33.0); NRBC Abs Auto 0.000 X10*3/uL (0.0-0.012); NRBC Pct Auto 0.0 /100WBC (0.0-0.2); Red Blood Count 2.42 X10*6/uL (4.60-5.80); SCAN SMEAR FLAG 1
[2025-01-24 05:02] LABS: MANUAL DIFF FLAG SCAN; Mean Corpuscular Volume 110.3 fL (80.0-98.0); Platelet Count 68 X10*3/uL (160-400); White Blood Count 2.5 X10*3/uL (4.8-10.8)
[2025-01-24 05:07] LABS: INTERNATIONAL NORM RATIO 1.6 (0.9-1.1); Prothrombin Time 18.1 SEC (10.9-12.4)
[2025-01-24 05:09] LABS: Partial Thromboplastin Time 31.8 SEC (26.7-34.1)
[2025-01-24] MEDS: iohexoL 350 MG/ML 100 ML INFUS..BTL 75 ML IV (05:10)
[2025-01-24 05:15] LABS: Stroke Lab Use COMPLETE
--- NOTE | 2025-01-24 05:15 | PC.NURSE ---
Assumed care of pt, presents with stroke like symptoms [id number], pt was getting ready for bed and suddenly felt his left arm become heavy and dropped his phone, pt takes meme for Afib, On arrival aaox4, nad, PERRLA, no facial droop or numbness, states numbness in the left arm, but mostly the hand, is at bedside
[2025-01-24 05:19] LABS: Anion Gap 14 (12-20); Blood Urea Nitrogen 45 mg/dL (9-16); Calcium 9.1 mg/dL (8.4-10.2); Carbon Dioxide 27 mmol/L (22-29); Chloride 105 mmol/L (96-108); Cholesterol 76 mg/dL (<200); Creatinine Clr Calc Pharmacy 38.7; Estimated Glomerular Filt Rate 30; HDL Cholesterol 27 mg/dL (>40); Potassium 4.0 mmol/L (3.3-5.1); Sodium 142 mmol/L (135-145); Triglycerides 83 mg/dL (<150)
[2025-01-24 05:24] LABS: Troponin-I High Sensitivity 5.5 ng/L (<3.5-35.0)
[2025-01-24 06:06] LABS: Glucose, Whole Blood 209 mg/dL (60-115)
--- OUTSIDE RECORDS SUMMARY | 2025-01-24 06:11 | XMS_ITS | Clinical Summary ---
Author Organization [facility] Address [address] [id number] Phone Care Team Providers Care Local Telephone Operator Name Role Phone John Alexander MD Primary [...] Visit [facility] [address] [place] [id number] Timmy Siu MD [address] [facility] [address] [place] [phone] Health Maintenance Due Date Last Done [...] Health Medicare [facility] Medicare Care Teams Local Telephone Operator Relationship Specialty Start Date End Date John Alexander MD [address] [place] [address] [id number] [place], [place] PCP - General 04/21/20
--- NOTE | 2025-01-24 09:09 | PM.IMHP ---
History of Present Illness Date of Service: 01/24/25 Attending physician on admission: Keerthi Torres Chief Complaint: left arm weakness This is a 79 year old male with multiple medical issues including atrial fibrillation on Eliquis who presents to the emergency department with left arm weakness. Around 01:00 this morning patient noted sudden onset of left arm ?numbness? from his elbow down to all 5 fingers. He reported clumsiness of his left hand and was unable to hold onto his phone. He is unable to full extend fingers on the left hand. He denies pain or numbness from shoulder to elbow. No pain at elbow. He has chronic neuropathy with decreased sensation of all fingertips of both hands at baseline. He denies any other associated symptoms, no leg weakness. In the ED brain CT was unremarkable, CTA showed 50% narrowing of the right internal carotid. Symptoms have persisted and he will be admitted to the hospital for further evaluation. [facility] Medical History Anemia Dyspnea on exertion Morbid obesity Thrombocytopenia Insulin dependent type 2 diabetes mellitus HLD (hyperlipidemia) Skin cancer Diabetes ABHAY on CPAP Essential hypertension Chronic heart failure with preserved ejection fraction (HFpEF) Persistent atrial fibrillation Family History Father No problems noted. Mother No problems noted. Surgical History H/O colonoscopy Hx of arthroscopy of right knee History of knee replacement History of cholecystectomy History of appendectomy Social History Household Members: Spouse Housing: House Do you presently have visiting nurse or other home services: No Unable to assess alcohol history related to: Unknown Alcohol intake: never Patient Tobacco Use Status: Never used Tobacco Smoked in Last 30 Days: No Advance Directives: No Advance Directives Information Provided: Yes Do you have a plan to hurt others: No Plan service: No Current occupational status: retired Meds Allergies Allergy/AdvReac Type Severity Reaction Status Date / Time No Known Allergies Allergy Mild NOT Verified 01/24/25 04:45 APPLICABLE Active Medications: Current Medications Acetaminophen (Acetaminophen 325 Mg Tablet) 650 mg PO Q6H PRN PRN Reason: Pain, Mild 1-3,fever,headache Melatonin (Melatonin 3 Mg Tablet) 6 mg PO BEDTIME PRN PRN Reason: Insomnia Sodium Chloride (0.9 % Sodium Chloride Flush 3 Ml Syringe) 3 ml IVFLUSH QSHIFT [facility] Home Medications ?Medication ?Instructions ?Recorded ?Confirmed ?Last Taken ?Type atorvastatin 40 mg tablet 40 mg PO DAILY 05/28/20 01/24/25 01/23/25 History insulin glargine 100 unit/mL 80 unit subcut DAILY 05/28/20 01/24/25 01/23/25 History subcutaneous solution irbesartan 300 mg tablet 300 mg PO DAILY 05/28/20 01/24/25 01/23/25 History metoprolol tartrate 100 mg tablet 100 mg PO BID 05/28/20 01/24/25 01/23/25 History escitalopram oxalate 20 mg tablet 20 mg PO DAILY 01/12/21 01/24/25 01/23/25 History bupropion HCl 150 mg tablet,12 hr 150 mg PO QAM 07/20/21 01/24/25 01/23/25 History sustained-release furosemide 80 mg tablet 80 mg PO DAILY 01/26/23 01/24/25 01/23/25 History amlodipine 5 mg tablet 5 mg PO DAILY 02/11/23 01/24/25 01/23/25 History gabapentin 100 mg capsule 100 mg PO BID 01/09/25 01/24/25 01/23/25 History potassium chloride 10 mEq 10 meq PO DAILY 01/09/25 01/24/25 01/23/25 History tablet,extended release cholecalciferol (vitamin D3) 25 25 mcg PO DAILY 01/24/25 01/24/25 01/23/25 History mcg (1,000 unit) tablet (Vitamin D3) isosorbide mononitrate 30 mg 30 mg PO DAILY 01/24/25 01/24/25 01/23/25 History tablet,extended release 24 hr Physical Exam Vital Signs and Narrative: Vital Signs: Last Vital Signs Pulse 65 01/24/25 08:02 Resp 15 01/24/25 08:02 BP 140/46 H 01/24/25 08:02 Pulse Ox 95 01/24/25 08:02 O2 Del Method Room Air 01/24/25 08:02 BMI result Body Mass Index 43.9 Const: General: cooperative, comfortable, no acute distress, alert and awake Nutritional Appearance: obese Orientation/consciousness: patient oriented x3 Resp: Effort & Inspection: normal respiratory effort, able to speak in complete sentences, no respiratory distress and no use of accessory muscles Cardio: Rate: regular rate GI: Inspection: No distended and Yes obesity Palpation (GI): Soft to palpation Neuro: Other: able to move all 4 extremities. speech normal, face symmetrical. hand grasp decreased left hand. EOMI General: patient oriented x3 Extrem: Other: 1+ edema b/l lower extremities Results Labs 01/24/25 04:55 01/24/25 04:55 Labs: Laboratory Results - last 24 hr 01/24/25 01/24/25 04:43 04:55 MCV 110.3 H MCH 36.8 H MCHC 33.3 RDW 15.9 Plt Count 68 L MPV 12.5 H Immature Gran % (Auto) 0.8 H Neut % (Auto) 38.4 L Lymph % (Auto) 43.3 H [place] % (Auto) 14.3 H Eos % (Auto) 2.4 Baso % (Auto) 0.8 Lymph # (Auto) 1.1 L [place] # (Auto) 0.4 Eos # (Auto) 0.1 Baso # (Auto) 0.0 Abs Immat Gran (auto) 0.02 Absolute Neuts (auto) 1.0 L Absolute Nucleated RBC 0.000 Nucleated RBC % (auto) 0.0 Smear Tech's Comments VERIFIED PT 18.1 H INR 1.6 H APTT 31.8 Anion Gap 14 Estim Creat Clear Calc 38.7 Estimated GFR 30 POC Glucose 209 H Random Glucose 202 H Calcium 9.1 Troponin I High Sens 5.5 Triglycerides 83 Cholesterol 76 LDL Cholesterol, Calc 33 HDL Cholesterol 27 L Assessment and Plan (1) Left arm weakness: Status: Acute Plan This is a 79-year-old male with history of AFib on Eliquis, hypertension, hyperlipidemia, IDDM, CKD 3, orthostatic hypotension, ABHAY on CPAP, HFpEF who presents to the emergency department with left arm weakness and clumsiness Left arm weakness multiple risk factors for stroke including obesity, HTN, HLD, DM, but on full AC with Eliquis (reports compliance) other possible causes including cervical myelopathy vs peripheral neuropathy admit to telemetry for close monitoring and neuro checks neuro consult PT/OT evaluation continue statin, although LDL low avoid ASA for now due to thrombocytopenia; continue AC with Eliquis will defer further imaging to neurology DM SSI, POCs, ADA diet continue Lantus at 50% dose and up titrate as needed HFpEF hold lasix for increase in creatinine continue isosorbide Paroxysmal atrial fibrillation continue metoprolol continue AC with Eliquis chronic pancytopenia near baseline follows with Dr. Horan continue b12 and folic acid supplementation CKD3 creatinine increased from previous. creatinine was 1.82 in December ?progression of CKD vs KIESHA will hold lasix and irbesartan for today and repeat BMP in AM outpatient follow up with nephrology - follows with Dr. Siu HTN continue norvasc hold irbesartan as above ABHAY CPAP mood continue bupropion and escitaolopram DVT prophylaxis-Eliquis Code status-DNR/DNI Quality Stroke Does the patient have a stroke diagnosis?: No VTE Prior VTE?: No VTE Risk Level:: Medical - moderate - high VTE Device Contraindication: Treatment Not Indicated VTE Drug Contraindication: N/A - Med Ordered
--- NOTE | 2025-01-24 09:18 | PHA.MEDREC ---
Addendum entered by Moris Dsouza PharmD 01/24/25 09:36: reviewed Original Note: Pharmacy Consult ? Medication Reconciliation Pharmacy has completed the medication reconciliation. Spoke to patient and at bedside to confirm med list. Patient had a list of his medications. Patient confirmed Lantus 80 units daily. Patient last had his medications yesterday.
[2025-01-24 11:24] LABS: Glucose, Whole Blood 89 mg/dL (60-115)
--- NOTE | 2025-01-24 11:52 | PM.NEUROCN ---
History of Present Illness Data of Consult Service Date: 01/24/25 Primary Care Provider: John Alexander MD HPI Reason for consult: Left hand weak 79 years old man with atrial fibrillation on Eliquis came to hospital with new onset of left hand weakness. It started couple of hours before he came to hospital. There was no associated pain or numbness or tingling. His hand became clumsy and weak in the phone fell out of his hand. It was still weak. There was no arm pain or weakness. There was no neck pain. He had initial head CT and CTA done that did not reveal any explanation or treatable lesion. He was noted to be with acute renal insufficiency. Review of Systems Review of Systems: Constitutional:?No fever, chills, fatigue, weight loss, or night sweats. HEENT:?No headache, vision changes, hearing loss, nasal congestion, sore throat. Cardiovascular:?No chest pain, palpitations, orthopnea, PND, or leg swelling. Respiratory:?No cough, shortness of breath, wheezing, or hemoptysis. Gastrointestinal:?No nausea, vomiting, abdominal pain, diarrhea, or constipation. Genitourinary:?No dysuria, frequency, incontinence, or hematuria. Musculoskeletal:?No joint pain, stiffness, weakness, or muscle aches. Neurological:? As per HPI Psychiatric:?No anxiety, depression, mood swings, sleep disturbance, or hallucinations. Endocrine:?No heat/cold intolerance, polydipsia, polyuria, or hair/skin changes. Hematologic/Lymphatic:?No easy bruising, bleeding, or lymphadenopathy. Integumentary (Skin):?No rash, lesions, itching, or color changes. Allergic/Immunologic:?No seasonal allergies, hives, or recurrent infections. [facility] Past Medical History Medical History Anemia Dyspnea on exertion Morbid obesity Thrombocytopenia Insulin dependent type 2 diabetes mellitus HLD (hyperlipidemia) Skin cancer Diabetes ABHAY on CPAP Essential hypertension Chronic heart failure with preserved ejection fraction (HFpEF) Persistent atrial fibrillation Family History Family History Father No problems noted. Mother No problems noted. Surgical History Surgical History H/O colonoscopy Hx of arthroscopy of right knee History of knee replacement History of cholecystectomy History of appendectomy Social History Social History Household Members: Spouse Housing: House Do you presently have visiting nurse or other home services: No Unable to assess alcohol history related to: Unknown Alcohol intake: never Patient Tobacco Use Status: Never used Tobacco Smoked in Last 30 Days: No Advance Directives: No Advance Directives Information Provided: Yes Do you have a plan to hurt others: No Plan service: No Current occupational status: retired [employer] Allergies Allergy/AdvReac Type Severity Reaction Status Date / Time No Known Allergies Allergy Mild NOT Verified 01/24/25 04:45 APPLICABLE Active Medications: Current Medications Acetaminophen (Acetaminophen 325 Mg Tablet) 650 mg PO Q6H PRN PRN Reason: Pain, Mild 1-3,fever,headache Amlodipine Besylate (Amlodipine Besylate 5 Mg Tablet) 5 mg PO DAILY [facility]; Protocol Apixaban (Apixaban 5 Mg Tablet) 5 mg PO BID [facility] Last Admin: 01/24/25 11:25 Dose: 5 mg Atorvastatin Calcium (Atorvastatin Calcium 40 Mg Tablet) 40 mg PO DAILY [facility] Last Admin: 01/24/25 11:26 Dose: 40 mg Bupropion HCl (Bupropion Hcl Xl 150 Mg Tab.Er.24h) 150 mg PO DAILY [facility] Calcium Carbonate (Calcium Carbonate 750 Mg Tab.Chew) 750 mg PO Q4H PRN PRN Reason: Heartburn Cyanocobalamin (Cyanocobalamin (Vitamin B-12) 1,000 Mcg Tablet) 1,000 mcg PO DAILY [facility] Dextrose (Dextrose 50 % 25 Gm/50 Ml Syringe) 25 gm IVPUSH Q15M PRN; Protocol PRN Reason: per Hypoglycemia Standing Ord. Escitalopram Oxalate (Escitalopram Oxalate 20 Mg Tablet) 20 mg PO DAILY [facility] Folic Acid (Folic Acid 1 Mg Tablet) 1 mg PO DAILY [facility] Gabapentin (Gabapentin 100 Mg Capsule) 100 mg PO BID [facility] Last Admin: 01/24/25 11:26 Dose: 100 mg Glucose (Glucose Gel 15 Gm Gel..Gram.) 15 gm PO Q15M PRN; Protocol PRN Reason: per Hypoglycemia Standing Ord. Insulin Glargine (Insulin Glargine,Hum.Rec.Anlog 100 Unit/Ml 10 Ml Vial) 40 unit SUBCUT DAILY [facility] Last Admin: 01/24/25 11:27 Dose: Not Given Insulin Human Lispro (Insulin Lispro 100 Unit/Ml 3 Ml Vial) 0 unit SUBCUT QIDACHS [facility]; Protocol Isosorbide Mononitrate (Isosorbide Mononitrate 30 Mg Tab.Er.24h) 30 mg PO DAILY [facility]; Protocol Magnesium Hydroxide (Milk Of Magnesia 30 Ml Oral.Susp) 30 ml PO DAILY PRN PRN Reason: Constipation Melatonin (Melatonin 3 Mg Tablet) 6 mg PO BEDTIME PRN PRN Reason: Insomnia Metoprolol Tartrate (Metoprolol Tartrate 100 Mg Tablet) 100 mg PO BID [facility]; Protocol Last Admin: 01/24/25 11:26 Dose: 100 mg Ondansetron HCl (Ondansetron Hcl 4 Mg/2 Ml Vial) 4 mg IVPUSH Q8H PRN PRN Reason: Nausea and Vomiting Potassium Chloride (Potassium Chloride Er 10 Meq Tablet.Er) 10 meq PO DAILY [facility] Sodium Chloride (0.9 % Sodium Chloride Flush 3 Ml Syringe) 3 ml IVFLUSH QSHIFT [facility] Vitamin D (Cholecalciferol (Vitamin D3) 25 Mcg Tablet) 25 mcg PO DAILY [facility] Last Admin: 01/24/25 11:25 Dose: 25 mcg Home Medications ?Medication ?Instructions ?Recorded ?Confirmed ?Last Taken ?Type atorvastatin 40 mg tablet 40 mg PO DAILY 05/28/20 01/24/25 01/23/25 History insulin glargine 100 unit/mL 80 unit subcut DAILY 05/28/20 01/24/25 01/23/25 History subcutaneous solution irbesartan 300 mg tablet 300 mg PO DAILY 05/28/20 01/24/25 01/23/25 History metoprolol tartrate 100 mg tablet 100 mg PO BID 05/28/20 01/24/25 01/23/25 History escitalopram oxalate 20 mg tablet 20 mg PO DAILY 01/12/21 01/24/25 01/23/25 History bupropion HCl 150 mg tablet,12 hr 150 mg PO QAM 07/20/21 01/24/25 01/23/25 History sustained-release furosemide 80 mg tablet 80 mg PO DAILY 01/26/23 01/24/25 01/23/25 History amlodipine 5 mg tablet 5 mg PO DAILY 02/11/23 01/24/25 01/23/25 History gabapentin 100 mg capsule 100 mg PO BID 01/09/25 01/24/25 01/23/25 History potassium chloride 10 mEq 10 meq PO DAILY 01/09/25 01/24/25 01/23/25 History tablet,extended release cholecalciferol (vitamin D3) 25 25 mcg PO DAILY 01/24/25 01/24/25 01/23/25 History mcg (1,000 unit) tablet (Vitamin D3) isosorbide mononitrate 30 mg 30 mg PO DAILY 01/24/25 01/24/25 01/23/25 History tablet,extended release 24 hr Physical Exam Vital Signs: Vital Signs: Last Vital Signs Temp 98.2 F 01/24/25 09:12 Pulse 71 01/24/25 11:26 Resp 12 01/24/25 09:12 BP 126/91 H 01/24/25 11:26 Pulse Ox 98 01/24/25 09:12 O2 Del Method Room Air 01/24/25 09:12 BMI result Body Mass Index 43.9 Neuro: Other: Mental Status: Alert and oriented to person, place, and time. Normal attention. Normal spontaneous speech, fluency, and comprehension. Cranial Nerves: CN II: Visual dent full to confrontation, visual acuity intact. CN III, IV, : Pupils equal, round, reactive to light and accommodation. Extraocular movements are normal. CN V: Facial sensation is normal. CN VII: Facial movements symmetrical. CN VIII: Hearing intact to bedside conversation is normal. CN IX, X: Palate elevates symmetrically. CN XI: Shoulder shrug and head turn symmetrical. CN XII: Tongue midline without atrophy or fasciculations. Motor: Moderate left hand weakness. No obvious arm weakness. Deep tendon reflexes are absent. Extrapyramidal: Full facial expressions and blinking. No rigidity. Movements are appropriate with no tremor or abnormality. Speech: Normal; no dysarthria or tremor. Results Labs 01/24/25 04:55 01/24/25 04:55 Labs: Short CBC 01/24/25 Range/Units 04:55 WBC 2.5 L (4.8-10.8) X10*3/uL Hgb 8.9 L (14.0-18.0) g/dl Hct 26.7 L (42.0-52.0) % Plt Count 68 L (160-400) X10*3/uL BMP 01/24/25 04:55 Sodium 142 Potassium 4.0 Chloride 105 Carbon Dioxide 27 BUN 45 H Creatinine 2.14 H Calcium 9.1 CTA of brain and CTA of brain and neck did not reveal any significant or acute abnormality. Chronic microvascular ischemic changes were noted. Assessment and Plan (1) Left hand weakness: Status: Acute New onset of left hand weakness and this man with atrial fibrillation on Eliquis. Overall clinical features suggested that it was probably from a small ischemic infarct. Lesion was probably small and deficit also mild. This type of lesion usually results in symptoms that get resolved in few weeks time. He should be educated to not miss dose of Eliquis as missing a dose of Eliquis can put him at risk for embolism. A noncontrast MRI of brain can help define this diagnosis. Procedures Date of Service Date of Service: 01/24/25
[2025-01-24 13:27] LABS: Glucose, Whole Blood 78 mg/dL (60-115)
[2025-01-24 16:40] LABS: Glucose, Whole Blood 129 mg/dL (60-115)
--- NOTE | 2025-01-24 18:00 | PC.NURSE ---
Pt returned to unit from MRI. A/ox3, speaking in full sentences, no facial droop noted, left sided arm weakness, bilateral lower extremities equal, able to move all extremities on own. Pt states his L arm feels heavy/numb Denies tingling in L arm. Denies CP/SOB/N/Pain. Vitals taken and updated in worklist. Call hollis within reach, all needs met at this time.
[2025-01-24 18:33] LABS: Glucose, Whole Blood 125 mg/dL (60-115)
[2025-01-24] MEDS: 0.9 % Sodium Chloride Flush 3 ML SYRINGE IVFLUSH (18:39)
[2025-01-24 20:42] LABS: Glucose, Whole Blood 191 mg/dL (60-115)
--- NOTE | 2025-01-24 23:48 | HO.NURTONUR ---
Addendum entered by Radha Ndiaye RN 01/24/25 23:57: creat, 2.14 (KIESHA other DX) Original Note: 79-year-old male on Eliquis for AFib, presenting with left forearm numbness and hand weakness, he states when he was going to bed he was going to set an alarm on his phone and also sudden his arm became weak and he dropped the phone DR. Gottlieb's progress note: CT/CTA shows no acute large vessel occlusion patient is on anticoagulation, patient is not a candidate for TNK thrombolysis or mechanical thrombectomy. Will admit the patient for TIA and further neurological eval I had a chance to closer evaluate him he actually has no sensory deficits as what it seemed like he was reporting before, was able to lift his arms and he has had no drift but detailed exam revealed that his median nerve is what is involved on the left side, he does have history of neuropathy lower extremities and he states upper extremities but this is new on sudden onset, compartments are soft, radial ulnar pulses intact. CT brain negative for bleed DM - last accu check 191 got 2 units ss admitted for MRI AOx4 20g RFA saline locked ambulates, uses urinal without any assistance.
--- NOTE | 2025-01-24 23:58 | PC.NURSE ---
sent pt report for admit
[2025-01-25] VITALS (7 sets, daily range): BP systolic 124–171; BP diastolic 59–83; PULSE 62–71; RESP 17–18; TEMP 36.1–36.8; O2SAT 92–100; BMI 41.5
[2025-01-25] MEDS: 0.9 % Sodium Chloride Flush 3 ML SYRINGE IVFLUSH ×2 (02:19→08:39)
[2025-01-25 07:39] LABS: Glucose, Whole Blood 128 mg/dL (60-115)
[2025-01-25 07:46] LABS: Anion Gap 17 (12-20); Blood Urea Nitrogen 35 mg/dL (9-16); Calcium 8.9 mg/dL (8.4-10.2); Carbon Dioxide 20 mmol/L (22-29); Chloride 109 mmol/L (96-108); Creatinine Clr Calc Pharmacy 45.1; Estimated Glomerular Filt Rate 37; Potassium 4.5 mmol/L (3.3-5.1); Sodium 141 mmol/L (135-145)
[2025-01-25] MEDS: buPROPion HCl XL 150 MG TAB.ER.24H PO (08:38)
[2025-01-25] MEDS: Potassium Chloride ER 10 MEQ TABLET.ER PO (08:38)
[2025-01-25] MEDS: Insulin Glargine,Hum.rec.anlog 100 UNIT/ML 10 ML VIAL 40 UNIT SUBCUT (08:39)
--- NOTE | 2025-01-25 10:51 | MHC.CM.PN ---
AUNDREA 01/25. THIS CM MET WITH PATIENT, HE LIVES AT HOME WITH HIS , HAS BEEN SELF-CARE, USES A CANE. PT EVALUATED PATIENT AND RECOMMENDED ACUTE REHAB. THIS CM PROVIDED PATIENT WITH A LIST OF THE 3 ACUTE REHABS IN OUR AREA. PATIENT STATES HE WILL SPEAK WITH HIS ABOUT GOING. PATIENT DOESN'T HAVE A HCP, HE STATES HE IS PLANNING ON MEETING WITH A [employer] AGENT TO COMPLETE ONE SOON, HE DECLINES TO COMPLETE ONE HERE AT THIS TIME. PCP: DR. DUKE BRUNSON
[2025-01-25 12:00] LABS: Glucose, Whole Blood 186 mg/dL (60-115)
--- NOTE | 2025-01-25 13:19 | MHC.CM.PN ---
THIS CM MET WITH PATIENT AND HIS PRESENT AT BEDSIDE, TO REVIEW ACUTE REHAB BED OFFERS. PATIENT ACCEPTS BED OFFER AT [facility], THIS CM HAS REQUESTED THEY INITIATE INSURANCE AUTH.
--- NOTE | 2025-01-25 15:32 | MHC.CM.PN ---
INSURANCE AUTH RECEIVED FOR PATIENT TO GO TO ACUTE REHAB AT [facility], HE WILL TRANSPORT THERE VIA BLS/[facility]. PATIENT IS AWARE AND IN AGREEMENT WITH THE DISCHARGE PLAN.
--- NOTE | 2025-01-25 15:36 | P.DS_ITS ---
DS: Providers Provider Date of Service: 01/25/25 Date of admission: 01/24/25 09:15 Date of discharge: 01/25/25 Primary care physician: John Alexander MD Consults: 01/24/25 08:21 Consult to Neurology Routine Consulting Provider: [facility] Reason for consultation: left arm weakness ?tia Has provider been notified: No Attending physician on discharge: Keerthi Torres Discharging clinician: Keerthi Torres DS: Diagnosis Discharge Diagnosis (1) Left hand weakness: Status: Acute DS: Summary Hospital Course Hospital Course: HPI:79 year old male with multiple medical issues including atrial fibrillation on Eliquis who presents to the emergency department with left arm weakness. Around 01:00 this morning patient noted sudden onset of left arm ?numbness? from his elbow down to all 5 fingers. He reported clumsiness of his left hand and was unable to hold onto his phone. He is unable to full extend fingers on the left hand. He denies pain or numbness from shoulder to elbow. No pain at elbow. He has chronic neuropathy with decreased sensation of all fingertips of both hands at baseline. He denies any other associated symptoms, no leg weakness. In the ED brain CT was unremarkable, CTA showed 50% narrowing of the right internal carotid. Symptoms have persisted and he will be admitted to the hospital for further evaluation Hospital course: 79-year-old male with history of AFib on Eliquis, hypertension, hyperlipidemia, IDDM, CKD 3, orthostatic hypotension, ABHAY on CPAP, HFpEF who presents to the emergency department with left arm weakness and clumsiness: Patient came to the hospital because of left-sided hand weakness: Further workup including CTA head seems negative, MRI showed Subacute lacunar infarct in the right frontal lobe precentral gyrus (homunculus region) possible sec to noncomplance to eliquis: Hand weakness somewhat improving. Patient has ed ucated to not miss dose of Eliquis as missing a dose of Eliquis can put him at risk for embolism. Patient is already on blood pressure medications and blood pressure currently is controlled, also on atorvastatin. plan: Patient has educated to not miss dose of Eliquis as missing a dose of Eliquis can put him at risk for embolism. Continue close control of blood pressure and diabetic control, continue atorvastatin. Above management discussed with the patient and his in detail length they both understand and in agreement with the above plan, time spent 45 minute. Time Attestation Total time managing care of this patient today: 45 mintues. Discharge Coordination Time (in mins): 45 min Quality: Safe Use of Opioids Does Pt have an Active Cancer Diagnosis on the Problem List?: No Quality: Stroke Does the patient have a stroke diagnosis?: No Physical Exam Exam: Exam: Appearance: Alert.? Oriented X3.? cvs: rrr, [id number] , no murmur res: clear to auscultation ,no rhonchii or wheezing abd: no rebound or guarding ,nt, bs present. ext pulses present , no cyanosis ,left hand weakness seems improving. neuro: axo3 , nonfocal. Vital Signs: Vital Signs: Last Vital Signs Temp 98.1 F 01/25/25 12:00 Pulse 71 01/25/25 15:21 Resp 17 01/25/25 12:00 BP 124/59 L 01/25/25 15:21 Pulse Ox 98 01/25/25 15:21 O2 Del Method Room Air 01/25/25 12:00 BMI result Body Mass Index 41.5 DS: Data Data Completed and Pending Completed studies during hospitalization [Text1]: Procedures Assistance with Respiratory Ventilation, Less than 24 Consecutive Hours, Continuous Positive Airway Pressure (08/18/23) Labs on day of discharge: Laboratory Results - last 24 hr 01/24/25 01/24/25 01/24/25 16:36 18:24 20:39 Sodium Potassium Chloride Carbon Dioxide Anion Gap BUN Creatinine Estim Creat Clear Calc Estimated GFR POC Glucose 129 H 125 H 191 H Random Glucose Calcium 01/25/25 01/25/25 01/25/25 06:44 07:15 11:51 Sodium 141 Potassium 4.5 Chloride 109 H Carbon Dioxide 20 L Anion Gap 17 BUN 35 H Creatinine 1.78 H Estim Creat Clear Calc 45.1 Estimated GFR 37 POC Glucose 128 H 186 H Random Glucose 124 H Calcium 8.9 Imaging Chest x-ray: My impression: cta: Widely patent intracranial vasculature. Calcified atheromatous plaquing of the right carotid bulb and proximal right internal carotid artery causing approximately 50% luminal narrowing. The left vertebral artery appears to terminate at the level of the PICA. MRI:1. Subacute lacunar infarct in the right frontal lobe precentral gyrus (homunculus region). 2. No midline shift or hydrocephalus. Discharge Plan Discharge Anticipated Discharge Date/Time: 01/25/25 15:31 Patient Disposition: Xfer SNF Discharge Diagnosis: cva subacute ,ckd. Referrals: [facility] [Outside] - 1 Week John Alexander MD [Primary Care Provider, Medical] - 1 Week Discharge Medications: Continued Eliquis 5 mg tablet 5 mg PO BID Qty: 180 3RF cyanocobalamin (vitamin B-12) 1,000 mcg Lozenge 1,000 mcg SUBLINGUAL DAILY Qty: 90 3RF folic acid 1 mg Tablet 1 mg PO DAILY Qty: 90 4RF amlodipine 5 mg tablet 5 mg PO DAILY isosorbide mononitrate 30 mg tablet extended release 24 hr 30 mg PO DAILY cholecalciferol (vitamin D3) [Vitamin D3] 25 mcg (1,000 unit) Tablet 25 mcg PO DAILY insulin glargine 100 unit/mL solution 80 unit subcut DAILY atorvastatin 40 mg tablet 40 mg PO DAILY irbesartan 300 mg tablet 300 mg PO DAILY metoprolol tartrate 100 mg tablet 100 mg PO BID escitalopram oxalate 20 mg tablet 20 mg PO DAILY bupropion HCl 150 mg tablet sustained-release 12 hr 150 mg PO QAM furosemide 80 mg tablet 80 mg PO DAILY potassium chloride 10 mEq tablet extended release 10 meq PO DAILY gabapentin 100 mg capsule 100 mg PO BID Discharge Orders: Discharge Order (Routine); Ordered 01/25/25 Ordered By: Keerthi Torres Diet: Advance to usual diet Activity on Discharge: As tolerated Stand Alone Forms: Patient Portal Discharge page Print Language: Kinyarwanda Care Plan Goals: Patient came to the hospital because of left-sided hand weakness: Further workup including CTA head seems negative, MRI showed Subacute lacunar infarct in the right frontal lobe precentral gyrus (homunculus region): Hand weakness somewhat improving. Patient has educated to not miss dose of Eliquis as missing a dose of Eliquis can put him at risk for embolism. Patient is already on blood pressure medications and blood pressure currently is controlled, also on atorvastatin. Health Concerns: As above. Plan of Treatment: As above. Assessment: As above.
--- NOTE | 2025-01-25 15:45 | MHC.STROKE ---
Met with patient in 473. Pt awake, alert and oriented x 4. Pt is sitting up in chair. Pt is pleasant and engaged in conversation. Stroke Education reviewed with patient. Pamphlet provided and reviewed. All questions answered. Medical history reviewed, medications reviewed, diet/activity reviewed along with social history. Pt continues to c/o weakness to left arm. Reports my hand doesn't want to hold onto things . Plan is for DC to STR. Pt agreeable to dc plan.
[2025-01-25 16:45] LABS: Glucose, Whole Blood 108 mg/dL (60-115)
== END 2025-01-25 19:26 | disposition skilled nursing facility (03) ==
LOC: HO.ED 08:18 → HO.EDOVER 09:16 → HO.IMC 22:53
PROVIDERS: Admitting Provider Physician Assistant Medical; Emergency Provider Emergency Medicine; PCP Internal Medicine; Visit Provider Internal Medicine
DX: I63.81 Other cerebral infarction due to occlusion or stenosis of small artery (principal); I12.9 Hypertensive chronic kidney disease with stage 1 through stage 4 chronic kidney disease, or unspecified chronic kidney disease; N18.30 Chronic kidney disease, stage 3 unspecified; E11.22 Type 2 diabetes mellitus with diabetic chronic kidney disease; R29.700 NIHSS score 0; R53.1 Weakness; N17.9 Acute kidney failure, unspecified; I48.19 Other persistent atrial fibrillation; I50.30 Unspecified diastolic (congestive) heart failure; G47.33 Obstructive sleep apnea (adult) (pediatric); D61.818 Other pancytopenia; F39 Unspecified mood [affective] disorder; Z79.4 Long term (current) use of insulin; Z79.01 Long term (current) use of anticoagulants; Z79.899 Other long term (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; Z99.89 Dependence on other enabling machines and devices
CPT/HCPCS: 36415; 70450; 70496; 70498; 70551; 80048; 80061; 82947; 84484; 85025; 85610; 85730; 93005; 96360; 96361; 97116; 97162; 97165; 97535; 99222; 99285; Q9967

== ENCOUNTER → 2025-01-24 04:44 | Outpatient (BNV) | payer MEDICARE, SELFPAY | PROVIDERS: Emergency Provider Emergency Medicine; PCP Internal Medicine; Visit Provider Radiology Diagnostic Radiology | DX: R20.0 Anesthesia of skin (principal); I65.21 Occlusion and stenosis of right carotid artery; R27.0 Ataxia, unspecified | CPT/HCPCS: 70450; 70496; 70498; 70551 ==

== ENCOUNTER → 2025-01-24 04:44 | Outpatient (BNV) | payer MEDICARE, SELFPAY | PROVIDERS: Admitting Provider Physician Assistant Medical; Emergency Provider Emergency Medicine; PCP Internal Medicine; Visit Provider Internal Medicine Cardiovascular Disease | DX: I48.91 Unspecified atrial fibrillation (principal) | CPT/HCPCS: 93010 ==

== ENCOUNTER → 2025-01-24 09:15 | Outpatient (BNV) | payer MEDICARE, SELFPAY | PROVIDERS: Admitting Provider Physician Assistant Medical; Emergency Provider Emergency Medicine; PCP Internal Medicine; Visit Provider Psychiatry & Neurology Neurology | DX: R29.898 Other symptoms and signs involving the musculoskeletal system (principal) | CPT/HCPCS: 99222 ==

== ENCOUNTER → 2025-01-24 09:15 | Outpatient (BNV) | payer MEDICARE, SELFPAY | PROVIDERS: Admitting Provider Physician Assistant Medical; Emergency Provider Emergency Medicine; PCP Internal Medicine; Visit Provider Physician Assistant Medical | DX: R29.898 Other symptoms and signs involving the musculoskeletal system (principal) | CPT/HCPCS: 99223; 99239 ==

== ENCOUNTER 2025-02-19 10:58 | Day surgery (SDC) | payer MEDICARE, SELFPAY ==
[2025-02-19] VITALS (13 sets, daily range): BP systolic 122–147; BP diastolic 40–71; PULSE 58–74; RESP 13–615; TEMP 36.1–36.9; O2SAT 95–100; BMI 18.2
--- NOTE | ~2025-02-19 | CT_ITS ---
History: Pancytopenia PROCEDURES: 1. Limited preprocedure CT of the pelvis. Permanent images saved in PACS. 2. 11 g bone marrow core biopsy of the left posterior iliac spine 3. 11 g bone marrow aspirate of the left posterior iliac spine CLINICIANS: Juan Prater NP Preprocedural imaging reviewed with Jez Curiel MD MEDICATIONS: -Fentanyl , and lidocaine 1% SQ -Antibiotics: None -For additional details, please see nursing flowsheet. COMPLICATIONS: None ESTIMATED BLOOD LOSS: < 5 ml CONTRAST: None SPECIMENS: 11 g core placed in formalin. Bone marrow aspirate placed in EDTA and sodium heparin tubes MODERATE SEDATION TIME: N/a PROCEDURE NOTE: The procedure, risks, benefits, and alternatives were carefully explained to the patient and written informed consent was obtained. The patient was placed prone on the CT table. A timeout was performed. A limited CT of the pelvis was performed to localize posterior iliac spine and choose appropriate needle entry and trajectory. The patient was prepped and draped in usual sterile fashion. The skin, subcutaneous tissues, and periosteum were anesthetized with lidocaine. Under CT guidance, an 11-gauge bone marrow biopsy needle was advanced into the posterior iliac spine, with the tip positioned slightly cephalad. A bone marrow aspirate was performed. The specimen was placed in the provided EDTA and sodium heparin tubes. Next, the 11-gauge bone marrow biopsy needle was then advanced into the posterior iliac spine, under CT guidance, with the tip positioned slightly caudal. An 11-gauge core biopsy of the bone marrow was performed, needle removed and the specimen was placed in formalin. A dry dressing was applied and secured with Tegaderm. There were no immediate complications. The patient was stable after the procedure and was transferred to the post anesthesia care unit. The procedure was done under moderate sedation with a dedicated nurse for monitoring of vital signs. CT/CT biopsy bone marrow Impression: CT-guided bone marrow biopsy and aspirate This procedure was performed by Juan Prater NP and supervised by Jez Curiel MD. Electronically signed by: Jez Curiel MD 02/26/2025 02:59 PM [facility]: [id number]
[2025-02-19 12:55] LABS: INTERNATIONAL NORM RATIO 1.1 (0.9-1.1); Prothrombin Time 12.9 SEC (11.2-13.5)
== END 2025-02-19 15:31 | disposition home or self-care (01) ==
PROVIDERS: Radiology Diagnostic Radiology; PCP Internal Medicine; Visit Provider Internal Medicine Medical Oncology
DX: D61.818 Other pancytopenia (principal); I13.0 Hypertensive heart and chronic kidney disease with heart failure and stage 1 through stage 4 chronic kidney disease, or unspecified chronic kidney disease; I50.30 Unspecified diastolic (congestive) heart failure; N18.30 Chronic kidney disease, stage 3 unspecified; E11.22 Type 2 diabetes mellitus with diabetic chronic kidney disease; E78.5 Hyperlipidemia, unspecified; I69.354 Hemiplegia and hemiparesis following cerebral infarction affecting left non-dominant side; I48.91 Unspecified atrial fibrillation; G47.33 Obstructive sleep apnea (adult) (pediatric); Z79.4 Long term (current) use of insulin; Z79.01 Long term (current) use of anticoagulants; Z79.899 Other long term (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; Z99.89 Dependence on other enabling machines and devices; Z98.890 Other specified postprocedural states
CPT/HCPCS: 36415; 38221; 77012; 85610; 88184; 88185; 88237; 88264; 88305; 88311; 88313; 88341; 88342; J2003; J2250; J3010

== ENCOUNTER → 2025-02-19 13:20 | Outpatient (BNV) | payer MEDICARE, SELFPAY | PROVIDERS: PCP Internal Medicine | DX: D61.818 Other pancytopenia (principal) | CPT/HCPCS: 38222; 77012 ==

== ENCOUNTER 2025-04-08 08:46 | Day surgery (SDC) | payer MEDICARE, SELFPAY ==
--- OUTSIDE RECORDS SUMMARY | 2025-04-01 14:15 | XMS_ITS | Clinical Summary ---
Author Organization [facility] Address [address] [place] [address] Phone Care Team Providers Care [employer] Supervisor Name Role Phone Dasia Funes NP Primary Care Provider [phone] Encounters Date Type Department Care Team Description 03/13/2025 12:59 PM EST - 03/13/2025 11:59 PM EST Hospital Encounter [facility] PET Scan [address] [place] [phone] Non-Hodgkin lymphoma (CMS/HCC V24, CMS/HCC V28) Discharge Disposition: Home or Self Care 02/06/2025 Lab Requisition [facility] [address] [place] [phone] Catrachita Myers MD Encounter for other general examination 02/04/2025 Lab Requisition [facility] [address] [place] [phone] Catrachita Myers MD Encounter for other general examination 02/01/2025 Lab Requisition [facility] [address] [place] [phone] Clair Yi PA Other skilled nursing (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 01/31/2025 Lab Requisition [facility] [address] [place] [phone] Catrachita Myers MD Other skilled nursing (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 01/29/2025 Lab Requisition [facility] [address] [place] [phone] Talia Coles PA 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 01/28/2025 Lab Requisition [facility] [address] [place] [phone] Catrachita Myers MD Encounter for other general examination 01/26/2025 Lab Requisition [facility] [address] [place] [phone] Dasia Funes NP Encounter for other general examination 01/26/2025 Lab Requisition [facility] [address] [place] [phone] Dasia Funes NP from Last 3 Months Social History Tobacco Use Types Packs/Day Years Used Date Smoking Tobacco: Never Assessed Sex and Gender Information Value Date Recorded Sex Assigned at Not on file Legal Sex Male 9:51 AM EDT Gender Identity Not on file Sexual Orientation Not on file Plan of Treatment Health Maintenance Due Date Last Done Comments Diabetes: Annual Foot Exam 1955 Diabetes: Annual Retina Eye Exam 1955 Hepatitis A Vaccines (1 of 2 - Risk 2-dose series) 1965 Hepatitis B Vaccines (1 of 3 - Risk 3-dose series) 2006 Zoster Vaccines (1 of 2) 03/23/2012 01/27/2012 Depression Screening 04/11/2024 Cholesterol Screening (Lipid Panel) 01/26/2025 Falls Risk Assessment 01/26/2025 Hepatitis C Screening 01/26/2025 Medicare Annual Wellness Visit 01/26/2025 Social Influencers of Health Screening 01/26/2025 Diabetes: Annual Urine Albumin-Creatinine Ratio (uACR) 03/13/2025 Diabetes: Blood Sugar Control Test (HGBA1C) 03/13/2025 COVID-19 Vaccine (9 - Pfizer risk 2024- season) 2025 12/19/2024, 12/30/2023, 12/15/2022, Additional history exists Diabetes: Annual GFR (Glomerular Filtration Rate) 02/06/2026 02/06/2025, 02/04/2025, 02/01/2025, Additional history exists Hypertension/CHF/CAD Annual BMP Blood Test 02/06/2026 02/06/2025, 02/04/2025, 02/01/2025, Additional history exists DTaP,Tdap,and Td Vaccines (3 - Td or Tdap) 09/01/2030 09/01/2020, 04/30/2017 Pneumococcal Vaccine: 50+ Years Completed 05/29/2019, 12/04/2013, 08/01/2012 RSV Immunization Adult Patients Completed 12/30/2023 Influenza Vaccine Completed 12/13/2024, , 12/15/2022, Additional history exists HIB Vaccines Aged Out No longer eligi ble based on patient's age to complete this topic HPV Vaccines Aged Out No longer eligi ble based on patient's age to complete this topic IPV Vaccines Aged Out No longer eligi ble based on patient's age to complete this topic MMR Vaccines Aged Out No longer eligi ble based on patient's age to complete this topic Meningococcal ACWY Vaccine Aged Out N o longer eligible based on patient's age to complete this topic Meningococcal B Vaccine Aged Out No l onger eligible based on patient's age to complete this topic RSV Immunization Patients Under 20 months Aged Out No longer eligible based on patient's age to complete this topic Varicella Vaccines Aged Out No longer eligible based on patient's age to complete this topic Procedures Procedure Name Priority Date/Time Associated Diagnosis Comments PET CT SKULL TO MID THIGH INITIAL Routine 03/13/2025 3:39 PM EST Non-Hodgkin lymphoma ([facility] V24, [facility] V28) BASIC METABOLIC PANEL Routine 02/06/2025 6:33 AM EDT Encounter for other general examination MANUAL DIFFERENTIAL - SYSMEX WAM Routine 02/04/2025 6:33 AM EDT Encounter for other general examination CBC WITH AUTO DIFFERENTIAL Routine 02/04/2025 6:33 AM EDT Encounter for other general examination COMPREHENSIVE METABOLIC PANEL Routine 02/04/2025 6:33 AM EDT Encounter for other general examination MAGNESIUM Routine 02/04/2025 6:33 AM EDT Encounter for other general examination CBC AND DIFFERENTIAL Routine 02/04/2025 6:33 AM EDT Encounter for other general examination MANUAL DIFFERENTIAL - SYSMEX WAM Routine 02/01/2025 7:07 AM EDT 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 CBC WITH AUTO DIFFERENTIAL Routine 02/01/2025 7:07 AM EDT Other skilled nursing (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 COMPREHENSIVE METABOLIC PANEL Routine 02/01/2025 7:07 AM EDT 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 CBC AND DIFFERENTIAL Routine 02/01/2025 7:07 AM EDT Other skilled nursing (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 MAGNESIUM Routine 01/31/2025 6:59 AM EDT Other skilled nursing (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 BASIC METABOLIC PANEL Routine 01/31/2025 6:59 AM EDT 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 MANUAL DIFFERENTIAL - SYSMEX WAM Routine 01/29/2025 6:28 AM EDT 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 CBC WITH AUTO DIFFERENTIAL Routine 01/29/2025 6:28 AM EDT 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 SST - GOLD Routine 01/29/2025 6:28 AM EDT 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 CBC AND DIFFERENTIAL Routine 01/29/2025 6:28 AM EDT Other skilled nursing (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 MANUAL DIFFERENTIAL - SYSMEX WAM Routine 01/28/2025 6:09 AM EDT Encounter for other general examination PATHOLOGIST REVIEW BLOOD SMEAR Routine 01/28/2025 6:09 AM EDT Encounter for other general examination CBC WITH AUTO DIFFERENTIAL Routine 01/28/2025 6:09 AM EDT Encounter for other general examination BASIC METABOLIC PANEL Routine 01/28/2025 6:09 AM EDT Encounter for other general examination CBC AND DIFFERENTIAL Routine 01/28/2025 6:09 AM EDT Encounter for other general examination CBC WITH AUTO DIFFERENTIAL Routine 01/26/2025 6:36 AM EDT Encounter for other general examination MAGNESIUM Routine 01/26/2025 6:36 AM EDT Encounter for other general examination COMPREHENSIVE METABOLIC PANEL Routine 01/26/2025 6:36 AM EDT Encounter for other general examination CBC AND DIFFERENTIAL Routine 01/26/2025 6:36 AM EDT Encounter for other general examination from Last 3 Months Results * PET CT Skull to Mid Thigh Initial (03/13/2025 3:39 PM EST) Anatomical Region Laterality Modality Body Radiographic Estephanie ging 03/14/2025 10:3 3 AM EST Impressions 03/14/2025 12:04 PM EST 1. 2.1 x 2.0 cm lytic lesion in the right sacral ala with associated pathologic fracture line SUV Max 5.5. Additional asymmetric FDG activity involving the right iliac wing likely representing lymphomatous involvement. 2. 12 x 11 mm opacity in the right middle lobe SUV max 3.4. Differential considerations include infectious/inflammatory process or malignancy. 3. No significant FDG avid lymphadenopathy or splenic activity Please note: The CT was acquired at a low radiation dose settings. The images are of nondiagnostic quality and used solely for purposes of attenuation correction and slice localization for the PET scan. If a diagnostic CT study is desired it must be ordered separately. -------- FINAL REPORT -------- Dictated By: Sofy Hensley Dictated Date: 03/14/2025 10:33 ET Assigned Physician: Sofy Hensley Reviewed and Electronically Signed By: Sofy Hensley Signed Date: 03/14/2025 12:04 ET Workstation ID: [id number] Transcribed By: Self Edit Transcribed Date: 03/14/2025 10:33 ET Narrative 03/14/2025 12:04 PM EST INDICATION: NON-HODGKIN LYMPHOMA. Bone marrow biopsy. Staging. TECHNIQUE: FDG PET-CT imaging was performed from the skull bases through the thighs in a single acquisition with data set reconstructed in axial, coronal, and sagittal planes at the computer workstation with fused data from both the PET imaging study and attenuation correction CT. The CT portion of the examination was done strictly for attenuation correction and is not a true diagnostic CT examination. DLP: 1560 mGy-cm Radiopharmaceutical: 11.5 mCi of F-18 FDG IV. Blood glucose: 106 mg/dl. COMPARISON: None. FINDINGS: HEAD AND NECK: No abnormal FDG activity. Mucosal thickening of the right maxillary sinus. THORAX: 12 x 11 mm opacity in the right middle lobe SUV max 3.4. No significant FDG avid thoracic or axillary lymphadenopathy above mediastinal blood pool. Biatrial enlargement. Coronary artery and thoracic aortic calcifications. 10 x 10 mm subcutaneous soft tissue nodule along the left thoracic wall likely representing an epidermal inclusion cyst without significant FDG activity. ABDOMEN/PELVIS: The spleen is not enlarged measuring 9.2 cm without significant activity SUV max 3.2. Nonspecific bilateral adrenal activity without significant adrenal nodule SUV Max 3.1 on the left and 3.7 on the right. Nonenlarged rohini hepatis and retroperitoneal lymph nodes without significant FDG activity SUV max 2. Nonenlarged bilateral pelvic lymph nodes without significant FDG activity SUV max 1.5 on the left and 2.3 on the right. No significant FDG avid inguinal lymph nodes SUV max 1.2 on the left and 1.1 on the right. Subcutaneous stranding along the left lower anterior abdominal wall SUV Max 2.3. Diverticulosis with nonspecific bowel activity. Cholecystectomy. MUSCULOSKELETAL: 2.1 x 2.0 cm lytic lesion in the right sacral ala with associated pathologic fracture line SUV Max 5.5. Asymmetric right-sided greater trochanteric bursitis SUV Max 4.3. Degenerative changes with associated FDG activity including the right shoulder SUV Max 4. Procedure Note Sofy Hensley MD - 03/14/2025 INDICATION: NON-HODGKIN LYMPHOMA. Bone marrow biopsy. Staging. TECHNIQUE: FDG PET-CT imaging was performed from the skull bases throughthe thighs in a single acquisition with data set reconstructed in axial,coronal, and sagittal planes at the computer workstation with fused datafrom both the PET imaging study and attenuation correction CT. The CTportion of the examination was done strictly for attenuation correctionand is not a true diagnostic CT examination. DLP: 1560 mGy-cm Radiopharmaceutical: 11.5 mCi of F-18 FDG IV. Blood glucose: 106 mg/dl. COMPARISON: None. FINDINGS: HEAD AND NECK: No abnormal FDG activity. Mucosal thickening of the rightmaxillary sinus. THORAX: 12 x 11 mm opacity in the right middle lobe SUV max 3.4. No significant FDG avid thoracic or axillary lymphadenopathy abovemediastinal blood pool. Biatrial enlargement. Coronary artery and thoracic aortic calcifications.10 x 10 mm subcutaneous soft tissue nodule along the left thoracic walllikely representing an epidermal inclusion cyst without significant FDGactivity. ABDOMEN/PELVIS: The spleen is not enlarged measuring 9.2 cm withoutsignificant activity SUV max 3.2. Nonspecific bilateral adrenal activity without significant adrenal noduleSUV Max 3.1 on the left and 3.7 on the right. Nonenlarged rohini hepatis and retroperitoneal lymph nodes withoutsignificant FDG activity SUV max 2. Nonenlarged bilateral pelvic lymphnodes without significant FDG activity SUV max 1.5 on the left and 2.3 onthe right. No significant FDG avid inguinal lymph nodes SUV max 1.2 onthe left and 1.1 on the right. Subcutaneous stranding along the left lower anterior abdominal wall SUVMax 2.3. Diverticulosis with nonspecific bowel activity. Cholecystectomy. MUSCULOSKELETAL: 2.1 x 2.0 cm lytic lesion in the right sacral ala withassociated pathologic fracture line SUV Max 5.5. Asymmetric right-sided greater trochanteric bursitis SUV Max 4.3.Degenerative changes with associated FDG activity including the rightshoulder SUV Max 4. IMPRESSION: 1. 2.1 x 2.0 cm lytic lesion in the right sacral ala with associatedpathologic fracture line SUV Max 5.5. Additional asymmetric FDG activityinvolving the right iliac wing likely representing lymphomatousinvolvement. 2. 12 x 11 mm opacity in the right middle lobe SUV max 3.4. Differentialconsiderations include infectious/inflammatory process or malignancy. 3. No significant FDG avid lymphadenopathy or splenic activity Please note: The CT was acquired at a low radiation dose settings. The images are ofnondiagnostic quality and used solely for purposes of attenuationcorrection and slice localization for the PET scan. If a diagnostic CTstudy is desired it must be ordered separately. -------- FINAL REPORT -------- Dictated By: Sofy Hensley Dictated Date: 03/14/2025 10:33 ET Assigned Physician: Sofy Hensley Reviewed and Electronically Signed By: Sofy Hensley Signed Date: 03/14/2025 12:04 ET Workstation ID: [id number] Transcribed By: Self Edit Transcribed Date: 03/14/2025 10:33 ET us Ana Horan MD IM NM PROCEDURES Final Result * (ABNORMAL) Basic metabolic panel (02/06/2025 6:33 AM EDT) Only the most recent of3 resultswithin the time period is included. Sodium 137 133 - 145 mmol/L LAB CHEMISTRY METHOD 02/06/2025 10:54 AM [facility] Potassium 3.8 3.5 - 5.5 mmol/L LAB CHEMISTRY METHOD 02/06/2025 10:54 AM [facility] Chloride 102 96 - 110 mmol/L LAB CHEMISTRY METHOD 02/06/2025 10:54 AM [facility] CO2 29 21 - 32 mmol/L LAB CHEMISTRY METHOD 02/06/2025 10:54 AM [facility] Anion Gap 6 3 - 11 LAB CHEMISTRY METHOD 02/06/2025 10:54 AM [facility] Glucose 125(H) 70 - 100 mg/dL LAB CHEMISTRY METHOD 02/06/2025 10:54 AM [facility] BUN 43(H) 5 - 25 mg/dL LAB CHEMISTRY METHOD 02/06/2025 10:54 AM [facility] Creatinine 2.23(H) 0.70 - 1.30 mg/dL LAB CHEMISTRY METHOD 02/06/2025 10:54 AM [facility] eGFR 29(L) >=60 mL/min/1. 73m2 LAB CHEMISTRY METHOD 02/06/2025 10:54 AM EDT [facility] Comment:Calculation based on the Chronic Kidney Disease Epidemiology Collaboration (CKD-EPI) equation refit without adjustment for race. BUN/Creatinine Ratio 19.3 LAB CHEMISTRY METHOD 02/06/2025 10:54 AM EDT [facility] Calcium 8.6 8.5 - 10.5 mg/dL LAB CHEMISTRY METHOD 02/06/2025 10:54 AM EDT [facility] Blood Venous blood specimen / Unknown 02/06/2025 6:33 AM EDT 02/06/2025 9:49 AM EDT us Catrachita Myers MD LAB BLOOD ORDERABLES Final Resu lt [facility] [address] [place] [address], * (ABNORMAL) Manual differential (02/04/2025 6:33 AM EDT) Only the most recent of4 resultswithin the time period is included. Neutrophils % 39.0 % LAB HEMETOLOGY METHOD 02/04/2025 10:24 AM T [facility] Lymphocytes % 38.0 % LAB HEMETOLOGY METHOD 02/04/2025 10:24 AM T [facility] Monocytes % 16.0 % LAB HEMETOLOGY METHOD 02/04/2025 10:24 AM EDT [facility] Eosinophils % 4.0 % LAB HEMETOLOGY METHOD 02/04/2025 10:24 AM EDT [facility] Basophils % 4.0 % LAB HEMETOLOGY METHOD 02/04/2025 10:24 AM [facility] Neutrophils Absolute Manual 0.70(L) 1.50 - 7.00 K/mcL LAB HEMETOLOGY METHOD 02/04/2025 10:24 AM EDT [facility] Lymphocytes Absolute 0.68(L) 1.00 - 5.00 K/mcL LAB HEMETOLOGY METHOD 02/04/2025 10:24 AM EDT [facility] Monocytes Absolute Manual 0.29 0.20 - 1.00 K/mcL LAB HEMETOLOGY METHOD 02/04/2025 10:24 AM EDT [facility] Eosinophils Absolute Manual 0.07 0.00 - 0.50 K/mcL LAB HEMETOLOGY METHOD 02/04/2025 10:24 AM EDT [facility] Basophils Absolute Manual 0.07 0.00 - 0.20 K/mcL LAB HEMETOLOGY METHOD 02/04/2025 10:[facility] Rbc Morphology Present( A) Consistent with indices, Normal for LAB HEMETOLOGY METHOD 02/04/2025 10:24 AM EDT [facility] Platelet Morphology - WAM See Note(A) Normal LAB HEMETOLOGY METHOD 02/04/2025 10:24 AM EDT [facility] Comment:PLT: Normal Polychromasia Present Present( A) (none) LAB HEMETOLOGY METHOD 02/04/2025 10:24 AM [facility] Ovalocytes Present 5 - 10%(A) (none) LAB HEMETOLOGY METHOD 02/04/2025 10:24 AM [facility] Tear Drop Cells Present 5 - 10%(A) (none) LAB HEMETOLOGY METHOD 02/04/2025 10:24 AM T [facility] Toxic Granules Present Present( A) (none) LAB HEMETOLOGY METHOD 02/04/2025 10:24 AM [facility] Blood Venous blood specimen / Unknown Venipuncture / Unknown 02/04/2025 6:33 AM EDT 02/04/2025 8:40 AM EDT us Catrachita Meyrs MD LAB BLOOD ORDERABLES Final Resu lt [facility] [address] [place] [address], * (ABNORMAL) CBC auto differential (02/04/2025 6:33 AM EDT) Only the most recent of5 resultswithin the time period is included. WBC 1.8(LL) 4.8 - 10.8 K/mcL LAB HEMETOLOGY METHOD 02/04/2025 10:24 AM EDT [facility] RBC 2.10(L) 4.50 - 5.50 M/mcL LAB HEMETOLOGY METHOD 02/04/2025 10:24 AM EDT [facility] Hemoglobin 7.7(L) 13.5 - 17.5 g/dL LAB HEMETOLOGY METHOD 02/04/2025 10:24 AM EDT [facility] Hematocrit 23.4(L) 42.0 - 54.0 % LAB HEMETOLOGY METHOD 02/04/2025 10:24 AM EDT [facility] MCV 112.5(H) 79.0 - 98.0 FL LAB HEMETOLOGY METHOD 02/04/2025 10:24 AM [facility] MCH 37.0(H) 27.0 - 32.0 pcg LAB HEMETOLOGY METHOD 02/04/2025 10:24 AM EDT [facility] MCHC 32.9 32.0 - 37.0 g/dL LAB HEMETOLOGY METHOD 02/04/2025 10:24 AM EDT [facility] RDW 15.9(H) 11.0 - 15.0 % LAB HEMETOLOGY METHOD 02/04/2025 10:24 AM [facility] Platelets 57(L) 130 - 400 K/mcL LAB HEMETOLOGY METHOD 02/04/2025 10:24 AM EDT [facility] Comment:previously verified by slide MPV 11.3(H) 7.0 - 11.0 FL LAB HEMETOLOGY METHOD 02/04/2025 10:24 AM EDT [facility] NRBC 0.0 <1.0 % LAB HEMETOLOGY METHOD 02/04/2025 10:24 AM EDT [facility] NRBC Absolute 0.00 <0.10 K/mcL LAB HEMETOLOGY METHOD 02/04/2025 10:24 AM EDT [facility] Blood Venous blood specimen / Unknown Venipuncture / Unknown 02/04/2025 6:33 AM EDT 02/04/2025 8:40 AM EDT us Catrachita Myers MD LAB BLOOD ORDERABLES Final Resu lt Performing Organization Address City/[facility]/ZIP Co de Phone Number [facility] [address] [place] [address], [place] [phone] * Magnesium (02/04/2025 6:33 AM EDT) Only the most recent of3 resultswithin the time period is included. Magnesium 2.3 1.9 - 2.6 mg/dL LAB CHEMISTRY METHOD 02/04/2025 9:30 AM EDT [facility] Blood Venous blood specimen / Unknown Venipuncture / Unknown 02/04/2025 6:33 AM EDT 02/04/2025 8:40 AM EDT us Catrachita Myers MD LAB BLOOD ORDERABLES Final Resu lt Performing Organization Address City/[facility]/ZIP Co de Phone Number [facility] [address] [place] [address], [place] [phone] * (ABNORMAL) Comprehensive metabolic panel (02/04/2025 6:33 AM EDT) Only the most recent of3 resultswithin the time period is included. Sodium 138 133 - 145 mmol/L LAB CHEMISTRY METHOD 02/04/2025 9:30 AM [facility] Potassium 4.2 3.5 - 5.5 mmol/L LAB CHEMISTRY METHOD 02/04/2025 9:30 AM [facility] Chloride 103 96 - 110 mmol/L LAB CHEMISTRY METHOD 02/04/2025 9:30 AM [facility] CO2 31 21 - 32 mmol/L LAB CHEMISTRY METHOD 02/04/2025 9:30 AM [facility] Anion Gap 4 3 - 11 LAB CHEMISTRY METHOD 02/04/2025 9:30 AM [facility] Glucose 98 70 - 100 mg/dL LAB CHEMISTRY METHOD 02/04/2025 9:30 AM [facility] BUN 42(H) 5 - 25 mg/dL LAB CHEMISTRY METHOD 02/04/2025 9:30 AM [facility] Creatinine 2.26(H) 0.70 - 1.30 mg/dL LAB CHEMISTRY METHOD 02/04/2025 9:30 AM [facility] eGFR 29(L) >=60 mL/min/1. 73m2 LAB CHEMISTRY METHOD 02/04/2025 9:30 AM [facility] Comment:Calculation based on the Chronic Kidney Disease Epidemiology Collaboration (CKD-EPI) equation refit without adjustment for race. BUN/Creatinine Ratio 18.6 LAB CHEMISTRY METHOD 02/04/2025 9:30 AM [facility] Calcium 8.7 8.5 - 10.5 mg/dL LAB CHEMISTRY METHOD 02/04/2025 9:30 AM [facility] AST (SGOT) 16 10 - 42 unit/L LAB CHEMISTRY METHOD 02/04/2025 9:30 AM [facility] ALT (SGPT) 20 10 - 60 unit/L LAB CHEMISTRY METHOD 02/04/2025 9:30 AM [facility] Alkaline Phosphatase 81 42 - 121 unit/L LAB CHEMISTRY METHOD 02/04/2025 9:30 AM EDT [facility] Total Protein 6.1 6.0 - 8.0 g/dL LAB CHEMISTRY METHOD 02/04/2025 9:30 AM EDT [facility] Albumin 3.2 3.2 - 5.0 g/dL LAB CHEMISTRY METHOD 02/04/2025 9:30 AM EDT [facility] Total Bilirubin 1.1 0.0 - 1.4 mg/dL LAB CHEMISTRY METHOD 02/04/2025 9:30 AM EDT [facility] Blood Venous blood specimen / Unknown Venipuncture / Unknown 02/04/2025 6:33 AM EDT 02/04/2025 8:40 AM EDT us Catrachita Myers MD LAB BLOOD ORDERABLES Final Resu lt Performing Organization Address City/[facility]/ZIP Co de Phone Number [facility] [address] [place] [address], [place] [phone] * SST tube (01/29/2025 6:28 AM EDT) Extra Tube Hold for add-ons. 01/29/2025 10:01 AM EDT [facility] Comment:Auto resulted. Blood Venous blood specimen / Unknown Venipuncture / Unknown 01/29/2025 6:28 AM EDT 01/29/2025 8:50 AM EDT us Talia NERI LAB BLOOD ORDERABLES Final Re sult [facility] [address] [place] [address], [place] [phone] * Pathology review, blood smear (01/28/2025 6:09 AM EDT) Pathologist Review Blood Smear Pancytopenia: smear not diagnostic of etiology. (See comment.) Thrombocytopenia confirmed (no significant platelet clumps identified). Macrocytic anemia: possible causes include medication/toxin effects, B12/folate deficiency, liver disease, hypothroidism, myelodysplasia or other causes. Absolute neutropenia is present. Comment: Clinical correlation and follow-up are recommended. 01/28/2025 2:32 PM EDT [facility] ([facility]) [facility] Blood Venous blood specimen / Unknown Venipuncture / Unknown 01/28/2025 6:09 AM EDT 01/28/2025 10:11 AM EDT us Catrachita Myers MD LAB BLOOD ORDERABLES Final Resu lt [facility] [address] [place] [address], from Last 3 Months Insurance [employer] Care Teams [employer] Supervisor Relationship Specialty Start Date End Date Dasia Funes NP [address] [place] [phone] PCP - General Nurse Practitioner 01/26/25
--- OUTSIDE RECORDS SUMMARY | 2025-04-01 14:15 | XMS_ITS | Encounter Summary ---
Author Organization [facility] Address [address] [place] [address] Care Team Providers Care Mechanical Spreader Operator Name Role Phone Dasia Funes OCCUPATIONAL THERAPY ASSISTANT Primary Care Provider [phone] Encounter Details Date Type Department Care Team (Late st Contact Info) Description 01/26/2025 Lab Requisition [facility] Lab [address] [facility] [address] [place] [address] Dasia Funes NP [address] [place] [address] Encounter for other general examination Social History Tobacco Use Types Packs/Day Years Used Date Smoking Tobacco: Never Assessed Sex and Gender Information Value Date Recorded Sex Assigned at Not on file Legal Sex Male 9:51 AM EDT Gender Identity Not on file Sexual Orientation Not on file documented as of this encounter Plan of Treatment Not on file documented as of this encounter Procedures Procedure Name Priority Date/Time Associated Diagnosis Comments CBC WITH AUTO DIFFERENTIAL Routine 01/26/2025 6:36 AM EDT Encounter for other general examination CBC AND DIFFERENTIAL Routine 01/26/2025 6:36 AM EDT Encounter for other general examination MAGNESIUM Routine 01/26/2025 6:36 AM EDT Encounter for other general examination COMPREHENSIVE METABOLIC PANEL Routine 01/26/2025 6:36 AM EDT Encounter for other general examination documented in this encounter Results * (ABNORMAL) CBC auto differential (01/26/2025 6:36 AM EDT) WBC 2.4(L) 4.8 - 10.8 K/mcL LAB HEMETOLOGY METHOD 01/26/2025 11:06 AM EDT [facility] RBC 2.30(L) 4.50 - 5.50 M/mcL LAB HEMETOLOGY METHOD 01/26/2025 11:06 AM [facility] Hemoglobin 8.4(L) 13.5 - 17.5 g/dL LAB HEMETOLOGY METHOD 01/26/2025 11:06 AM [facility] LAB Hematocrit 25.1(L) 42.0 - 54.0 % LAB HEMETOLOGY METHOD 01/26/2025 11:06 AM [facility] MCV 111.1(H) 79.0 - 98.0 FL LAB HEMETOLOGY METHOD 01/26/2025 11:06 AM [facility] LAB MCH 37.2(H) 27.0 - 32.0 pcg LAB HEMETOLOGY METHOD 01/26/2025 11:06 AM [facility] LAB MCHC 33.5 32.0 - 37.0 g/dL LAB HEMETOLOGY METHOD 01/26/2025 11:06 AM [facility] LAB RDW 15.7(H) 11.0 - 15.0 % LAB HEMETOLOGY METHOD 01/26/2025 11:06 AM [facility] LAB Platelets 55(L) 130 - 400 K/mcL LAB HEMETOLOGY METHOD 01/26/2025 11:06 AM [facility] LAB Comment:reviewed by slide MPV 12.3(H) 7.0 - 11.0 FL LAB HEMETOLOGY METHOD 01/26/2025 11:06 AM [facility] LAB NRBC 0.8 <1.0 % LAB HEMETOLOGY METHOD 01/26/2025 11:06 AM [facility] LAB NRBC Absolute 0.02 <0.10 K/mcL LAB HEMETOLOGY METHOD 01/26/2025 11:06 AM [facility] Neutrophils Relative 41.0 % LAB HEMETOLOGY METHOD 01/26/2025 11:06 AM [facility] Lymphocytes Relative 41.4 % LAB HEMETOLOGY METHOD 01/26/2025 11:06 AM [facility] Monocytes Relative 14.8 % LAB HEMETOLOGY METHOD 01/26/2025 11:06 AM [facility] Eosinophils Relative 1.6 % LAB HEMETOLOGY METHOD 01/26/2025 11:06 AM [facility] Basophils Relative 0.8 % LAB HEMETOLOGY METHOD 01/26/2025 11:06 AM [facility] Immature Granulocytes Relative 0.4 % LAB HEMETOLOGY METHOD 01/26/2025 11:06 AM [facility] Neutrophils Absolute 1.00(L) 1.50 - 7.00 K/mcL LAB HEMETOLOGY METHOD 01/26/2025 11:06 AM [facility] Lymphocytes Absolute 1.01 1.00 - 5.00 K/mcL LAB HEMETOLOGY METHOD 01/26/2025 11:06 AM [facility] Monocytes Absolute 0.36 0.20 - 1.00 K/mcL LAB HEMETOLOGY METHOD 01/26/2025 11:06 AM [facility] Eosinophils Absolute 0.04 0.00 - 0.50 K/mcL LAB HEMETOLOGY METHOD 01/26/2025 11:06 AM [facility] Basophils Absolute 0.02 0.00 - 0.20 K/mcL LAB HEMETOLOGY METHOD 01/26/2025 11:06 AM [facility] Immature Granulocytes Absolute 0.01 0.00 - 0.03 K/mcL LAB HEMETOLOGY METHOD 01/26/2025 11:06 AM [facility] Blood Venous blood specimen / Unknown Venipuncture / Unknown 01/26/2025 6:36 AM EDT 01/26/2025 10:02 AM EDT [facility] LAB BLOOD ORDERABLES Final Resul t Performing Organization Address City/[facility]/ZIP Co de Phone Number [facility] [address] [place] [address], [place] [phone] * Magnesium (01/26/2025 6:36 AM EDT) Pathologist [facility] Magnesium 2.2 1.9 - 2.6 mg/dL LAB CHEMISTRY METHOD 01/26/2025 11:36 AM EDT [facility] Blood Venous blood specimen / Unknown Venipuncture / Unknown 01/26/2025 6:36 AM EDT 01/26/2025 10:02 AM EDT [facility] LAB BLOOD ORDERABLES Final Resul t Performing Organization Address [facility] Co de Phone Number [facility] [address] [place] [address], [place] [phone] * (ABNORMAL) Comprehensive metabolic panel (01/26/2025 6:36 AM EDT) [facility] Sodium 138 133 - 145 mmol/L LAB CHEMISTRY METHOD 01/26/2025 11:36 AM EDT [facility] Potassium 4.2 3.5 - 5.5 mmol/L LAB CHEMISTRY METHOD 01/26/2025 11:36 AM EDT [facility] Chloride 102 96 - 110 mmol/L LAB CHEMISTRY METHOD 01/26/2025 11:36 AM EDT [facility] CO2 29 21 - 32 mmol/L LAB CHEMISTRY METHOD 01/26/2025 11:36 AM EDT [facility] Anion Gap 7 3 - 11 LAB CHEMISTRY METHOD 01/26/2025 11:36 AM EDT [facility] Glucose 118(H) 70 - 100 mg/dL LAB CHEMISTRY METHOD 01/26/2025 11:36 AM EDT [facility] BUN 35(H) 5 - 25 mg/dL LAB CHEMISTRY METHOD 01/26/2025 11:36 AM [facility] Creatinine 2.12(H) 0.70 - 1.30 mg/dL LAB CHEMISTRY METHOD 01/26/2025 11:36 AM [facility] LAB eGFR 31(L) >=60 mL/min/1. 73m2 LAB CHEMISTRY METHOD 01/26/2025 11:36 AM [facility] LAB Comment:Calculation based on the Chronic Kidney Disease Epidemiology Collaboration (CKD-EPI) equation refit without adjustment for race. BUN/Creatinine Ratio 16.5 LAB CHEMISTRY METHOD 01/26/2025 11:36 AM [facility] Calcium 8.8 8.5 - 10.5 mg/dL LAB CHEMISTRY METHOD 01/26/2025 11:36 AM [facility] AST (SGOT) 18 10 - 42 unit/L LAB CHEMISTRY METHOD 01/26/2025 11:36 AM [facility] ALT (SGPT) 17 10 - 60 unit/L LAB CHEMISTRY METHOD 01/26/2025 11:36 AM [facility] Alkaline Phosphatase 70 42 - 121 unit/L LAB CHEMISTRY METHOD 01/26/2025 11:36 AM [facility] Total Protein 6.8 6.0 - 8.0 g/dL LAB CHEMISTRY METHOD 01/26/2025 11:36 AM [facility] Albumin 3.7 3.2 - 5.0 g/dL LAB CHEMISTRY METHOD 01/26/2025 11:36 AM [facility] Total Bilirubin 1.7(H) 0.0 - 1.4 mg/dL LAB CHEMISTRY METHOD 01/26/2025 11:36 AM [facility] LAB Blood Venous blood specimen / Unknown Venipuncture / Unknown 01/26/2025 6:36 AM EDT 01/26/2025 10:02 AM EDT us Dasia Funes NP LAB BLOOD ORDERABLES Final Resul t [facility] ([facility] [address] [place] [address], documented in this encounter Visit Diagnoses Diagnosis Encounter for other general examination documented in this encounter Care Teams Mechanical Spreader Operator Relationship Specialty Start Date End Date Dasia Funes NP [address] [place] [address] PCP - General Nurse Practitioner 01/26/25 documented as of this encounter
--- OUTSIDE RECORDS SUMMARY | 2025-04-01 14:15 | XMS_ITS | Encounter Summary ---
Author Organization [facility] Address [address] [place] [address] Care Team Providers Care Emissions Repair Technician Name Role Phone Dasia Funes RONDA Primary Care Provider [phone] Encounter Details Date Type Department Care Team (Late st Contact Info) Description 01/31/2025 Lab Requisition [facility] Lab [address] [place] [address] Catrachita Myers MD [address] [place] [id number] [facility] [place] [facility] (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 Social History Tobacco Use Types Packs/Day Years [...] Procedure Name Priority Date/Time Associated Diagnosis Comments MAGNESIUM Routine 01/31/2025 6:59 AM EDT Other medical terminologist (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 BASIC METABOLIC PANEL Routine 01/31/2025 6:59 AM EDT [place] [facility] (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 documented in this encounter Results * Magnesium (01/31/2025 6:59 AM EDT) Magnesium 2.5 1.9 - 2.6 mg/dL LAB CHEMISTRY METHOD 01/31/2025 1:54 PM EDT [facility] Blood Venous blood specimen / Unknown Venipuncture / Unknown 01/31/2025 6:59 AM EDT 01/31/2025 11:59 AM EDT us Catrachita Myers MD LAB BLOOD ORDERABLES Final Resu lt [facility] [address] [place] [address], * (ABNORMAL) Basic metabolic panel (01/31/2025 6:59 AM EDT) Sodium 139 133 - 145 mmol/L LAB CHE[facility]STRY [facility] Potassium 3.5 3.5 - 5.5 mmol/L LAB CHEMISTRY METHOD 01/31/2025 1:[address] [facility] Chloride 103 96 - 110 mmol/L LAB CHEMISTRY METHOD 01/31/2025 1:[address] [facility] CO2 27 21 - 32 mmol/L LAB CHEMISTRY METHOD 01/31/2025 1:[address] [facility] Anion Gap 9 3 - 11 LAB CHEMISTRY METHOD 01/31/2025 1:[address] [facility] Glucose 149(H) 70 - 100 mg/dL LAB CHEMISTRY METHOD 01/31/2025 1:[address] [facility] BUN 46(H) 5 - 25 mg/dL LAB CHEMISTRY METHOD 01/31/2025 1:[address] [facility] Creatinine 2.23(H) 0.70 - 1.30 mg/dL LAB CHEMISTRY METHOD 01/31/2025 1:[address] [facility] eGFR 29(L) >=60 mL/min/1. 73m2 LAB CHEMISTRY METHOD 01/31/2025 1:[address] [facility] LAB Comment:Calculation based on the Chronic Kidney Disease Epidemiology Collaboration (CKD-EPI) equation refit without adjustment for race. BUN/Creatinine Ratio 20.6 LAB CHEMISTRY METHOD 01/31/2025 1:[address] [facility] Calcium 8.5 8.5 - 10.5 mg/dL LAB CHEMISTRY METHOD 01/31/2025 1:57 PM EDT [facility] Blood Venous blood specimen / Unknown Venipuncture / Unknown 01/31/2025 6:59 AM EDT 01/31/2025 11:59 AM EDT us Catrachita Myers MD LAB BLOOD ORDERABLES Final Resu lt [facility] [address] [place] [address], documented in this encounter Visit Diagnoses Diagnosis [facility] [place] 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 documented in this encounter Care Teams Emissions Repair Technician Relationship Specialty Start Date End Date Dasia Funes NP [address] [place] [address] PCP - General Nurse Practitioner 01/26/25 documented as of this encounter
--- OUTSIDE RECORDS SUMMARY | 2025-04-01 14:16 | XMS_ITS | Encounter Summary ---
Author Organization [facility] Address [address] [place] [address] Care Team Providers Care Smelter Liner Name Role Phone Dasia Funes RONDA Primary Care Provider [phone] Encounter Details Date Type Department Care Team (Late st Contact Info) Description 02/04/[address] [facility] Lab [address] [facility] [place] [address] Catrachita Myers MD [address] [place] [address] Encounter for other general examination Social History [...] Procedure Name Priority Date/Time Associated Diagnosis Comments MANUAL DIFFERENTIAL - SYSMEX WAM Routine 02/04/2025 [...] documented in this encounter Results * (ABNORMAL) Manual differential (02/04/2025 6:33 AM EDT) Neutrophils % 39.0 % LAB HEMETOLOGY METHOD 02/04/2025 10:24 AM [facility] Lymphocytes % 38.0 % LAB HEMETOLOGY METHOD 02/04/2025 10:24 AM [facility] Monocytes % 16.0 % LAB HEMETOLOGY METHOD 02/04/2025 10:24 AM [facility] Eosinophils % 4.0 % LAB HEMETOLOGY METHOD 02/04/2025 10:24 AM [facility] Basophils % 4.0 % LAB HEMETOLOGY METHOD 02/04/2025 10:24 AM [facility] Neutrophils Absolute Manual 0.70(L) 1.50 - 7.00 K/mcL LAB HEMETOLOGY METHOD 02/04/2025 10:24 AM [facility] Lymphocytes Absolute 0.68(L) 1.00 - 5.00 K/mcL LAB HEMETOLOGY METHOD 02/04/2025 10:24 AM [facility] Monocytes Absolute Manual 0.29 0.20 - 1.00 K/mcL LAB HEMETOLOGY METHOD 02/04/2025 10:24 AM [facility] Eosinophils Absolute Manual 0.07 0.00 - 0.50 K/mcL LAB HEMETOLOGY METHOD 02/04/2025 10:24 AM [facility] Basophils Absolute Manual 0.07 0.00 - 0.20 K/mcL LAB HEMETOLOGY METHOD 02/04/2025 10:24 AM [facility] Rbc Morphology Present( A) Consistent with indices, Normal for LAB HEMETOLOGY METHOD 02/04/2025 10:24 AM [facility] Platelet Morphology - WAM See Note(A) Normal LAB HEMETOLOGY METHOD 02/04/2025 10:24 AM [facility] LAB Comment:PLT: Normal Polychromasia Present Present( A) (none) LAB HEMETOLOGY METHOD 02/04/2025 10:24 AM EDT [facility] Ovalocytes Present 5 - 10%(A) (none) LAB HEMETOLOGY METHOD 02/04/2025 10:24 AM EDT [facility] Tear Drop Cells Present 5 - 10%(A) (none) LAB HEMETOLOGY METHOD 02/04/2025 10:24 AM EDT [facility] Toxic Granules Present Present( A) (none) LAB HEMETOLOGY METHOD 02/04/2025 10:24 AM EDT [facility] Blood Venous blood specimen / Unknown Venipuncture / Unknown 02/04/2025 6:33 AM EDT 02/04/2025 8:40 AM EDT us Catrachita Myers MD LAB BLOOD ORDERABLES Final Resu lt [facility] [address] [place] [address], * (ABNORMAL) CBC auto differential (02/04/2025 6:33 AM EDT) WBC 1.8(LL) 4.8 - 10.8 K/mcL LAB HEMETOLOGY METHOD 02/04/2025 10:24 AM EDT [facility] RBC 2.10(L) 4.50 - 5.50 M/mcL LAB HEMETOLOGY METHOD 02/04/2025 10:24 AM EDT [facility] Hemoglobin 7.7(L) 13.5 - 17.5 g/dL LAB HEMETOLOGY METHOD 02/04/2025 10:24 AM EDT [facility] Hematocrit 23.4(L) 42.0 - 54.0 % LAB HEMETOLOGY METHOD 02/04/2025 10:24 AM EDT [facility] MCV 112.5(H) 79.0 - 98.0 FL LAB HEMETOLOGY METHOD 02/04/2025 10:24 AM EDT [facility] MCH 37.0(H) 27.0 - 32.0 pcg LAB HEMETOLOGY METHOD 02/04/2025 10:24 AM EDT [facility] MCHC 32.9 32.0 - 37.0 g/dL LAB HEMETOLOGY METHOD 02/04/2025 10:24 AM EDT [facility] RDW 15.9(H) 11.0 - 15.0 % LAB HEMETOLOGY METHOD 02/04/2025 10:24 AM EDT [facility] Platelets 57(L) 130 - 400 K/mcL LAB HEMETOLOGY METHOD 02/04/2025 10:24 AM EDT [facility] Comment:previously verified by slide MPV 11.3(H) 7.0 - 11.0 FL LAB HEMETOLOGY METHOD 02/04/2025 10:24 AM EDT [facility] NRBC 0.0 <1.0 % LAB HEMETOLOGY METHOD 02/04/2025 10:24 AM EDT [facility] NRBC Absolute 0.00 <0.10 K/mcL LAB HEMETOLOGY METHOD 02/04/2025 10:24 AM T [facility] Blood Venous blood specimen / Unknown Venipuncture / Unknown 02/04/2025 6:33 AM EDT 02/04/2025 8:40 AM EDT us Catrachita Myers MD LAB BLOOD ORDERABLES Final Resu lt [facility] [address] [place] [address], * (ABNORMAL) Comprehensive metabolic panel (02/04/2025 6:33 AM EDT) [facility] Sodium 138 133 - 145 mmol/L LAB CHEMISTRY METHOD 02/04/2025 9:30 AM [facility] Potassium 4.2 3.5 - 5.5 mmol/L LAB CHEMISTRY METHOD 02/04/2025 9:30 AM [facility] Chloride 103 96 - 110 mmol/L LAB CHEMISTRY METHOD 02/04/2025 9:30 AM [facility] CO2 31 21 - 32 mmol/L LAB CHEMISTRY METHOD 02/04/2025 9:30 AM [facility] Anion Gap 4 3 - 11 LAB CHEMISTRY METHOD 02/04/2025 9:30 AM [facility] Glucose 98 70 - 100 mg/dL LAB CHEMISTRY METHOD 02/04/2025 9:30 AM [facility] BUN 42(H) 5 - 25 mg/dL LAB CHEMISTRY METHOD 02/04/2025 9:30 AM [facility] Creatinine 2.26(H) 0.70 - 1.30 mg/dL LAB CHEMISTRY METHOD 02/04/2025 9:30 AM [facility] eGFR 29(L) >=60 mL/min/1. 73m2 LAB CHEMISTRY METHOD 02/04/2025 9:30 AM [facility] Comment:Calculation based on the Chronic Kidney Disease Epidemiology Collaboration (CKD-EPI) equation refit without adjustment for race. BUN/Creatinine Ratio 18.6 LAB CHEMISTRY METHOD 02/04/2025 9:30 AM [facility] Calcium 8.7 8.5 - 10.5 mg/dL LAB CHEMISTRY METHOD 02/04/2025 9:30 AM [facility] AST (SGOT) 16 10 - 42 unit/L LAB CHEMISTRY METHOD 02/04/2025 9:30 AM [facility] ALT (SGPT) 20 10 - 60 unit/L LAB CHEMISTRY METHOD 02/04/2025 9:30 AM [facility] Alkaline Phosphatase 81 42 - 121 unit/L LAB CHEMISTRY METHOD 02/04/2025 9:30 AM EDT [facility] Total Protein 6.1 6.0 - 8.0 g/dL LAB CHEMISTRY METHOD 02/04/2025 9:30 AM EDT [facility] Albumin 3.2 3.2 - 5.0 g/dL LAB CHEMISTRY METHOD 02/04/2025 9:30 AM EDT [facility] Total Bilirubin 1.1 0.0 - 1.4 mg/dL LAB CHEMISTRY METHOD 02/04/2025 9:30 AM EDT [facility] Blood Venous blood specimen / Unknown Venipuncture / Unknown 02/04/2025 6:33 AM EDT 02/04/2025 8:40 AM EDT us Catrachita Myers MD LAB BLOOD ORDERABLES Final Resu lt Performing Organization Address [facility]/ZIP Co de Phone Number [facility] [address] [place] [address], [place] [phone] * Magnesium (02/04/2025 6:33 AM EDT) Magnesium 2.3 1.9 - 2.6 mg/dL LAB CHEMISTRY METHOD 02/04/2025 9:30 AM EDT [facility] Blood Venous blood specimen / Unknown Venipuncture / Unknown 02/04/2025 6:33 AM EDT 02/04/2025 8:40 AM EDT us Catrachita Myers MD LAB BLOOD ORDERABLES Final Resu lt Performing Organization Address [facility]/ZIP Co de Phone Number [facility] [address] [place] [address], [place] [phone] documented in this encounter Visit Diagnoses Diagnosis Encounter for other general examination documented in this encounter Care Teams Smelter Liner Relationship Specialty Start Date End Date Dasia Funes NP [address] [place] [address] PCP - General Nurse Practitioner 01/26/25 documented as of this encounter
--- OUTSIDE RECORDS SUMMARY | 2025-04-01 14:16 | XMS_ITS | Encounter Summary ---
Author Organization [facility] Address [address] [place] [address] Care Team Providers Care Depositing Machine Operator Name Role Phone Dasia Funes NP Primary Care Provider [phone] Encounter Details Date Type Department Care Team (Late st Contact Info) Description 01/26/2025 Lab Requisition [facility] - Main Lab [address] [facility] [address] [facility] [place] [address] Dasia Funes NP [address] [place] [address] Social History Tobacco Use Types Packs/Day Years Used Date Smoking Tobacco: Never Assessed Sex and Gender Information Value Date Recorded Sex Assigned at Not on file Legal Sex Male 9:51 AM EDT Gender Identity Not on file Sexual Orientation Not on file documented as of this encounter Plan of Treatment Not on file documented as of this encounter Visit Diagnoses Not on filedocumented in this encounter Care Teams Depositing Machine Operator Relationship Specialty Start Date End Date Dasia Funes NP [address] [place] [phone] PCP - General Nurse Practitioner 01/26/25 documented as of this encounter
--- OUTSIDE RECORDS SUMMARY | 2025-04-01 14:16 | XMS_ITS | Clinical Summary ---
Author Organization [facility] Address [address] [address] Phone Care Team Providers Care Junior Web Developer Name Role Phone John Alexander MD Primary [...] Upcoming Encounters Date Type Department Care Team (Latest Contact Info) Description 04/18/2025 Orders Only [facility] [address] [place] [address] Timmy Siu MD [address] [address] Stage 3b chronic kidney disease (HCC); Type 2 diabetes mellitus with diabetic chronic kidney disease (HCC); Renal osteodystrophy 05/13/2025 1:15 PM EST Office Visit [facility] [address] [place] [address] Timmy Siu MD [address] [address] Health Maintenance Due Date Last Done [...] Health Medicare [facility] Medicare Care Teams Junior Web Developer Relationship Specialty Start Date End Date John Alexander MD [address] [place] [address] [id number] [place], [place] PCP - General 04/21/20
--- OUTSIDE RECORDS SUMMARY | 2025-04-01 14:16 | XMS_ITS | Encounter Summary ---
Author Organization [facility] Address [address] [place] [address] Care Team Providers Care Mother Superior Name Role Phone Dasia Funes RONDA Primary Care Provider [phone] Encounter Details Date Type Department Care Team (Late st Contact Info) Description 01/29/2025 Lab Requisition [facility] - Main Lab [address] [facility] [place] [address] Talia Coles PA [address] [place] [address] Other residential (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 Social History Tobacco Use [...] Procedure Name Priority Date/Time Associated Diagnosis Comments SST - GOLD Routine 01/29/2025 6:28 AM EDT Other oysterman (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 MANUAL DIFFERENTIAL - SYSMEX WAM Routine 01/29/2025 6:28 AM EDT Other residential (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 CBC WITH AUTO DIFFERENTIAL Routine 01/29/2025 6:28 AM EDT Other residential (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 CBC AND DIFFERENTIAL Routine 01/29/2025 6:28 AM EDT Other oysterman (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 documented in this encounter Results * (ABNORMAL) Manual differential (01/29/2025 6:28 AM EDT) Neutrophils % 31.0 % LAB HEMETOLOGY METHOD 01/29/2025 11:30 AM [facility] Lymphocytes % 43.0 % LAB HEMETOLOGY METHOD 01/29/2025 11:30 AM [facility] Monocytes % 22.0 % LAB HEMETOLOGY METHOD 01/29/2025 11:30 AM [facility] Eosinophils % 4.0 % LAB HEMETOLOGY METHOD 01/29/2025 11:30 AM [facility] Basophils % 0.0 % LAB HEMETOLOGY METHOD 01/29/2025 11:30 AM [facility] Neutrophils Absolute Manual 0.56(L) 1.50 - 7.00 K/mcL LAB HEMETOLOGY METHOD 01/29/2025 11:30 AM [facility] Lymphocytes Absolute 0.77(L) 1.00 - 5.00 K/mcL LAB HEMETOLOGY METHOD 01/29/2025 11:30 AM [facility] Monocytes Absolute Manual 0.40 0.20 - 1.00 K/mcL LAB HEMETOLOGY METHOD 01/29/2025 11:30 AM [facility] Eosinophils Absolute Manual 0.07 0.00 - 0.50 K/mcL LAB HEMETOLOGY METHOD 01/29/2025 11:30 AM [facility] Basophils Absolute Manual 0.00 0.00 - 0.20 K/mcL LAB HEMETOLOGY METHOD 01/29/2025 11:30 AM [facility] Rbc Morphology Consistent with indices Consistent with indices, Normal for LAB HEMETOLOGY METHOD 01/29/2025 11:30 AM [facility] Platelet Morphology - WAM Normal Normal LAB HEMETOLOGY METHOD 01/29/2025 11:30 AM [facility] Ovalocytes Present 5 - 10%(A) (none) LAB HEMETOLOGY METHOD 01/29/2025 11:30 AM EDT [facility] Comment:This is an appended report. These results have been appended to a previously final verified report. Tear Drop Cells Present 5 - 10%(A) (none) LAB HEMETOLOGY METHOD 01/29/2025 11:30 AM EDT [facility] Toxic Granules Present Present(A) (none) LAB HEMETOLOGY METHOD 01/29/2025 11:30 AM EDT [facility] Blood Venous blood specimen / Unknown Venipuncture / Unknown 01/29/2025 6:28 AM EDT 01/29/2025 8:50 AM EDT us Talia NERI LAB BLOOD ORDERABLES Edited R esult - Final [facility] [address] [place] [address], * (ABNORMAL) CBC auto differential (01/29/2025 6:28 AM EDT) WBC 1.8(LL) 4.8 - 10.8 K/mcL LAB HEMETOLOGY METHOD 01/29/2025 11:28 AM [facility] RBC 2.20(L) 4.50 - 5.50 M/mcL LAB HEMETOLOGY METHOD 01/29/2025 11:28 AM [facility] Hemoglobin 8.1(L) 13.5 - 17.5 g/dL LAB HEMETOLOGY METHOD 01/29/2025 11:28 AM T [facility] Hematocrit 24.6(L) 42.0 - 54.0 % LAB HEMETOLOGY METHOD 01/29/2025 11:28 AM T [facility] MCV 110.3(H) 79.0 - 98.0 FL LAB HEMETOLOGY METHOD 01/29/2025 11:28 AM [facility] MCH 36.3(H) 27.0 - 32.0 pcg LAB HEMETOLOGY METHOD 01/29/2025 11:28 AM EDT [facility] MCHC 32.9 32.0 - 37.0 g/dL LAB HEMETOLOGY METHOD 01/29/2025 11:28 AM [facility] RDW 15.8(H) 11.0 - 15.0 % LAB HEMETOLOGY METHOD 01/29/2025 11:28 AM EDT [facility] Platelets 69(L) 130 - 400 K/mcL LAB HEMETOLOGY METHOD 01/29/2025 11:28 AM EDT [facility] Comment:previously verified by slide MPV 12.0(H) 7.0 - 11.0 FL LAB HEMETOLOGY METHOD 01/29/2025 11:28 AM [facility] NRBC 0.0 <1.0 % LAB HEMETOLOGY METHOD 01/29/2025 11:28 AM [facility] NRBC Absolute 0.00 <0.10 K/mcL LAB HEMETOLOGY METHOD 01/29/2025 11:28 AM T [facility] Blood Venous blood specimen / Unknown Venipuncture / Unknown 01/29/2025 6:28 AM EDT 01/29/2025 8:50 AM EDT us Talia NERI LAB BLOOD ORDERABLES Final Re sult [facility] [address] [place] [address], * SST tube (01/29/2025 6:28 AM EDT) Extra Tube Hold for add-ons. 01/29/2025 10:01 AM EDT [facility] Comment:Auto resulted. Blood Venous blood specimen / Unknown Venipuncture / Unknown 01/29/2025 6:28 AM EDT 01/29/2025 8:50 AM EDT Talia NERI LAB BLOOD ORDERABLES Final Re sult [facility] ([facility] [address] [place] [address], documented in this encounter Visit Diagnoses Diagnosis Other oysterman (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 documented in this encounter Care Teams Mother Superior Relationship Specialty Start Date End Date Dasia Funes NP [address] [place] [address] PCP - General Nurse Practitioner 01/26/25 documented as of this encounter
--- OUTSIDE RECORDS SUMMARY | 2025-04-01 14:16 | XMS_ITS | Encounter Summary ---
Author Organization [facility] Address [address] [place] [address] Care Team Providers Care Program Project Analyst Name Role Phone Dasia Funes RONDA Primary Care Provider [phone] Encounter Details Date Type Department Care Team (Late st Contact Info) Description 02/06/2025 Lab Requisition [facility] - Main Lab 299 [facility] [place] [address] Catrachita Myers MD [address] [place] [id number] Encounter for other general examination Social History [...] Procedure Name Priority Date/Time Associated Diagnosis Comments BASIC METABOLIC PANEL Routine 02/06/2025 6:33 AM EDT Encounter for other general examination documented in this encounter Results * (ABNORMAL) Basic metabolic panel (02/06/2025 6:33 AM EDT) Sodium 137 133 - 145 mmol/L LAB CHEMISTRY METHOD 02/06/2025 10:54 AM EDT [facility] Potassium 3.8 3.5 - 5.5 mmol/L LAB CHEMISTRY METHOD 02/06/2025 10:54 AM EDT [facility] Chloride 102 96 - 110 mmol/L LAB CHEMISTRY METHOD 02/06/2025 10:54 AM T [facility] CO2 29 21 - 32 mmol/L LAB CHEMISTRY METHOD 02/06/2025 10:54 AM [facility] Anion Gap 6 3 - 11 LAB CHEMISTRY METHOD 02/06/2025 10:54 AM [facility] Glucose 125(H) 70 - 100 mg/dL LAB CHEMISTRY METHOD 02/06/2025 10:54 AM [facility] BUN 43(H) 5 - 25 mg/dL LAB CHEMISTRY METHOD 02/06/2025 10:54 AM [facility] Creatinine 2.23(H) 0.70 - 1.30 mg/dL LAB CHEMISTRY METHOD 02/06/2025 10:54 AM [facility] eGFR 29(L) >=60 mL/min/1. 73m2 LAB CHEMISTRY METHOD 02/06/2025 10:54 AM [facility] Comment:Calculation based on the Chronic Kidney Disease Epidemiology Collaboration (CKD-EPI) equation refit without adjustment for race. BUN/Creatinine Ratio 19.3 LAB CHEMISTRY METHOD 02/06/2025 10:54 AM [facility] Calcium 8.6 8.5 - 10.5 mg/dL LAB CHEMISTRY METHOD 02/06/2025 10:54 AM [facility] Blood Venous blood specimen / Unknown 02/06/2025 6:33 AM EDT 02/06/2025 9:49 AM EDT us Catrachita Myers MD LAB BLOOD ORDERABLES Final Resu lt [facility] [address] [place] [address], documented in this encounter Visit Diagnoses Diagnosis Encounter for other general examination documented in this encounter Care Teams Program Project Analyst Relationship Specialty Start Date End Date Dasia Funes NP [address] [place] [address] PCP - General Nurse Practitioner 01/26/25 documented as of this encounter
--- OUTSIDE RECORDS SUMMARY | 2025-04-01 14:16 | XMS_ITS | Encounter Summary ---
[facility] Address [address] [place] [address] Care Team Providers Care Communication Electronic Technician Name Role Phone Dasia Funes RONDA Primary Care Provider [phone] Encounter Details Date Type Department Care Team (Late st Contact Info) Description 01/28/2025 Lab Requisition [facility] - Main Lab 299 [facility] [place] [address] Catrachita Myers MD [address] [place] [address] Encounter for other general examination Social History [...] Comments MANUAL DIFFERENTIAL - SYSMEX WAM Routine 01/28/2025 [...] this encounter Results * (ABNORMAL) Manual differential (01/28/2025 6:09 AM EDT) Neutrophils % 37.0 % LAB HEMETOLOGY METHOD 01/28/2025 1:27 PM EDT [facility] Lymphocytes % 46.0 % LAB HEMETOLOGY METHOD 01/28/2025 1:27 PM EDT [facility] Monocytes % 14.0 % LAB HEMETOLOGY METHOD 01/28/2025 1:27 PM EDT [facility] Eosinophils % 1.0 % LAB HEMETOLOGY METHOD 01/28/2025 1:27 PM EDT [facility] Basophils % 3.0 % LAB HEMETOLOGY METHOD 01/28/2025 1:27 PM EDT [facility] Neutrophils Absolute Manual 0.67(L) 1.50 - 7.00 K/mcL LAB HEMETOLOGY METHOD 01/28/2025 1:27 PM EDT [facility] Lymphocytes Absolute 0.83(L) 1.00 - 5.00 K/mcL LAB HEMETOLOGY METHOD 01/28/2025 1:27 PM EDT [facility] Monocytes Absolute Manual 0.25 0.20 - 1.00 K/mcL LAB HEMETOLOGY METHOD 01/28/2025 1:27 PM T [facility] Eosinophils Absolute Manual 0.02 0.00 - 0.50 K/mcL LAB HEMETOLOGY METHOD 01/28/2025 1:27 PM EDT [facility] Basophils Absolute Manual 0.05 0.00 - 0.20 K/mcL LAB HEMETOLOGY METHOD 01/28/2025 1:27 PM EDT [facility] Blood Venous blood specimen / Unknown Venipuncture / Unknown 01/28/2025 6:09 AM EDT 01/28/2025 10:11 AM EDT us Catrachita Myers MD LAB BLOOD ORDERABLES Final Resu lt [facility] [address] [place] [address], [place] [phone] * Pathology review, blood smear (01/28/2025 6:09 AM EDT) Pathologist [facility] Pathologist Review Blood Smear Pancytopenia: smear not diagnostic of etiology. (See comment.) Thrombocytopenia confirmed (no significant platelet clumps identified). Macrocytic anemia: possible causes include medication/toxin effects, B12/folate deficiency, liver disease, hypothroidism, myelodysplasia or other causes. Absolute neutropenia is present. Comment: Clinical correlation and follow-up are recommended. 01/28/2025 2:32 PM EDT [facility] Blood Venous blood specimen / Unknown Venipuncture / Unknown 01/28/2025 6:09 AM EDT 01/28/2025 10:11 AM EDT Catrachita Myers MD LAB BLOOD ORDERABLES Final Resu lt [facility] [address] [place] [address], [place] [phone] * (ABNORMAL) CBC auto differential (01/28/2025 6:09 AM EDT) Pathologist [facility] WBC 1.8(LL) 4.8 - 10.8 K/mcL LAB HEMETOLOGY METHOD 01/28/2025 1:27 PM EDT [facility] RBC 2.10(L) 4.50 - 5.50 M/mcL LAB HEMETOLOGY METHOD 01/28/2025 1:27 PM EDT [facility] Hemoglobin 7.6(L) 13.5 - 17.5 g/dL LAB HEMETOLOGY METHOD 01/28/2025 1:27 PM EDT [facility] Hematocrit 22.9(L) 42.0 - 54.0 % LAB HEMETOLOGY METHOD 01/28/2025 1:27 PM EDT [facility] MCV 111.7(H) 79.0 - 98.0 FL LAB HEMETOLOGY METHOD 01/28/2025 1:27 PM EDT [facility] MCH 37.1(H) 27.0 - 32.0 pcg LAB HEMETOLOGY METHOD 01/28/2025 1:27 PM EDT [facility] MCHC 33.2 32.0 - 37.0 g/dL LAB HEMETOLOGY METHOD 01/28/2025 1:27 PM EDT [facility] RDW 15.9(H) 11.0 - 15.0 % LAB HEMETOLOGY METHOD 01/28/2025 1:27 PM EDT [facility] Platelets 51(L) 130 - 400 K/mcL LAB HEMETOLOGY METHOD 01/28/2025 1:27 PM EDT [facility] Comment:previously verified by slide MPV 10.7 7.0 - 11.0 FL LAB HEMETOLOGY METHOD 01/28/2025 1:27 PM EDT [facility] NRBC 1.1(H) <1.0 % LAB HEMETOLOGY METHOD 01/28/2025 1:27 PM EDT [facility] NRBC Absolute 0.02 <0.10 K/mcL LAB HEMETOLOGY METHOD 01/28/2025 1:27 PM EDT [facility] Blood Venous blood specimen / Unknown Venipuncture / Unknown 01/28/2025 6:09 AM EDT 01/28/2025 10:11 AM EDT us Catrachita Myers MD LAB BLOOD ORDERABLES Final Resu lt [facility] [address] [place] [address], * (ABNORMAL) Basic metabolic panel (01/28/2025 6:09 AM EDT) Sodium 140 133 - 145 mmol/L LAB CHEMISTRY METHOD 01/28/2025 12:05 PM [facility] Potassium 4.0 3.5 - 5.5 mmol/L LAB CHEMISTRY METHOD 01/28/2025 12:05 PM [facility] Chloride 104 96 - 110 mmol/L LAB CHEMISTRY METHOD 01/28/2025 12:05 PM [facility] CO2 29 21 - 32 mmol/L LAB CHEMISTRY METHOD 01/28/2025 12:05 PM [facility] Anion Gap 7 3 - 11 LAB CHEMISTRY METHOD 01/28/2025 12:05 PM [facility] Glucose 62(L) 70 - 100 mg/dL LAB CHEMISTRY METHOD 01/28/2025 12:05 PM [facility] BUN 38(H) 5 - 25 mg/dL LAB CHEMISTRY METHOD 01/28/2025 12:05 PM [facility] Creatinine 2.23(H) 0.70 - 1.30 mg/dL LAB CHEMISTRY METHOD 01/28/2025 12:05 PM [facility] eGFR 29(L) >=60 mL/min/1. 73m2 LAB CHEMISTRY METHOD 01/28/2025 12:05 PM [facility] Comment:Calculation based on the Chronic Kidney Disease Epidemiology Collaboration (CKD-EPI) equation refit without adjustment for race. BUN/Creatinine Ratio 17.0 LAB CHEMISTRY METHOD 01/28/2025 12:05 PM [facility] Calcium 8.5 8.5 - 10.5 mg/dL LAB CHEMISTRY METHOD 01/28/2025 12:05 PM [facility] Blood Venous blood specimen / Unknown Venipuncture / Unknown 01/28/2025 6:09 AM EDT 01/28/2025 10:11 AM EDT us Rami A Ashkar MD LAB BLOOD ORDERABLES Final Resu lt [facility] [address] [place] [address], documented in this encounter Visit Diagnoses Diagnosis Encounter for other general examination documented in this encounter Care Teams Communication Electronic Technician Relationship Specialty Start Date End Date Dasia Funes NP [address] [place] [address] PCP - General Nurse Practitioner 01/26/25 documented as of this encounter
--- OUTSIDE RECORDS SUMMARY | 2025-04-01 14:16 | XMS_ITS | Encounter Summary ---
Author Organization [facility] Address [address] [place] [address] Care Team Providers Care Water Service Dispatcher Name Role Phone Dasia Funes RONDA Primary Care Provider [phone] Encounter Details Date Type Department Care Team (Late st Contact Info) Description 02/01/2025 Lab Requisition [facility] - Main Lab [address] [facility] [address] Clair Yi PA [address] [place] [address] Other financial assistance advisor (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 Social History Tobacco Use [...] Comments MANUAL DIFFERENTIAL - SYSMEX WAM Routine 02/01/2025 7:07 AM EDT Other financial assistance advisor (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 CBC WITH AUTO DIFFERENTIAL Routine 02/01/2025 7:07 AM EDT Other detention (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 CBC AND DIFFERENTIAL Routine 02/01/2025 7:07 AM EDT Other detention (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 COMPREHENSIVE METABOLIC PANEL Routine 02/01/2025 7:07 AM EDT Other detention (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 documented in this encounter Results * (ABNORMAL) Manual differential (02/01/2025 7:07 AM EDT) Neutrophils % 34.0 % LAB HEMETOLOGY METHOD 02/01/2025 11:54 AM [facility] Lymphocytes % 47.0 % LAB HEMETOLOGY METHOD 02/01/2025 11:54 AM [facility] Monocytes % 15.0 % LAB HEMETOLOGY METHOD 02/01/2025 11:54 AM [facility] Eosinophils % 4.0 % LAB HEMETOLOGY METHOD 02/01/2025 11:54 AM [facility] Basophils % 1.0 % LAB HEMETOLOGY METHOD 02/01/2025 11:54 AM [facility] Neutrophils Absolute Manual 0.68(L) 1.50 - 7.00 K/mcL LAB HEMETOLOGY METHOD 02/01/2025 11:54 AM [facility] Lymphocytes Absolute 0.94(L) 1.00 - 5.00 K/mcL LAB HEMETOLOGY METHOD 02/01/2025 11:54 AM [facility] Monocytes Absolute Manual 0.30 0.20 - 1.00 K/mcL LAB HEMETOLOGY METHOD 02/01/2025 11:54 AM [facility] Eosinophils Absolute Manual 0.08 0.00 - 0.50 K/mcL LAB HEMETOLOGY METHOD 02/01/2025 11:54 AM [facility] Basophils Absolute Manual 0.02 0.00 - 0.20 K/mcL LAB HEMETOLOGY METHOD 02/01/2025 11:54 AM [facility] Rbc Morphology Present( A) Consistent with indices, Normal for [place] LAB HEMETOLOGY METHOD 02/01/2025 11:54 AM [facility] Platelet Morphology - WAM See Note(A) Normal LAB HEMETOLOGY METHOD 02/01/2025 11:54 AM [facility] Comment:PLT: Normal Ovalocytes Present 5 - 10%(A) (none) LAB HEMETOLOGY METHOD 02/01/2025 11:54 AM EDT [facility] Tear Drop Cells Present 5 - 10%(A) (none) LAB HEMETOLOGY METHOD 02/01/2025 11:54 AM EDT [facility] Blood Venous blood specimen / Unknown 02/01/2025 7:07 AM EDT 02/01/2025 10:33 AM EDT us Clair NERI LAB BLOOD ORDERABLES Final Re sult [facility] [address] [place] [address], * (ABNORMAL) CBC auto differential (02/01/2025 7:07 AM EDT) WBC 2.0(L) 4.8 - 10.8 K/mcL LAB HEMETOLOGY METHOD 02/01/2025 11:54 AM [facility] RBC 2.10(L) 4.50 - 5.50 M/mcL LAB HEMETOLOGY METHOD 02/01/2025 11:54 AM [facility] Hemoglobin 7.7(L) 13.5 - 17.5 g/dL LAB HEMETOLOGY METHOD 02/01/2025 11:54 AM [facility] Hematocrit 23.5(L) 42.0 - 54.0 % LAB HEMETOLOGY METHOD 02/01/2025 11:54 AM T [facility] MCV 110.8(H) 79.0 - 98.0 FL LAB HEMETOLOGY METHOD 02/01/2025 11:54 AM [facility] MCH 36.3(H) 27.0 - 32.0 pcg LAB HEMETOLOGY METHOD 02/01/2025 11:54 AM [facility] MCHC 32.8 32.0 - 37.0 g/dL LAB HEMETOLOGY METHOD 02/01/2025 11:54 AM EDT [facility] RDW 16.1(H) 11.0 - 15.0 % LAB HEMETOLOGY METHOD 02/01/2025 11:54 AM EDT [facility] Platelets 61(L) 130 - 400 K/mcL LAB HEMETOLOGY METHOD 02/01/2025 11:54 AM EDT [facility] Comment:previously verified by slide MPV 12.3(H) 7.0 - 11.0 FL LAB HEMETOLOGY METHOD 02/01/2025 11:54 AM EDT [facility] NRBC 0.0 <1.0 % LAB HEMETOLOGY METHOD 02/01/2025 11:54 AM EDT [facility] NRBC Absolute 0.00 <0.10 K/mcL LAB HEMETOLOGY METHOD 02/01/2025 11:54 AM T [facility] Blood Venous blood specimen / Unknown 02/01/2025 7:07 AM EDT 02/01/2025 10:33 AM EDT us Clair NERI LAB BLOOD ORDERABLES Final Re sult [facility] [address] [place] [address], * (ABNORMAL) Comprehensive metabolic panel (02/01/2025 7:07 AM EDT) Sodium 140 133 - 145 mmol/L LAB CHEMISTRY METHOD 02/01/2025 12:16 PM EDT [facility] Potassium 3.9 3.5 - 5.5 mmol/L LAB CHEMISTRY METHOD 02/01/2025 12:16 PM [facility] Chloride 102 96 - 110 mmol/L LAB CHEMISTRY METHOD 02/01/2025 12:16 PM EDT [facility] CO2 31 21 - 32 mmol/L LAB CHEMISTRY METHOD 02/01/2025 12:16 PM [facility] Anion Gap 7 3 - 11 LAB CHEMISTRY METHOD 02/01/2025 12:16 PM [facility] Glucose 129(H) 70 - 100 mg/dL LAB CHEMISTRY METHOD 02/01/2025 12:16 PM [facility] BUN 42(H) 5 - 25 mg/dL LAB CHEMISTRY METHOD 02/01/2025 12:16 PM [facility] Creatinine 2.16(H) 0.70 - 1.30 mg/dL LAB CHEMISTRY METHOD 02/01/2025 12:16 PM [facility] eGFR 31(L) >=60 mL/min/1. 73m2 LAB CHEMISTRY METHOD 02/01/2025 12:16 PM [facility] Comment:Calculation based on the Chronic Kidney Disease Epidemiology Collaboration (CKD-EPI) equation refit without adjustment for race. BUN/Creatinine Ratio 19.4 LAB CHEMISTRY METHOD 02/01/2025 12:16 PM [facility] Calcium 8.6 8.5 - 10.5 mg/dL LAB CHEMISTRY METHOD 02/01/2025 12:16 PM [facility] AST (SGOT) 17 10 - 42 unit/L LAB CHEMISTRY METHOD 02/01/2025 12:16 PM [facility] ALT (SGPT) 21 10 - 60 unit/L LAB CHEMISTRY METHOD 02/01/2025 12:16 PM [facility] Alkaline Phosphatase 73 42 - 121 unit/L LAB CHEMISTRY METHOD 02/01/2025 12:16 PM [facility] Total Protein 6.3 6.0 - 8.0 g/dL LAB CHEMISTRY METHOD 02/01/2025 12:16 PM [facility] Albumin 3.2 3.2 - 5.0 g/dL LAB CHEMISTRY METHOD 02/01/2025 12:16 PM EDT [facility] Total Bilirubin 1.2 0.0 - 1.4 mg/dL LAB CHEMISTRY METHOD 02/01/2025 12:16 PM EDT [facility] Blood Venous blood specimen / Unknown Venipuncture / Unknown 02/01/2025 7:07 AM EDT 02/01/2025 10:33 AM EDT us Clair NERI LAB BLOOD ORDERABLES Final Re sult [facility] [address] [place] [address], documented in this encounter Visit Diagnoses Diagnosis Other financial assistance advisor (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 documented in this encounter Care Teams Water Service Dispatcher Relationship Specialty Start Date End Date Dasia Funes NP [address] [place] [address] PCP - General Nurse Practitioner 01/26/25 documented as of this encounter
[2025-04-08] VITALS (12 sets, daily range): BP systolic 109–169; BP diastolic 53–71; PULSE 54–74; RESP 13–63; TEMP 36.4–36.9; O2SAT 89–100; BMI 38.8
--- NOTE | ~2025-04-08 | CT_ITS ---
PROCEDURE: CT GUIDED BIOPSY, BONE CLINICAL INFORMATION: Lytic lesion seen on outside PET/CT January 2025. Question lymphoma versus myelodysplastic syndrome and bone marrow biopsy February 19, 2025. COMPARISON: Images from bone marrow biopsy February 19, 2025 TECHNIQUE: Procedure risks and benefits including bleeding and infection were discussed with the patient and informed consent was obtained. The patient was positioned in the prone position. Limited axial images through the pelvis were obtained. The right buttock was prepped and draped in usual sterile fashion. The skin and soft tissues were anesthetized with lidocaine plain. Using CT guidance and a coaxial system, access to the lytic lesion in the right sacrum was obtained. Multiple 18-gauge core biopsies were obtained. Specimens were placed in formalin and flow cytometry solution. Conscious sedation was provided by registered nurse under my direct supervision with continuous hemodynamic monitoring. Patient received Versed 2 mg and fentanyl 100 mcg intravenously during the procedure. Total sedation time was 30 minutes. DAP 2 6 6 mgy/cm This CT examination was performed using dose optimization techniques as appropriate, variously including the following: *Automated exposure control *Adjustment of mA and/or kV according to patient size (this includes techniques or standardized protocols for targeted exams where dose is matched to indication/reason for exam; i.e. extremities or head) *Use of iterative reconstruction technique FINDINGS: There is a 2.3 x 2.3 x 5.3 cm lytic lesion in the left sacrum that was targeted for biopsy. There is a pathologic fracture that appears similar to images from February 19, [address]/CT biopsy bone deep IMPRESSION: CT-guided right sacral biopsy. There is a pathologic fracture through the lytic lesion in the right side of the sacrum. This appears similar to February 19, 2025 bone marrow biopsy images. Electronically signed by: Dilia Parks MD 04/08/2025 04:08 PM [facility]
[2025-04-08 09:34] LABS: Glucose, Whole Blood 122 mg/dL (60-115)
[2025-04-08 09:46] LABS: INTERNATIONAL NORM RATIO 1.0 (0.9-1.1); Prothrombin Time 11.7 SEC (11.2-13.5)
== END 2025-04-08 13:17 | disposition home or self-care (01) ==
PROVIDERS: Pathology Anatomic Pathology & Clinical Pathology; Radiology Diagnostic Radiology; PCP Internal Medicine; Visit Provider Internal Medicine Medical Oncology
DX: M89.8X8 Other specified disorders of bone, other site (principal); D64.9 Anemia, unspecified; D61.818 Other pancytopenia; I11.0 Hypertensive heart disease with heart failure; I50.32 Chronic diastolic (congestive) heart failure; E11.9 Type 2 diabetes mellitus without complications; E78.5 Hyperlipidemia, unspecified; R06.09 Other forms of dyspnea; I48.19 Other persistent atrial fibrillation; D69.6 Thrombocytopenia, unspecified; G47.33 Obstructive sleep apnea (adult) (pediatric); Z85.828 Personal history of other malignant neoplasm of skin; E66.01 Morbid (severe) obesity due to excess calories; Z68.38 Body mass index [BMI] 38.0-38.9, adult; Z79.4 Long term (current) use of insulin; Z79.01 Long term (current) use of anticoagulants; Z79.899 Other long term (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; Z99.89 Dependence on other enabling machines and devices; Z90.49 Acquired absence of other specified parts of digestive tract; Z98.890 Other specified postprocedural states
CPT/HCPCS: 20225; 36415; 77012; 82947; 85610; 88184; 88185; 88307; 88311; 99152; 99153; J2003; J2250; J3010

== ENCOUNTER → 2025-04-08 10:48 | Outpatient (BNV) | payer MEDICARE, SELFPAY | PROVIDERS: PCP Internal Medicine; Visit Provider Radiology Diagnostic Radiology | DX: M89.8X8 Other specified disorders of bone, other site (principal) | CPT/HCPCS: 20225; 77012 ==

== ENCOUNTER → 2025-04-10 09:29 | Outpatient (REF) | payer MEDICARE, SELFPAY ==
--- NOTE | 2025-04-10 09:35 | CA_ITS ---
Transthoracic Echocardiogram Patient (Last, First, Middle): Steven Elise S Gender: Male Date of : 1945 Age: 80 Procedure Date: 04/10/2025 Procedure Type: Transthoracic Echocardiogram Location: OP Height: 175.26 cm Weight: 118.84 kg BSA: 2.32 m2 Heart Rate: bpm BP: 110 / 68 mmHg Shaper Setter: TO Referring MD: Meli Horan MD Symptoms: Marginal zone lymphoma, pre chemotherapy Study Quality: Fair/Contrast ECG Rhythm: Sinus Conclusions: - The left ventricular systolic function is normal. The calculated ejection fraction is 57% by biplane method. - The left atrium is severely dilated. - There is mild aortic valve stenosis. Findings Procedure Information Contrast agent, definity, is being given per protocol without apparent complications. Left Ventricle Normal left ventricular cavity size. There is mildly increased left ventricular wall thickness. The left ventricular systolic function is normal. The calculated ejection fraction is 57% by biplane method. There is no evidence of regional wall motion abnormalities. Diastolic function is indeterminate on the basis of available data. Right Ventricle Mildly increased right ventricular cavity size. There is normal right ventricular systolic function. Atria The left atrium is severely dilated. The right atrium is moderately dilated. Aortic Valve There is mild calcification of the aortic valve. There is mild aortic valve stenosis. There is no aortic valve regurgitation. Mitral Valve There is mild mitral annular calcification. There is no mitral valve regurgitation. There is no mitral valve stenosis. Pulmonic Valve The pulmonic valve is likely normal. Tricuspid Valve There is no tricuspid valve regurgitation. Tricuspid regurgitation envelope is inadequate for calculation of right ventricular systolic pressure. Great Vessels The asc aorta is normal in size. Venous The inferior vena cava is normal in size and collapses greater than 50% with inspiration. Pericardium/Pleural There is no evidence of pericardial effusion. Measurements 2D Linear Measurements IVSd: 1.15 0.6-0.9/0.6-1.0 cm LVIDd: 4.83 3.9-5.3/4.2-5.9 cm LVIDd Index: 2.08 2.4-3.2/2.2-3.1 cm/m2 LVIDs: 3.27 2.0-3.6 cm LVPWd: 1.11 0.7-1.1 cm LA Diam: 4.60 2.7-3.8/3.0-4.0 cm LAIDs Index: 1.98 1.5-2.3 cm/m2 LV Mass: 253.47 67-162/88-224 g LV Mass Index: 109.25 43-95/49-115 g/m2 LVOT Diam: 2.30 3.0+(-)1.3 cm 2D Systolic Function EF 4C: 51.40 >55% EF 2C: 60.80 >55% EF BiP: 57.10 >55% Mitral Valve MV VTI: 0.32 MV Pk Terence: 1.36 MV Mn Terence: 0.71 MV Pk Grad: 7.00 MV Mn Grad: 2.00 MV Pk E: 1.14 MV Decel Time: 157.00 E'Lateral: 9.48 E'Medial: 6.89 E/E' Med: 16.50 E/E' Lat: 12.00 PHT: 46.00 MVA PHT: 4.78 MVA Continuity: 2.08 Decel Yancey: 7.36 Aortic Valve AoV Pk Terence: 2.34 AoV Mn Terence: 1.64 AoV VTI: 0.50 AoV Pk Grad: 22.00 Aov Mn Grad: 12.00 CHRIS Cont.VTI: 1.34 LVOT LVOT Pk Terence: 0.78 LVOT Mn Terence: 0.58 LVOT VTI: 0.16 LVOT Pk Grad: 2.00 LVOT Mn Grad: 1.00 LVOT Diam: 2.30 LVOT Area: 4.15 Diastolic Function MV Pk E: 1.14 E'Medial: 6.89 E/E' Med: 16.50 E' Laterial: 9.48 E/E' Lat: 12.00 Right Ventricle TAPSE (mm): 21.70 TVS' Terence: 12.10 Tricuspid Valve RA Press: 3.00 Great Vessels Aorta Sinus of Valsalva: 3.32 2.0-3.5 cm Ao Asc: 3.50 2.1-3.4 cm Updated in Other Vendor System with Status of Final Wade Castañeda MD electronically signed on 04/12/2025 3:30:49 PM with status of Final
--- OUTSIDE RECORDS SUMMARY | 2025-04-10 09:50 | XMS_ITS | Encounter Summary ---
Author Organization [facility] Address [address] [place] [address] Care Team Providers Care Health And Safety Tech Name Role Phone Dasia Funes RONDA Primary Care Provider [phone] Encounter Details Date Type Department Care Team (Late st Contact Info) Description 01/28/2025 Lab Requisition [facility] - Main Lab [address] [facility] [place] [address] Catrachita Myers MD [address] [place] [address] Encounter for other general examination Social History [...] LAB HEMETOLOGY METHOD 01/28/2025 1:27 PM EDT [facility] Lymphocytes % 46.0 % LAB HEMETOLOGY METHOD 01/28/2025 1:27 PM EDT [facility] Monocytes % 14.0 % LAB HEMETOLOGY METHOD 01/28/2025 1:27 PM EDT [facility] Eosinophils % 1.0 % LAB HEMETOLOGY METHOD 01/28/2025 1:27 PM EDT [facility] Basophils % 3.0 % LAB HEMETOLOGY METHOD 01/28/2025 1:27 PM EDT [facility] Neutrophils Absolute Manual 0.67(L) 1.50 - 7.00 K/mcL LAB HEMETOLOGY METHOD 01/28/2025 1:27 PM EDT [facility] Lymphocytes Absolute 0.83(L) 1.00 - 5.00 K/mcL LAB HEMETOLOGY METHOD 01/28/2025 1:27 PM EDT [facility] Monocytes Absolute Manual 0.25 0.20 - 1.00 K/mcL LAB HEMETOLOGY METHOD 01/28/2025 1:27 PM T [facility] Eosinophils Absolute Manual 0.02 0.00 - 0.50 K/mcL LAB HEMETOLOGY METHOD 01/28/2025 1:27 PM EDT [facility] Basophils Absolute Manual 0.05 0.00 - 0.20 K/mcL LAB HEMETOLOGY METHOD 01/28/2025 1:27 PM EDT [facility] Blood Venous blood specimen / Unknown Venipuncture / Unknown 01/28/2025 6:09 AM EDT 01/28/2025 10:11 AM EDT us Catrachita Myers MD LAB BLOOD ORDERABLES Final Resu lt [facility] [address] [place] [address], [place] [phone] * Pathology review, blood smear (01/28/2025 6:09 AM EDT) Pathologist [facility] Pathologist Review Blood Smear Pancytopenia: smear not diagnostic of etiology. (See comment.) Thrombocytopenia confirmed (no significant platelet clumps identified). Macrocytic anemia: possible causes include medication/toxin effects, B12/folate deficiency, liver disease, hypothroidism, myelodysplasia or other causes. Absolute neutropenia is present. Comment: Clinical correlation and follow-up are recommended. 01/28/2025 2:32 PM EDT [facility] Blood Venous blood specimen / Unknown Venipuncture / Unknown 01/28/2025 6:09 AM EDT 01/28/2025 10:11 AM EDT Catrachita Myers MD LAB BLOOD ORDERABLES Final Resu lt [facility] [address] [place] [address], [place] [phone] * (ABNORMAL) CBC auto differential (01/28/2025 6:09 AM EDT) Pathologist [facility] WBC 1.8(LL) 4.8 - 10.8 K/mcL LAB HEMETOLOGY METHOD 01/28/2025 1:27 PM EDT [facility] RBC 2.10(L) 4.50 - 5.50 M/mcL LAB HEMETOLOGY METHOD 01/28/2025 1:27 PM EDT [facility] Hemoglobin 7.6(L) 13.5 - 17.5 g/dL LAB HEMETOLOGY METHOD 01/28/2025 1:27 PM EDT [facility] Hematocrit 22.9(L) 42.0 - 54.0 % LAB HEMETOLOGY METHOD 01/28/2025 1:27 PM EDT [facility] MCV 111.7(H) 79.0 - 98.0 FL LAB HEMETOLOGY METHOD 01/28/2025 1:27 PM EDT [facility] MCH 37.1(H) 27.0 - 32.0 pcg LAB HEMETOLOGY METHOD 01/28/2025 1:27 PM EDT [facility] MCHC 33.2 32.0 - 37.0 g/dL LAB HEMETOLOGY METHOD 01/28/2025 1:27 PM EDT [facility] RDW 15.9(H) 11.0 - 15.0 % LAB HEMETOLOGY METHOD 01/28/2025 1:27 PM EDT [facility] Platelets 51(L) 130 - 400 K/mcL LAB HEMETOLOGY METHOD 01/28/2025 1:27 PM EDT [facility] Comment:previously verified by slide MPV 10.7 7.0 - 11.0 FL LAB HEMETOLOGY METHOD 01/28/2025 1:27 PM EDT [facility] NRBC 1.1(H) <1.0 % LAB HEMETOLOGY METHOD 01/28/2025 1:27 PM EDT [facility] NRBC Absolute 0.02 <0.10 K/mcL LAB HEMETOLOGY METHOD 01/28/2025 1:27 PM EDT [facility] Blood Venous blood specimen / Unknown Venipuncture / Unknown 01/28/2025 6:09 AM EDT 01/28/2025 10:11 AM EDT us Catrachita Myers MD LAB BLOOD ORDERABLES Final Resu lt [facility] [address] [place] [address], * (ABNORMAL) Basic metabolic panel (01/28/2025 6:09 AM EDT) Sodium 140 133 - 145 mmol/L LAB CHEMISTRY METHOD 01/28/2025 12:05 PM [facility] Potassium 4.0 3.5 - 5.5 mmol/L LAB CHEMISTRY METHOD 01/28/2025 12:05 PM [facility] Chloride 104 96 - 110 mmol/L LAB CHEMISTRY METHOD 01/28/2025 12:05 PM [facility] CO2 29 21 - 32 mmol/L LAB CHEMISTRY METHOD 01/28/2025 12:05 PM [facility] Anion Gap 7 3 - 11 LAB CHEMISTRY METHOD 01/28/2025 12:05 PM [facility] Glucose 62(L) 70 - 100 mg/dL LAB CHEMISTRY METHOD 01/28/2025 12:05 PM [facility] BUN 38(H) 5 - 25 mg/dL LAB CHEMISTRY METHOD 01/28/2025 12:05 PM [facility] Creatinine 2.23(H) 0.70 - 1.30 mg/dL LAB CHEMISTRY METHOD 01/28/2025 12:05 PM [facility] eGFR 29(L) >=60 mL/min/1. 73m2 LAB CHEMISTRY METHOD 01/28/2025 12:05 PM [facility] Comment:Calculation based on the Chronic Kidney Disease Epidemiology Collaboration (CKD-EPI) equation refit without adjustment for race. BUN/Creatinine Ratio 17.0 LAB CHEMISTRY METHOD 01/28/2025 12:05 PM [facility] Calcium 8.5 8.5 - 10.5 mg/dL LAB CHEMISTRY METHOD 01/28/2025 12:05 PM [facility] Blood Venous blood specimen / Unknown Venipuncture / Unknown 01/28/2025 6:09 AM EDT 01/28/2025 10:11 AM EDT us Rami A Ashkar MD LAB BLOOD ORDERABLES Final Resu lt [facility] [address] [place] [address], documented in this encounter Visit Diagnoses Diagnosis Encounter for other general examination documented in this encounter Care Teams Health And Safety Tech Relationship Specialty Start Date End Date Dasia Funes NP [address] [place] [address] PCP - General Nurse Practitioner 01/26/25 documented as of this encounter
--- OUTSIDE RECORDS SUMMARY | 2025-04-10 09:50 | XMS_ITS | Clinical Summary ---
Author Organization [facility] Address [address] [address] Phone Care Team Providers Care Surveyor Geodetic Name Role Phone John Alexander MD Primary [...] Only [facility] [address] [place] [address] Timmy Siu MD [address] [address] Stage 3b chronic kidney disease (HCC); Type 2 diabetes mellitus with diabetic chronic kidney disease (HCC); Renal osteodystrophy 05/13/2025 1:15 PM EST Office Visit [facility] [address] [place] [address] Timmy Siu MD [address] [address] Health Maintenance Due Date Last [...] Health Medicare [employer] Medicare Care Teams Surveyor Geodetic Relationship Specialty Start Date End Date John Alexander MD [address] [place] [address] [address] [place], [place] PCP - General 04/21/20
--- OUTSIDE RECORDS SUMMARY | 2025-04-10 09:50 | XMS_ITS | Encounter Summary ---
[facility] Address [address] [place] [address] Care Team Providers Care Document Design Specialist Name Role Phone Dasia Funes RONDA Primary Care Provider [phone] Encounter Details Date Type Department Care Team (Late st Contact Info) Description 02/06/2025 Lab Requisition [facility] - Main Lab [address] [facility] [place] [address] Catrachita Myers MD [address] [place] [address] Encounter for other general examination Social History [...] LAB CHEMISTRY METHOD 02/06/2025 10:54 AM EDT [facility] Potassium 3.8 3.5 - 5.5 mmol/L LAB CHEMISTRY METHOD 02/06/2025 10:54 AM EDT [facility] Chloride 102 96 - 110 mmol/L LAB CHEMISTRY METHOD 02/06/2025 10:54 AM T [facility] CO2 29 21 - 32 mmol/L LAB CHEMISTRY METHOD 02/06/2025 10:54 AM [facility] Anion Gap 6 3 - 11 LAB CHEMISTRY METHOD 02/06/2025 10:54 AM [facility] Glucose 125(H) 70 - 100 mg/dL LAB CHEMISTRY METHOD 02/06/2025 10:54 AM [facility] BUN 43(H) 5 - 25 mg/dL LAB CHEMISTRY METHOD 02/06/2025 10:54 AM [facility] Creatinine 2.23(H) 0.70 - 1.30 mg/dL LAB CHEMISTRY METHOD 02/06/2025 10:54 AM [facility] eGFR 29(L) >=60 mL/min/1. 73m2 LAB CHEMISTRY METHOD 02/06/2025 10:54 AM [facility] Comment:Calculation based on the Chronic Kidney Disease Epidemiology Collaboration (CKD-EPI) equation refit without adjustment for race. BUN/Creatinine Ratio 19.3 LAB CHEMISTRY METHOD 02/06/2025 10:54 AM [facility] Calcium 8.6 8.5 - 10.5 mg/dL LAB CHEMISTRY METHOD 02/06/2025 10:54 AM [facility] Blood Venous blood specimen / Unknown 02/06/2025 6:33 AM EDT 02/06/2025 9:49 AM EDT us Catrachita Myers MD LAB BLOOD ORDERABLES Final Resu lt [facility] [address] [place] [address], documented in this encounter Visit Diagnoses Diagnosis Encounter for other general examination documented in this encounter Care Teams Document Design Specialist Relationship Specialty Start Date End Date Dasia Funes NP [address] [place] [address] PCP - General Nurse Practitioner 01/26/25 documented as of this encounter
--- OUTSIDE RECORDS SUMMARY | 2025-04-10 09:50 | XMS_ITS | Clinical Summary ---
Author Organization [facility] Address [address] [place] [address] Phone Care Team Providers Care Upholstery Cutter Name Role Phone Dasia Funes NP Primary Care Provider [phone] Encounters Date Type Department Care Team Description 03/13/2025 12:59 PM EST - 03/13/2025 11:59 PM EST Hospital Encounter [facility] PET Scan [address] [place] [id number] Non-Hodgkin lymphoma (CMS/HCC V24, CMS/HCC V28) Discharge Disposition: Home or Self Care 02/06/2025 Lab Requisition [facility] [address] [place] [phone] Catrachita Myers MD Encounter for other general examination 02/04/2025 Lab Requisition [facility] [address] [place] [phone] Catrachita Myers MD Encounter for other general examination 02/01/2025 Lab Requisition [facility] [address] [place] [phone] Clair Yi PA Other longterm (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 01/31/2025 Lab Requisition [facility] [address] [place] [phone] Catrachita Myers MD Other longterm (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 01/29/2025 Lab Requisition [facility] [address] [place] [phone] Talia Coles PA Other oysterman (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 01/28/2025 Lab Requisition [facility] [address] [place] [address] Catrachita Myers MD Encounter for other general examination 01/26/2025 Lab Requisition [facility] [address] [place] [address] Dasia Funes NP Encounter for other general examination 01/26/2025 Lab Requisition [facility] [address] [place] [address] Dasia Funes NP from Last [...] 03/13/2025 3:39 PM EST Non-Hodgkin lymphoma ([facility] V24, [facility] V28) BASIC METABOLIC PANEL Routine 02/06/2025 6:33 [...] WAM Routine 02/01/2025 7:07 AM EDT Other oysterman (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 CBC WITH AUTO DIFFERENTIAL Routine 02/01/2025 7:07 AM EDT Other longterm (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 COMPREHENSIVE METABOLIC PANEL Routine 02/01/2025 7:07 AM EDT Other oysterman (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 CBC AND DIFFERENTIAL Routine 02/01/2025 7:07 AM EDT Other longterm (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 MAGNESIUM Routine 01/31/2025 6:59 AM EDT Other longterm (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 BASIC METABOLIC PANEL Routine 01/31/2025 6:59 AM EDT Other oysterman (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 MANUAL DIFFERENTIAL - SYSMEX WAM Routine 01/29/2025 6:28 AM EDT Other oysterman (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 CBC WITH AUTO DIFFERENTIAL Routine 01/29/2025 6:28 AM EDT Other oysterman (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 SST - GOLD Routine 01/29/2025 6:28 AM EDT Other oysterman (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 CBC AND DIFFERENTIAL Routine 01/29/2025 6:28 AM EDT Other longterm (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 MANUAL DIFFERENTIAL - SYSMEX [...] Signed Date: 03/14/2025 12:04 ET Workstation ID: [id number] Transcribed By: Self Edit Transcribed Date: 03/14/2025 [...] Signed Date: 03/14/2025 12:04 ET Workstation ID: [id number] Transcribed By: Self Edit Transcribed Date: 03/14/2025 10:33 ET us Ana Horan MD IM NM PROCEDURES Final Result * (ABNORMAL) Basic metabolic panel (02/06/2025 6:33 AM EDT) Only the most recent of3 resultswithin the time period is included. Sodium 137 133 - 145 mmol/L LAB CHEMISTRY METHOD 02/06/2025 10:54 AM [facility] Potassium 3.8 3.5 - 5.5 mmol/L LAB CHEMISTRY METHOD 02/06/2025 10:54 AM [facility] Chloride 102 96 - 110 mmol/L LAB CHEMISTRY METHOD 02/06/2025 10:54 AM [facility] CO2 29 21 - 32 mmol/L LAB CHEMISTRY METHOD 02/06/2025 10:54 AM [facility] Anion Gap 6 3 - 11 LAB CHEMISTRY METHOD 02/06/2025 10:54 AM [facility] Glucose 125(H) 70 - 100 mg/dL LAB CHEMISTRY METHOD 02/06/2025 10:54 AM [facility] BUN 43(H) 5 - 25 mg/dL LAB CHEMISTRY METHOD 02/06/2025 10:54 AM [facility] Creatinine 2.23(H) 0.70 - 1.30 mg/dL LAB CHEMISTRY METHOD 02/06/2025 10:54 AM [facility] eGFR 29(L) >=60 mL/min/1. 73m2 LAB CHEMISTRY METHOD 02/06/2025 10:[address] [facility] Comment:Calculation based on the Chronic Kidney Disease Epidemiology Collaboration (CKD-EPI) equation refit without adjustment for race. BUN/Creatinine Ratio 19.3 LAB CHEMISTRY METHOD 02/06/2025 10:[address] [facility] Calcium 8.6 8.5 - 10.5 mg/dL LAB CHEMISTRY METHOD 02/06/2025 10:[address] [facility] Blood Venous blood specimen / Unknown 02/06/2025 6:33 AM EDT 02/06/2025 9:49 AM EDT us Catrachita Myers MD LAB BLOOD ORDERABLES Final Resu lt [facility] [address] [place] [address], * (ABNORMAL) Manual differential (02/04/2025 6:33 AM EDT) Only the most recent of4 resultswithin the time period is included. Neutrophils % 39.0 % LAB HEMETOLOGY METHOD 02/04/2025 10:[address] [facility] Lymphocytes % 38.0 % LAB HEMETOLOGY METHOD 02/04/2025 10:[address] [facility] Monocytes % 16.0 % LAB HEMETOLOGY METHOD 02/04/2025 10:[address] [facility] Eosinophils % 4.0 % LAB HEMETOLOGY METHOD 02/04/2025 10:[address] [facility] Basophils % 4.0 % LAB HEMETOLOGY METHOD 02/04/2025 10:24 AM [facility] Neutrophils Absolute Manual 0.70(L) 1.50 - 7.00 K/mcL LAB HEMETOLOGY METHOD 02/04/2025 10:[address] [facility] Lymphocytes Absolute 0.68(L) 1.00 - 5.00 K/mcL LAB HEMETOLOGY METHOD 02/04/2025 10:[address] [facility] Monocytes Absolute Manual 0.29 0.20 - 1.00 K/mcL LAB HEMETOLOGY METHOD 02/04/2025 10:[address] [facility] Eosinophils Absolute Manual 0.07 0.00 - 0.50 K/mcL LAB HEMETOLOGY METHOD 02/04/2025 10:[address] [facility] Basophils Absolute Manual 0.07 0.00 - 0.20 K/mcL LAB [facility]EMET[facility] Rbc Morphology Present( A) Consistent with indices, Normal for LAB HEMETOLOGY METHOD 02/04/2025 10:[address] [facility] Platelet Morphology - WAM See Note(A) Normal LAB HEMETOLOGY METHOD 02/04/2025 10:[address] [facility] Comment:PLT: Normal Polychromasia Present Present( A) (none) LAB HEMETOLOGY METHOD 02/04/2025 10:24 AM [facility] Ovalocytes Present 5 - 10%(A) (none) LAB HEMETOLOGY METHOD [facility] Tear Drop Cells Present 5 - 10%(A) (none) LAB HEMETOLOGY METHOD 02/04/2025 10:[address] [facility] Toxic Granules Present Present( A) (none) LAB HEMETOLOGY METHOD 02/04/2025 10:24 AM [facility] Blood Venous blood specimen / Unknown Venipuncture / Unknown 02/04/2025 6:33 AM EDT 02/04/2025 8:40 AM EDT us Catrachita Myers MD LAB BLOOD ORDERABLES Final Resu lt [facility] [address] [place] [address], * (ABNORMAL) CBC auto differential (02/04/2025 6:33 AM EDT) Only the most recent of5 resultswithin the time period is included. WBC 1.8(LL) 4.8 - 10.8 K/mcL LAB HEMETOLOGY METHOD 02/04/2025 10:[address] [facility] RBC 2.10(L) 4.50 - 5.50 M/mcL LAB HEMETOLOGY METHOD 02/04/2025 10:[address] [facility] Hemoglobin 7.7(L) 13.5 - 17.5 g/dL LAB HEMETOLOGY METHOD 02/04/2025 10:[address] [facility] Hematocrit 23.4(L) 42.0 - 54.0 % LAB HEMETOLOGY METHOD 02/04/2025 10:[address] [facility] MCV 112.5(H) 79.0 - 98.0 FL LAB HEMETOLOGY METHOD [facility] MCH 37.0(H) 27.0 - 32.0 pcg LAB HEMETOLOGY METHOD 02/04/2025 10:[address] [facility] MCHC 32.9 32.0 - 37.0 g/dL LAB HEMETOLOGY METHOD 02/04/2025 10:[address] [facility] RDW 15.9(H) 11.0 - 15.0 % LAB HEMETOLOGY METHOD 02/04[facility]2025 [facility] Platelets 57(L) 130 - 400 K/mcL LAB HEMETOLOGY METHOD 02/04/2025 10:[address] [facility] Comment:previously verified by slide MPV 11.3(H) 7.0 - 11.0 FL LAB HEMETOLOGY METHOD 02/04/2025 10:[address] [facility] NRBC 0.0 <1.0 % LAB HEMETOLOGY METHOD 02/04/2025 10:[address] [facility] NRBC Absolute 0.00 <0.10 K/mcL LAB HEMETOLOGY METHOD 02/04/2025 10:[address] [facility] Blood Venous blood specimen / Unknown Venipuncture / Unknown 02/04/2025 6:33 AM EDT 02/04/2025 8:40 AM EDT us Catrachita Myers MD LAB BLOOD ORDERABLES Final Resu lt Performing Organization Address City/[facility]/ZIP Co de Phone Number [facility] [address] [place] [address], [place] [phone] * Magnesium (02/04/2025 6:33 AM EDT) Only the most recent of3 resultswithin the time period is included. Magnesium 2.3 1.9 - 2.6 mg/dL LAB CHEMISTRY METHOD 02/04/2025 9:[address] [facility] Blood Venous blood specimen / Unknown Venipuncture / Unknown 02/04/2025 6:33 AM EDT 02/04/2025 8:40 AM EDT us Catrachita Myers MD LAB BLOOD ORDERABLES Final Resu lt Performing Organization Address City/[facility]/ZIP Co de Phone Number [facility] [address] [place] [address], [place] [phone] * (ABNORMAL) Comprehensive metabolic panel (02/04/2025 6:33 AM EDT) Only the most recent of3 resultswithin the time period is included. Sodium 138 133 - 145 mmol/L LAB CHEMISTRY METHOD 02/04/2025 9:30 AM [facility] Potassium 4.2 3.5 - 5.5 mmol/L LAB CHEMISTRY METHOD 02/04/2025 9:30 AM [facility] Chloride 103 96 - 110 mmol/L LAB CHEMISTRY METHOD 02/04/2025 9:30 AM [facility] CO2 31 21 - 32 mmol/L LAB CHEMISTRY METHOD 02/04/2025 9:30 AM [facility] Anion Gap 4 3 - 11 LAB CHEMISTRY METHOD 02/04/2025 9:30 AM [facility] Glucose 98 70 - 100 mg/dL LAB CHEMISTRY METHOD 02/04/2025 9:30 AM [facility] BUN 42(H) 5 - 25 mg/dL LAB CHEMISTRY METHOD 02/04/2025 9:30 AM [facility] Creatinine 2.26(H) 0.70 - 1.30 mg/dL LAB CHEMISTRY METHOD 02/04/2025 9:30 AM [facility] eGFR 29(L) >=60 mL/min/1. 73m2 LAB CHEMISTRY METHOD 02/04/2025 9:30 AM [facility] Comment:Calculation based on the Chronic Kidney Disease Epidemiology Collaboration (CKD-EPI) equation refit without adjustment for race. BUN/Creatinine Ratio 18.6 LAB CHEMISTRY METHOD 02/04/2025 9:30 AM [facility] Calcium 8.7 8.5 - 10.5 mg/dL LAB CHEMISTRY METHOD 02/04/2025 9:30 AM [facility] AST (SGOT) 16 10 - 42 unit/L LAB CHEMISTRY METHOD 02/04/2025 9:30 AM [facility] ALT (SGPT) 20 10 - 60 unit/L LAB CHEMISTRY METHOD 02/04/2025 9:30 AM [facility] Alkaline Phosphatase 81 42 - 121 unit/L LAB CHEMISTRY METHOD 02/04/2025 9:[address] [facility] Total Protein 6.1 6.0 - 8.0 g/dL LAB CHEMISTRY METHOD 02/04/2025 9:[address] [facility] Albumin 3.2 3.2 - 5.0 g/dL LAB CHEMISTRY METHOD 02/04/2025 9:[address] [facility] Total Bilirubin 1.1 0.0 - 1.4 mg/dL LAB CHEMISTRY METHOD 02/04/2025 9:[address] [facility] Blood Venous blood specimen / Unknown Venipuncture / Unknown 02/04/2025 6:33 AM EDT 02/04/2025 8:40 AM EDT us Catrachita Myers MD LAB BLOOD ORDERABLES Final Resu lt Performing Organization Address City/[facility]/ZIP Co de Phone Number [facility] [address] [place] [address], [place] [phone] * SST tube (01/29/2025 6:28 AM EDT) Extra Tube Hold for add-ons. 01/29/2025 10:[address] [facility] Comment:Auto resulted. Blood Venous blood specimen / Unknown Venipuncture / Unknown 01/29/2025 6:28 AM EDT 01/29/2025 8:50 AM EDT us Talia NERI LAB BLOOD ORDERABLES Final Re sult [facility] [address] [place] [address], [place] [phone] * Pathology review, blood smear (01/28/2025 6:09 AM EDT) Pathologist Review Blood Smear Pancytopenia: smear not diagnostic of etiology. (See comment.) Thrombocytopenia confirmed (no significant platelet clumps identified). Macrocytic anemia: possible causes include medication/toxin effects, B12/folate deficiency, liver disease, hypothroidism, myelodysplasia or other causes. Absolute neutropenia is present. Comment: Clinical correlation and follow-up are recommended. 01/28/2025 2:32 PM EDT [facility] ([facility]) [facility] Blood Venous blood specimen / Unknown Venipuncture / Unknown 01/28/2025 6:09 AM EDT 01/28/2025 10:11 AM EDT us Catrachita Myers MD LAB BLOOD ORDERABLES Final Resu lt [facility] [address] [place] [address], from Last 3 Months Insurance [employer] Care Teams Upholstery Cutter Relationship Specialty Start Date End Date Dasia Funes NP [address] [place] [phone] PCP - General Nurse Practitioner 01/26/25
--- OUTSIDE RECORDS SUMMARY | 2025-04-10 09:50 | XMS_ITS | Encounter Summary ---
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 MANUAL DIFFERENTIAL - SYSMEX WAM Routine 01/29/2025 6:28 AM EDT Other assisted (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 CBC WITH AUTO DIFFERENTIAL Routine 01/29/2025 6:28 AM EDT Other assisted (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 CBC AND DIFFERENTIAL Routine 01/29/2025 6:28 AM EDT 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 (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 documented in this encounter Results * (ABNORMAL) Manual differential (01/29/2025 6:28 AM EDT) Neutrophils % 31.0 % LAB HEMETOLOGY METHOD 01/29/2025 11:30 AM [facility] Lymphocytes % 43.0 % LAB HEMETOLOGY METHOD 01/29/2025 11:30 AM [facility] Monocytes % 22.0 % LAB HEMETOLOGY METHOD 01/29/2025 11:30 AM [facility] Eosinophils % 4.0 % LAB HEMETOLOGY METHOD 01/29/2025 11:30 AM [facility] Basophils % 0.0 % LAB HEMETOLOGY METHOD 01/29/2025 11:30 AM [facility] Neutrophils Absolute Manual 0.56(L) 1.50 - 7.00 K/mcL LAB HEMETOLOGY METHOD 01/29/2025 11:30 AM [facility] Lymphocytes Absolute 0.77(L) 1.00 - 5.00 K/mcL LAB HEMETOLOGY METHOD 01/29/2025 11:30 AM [facility] Monocytes Absolute Manual 0.40 0.20 - 1.00 K/mcL LAB HEMETOLOGY METHOD 01/29/2025 11:30 AM [facility] Eosinophils Absolute Manual 0.07 0.00 - 0.50 K/mcL LAB HEMETOLOGY METHOD 01/29/2025 11:30 AM [facility] Basophils Absolute Manual 0.00 0.00 - 0.20 K/mcL LAB HEMETOLOGY METHOD 01/29/2025 11:30 AM [facility] Rbc Morphology Consistent with indices Consistent with indices, Normal for LAB HEMETOLOGY METHOD 01/29/2025 11:30 AM [facility] Platelet Morphology - WAM Normal Normal LAB HEMETOLOGY METHOD 01/29/2025 11:30 AM [facility] Ovalocytes Present 5 - 10%(A) (none) LAB HEMETOLOGY METHOD 01/29/2025 11:[address] [facility] Comment:This is an appended report. These results have been appended to a previously final verified report. Tear Drop Cells Present 5 - 10%(A) (none) LAB HEMETOLOGY METHOD 01/29/2025 11:[address] [facility] Toxic Granules Present Present(A) (none) LAB HEMETOLOGY METHOD 01/29/2025 11:[address] [facility] Blood Venous blood specimen / Unknown Venipuncture / Unknown 01/29/2025 6:28 AM EDT 01/29/2025 8:50 AM EDT us Talia NERI LAB BLOOD ORDERABLES Edited R esult - Final [facility] [address] [place] [address], * (ABNORMAL) CBC auto differential (01/29/2025 6:28 AM EDT) WBC 1.8(LL) 4.8 - 10.8 K/mcL LAB HEMETOLOGY METHOD 01/29/2025 11:28 AM [facility] RBC 2.20(L) 4.50 - 5.50 M/mcL LAB HEMETOLOGY METHOD 01/29/2025 11:28 AM [facility] Hemoglobin 8.1(L) 13.5 - 17.5 g/dL LAB HEMETOLOGY METHOD 01/29/2025 11:[address] [facility] Hematocrit 24.6(L) 42.0 - 54.0 % LAB HEMETOLOGY METHOD 01/29/2025 11:[address] [facility] MCV 110.3(H) 79.0 - 98.0 FL LAB HEMETOLOGY METHOD 01/29/2025 11:28 AM [facility] MCH 36.3(H) 27.0 - 32.0 pcg LAB HEMETOLOGY METHOD 01/29/2025 11:[address] [facility] MCHC 32.9 32.0 - 37.0 g/dL LAB HEMETOLOGY METHOD 01/29/2025 11:28 AM [facility] RDW 15.8(H) 11.0 - 15.0 % LAB HEMETOLOGY METHOD 01/29/2025 11:[address] [facility] Platelets 69(L) 130 - 400 K/mcL LAB HEMETOLOGY METHOD 01/29/2025 11:[address] [facility] Comment:previously verified by slide MPV 12.0(H) 7.0 - 11.0 FL LAB HEMETOLOGY METHOD 01/29/2025 11:28 AM [facility] NRBC 0.0 <1.0 % LAB HEMETOLOGY METHOD 01/29/2025 11:28 AM [facility] NRBC Absolute 0.00 <0.10 K/mcL LAB HEMETOLOGY METHOD 01/29/2025 11:[address] [facility] Blood Venous blood specimen / Unknown Venipuncture / Unknown 01/29/2025 6:28 AM EDT 01/29/2025 8:50 AM EDT us Talia NERI LAB BLOOD ORDERABLES Final Re sult [facility] [address] [place] [address], * SST tube (01/29/2025 6:28 AM EDT) Extra Tube Hold for add-ons. 01/29/2025 10:[address] [facility] Comment:Auto resulted. 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
--- OUTSIDE RECORDS SUMMARY | 2025-04-10 09:50 | XMS_ITS | Encounter Summary ---
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 CBC WITH AUTO DIFFERENTIAL Routine 02/01/2025 7:07 AM EDT Other residential (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 CBC AND DIFFERENTIAL Routine 02/01/2025 7:07 AM EDT Other residential (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 COMPREHENSIVE METABOLIC PANEL Routine 02/01/2025 7:07 AM EDT Other residential (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 documented in this encounter Results * (ABNORMAL) Manual differential (02/01/2025 7:07 AM EDT) Neutrophils % 34.0 % LAB HEMETOLOGY METHOD 02/01/2025 11:54 AM [facility] Lymphocytes % 47.0 % LAB HEMETOLOGY METHOD 02/01/2025 11:54 AM [facility] Monocytes % 15.0 % LAB HEMETOLOGY METHOD 02/01/2025 11:54 AM [facility] Eosinophils % 4.0 % LAB HEMETOLOGY METHOD 02/01/2025 11:54 AM [facility] Basophils % 1.0 % LAB HEMETOLOGY METHOD 02/01/2025 11:54 AM [facility] Neutrophils Absolute Manual 0.68(L) 1.50 - 7.00 K/mcL LAB HEMETOLOGY METHOD 02/01/2025 11:54 AM [facility] Lymphocytes Absolute 0.94(L) 1.00 - 5.00 K/mcL LAB HEMETOLOGY METHOD 02/01/2025 11:54 AM [facility] Monocytes Absolute Manual 0.30 0.20 - 1.00 K/mcL LAB HEMETOLOGY METHOD 02/01/2025 11:54 AM [facility] Eosinophils Absolute Manual 0.08 0.00 - 0.50 K/mcL LAB HEMETOLOGY METHOD 02/01/2025 11:54 AM [facility] Basophils Absolute Manual 0.02 0.00 - 0.20 K/mcL LAB HEMETOLOGY METHOD 02/01/2025 11:54 AM [facility] Rbc Morphology Present( A) Consistent with indices, Normal for [place] LAB HEMETOLOGY METHOD 02/01/2025 11:54 AM [facility] Platelet Morphology - WAM See Note(A) Normal LAB HEMETOLOGY METHOD 02/01/2025 11:54 AM [facility] Comment:PLT: Normal Ovalocytes Present 5 - 10%(A) (none) LAB HEMETOLOGY METHOD 02/01/2025 11:54 AM EDT [facility] Tear Drop Cells Present 5 - 10%(A) (none) LAB HEMETOLOGY METHOD 02/01/2025 11:54 AM EDT [facility] Blood Venous blood specimen / Unknown 02/01/2025 7:07 AM EDT 02/01/2025 10:33 AM EDT us Clair NERI LAB BLOOD ORDERABLES Final Re sult [facility] [address] [place] [address], * (ABNORMAL) CBC auto differential (02/01/2025 7:07 AM EDT) WBC 2.0(L) 4.8 - 10.8 K/mcL LAB HEMETOLOGY METHOD 02/01/2025 11:54 AM [facility] RBC 2.10(L) 4.50 - 5.50 M/mcL LAB HEMETOLOGY METHOD 02/01/2025 11:54 AM [facility] Hemoglobin 7.7(L) 13.5 - 17.5 g/dL LAB HEMETOLOGY METHOD 02/01/2025 11:54 AM [facility] Hematocrit 23.5(L) 42.0 - 54.0 % LAB HEMETOLOGY METHOD 02/01/2025 11:54 AM T [facility] MCV 110.8(H) 79.0 - 98.0 FL LAB HEMETOLOGY METHOD 02/01/2025 11:54 AM [facility] MCH 36.3(H) 27.0 - 32.0 pcg LAB HEMETOLOGY METHOD 02/01/2025 11:54 AM [facility] MCHC 32.8 32.0 - 37.0 g/dL LAB HEMETOLOGY METHOD 02/01/2025 11:54 AM EDT [facility] RDW 16.1(H) 11.0 - 15.0 % LAB HEMETOLOGY METHOD 02/01/2025 11:54 AM EDT [facility] Platelets 61(L) 130 - 400 K/mcL LAB HEMETOLOGY METHOD 02/01/2025 11:54 AM EDT [facility] Comment:previously verified by slide MPV 12.3(H) 7.0 - 11.0 FL LAB HEMETOLOGY METHOD 02/01/2025 11:54 AM EDT [facility] NRBC 0.0 <1.0 % LAB HEMETOLOGY METHOD 02/01/2025 11:54 AM EDT [facility] NRBC Absolute 0.00 <0.10 K/mcL LAB HEMETOLOGY METHOD 02/01/2025 11:54 AM T [facility] Blood Venous blood specimen / Unknown 02/01/2025 7:07 AM EDT 02/01/2025 10:33 AM EDT us Clair NERI LAB BLOOD ORDERABLES Final Re sult [facility] [address] [place] [address], * (ABNORMAL) Comprehensive metabolic panel (02/01/2025 7:07 AM EDT) Sodium 140 133 - 145 mmol/L LAB CHEMISTRY METHOD 02/01/2025 12:16 PM EDT [facility] Potassium 3.9 3.5 - 5.5 mmol/L LAB CHEMISTRY METHOD 02/01/2025 12:16 PM [facility] Chloride 102 96 - 110 mmol/L LAB CHEMISTRY METHOD 02/01/2025 12:16 PM EDT [facility] CO2 31 21 - 32 mmol/L LAB CHEMISTRY METHOD 02/01/2025 12:16 PM [facility] Anion Gap 7 3 - 11 LAB CHEMISTRY METHOD 02/01/2025 12:16 PM [facility] Glucose 129(H) 70 - 100 mg/dL LAB CHEMISTRY METHOD 02/01/2025 12:16 PM [facility] BUN 42(H) 5 - 25 mg/dL LAB CHEMISTRY METHOD 02/01/2025 12:16 PM [facility] Creatinine 2.16(H) 0.70 - 1.30 mg/dL LAB CHEMISTRY METHOD 02/01/2025 12:16 PM [facility] eGFR 31(L) >=60 mL/min/1. 73m2 LAB CHEMISTRY METHOD 02/01/2025 12:16 PM [facility] Comment:Calculation based on the Chronic Kidney Disease Epidemiology Collaboration (CKD-EPI) equation refit without adjustment for race. BUN/Creatinine Ratio 19.4 LAB CHEMISTRY METHOD 02/01/2025 12:16 PM [facility] Calcium 8.6 8.5 - 10.5 mg/dL LAB CHEMISTRY METHOD 02/01/2025 12:16 PM [facility] AST (SGOT) 17 10 - 42 unit/L LAB CHEMISTRY METHOD 02/01/2025 12:16 PM [facility] ALT (SGPT) 21 10 - 60 unit/L LAB CHEMISTRY METHOD 02/01/2025 12:16 PM [facility] Alkaline Phosphatase 73 42 - 121 unit/L LAB CHEMISTRY METHOD 02/01/2025 12:16 PM [facility] Total Protein 6.3 6.0 - 8.0 g/dL LAB CHEMISTRY METHOD 02/01/2025 12:16 PM [facility] Albumin 3.2 3.2 - 5.0 g/dL LAB CHEMISTRY METHOD 02/01/2025 12:16 PM EDT [facility] Total Bilirubin 1.2 0.0 - 1.4 mg/dL LAB CHEMISTRY METHOD 02/01/2025 12:16 PM EDT [facility] Blood Venous blood specimen / Unknown Venipuncture / Unknown 02/01/2025 7:07 AM EDT 02/01/2025 10:33 AM EDT us Clair NERI LAB BLOOD ORDERABLES Final Re sult [facility] ([facility]) [facility] [address] [place] [address], documented in this encounter Visit Diagnoses Diagnosis 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
--- OUTSIDE RECORDS SUMMARY | 2025-04-10 09:50 | XMS_ITS | Encounter Summary ---
[facility] Address [address] [place] [address] Care Team Providers Care Bookbinder Apprentice Name Role Phone Dasia Funes RONDA Primary Care Provider [phone] Encounter Details Date Type Department Care Team (Late st Contact Info) Description 02/04/2025 Lab Requisition [facility] - Main Lab [address] [facility] [place] [address] Catrachita Myers MD [address] [place] [address] Encounter for other general examination Social History [...] 10:24 AM [facility] Lymphocytes % 38.0 % LAB HEMETOLOGY METHOD 02/04/2025 10:24 AM [facility] Monocytes % 16.0 % LAB HEMETOLOGY METHOD 02/04/2025 10:24 AM [facility] Eosinophils % 4.0 % LAB HEMETOLOGY METHOD 02/04/2025 10:24 AM [facility] Basophils % 4.0 % LAB HEMETOLOGY METHOD 02/04/2025 10:24 AM [facility] Neutrophils Absolute Manual 0.70(L) 1.50 - 7.00 K/mcL LAB HEMETOLOGY METHOD 02/04/2025 10:24 AM [facility] Lymphocytes Absolute 0.68(L) 1.00 - 5.00 K/mcL LAB HEMETOLOGY METHOD 02/04/2025 10:24 AM [facility] Monocytes Absolute Manual 0.29 0.20 - 1.00 K/mcL LAB HEMETOLOGY METHOD 02/04/2025 10:24 AM [facility] Eosinophils Absolute Manual 0.07 0.00 - 0.50 K/mcL LAB HEMETOLOGY METHOD 02/04/2025 10:24 AM [facility] Basophils Absolute Manual 0.07 0.00 - 0.20 K/mcL LAB HEMETOLOGY METHOD 02/04/2025 10:24 AM [facility] Rbc Morphology Present( A) Consistent with indices, Normal for LAB HEMETOLOGY METHOD 02/04/2025 10:24 AM [facility] Platelet Morphology - WAM See Note(A) Normal LAB HEMETOLOGY METHOD 02/04/2025 10:24 AM [facility] Comment:PLT: Normal Polychromasia Present Present( A) (none) LAB HEMETOLOGY METHOD 02/04/2025 10:24 AM EDT [facility] Ovalocytes Present 5 - 10%(A) (none) LAB HEMETOLOGY METHOD 02/04/2025 10:24 AM EDT [facility] Tear Drop Cells Present 5 - 10%(A) (none) LAB HEMETOLOGY METHOD 02/04/2025 10:24 AM EDT [facility] Toxic Granules Present Present( A) (none) LAB HEMETOLOGY METHOD 02/04/2025 10:24 AM EDT [facility] Blood Venous blood specimen / Unknown Venipuncture / Unknown 02/04/2025 6:33 AM EDT 02/04/2025 8:40 AM EDT us Catrachita Myers MD LAB BLOOD ORDERABLES Final Resu lt [facility] [address] [place] [address], * (ABNORMAL) CBC auto differential (02/04/2025 6:33 AM EDT) WBC 1.8(LL) 4.8 - 10.8 K/mcL LAB HEMETOLOGY METHOD 02/04/2025 10:24 AM EDT [facility] RBC 2.10(L) 4.50 - 5.50 M/mcL LAB HEMETOLOGY METHOD 02/04/2025 10:24 AM EDT [facility] Hemoglobin 7.7(L) 13.5 - 17.5 g/dL LAB HEMETOLOGY METHOD 02/04/2025 10:24 AM EDT [facility] Hematocrit 23.4(L) 42.0 - 54.0 % LAB HEMETOLOGY METHOD 02/04/2025 10:24 AM EDT [facility] MCV 112.5(H) 79.0 - 98.0 FL LAB HEMETOLOGY METHOD 02/04/2025 10:24 AM EDT [facility] MCH 37.0(H) 27.0 - 32.0 pcg LAB HEMETOLOGY METHOD 02/04/2025 10:24 AM EDT [facility] MCHC 32.9 32.0 - 37.0 g/dL LAB HEMETOLOGY METHOD 02/04/2025 10:24 AM EDT [facility] RDW 15.9(H) 11.0 - 15.0 % LAB HEMETOLOGY METHOD 02/04/2025 10:24 AM EDT [facility] Platelets 57(L) 130 - 400 K/mcL LAB HEMETOLOGY METHOD 02/04/2025 10:24 AM EDT [facility] Comment:previously verified by slide MPV 11.3(H) 7.0 - 11.0 FL LAB HEMETOLOGY METHOD 02/04/2025 10:24 AM EDT [facility] NRBC 0.0 <1.0 % LAB HEMETOLOGY METHOD 02/04/2025 10:24 AM EDT [facility] NRBC Absolute 0.00 <0.10 K/mcL LAB HEMETOLOGY METHOD 02/04/2025 10:24 AM T [facility] Blood Venous blood specimen / Unknown Venipuncture / Unknown 02/04/2025 6:33 AM EDT 02/04/2025 8:40 AM EDT us Catrachita Myers MD LAB BLOOD ORDERABLES Final Resu lt [facility] [address] [place] [address], * (ABNORMAL) Comprehensive metabolic panel (02/04/2025 6:33 AM EDT) [facility] Sodium 138 133 - 145 mmol/L LAB [...] LAB CHEMISTRY METHOD 02/04/2025 9:30 AM EDT [facility] Total Protein 6.1 6.0 - 8.0 g/dL LAB CHEMISTRY METHOD 02/04/2025 9:30 AM EDT [facility] Albumin 3.2 3.2 - 5.0 g/dL LAB CHEMISTRY METHOD 02/04/2025 9:30 AM EDT [facility] Total Bilirubin 1.1 0.0 - 1.4 mg/dL LAB CHEMISTRY METHOD 02/04/2025 9:30 AM EDT [facility] Blood Venous blood specimen / Unknown Venipuncture / Unknown 02/04/2025 6:33 AM EDT 02/04/2025 8:40 AM EDT us Catrachita Myers MD LAB BLOOD ORDERABLES Final Resu lt Performing Organization Address [facility]/ZIP Co de Phone Number [facility] [address] [place] [address], [place] [phone] * Magnesium (02/04/2025 6:33 AM EDT) Magnesium 2.3 1.9 - 2.6 mg/dL LAB CHEMISTRY METHOD 02/04/2025 9:30 AM EDT [facility] Blood Venous blood specimen / Unknown Venipuncture / Unknown 02/04/2025 6:33 AM EDT 02/04/2025 8:40 AM EDT us Catrachita Myers MD LAB BLOOD ORDERABLES Final Resu lt Performing Organization Address [facility]/ZIP Co de Phone Number [facility] [address] [place] [address], [place] [phone] documented in this encounter Visit Diagnoses Diagnosis Encounter for other general examination documented in this encounter Care Teams Bookbinder Apprentice Relationship Specialty Start Date End Date Dasia Funes NP [address] [place] [address] PCP - General Nurse Practitioner 01/26/25 documented as of this encounter
--- OUTSIDE RECORDS SUMMARY | 2025-04-10 09:50 | XMS_ITS | Encounter Summary ---
Author Organization [facility] Address [address] [place] [address] Care Team Providers Care Supervisor Lump Room Name Role Phone Dasia Funes RONDA Primary Care Provider [phone] Encounter Details Date Type Department Care Team (Late st Contact Info) Description 01/31/2025 Lab Requisition [facility] - Main Lab [address] [place] [address] Catrachita Myers MD [address] [place] [id number] Other senior living (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 Social History Tobacco Use [...] MAGNESIUM Routine 01/31/2025 6:59 AM EDT Other terminal supervisor (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 BASIC METABOLIC PANEL Routine 01/31/2025 6:59 AM EDT Other senior living (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 documented in this encounter Results * Magnesium (01/31/2025 6:59 AM EDT) Magnesium 2.5 1.9 - 2.6 mg/dL LAB CHEMISTRY METHOD 01/31/2025 1:54 PM EDT [facility] ([facility]) [facility] Blood Venous blood specimen / Unknown Venipuncture / Unknown 01/31/2025 6:59 AM EDT 01/31/2025 11:59 AM EDT us Catrachita Myers MD LAB BLOOD ORDERABLES Final Resu lt [facility] [address] [place] [address], * (ABNORMAL) Basic metabolic panel (01/31/2025 6:59 AM EDT) Sodium 139 133 - 145 mmol/L LAB CHEMISTRY METHOD [facility] Potassium 3.5 3.5 - 5.5 mmol/L LAB CHEMISTRY METHOD 01/31/2025 1:57 PM [facility] Chloride 103 96 - 110 mmol/L LAB CHEMISTRY METHOD 01/31/2025 1:57 PM [facility] CO2 27 21 - 32 mmol/L LAB CHEMISTRY METHOD 01/31/2025 1:57 PM [facility] Anion Gap 9 3 - 11 LAB CHEMISTRY METHOD 01/31/2025 1:57 PM [facility] Glucose 149(H) 70 - 100 mg/dL LAB CHEMISTRY METHOD 01/31/2025 1:57 PM [facility] BUN 46(H) 5 - 25 mg/dL LAB CHEMISTRY METHOD 01/31/2025 1:57 PM [facility] Creatinine 2.23(H) 0.70 - 1.30 mg/dL LAB CHEMISTRY METHOD 01/31/2025 1:57 PM [facility] eGFR 29(L) >=60 mL/min/1. 73m2 LAB CHEMISTRY METHOD 01/31/2025 1:57 PM [facility] Comment:Calculation based on the Chronic Kidney Disease Epidemiology Collaboration (CKD-EPI) equation refit without adjustment for race. BUN/Creatinine Ratio 20.6 LAB CHEMISTRY METHOD 01/31/2025 1:57 PM [facility] Calcium 8.5 8.5 - 10.5 mg/dL LAB CHEMISTRY METHOD 01/31/2025 1:57 PM EDT [facility] Blood Venous blood specimen / Unknown Venipuncture / Unknown 01/31/2025 6:59 AM EDT 01/31/2025 11:59 AM EDT us Catrachita Myers MD LAB BLOOD ORDERABLES Final Resu lt [facility] [address] [place] [address], documented in this encounter Visit Diagnoses Diagnosis Other senior living (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 documented in this encounter Care Teams Supervisor Lump Room Relationship Specialty Start Date End Date Dasia Funes NP [address] [place] [address] PCP - General Nurse Practitioner 01/26/25 documented as of this encounter
--- OUTSIDE RECORDS SUMMARY | 2025-04-10 09:50 | XMS_ITS | Encounter Summary ---
Author Organization [facility] Address [address] [place] [address] Care Team Providers Care Materials Scientist Name Role Phone Dasia Funes NP Primary Care Provider [phone] Encounter Details Date Type Department Care Team (Late st Contact Info) Description 01/26/2025 Lab Requisition [facility] - Main Lab [address] [facility] [place] [address] Dasia Funes NP [address] [place] [address] Social History Tobacco Use Types [...] on filedocumented in this encounter Care Teams Materials Scientist Relationship Specialty Start Date End Date Dasia Funes NP [address] [place] [phone] PCP - General Nurse Practitioner 01/26/25 documented as of this encounter
--- OUTSIDE RECORDS SUMMARY | 2025-04-10 09:50 | XMS_ITS | Encounter Summary ---
Author Organization [facility] Address [address] [place] [address] Care Team Providers Care Survey Statistician Name Role Phone Dasia Funes RUBBER BALL FINISHER Primary Care Provider [phone] Encounter Details Date Type Department Care Team (Late st Contact Info) Description 01/26/2025 Lab Requisition [facility] [address] [place] [address] Dasia Funes NP [address] [place] [address] Encounter for other general examination [...] LAB HEMETOLOGY METHOD 01/26/2025 11:06 AM EDT [facility] ([facility] RBC 2.30(L) 4.50 - 5.50 M/mcL LAB HEMETOLOGY METHOD 01/26/2025 11:06 AM [facility] Hemoglobin 8.4(L) 13.5 - 17.5 g/dL LAB HEMETOLOGY METHOD 01/26/2025 11:06 AM [facility] Hematocrit 25.1(L) 42.0 - 54.0 % LAB HEMETOLOGY METHOD 01/26/2025 11:06 AM [facility] MCV 111.1(H) 79.0 - 98.0 FL LAB HEMETOLOGY METHOD 01/26/2025 11:06 AM [facility] MCH 37.2(H) 27.0 - 32.0 pcg LAB HEMETOLOGY METHOD 01/26/2025 11:06 AM [facility] MCHC 33.5 32.0 - 37.0 g/dL LAB HEMETOLOGY METHOD 01/26/2025 11:06 AM [facility] RDW 15.7(H) 11.0 - 15.0 % LAB HEMETOLOGY METHOD 01/26/2025 11:06 AM [facility] Platelets 55(L) 130 - 400 K/mcL LAB HEMETOLOGY METHOD 01/26/2025 11:06 AM [facility] Comment:reviewed by slide MPV 12.3(H) 7.0 - 11.0 FL LAB HEMETOLOGY METHOD 01/26/2025 11:06 AM [facility] NRBC 0.8 <1.0 % LAB HEMETOLOGY METHOD 01/26/2025 11:06 AM [facility] NRBC Absolute 0.02 <0.10 K/mcL LAB HEMETOLOGY METHOD 01/26/2025 11:06 AM [facility] Neutrophils Relative 41.0 % LAB HEMETOLOGY METHOD 01/26/2025 11:06 AM [facility] Lymphocytes Relative 41.4 % LAB HEMETOLOGY METHOD 01/26/2025 11:06 AM [facility] Monocytes Relative 14.8 % LAB HEMETOLOGY METHOD 01/26/2025 11:06 AM [facility] Eosinophils Relative 1.6 % LAB HEMETOLOGY METHOD 01/26/2025 11:06 AM [facility] Basophils Relative 0.8 % LAB HEMETOLOGY METHOD 01/26/2025 11:06 AM [facility] Immature Granulocytes Relative 0.4 % LAB HEMETOLOGY METHOD 01/26/2025 11:06 AM [facility] Neutrophils Absolute 1.00(L) 1.50 - 7.00 K/mcL LAB HEMETOLOGY METHOD 01/26/2025 11:06 AM [facility] Lymphocytes Absolute 1.01 1.00 - 5.00 K/mcL LAB HEMETOLOGY METHOD 01/26/2025 11:06 AM [facility] Monocytes Absolute 0.36 0.20 - 1.00 K/mcL LAB HEMETOLOGY METHOD 01/26/2025 11:06 AM [facility] Eosinophils Absolute 0.04 0.00 - 0.50 K/mcL LAB HEMETOLOGY METHOD 01/26/2025 11:06 AM [facility] Basophils Absolute 0.02 0.00 - 0.20 K/mcL LAB HEMETOLOGY METHOD 01/26/2025 11:06 AM [facility] Immature Granulocytes Absolute 0.01 0.00 - 0.03 K/mcL LAB HEMETOLOGY METHOD 01/26/2025 11:06 AM [facility] Blood Venous blood specimen / Unknown Venipuncture / Unknown 01/26/2025 6:36 AM EDT 01/26/2025 10:02 AM EDT [facility] LAB BLOOD ORDERABLES Final Resul t Performing Organization Address City/[facility]/ZIP Co de Phone Number [facility] [address] [place] [address], [place] [phone] * Magnesium (01/26/2025 6:36 AM EDT) Pathologist [facility] [place] Magnesium 2.2 1.9 - 2.6 mg/dL LAB CHEMISTRY METHOD 01/26/2025 11:36 AM EDT [facility] Blood Venous blood specimen / Unknown Venipuncture / Unknown 01/26/2025 6:36 AM EDT 01/26/2025 10:02 AM EDT [facility] LAB BLOOD ORDERABLES Final Resul t Performing Organization Address [facility] Co de Phone Number [facility] [address] [place] [address], [place] [phone] * (ABNORMAL) Comprehensive metabolic panel (01/26/2025 6:36 AM EDT) [facility] [address] Sodium 138 133 - 145 mmol/L LAB [...] mg/dL LAB CHEMISTRY METHOD 01/26/2025 11:36 AM [facility] Creatinine 2.12(H) 0.70 - 1.30 mg/dL LAB CHEMISTRY METHOD 01/26/2025 11:36 AM [facility] eGFR 31(L) >=60 mL/min/1. 73m2 LAB CHEMISTRY METHOD 01/26/2025 11:36 AM [facility] Comment:Calculation based on the Chronic Kidney Disease Epidemiology Collaboration (CKD-EPI) equation refit without adjustment for race. BUN/Creatinine Ratio 16.5 LAB CHEMISTRY METHOD 01/26/2025 11:36 AM [facility] Calcium 8.8 8.5 - 10.5 mg/dL LAB CHEMISTRY METHOD 01/26/2025 11:36 AM [facility] AST (SGOT) 18 10 - 42 unit/L LAB CHEMISTRY METHOD 01/26/2025 11:36 AM [facility] ALT (SGPT) 17 10 - 60 unit/L LAB CHEMISTRY METHOD 01/26/2025 11:36 AM [facility] Alkaline Phosphatase 70 42 - 121 unit/L LAB CHEMISTRY METHOD 01/26/2025 11:36 AM [facility] Total Protein 6.8 6.0 - 8.0 g/dL LAB CHEMISTRY METHOD 01/26/2025 11:36 AM [facility] Albumin 3.7 3.2 - 5.0 g/dL LAB CHEMISTRY METHOD 01/26/2025 11:36 AM [facility] Total Bilirubin 1.7(H) 0.0 - 1.4 mg/dL LAB CHEMISTRY METHOD 01/26/2025 11:36 AM [facility] Blood Venous blood specimen / Unknown Venipuncture / Unknown 01/26/2025 6:36 AM EDT 01/26/2025 10:02 AM EDT us Dasia Funes NP LAB BLOOD ORDERABLES Final Resul t [facility] ([facility]) [facility] [address] [place] [address], documented in this encounter Visit Diagnoses Diagnosis Encounter for other general examination documented in this encounter Care Teams Survey Statistician Relationship Specialty Start Date End Date Dasia Funes NP [address] [place] [address] PCP - General Nurse Practitioner 01/26/25 documented as of this encounter
== END ==
LOC: HO.CARD 09:29
PROVIDERS: PCP Internal Medicine; Visit Provider Internal Medicine Medical Oncology
DX: D61.818 Other pancytopenia (principal)
CPT/HCPCS: 88307; 88311; 93306; Q9957

== ENCOUNTER → 2025-04-10 09:35 | Outpatient (BNV) | payer MEDICARE, SELFPAY | PROVIDERS: PCP Internal Medicine; Visit Provider Internal Medicine | DX: I35.0 Nonrheumatic aortic (valve) stenosis (principal) | CPT/HCPCS: 93306 ==